=== PATIENT | male | born 1960 | race Caucasian/White ===

== ENCOUNTER 2021-09-23 15:29 | Inpatient (IN) ==
[2021-09-23] MEDS ORDERED: dexAMETHasone**PF** 10 MG/ML VIAL IV ONE (16:13)
[2021-09-23] MEDS ORDERED: ACETAMINOPHEN 325 MG TAB PO STA (16:13)
--- NOTE | 2021-09-23 16:18 | Emergency Department Note ---
Impression & Plan 2019 novel coronavirus-infected pneumonia (NCIP), Hypoxia, Weakness, Cough ED Provider Note Provider: Surya Vaca MD DATE OF SERVICE: 09/23/2021 CHIEF COMPLAINT: Weakness, cough, shortness of breath HISTORY OF PRESENT ILLNESS: Patient is a 61-year-old gentleman denies past medical problems presenting here today stating he has been sick for approximately 8 days. Is not vaccinated for Covid. Reports he became sick last Friday with some mild head cold type symptoms. Has been having significant cough, myalgias, generalized weakness and worsening shortness of breath over the last several days. Has been using home [id number] cold medicine some Tylenol at times. States has been sleeping more than normal but denies any syncope or falls. States occasional with coughing has been having little bit of upper abdominal pain at times but no tenderness. Patient relates he has had some thick occasional productive secretions with his cough but intermittent. Patient denies a history of smoking. Patient reports he does not follow that closely with a PCP. Last was Dr. Guzman. REVIEW OF SYSTEMS: A total of 10 review of systems was obtained and negative except as stated above in the HPI. 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 NECK: Trachea midline. ENT: Mucous membranes pink and moist. LUNGS: Airway patent. No retractions without significant tachypnea or work of breathing. HEART: Regular tachycardic rate and rhythm. No chest wall tenderness ABDOMEN: Soft and non-tender, without guarding or rebound. SKIN: Acyanotic, warm, dry, without rashes EXTREMITIES: Without swelling, tenderness or deformity NEUROLOGICAL: No focal deficits. No aphasia. No facial droop or slurred speech. EK bpm sinus tachycardia. No PVC or PAC. No acute ST segment elevation or depression. QTC 423. CONTINUOUS CARDIAC MONITORING: was ordered and showed a heart rate of 90s to 110s bpm in normal sinus rhythm to sinus tachycardia Patient's laboratory studies and imaging reviewed. Differential includes Infection, dehydration, metabolic abnormality, hypo/hyperglycemia, electrolyte disturbance, anemia, hypoxia, cardiac sources, intracerebral event, toxicologic, neurologic, as well as other pathologies. IMPRESSION/MEDICAL DECISION MAKING: Patient with nonspecific viral type symptoms and URI symptoms with shortness of breath found to be mildly hypoxic in the high 80s at rest unvaccinated for Covid. Covid test sent as this is the likely diagnosis. X-ray and basic labs ordered. Not having active chest pain and no abdominal tenderness. Doubt acute intra-abdominal pathology with this. Given some steroid for presumed Covid hypoxia. Due to volume of patients in the emergency department initially seen in a sub wait. Titrated on nasal cannula oxygen given his hypoxia. Blood work with mild leukopenia and slight AST elevation consistent with viral syndrome of Covid. Troponin not elevated. No severe electrolyte abnormality noted. X-ray per my review and radiology report with evidence of some diffuse viral findings but no consolidative pneumonia or pneumothorax or significant pleural effusion noted. Covid positive. Patient again with oxygen requirement. Given again steroid and some Tylenol here. Discussed with him further care here at the hospital. Hospitalist was consulted. DIAGNOSIS: COVID-19 pneumonia, hypoxia, weakness DISPOSITION: Hospitalist will evaluate Patient was agreeable with this plan. Past Med/Surg History Medical History (Updated 09/23/21 @ 18:19 by Jose Francis MD) No pertinent past medical history Surgical History (Updated 09/23/21 @ 18:01 by Jose Francis MD) History of hand surgery traumatic chainsaw injury to left hand History of knee surgery prior lefttraumatic knee injury Social History Smoking Status: Never smoker Feels Safe at Home: Yes Allergies Allergies Allergy/AdvReac Type Severity Reaction Status Date / Time No Known Drug Allergies Allergy Verified 09/23/21 17:57 Home Meds Home Medications Medication Instructions Recorded Confirmed No Known Home Medications 09/23/21 09/23/21 Results & Data (ED) Vital Signs Vital Signs - 24 hr 09/23/21 15:35 09/23/21 16:29 09/23/21 17:29 Temperature 37.6 C H Temperature Source Temporal Artery Scan Pulse Rate 109 H Pulse Rate [Apical] 90 Respiratory Rate 20 20 Respiratory Effort / Characteristics Non-Labored Spontaneous Respiratory Depth Normal Respiratory Pattern Regular Blood Pressure 135/75 Blood Pressure [Right Arm] 129/88 Blood Pressure Mean 95 Blood Pressure Mean [Right Arm] 101 Pulse Oximetry 88 L 94 Oxygen Delivery Method Room Air Room Air Nasal Cannula Oxygen Flow Rate 4 Sepsis Recent Fever Within 48 Hours No Sepsis New/Unexplained Change in Mental Status No Sepsis Action Taken by Nursing No Action Required 09/23/21 18:27 Temperature Temperature Source Pulse Rate Pulse Rate [Apical] 94 H Respiratory Rate 18 Respiratory Effort / Characteristics Respiratory Depth Respiratory Pattern Blood Pressure Blood Pressure [Right Arm] 123/73 Blood Pressure Mean Blood Pressure Mean [Right Arm] 89 Pulse Oximetry 94 Oxygen Delivery Method Nasal Cannula Oxygen Flow Rate 4 Sepsis Recent Fever Within 48 Hours Sepsis New/Unexplained Change in Mental Status Sepsis Action Taken by Nursing Laboratory Data Result diagrams: 09/23/21 16:23 09/23/21 16:23 Lab Results 09/23/21 09/23/21 09/23/21 Range/Units 16:23 16:23 16:23 WBC 3.33 L (4.8-10.8) K/uL RBC 5.53 (4.7-6.1) M/uL Hgb 17.9 (14.0-18.0) g/dL Hct 51.3 (42-52) % MCV 92.8 (80-100) fL MCH 32.4 (25-34) pg MCHC 34.9 (32-36) g/dL RDW Std Deviation 43.1 (36.4-46.3) fL RDW Coeff of James 12.6 (11.5-14.5) % Plt Count 104 L (130-400) K/uL MPV 10.8 H (7.4-10.4) fL Immature Gran % (Auto) 0.0 % Neut % (Auto) 75.4 % Lymph % (Auto) 18.0 % [place] % (Auto) 6.6 % Eos % (Auto) 0.0 % Baso % (Auto) 0.0 % Neut # (Auto) 2.51 (1.4-6.5) K/uL Lymph # (Auto) 0.60 L (1.2-3.4) K/uL [place] # (Auto) 0.22 (0.11-0.59) K/uL Eos # (Auto) 0.00 (0-0.5) K/uL Baso # (Auto) 0.00 (0-0.2) K/uL Immature Gran # (Auto) 0.00 (0.00-0.02) K/uL Sodium 136 (136-145) mmol/L Potassium 4.2 (3.5-5.1) mmol/L Chloride 102 (98-107) mmol/L Carbon Dioxide 25 (21-32) mmol/L Anion Gap 9.0 (3-11) BUN 21 H (7-18) mg/dl Creatinine 1.33 (0.6-1.4) mg/dl Est Cr Clr Drug Dosing 59.7 ml/min Est GFR ( Amer) 66.4 ml/min Est GFR (Non-Af Amer) 57.3 ml/min BUN/Creatinine Ratio 15.8 (10-20) Glucose 133 H (70-99) mg/dl Calcium 9.3 (8.5-10.1) mg/dl Total Bilirubin 0.4 (0.2-1) mg/dl AST 40 H (15-37) U/L ALT 39 (12-78) Alkaline Phosphatase 49 (45-117) U/L Troponin I < 0.015 (0-0.045) ng/ml C-Reactive Protein 2.36 H (0-0.29) mg/dl Total Protein 7.5 (6.4-8.2) gm/dl Albumin 3.4 (3.4-5.0) gm/dl Globulin 4.1 H (2.5-4.0) gm/dl Albumin/Globulin Ratio 0.8 L (0.9-2) Procalcitonin 0.22 (0-0.5) ng/ml TSH 3.530 (0.300-4.500) uIu/ml SARS-CoV-2, RNA, NAAT (NEGATIVE) 09/23/21 Range/Units 16:56 WBC (4.8-10.8) K/uL RBC (4.7-6.1) M/uL Hgb (14.0-18.0) g/dL Hct (42-52) % MCV (80-100) fL MCH (25-34) pg MCHC (32-36) g/dL RDW Std Deviation (36.4-46.3) fL RDW Coeff of James (11.5-14.5) % Plt Count (130-400) K/uL MPV (7.4-10.4) fL Immature Gran % (Auto) % Neut % (Auto) % Lymph % (Auto) % [place] % (Auto) % Eos % (Auto) % Baso % (Auto) % Neut # (Auto) (1.4-6.5) K/uL Lymph # (Auto) (1.2-3.4) K/uL [place] # (Auto) (0.11-0.59) K/uL Eos # (Auto) (0-0.5) K/uL Baso # (Auto) (0-0.2) K/uL Immature Gran # (Auto) (0.00-0.02) K/uL Sodium (136-145) mmol/L Potassium (3.5-5.1) mmol/L Chloride (98-107) mmol/L Carbon Dioxide (21-32) mmol/L Anion Gap (3-11) BUN (7-18) mg/dl Creatinine (0.6-1.4) mg/dl Est Cr Clr Drug Dosing ml/min Est GFR ( Amer) ml/min Est GFR (Non-Af Amer) ml/min BUN/Creatinine Ratio (10-20) Glucose (70-99) mg/dl Calcium (8.5-10.1) mg/dl Total Bilirubin (0.2-1) mg/dl AST (15-37) U/L ALT (12-78) Alkaline Phosphatase (45-117) U/L Troponin I (0-0.045) ng/ml C-Reactive Protein (0-0.29) mg/dl Total Protein (6.4-8.2) gm/dl Albumin (3.4-5.0) gm/dl Globulin (2.5-4.0) gm/dl Albumin/Globulin Ratio (0.9-2) Procalcitonin (0-0.5) ng/ml TSH (0.300-4.500) uIu/ml SARS-CoV-2, RNA, NAAT POSITIVE A* (NEGATIVE) Administered Medications Discontinued Medications Acetaminophen (Acetaminophen 325 Mg Tab) 650 mg PO NOW STA Stop: 09/23/21 16:14 Last Admin: 09/23/21 17:17 Dose: 650 mg Documented by: [id number] Dexamethasone Sodium Phosphate (DexamethasonePf 10 Mg/Ml Vial) 6 mg IV NOW ONE Stop: 09/23/21 16:14 Last Admin: 09/23/21 17:17 Dose: 6 mg Documented by: [id number] Imaging Data Radiologist's Impression: Chest X-Ray 09/23/21 16:13 XR chest 1V portable HISTORY: 61 years-old Male weakness, sob, hypoxia, myalgia acute weakness COMPARISON: None TECHNIQUE: Semierect AP view of the chest FINDINGS: Cardiac silhouette is enlarged. Interstitial coarsening with ill-defined airspace opacities within the mid to lower lung zones. No pneumothorax or large pleural effusion. Mild blunting of the costophrenic angles. Degenerative changes of the shoulders and spine. IMPRESSION: 1. Ill-defined opacities within the mid to lower lung zones are suspicious for an infectious or inflammatory pneumonitis. 2. Cardiomegaly. ACT 112: Negative or not required by law. The above report was generated using voice recognition software. It may contain grammatical, syntax or spelling errors. Electronically signed by: Lance Dawkins M.D. 09/23/2021 5:07 PM Discharge Plan Visit Data Chief Complaint: Headache Stated Complaint: HEADACHE/ACHEY/CAN'T EAT/FEVER/CHILLS ED Provider: Surya Vaca Discharge Problem: 2019 novel coronavirus-infected pneumonia (NCIP), Hypoxia, Weakness, Cough Patient Disposition: Being Evaluated by Hospitalist Forms Stand Alone Forms: [facility] Prescriptions Prescriptions: No Action No Known Home Medications RF: 0 Referrals Referrals: PCP,NO [Primary Care Provider] -
[2021-09-23 16:33] LABS: Hematocrit (blood only) 51.3 % (42-52); Hemoglobin 17.9 g/dL (14.0-18.0); Mean Corpuscular Hemoglobin 32.4 pg (25-34); Mean Corpuscular Hgb Conc 34.9 g/dL (32-36); Mean Corpuscular Volume 92.8 fL (80-100); Mean Platelet Volume 10.8 fL (7.4-10.4); Monocytes # (auto) 0.22 K/uL (0.11-0.59); Monocytes % (auto) 6.6 %; Neutrophils # (auto) 2.51 K/uL (1.4-6.5); Neutrophils % (auto) 75.4 %; Platelet Count 104 K/uL (130-400); RDW Coefficient of Variation 12.6 % (11.5-14.5); RDW Standard Deviation 43.1 fL (36.4-46.3); Red Blood Count 5.53 M/uL (4.7-6.1); White Blood Count 3.33 K/uL (4.8-10.8)
[2021-09-23 16:50] LABS: Alanine Aminotransferase 39 (12-78); Albumin Level 3.4 gm/dl (3.4-5.0); Aspartate Aminotransferase 40 U/L (15-37); BUN Creatinine Ratio 15.8 (10-20); Blood Urea Nitrogen 21 mg/dl (7-18); Calcium 9.3 mg/dl (8.5-10.1); Carbon Dioxide 25 mmol/L (21-32); Chloride 102 mmol/L (98-107); Creatinine Clr Calc Pharmacy 59.7 ml/min; Est GFR (African American) 66.4 ml/min; Est GFR (Non-African American) 57.3 ml/min; Glucose 133 mg/dl (70-99); Potassium 4.2 mmol/L (3.5-5.1); Sodium 136 mmol/L (136-145)
[2021-09-23 17:01] LABS: Albumin Globulin Ratio 0.8 (0.9-2); Alkaline Phosphatase 49 U/L (45-117); Bilirubin,Total 0.4 mg/dl (0.2-1); Globulin 4.1 gm/dl (2.5-4.0); Total Protein 7.5 gm/dl (6.4-8.2); Troponin I < 0.015 ng/ml (0-0.045)
--- NOTE | 2021-09-23 17:08 | XRay Report ---
XR chest 1V portable HISTORY: 61 years-old Male weakness, sob, hypoxia, myalgia acute weakness COMPARISON: None TECHNIQUE: Semierect AP view of the chest FINDINGS: Cardiac silhouette is enlarged. Interstitial coarsening with ill-defined airspace opacities within th e mid to lower lung zones. No pneumothorax or large pleural effusion. Mild blunting of the costophren ic angles. Degenerative changes of the shoulders and spine. IMPRESSION: 1. Ill-defined opacities within the mid to lower lung zones are suspicious for an infectious or infla mmatory pneumonitis. 2. Cardiomegaly. ACT 112: Negative or not required by law. The above report was generated using voice recognition software. It may contain grammatical, syntax o r spelling errors. Electronically signed by: Lance Dawkins M.D. 09/23/2021 5:07 PM
--- NOTE | 2021-09-23 17:47 | History & Physical Report ---
Date of Service September 23, 2021 Assessment & Plan (1) 2019 novel coronavirus-infected pneumonia (NCIP): Plan: Day 9 of illness on admission Unvaccinated COVID isolation Encourage proning as able Dexamethasone 6mg IV daily (2) Acute respiratory failure with hypoxia: Plan: Secondary to COVID-19 pneumonia Currently maintaining O2 sats >90% on 4LPM Plan: VTE Prophylaxis - Lovenox 40mg SQ daily Diet - regular Disposition - admit to med/surg, COVID isolation, low tolerance to transfer to med/tele/PCU as likely will get worse prior to any improvement Admission and Anticipated Discharge Date Admission Date: September 23, 2021 History of Present Illness Chief Complaint: COVID-19 symptoms Primary Care Provider: NO PCP Bunny Rizvi is a 61 year old male who presents to the ER with COVID-19 symptoms for the last 9 days. He reports shortness of breath, non-productive cough, weakness, diarrhea (last couple of days) and poor appetite. He denies any chest or abdominal pain. He is unvaccinated. No prior testing or treatment. He is currently without a PCP but was previously under Dr Guzman 2 years ago and not found a doctor since he left. He reports no chronic medical problems and is on no regular medications. In the ER SARS COV-2 PCR positive. He is currently maintaining O2 sats > 90% on 4LPM O2 via nasal cannula. He received 6mg IV dexamethasone and was referred to medicine for admission and ongoing management of COVID-19 pneumonia. Allergies Allergy/AdvReac Type Severity Reaction Status Date / Time No Known Drug Allergies Allergy Verified 09/23/21 17:57 Home Medications Medication Instructions Recorded Confirmed Type No Known Home Medications 09/23/21 09/23/21 History Past Med/Surg History Medical History (Updated 09/23/21 @ 18:19 by Jose Francis MD) No pertinent past medical history Surgical History (Updated 09/23/21 @ 18:01 by Jose Francis MD) History of hand surgery traumatic chainsaw injury to left hand History of knee surgery prior lefttraumatic knee injury Social History Smoking Status: Never smoker Do You Dip or Chew Tobacco: Yes; Hx Alcohol Use: No Hx Substance Use: No Preferred Language: Yi Communication Ability: Effective 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 Beliefs That Will Affect Care: None Current Living Situation Comment: LIVES WITH SON RICH Feels Safe at Home: Yes Assistive Devices: Glasses and Hearing Aid - Bilateral Review of Systems Review of Systems: All systems reviewed & are unremarkable except as noted in HPI & below Physical Exam Constitutional: WD/WN, vitals as above Eyes: + anicteric sclerae; normal pupil size ENMT: external ear and nose normal, oropharynx normal Neck: trachea midline, no thyromegaly Respiratory: normal respiratory effort; no respiratory distress Auscultation: + crackles (fine, bibasal); no diminished lung sounds Cardiovascular: RRR, no murmur, no edema Gastrointestinal (Abdomen): Inspection/Auscultation: normal bowel sounds Percussion/Palpation: abdomen soft; abdomen nontender, no guarding and abdomen not rigid Musculoskeletal: no cyanosis or clubbing, extremities motor strength 5/5 Skin: no rashes, warm and dry Neurologic: moves all extremities and awake; not confused Psychiatric: A+Ox3, euthymic affect Genitourinary: no CVA tenderness Results & Data Results & Data ([facility]) Vital Signs (Past 12 Hours) Vital Signs Temp Pulse Resp BP Pulse Ox 09/23/21 15:35 37.6 C H 109 H 20 135/75 88 L Laboratory Results Abnormal lab results 09/23/21 09/23/21 09/23/21 Range/Units 16:23 16:23 16:56 WBC 3.33 L (4.8-10.8) K/uL Plt Count 104 L (130-400) K/uL MPV 10.8 H (7.4-10.4) fL Lymph # (Auto) 0.60 L (1.2-3.4) K/uL BUN 21 H (7-18) mg/dl Glucose 133 H (70-99) mg/dl AST 40 H (15-37) U/L C-Reactive Protein 2.36 H (0-0.29) mg/dl Globulin 4.1 H (2.5-4.0) gm/dl Albumin/Globulin Ratio 0.8 L (0.9-2) SARS-CoV-2, RNA, NAAT POSITIVE A* (NEGATIVE) Diagnostic Findings XR chest 1V portable HISTORY: 61 years-old Male weakness, sob, hypoxia, myalgia acute weakness COMPARISON: None TECHNIQUE: Semierect AP view of the chest FINDINGS: Cardiac silhouette is enlarged. Interstitial coarsening with ill-defined airspace opacities within the mid to lower lung zones. No pneumothorax or large pleural effusion. Mild blunting of the costophrenic angles. Degenerative changes of the shoulders and spine. IMPRESSION: 1. Ill-defined opacities within the mid to lower lung zones are suspicious for an infectious or inflammatory pneumonitis. 2. Cardiomegaly. Medications Administered ER Medications Given: Acetaminophen 650mg PO Dexamethasone 6mg IV Code Status & VTE Plan Code Status Full VTE Prophylaxis Plan VTE Prophylaxis will be ordered: Yes PG Care Time/CCT Total # of Minutes Spent Total Time Spent with Patient: Total time spent is greater than 50% in coordination of care (as documented) at patient's floor/unit and/or counseling patient: Coding Level of Care Code 14142 Initial Inpt Care Lvl 2 Diagnoses 2019 novel coronavirus-infected pneumonia (NCIP) U07.1; J12.82 Acute respiratory failure with hypoxia J96.01
[2021-09-23 18:11] LABS: C Reactive Protein 2.36 mg/dl (0-0.29)
[2021-09-23] MEDS ORDERED: ONDANSETRON INJ 2 MG/ML 2 ML VIAL IV PRN (21:10)
[2021-09-23] MEDS ORDERED: POLYETHYLENE (MIRALAX) 17 GM PACK PO PRN (21:10)
[2021-09-23] MEDS ORDERED: ALUMINUM/MAGNESIUM SUSP 30 ML UDC PO PRN (21:10)
[2021-09-23] MEDS ORDERED: ENOXAPARIN INJ 40 MG/0.4 ML SYR SQ SCH (21:30)
[2021-09-23] MEDS ORDERED: FLUARIX QUADRIVALENT 0.5 ML SYR IM ONE (21:33)
[2021-09-24] MEDS ORDERED: ALBUTEROL HFA 8 GM INHALER INH ONE (01:51)
[2021-09-24 02:33] LABS: Appearance Urine Clear (Clear); Bacteria Urine Automated Negative (Negative); Bilirubin Urine Negative (Negative); Blood Urine Negative (Negative); Color Urine Dark Yellow; Glucose Urine UA 2+ (Negative); Ketones Urine 1+ (Negative); Leukocyte Esterase Urine Negative (Negative); Nitrite Urine Negative (Negative); Protein Urine 2+ (Negative); RBC Urine Automated 0-4 /hpf (0-4); Specific Gravity Urine 1.027 (1.000-1.030); Urobilinogen Urine Negative (Negative)
[2021-09-24] MEDS ORDERED: FUROSEMIDE INJ 20 MG/2 ML VIAL IV ONE (10:30)
[2021-09-24] MEDS: dexAMETHasone 6 MG in SYRINGE 0 ML IV SCH (10:54)
[2021-09-24] MEDS: ENOXAPARIN INJ 40 MG/0.4 ML SYR SQ SCH ×2 (11:16→21:03)
[2021-09-24] MEDS: ASCORBIC ACID 500 MG TAB PO SCH (11:16)
[2021-09-24] MEDS: FAMOTIDINE 20 MG TAB PO SCH ×2 (11:16→21:02)
[2021-09-24] MEDS: MONTELUKAST SODIUM 10 MG TABLET PO SCH (11:16)
[2021-09-24] MEDS: ZINC SULFATE 220 MG CAPSULE PO SCH (11:16)
--- NOTE | 2021-09-24 12:50 | Hospitalist Progress Note ---
Date of Service September 24, 2021 Assessment & Plan (1) 2019 novel coronavirus-infected pneumonia (NCIP): Plan: - presented on day #9 of symptoms onset - unvaccinated - mild leukopenia and thrombocytopenia upon arrival (3.33/104 respectively) - does not qualify for Remdesivir (given too far into symptoms course) - decadron (days #2) - CRP 2.36. does not qualify for baricitinib or tocilizumab - I have encouraged proning - continue O2 supplementation to maintain pulse ox >/=99% - mucolytic agents and antitussives prn - pepcid/singulair added (GI prophylaxis and ? help with immune response cascade) along with vitamin C and zinc for immune support - lasix trials (2) Acute respiratory failure with hypoxia: Plan: Secondary to COVID-19 pneumonia - see above. goal pulse ox >/=88% - lengthy D/W patient regarding importance of NOT taking his O2 off (as did desaturate into the 70's when talking on the phone today with O2 off) Plan: VTE Prophylaxis - Lovenox 40mg SQ bid plan os care to be d/W Dr. Alexis Admission and Anticipated Discharge Date Admission Date: September 23, 2021 Subjective Patient seen on daily rounds today. Vocalizes no significant complaints or concerns. Admitted yesterday with Covid. Chest x-ray showed ill-defined opacities on imaging. Pulse ox was 88% on room air. When seen this morning, he had taken his oxygen off and was talking on the phone. While at rest his pulse ox remained 88 to 90% but while talking, he did desaturate into the 70s. He denies shortness of breath. Denies fevers, chills, chest pain, orthopnea, PND, abdominal pain, nausea or vomiting. Nursing voices no complaints or concerns. Review of Systems Review of Systems: All systems reviewed and are unremarkable except as noted in HPI and below Denies fevers, chills, headache, nasal congestion, sore throat, cough, chest pain, shortness of breath, palpitations, orthopnea, PND, abdominal pain, nausea, vomiting, diarrhea, constipation, dysuria, hematuria, frequency, back pain, joint pain or swelling, easy bruising or bleeding, skin lesions or rashes. Physical Exam Physical Exam: General: Resting comfortably in his hospital bed. NAD. HEENT: Head is AT/NC buccal mucosa is moist and pink Neck: No JVD. Negative hepatojugular reflex Cardiac: RRR without M/G/R Lungs: Speaking full sentences on supplemental oxygen. No accessory muscle use and breathing is nonlabored. Good air exchange throughout with coarse scattered rhonchi that mobilizes with coughing Abdomen: Normoactive X4. Soft and nontender in all quadrants. Extremities: No peripheral clubbing cyanosis or edema Neuro: A&O X4 cranial nerves II through XII are grossly intact no focal neuro deficits Skin: No obvious skin lesions or rashes Psych: Appropriate affect pleasant and cooperative Results & Data Results & Data ([facility]) Vital Signs (Past 12 Hours) Vital Signs Temp Pulse Resp BP Pulse Ox 09/24/21 08:14 36.5 C 78 20 123/88 94 09/24/21 03:16 65 26 H 93 09/24/21 02:28 93 Laboratory Results 09/23/21 16:23 09/23/21 16:23 PG Care Time/CCT Total # of Minutes Spent Total Time Spent with Patient: Total time spent is greater than 50% in coordination of care (as documented) at patient's floor/unit and/or counseling patient: Coding Level of Care Code 59686 Subseq Hosp Care Lvl 2 Diagnoses 2019 novel coronavirus-infected pneumonia (NCIP) U07.1; J12.82 Acute respiratory failure with hypoxia J96.01
[2021-09-24] MEDS: ACETAMINOPHEN 325 MG TAB PO PRN (21:14)
[2021-09-24] MEDS: BENZONATATE 100 MG CAPSULE PO PRN (21:15)
[2021-09-25 06:18] LABS: Hematocrit (blood only) 50.5 % (42-52); Hemoglobin 17.3 g/dL (14.0-18.0); Immature Granulocytes # (auto) 0.01 K/uL (0.00-0.02); Immature Granulocytes % (auto) 0.1 %; Lymphocytes # (auto) 0.64 K/uL (1.2-3.4); Lymphocytes % (auto) 9.4 %; Mean Corpuscular Hemoglobin 31.7 pg (25-34); Mean Corpuscular Hgb Conc 34.3 g/dL (32-36); Mean Corpuscular Volume 92.5 fL (80-100); Mean Platelet Volume 10.8 fL (7.4-10.4); Monocytes # (auto) 0.48 K/uL (0.11-0.59); Neutrophils # (auto) 5.69 K/uL (1.4-6.5); Neutrophils % (auto) 83.5 %; Platelet Count 134 K/uL (130-400); RDW Coefficient of Variation 12.7 % (11.5-14.5); RDW Standard Deviation 42.9 fL (36.4-46.3); Red Blood Count 5.46 M/uL (4.7-6.1); White Blood Count 6.82 K/uL (4.8-10.8)
[2021-09-25] MEDS: ACETAMINOPHEN 325 MG TAB PO PRN ×2 (06:46→21:41)
[2021-09-25] MEDS: BENZONATATE 100 MG CAPSULE PO PRN ×3 (06:47→21:41)
[2021-09-25 06:51] LABS: Albumin Level 2.9 gm/dl (3.4-5.0); Est GFR (African American) 69.5 ml/min; Potassium 4.3 mmol/L (3.5-5.1)
[2021-09-25 07:50] LABS: Albumin Globulin Ratio 0.7 (0.9-2); Bilirubin,Total 0.3 mg/dl (0.2-1); Globulin 4.3 gm/dl (2.5-4.0); Total Protein 7.2 gm/dl (6.4-8.2)
[2021-09-25] MEDS: ASCORBIC ACID 500 MG TAB PO SCH (08:58)
[2021-09-25] MEDS: ZINC SULFATE 220 MG CAPSULE PO SCH (08:58)
[2021-09-25] MEDS: ENOXAPARIN INJ 40 MG/0.4 ML SYR SQ SCH ×2 (08:58→21:24)
[2021-09-25] MEDS: FAMOTIDINE 20 MG TAB PO SCH ×2 (08:58→21:24)
[2021-09-25] MEDS: MONTELUKAST SODIUM 10 MG TABLET PO SCH (08:58)
[2021-09-25] MEDS: dexAMETHasone 6 MG in SYRINGE 0 ML IV SCH (09:22)
[2021-09-25 09:28] LABS: Magnesium 2.6 mg/dl (1.8-2.4)
[2021-09-25] MEDS ORDERED: GLUCAGON FOR INJ 1 MG VIAL SQ PRN (11:38)
[2021-09-25] MEDS ORDERED: GLUCOSE 40% GEL 15 GM TUBE PO PRN (11:38)
[2021-09-25] MEDS ORDERED: CARBOHYDRATES FOR HYPOGLYCEMIA PO PRN (11:38)
[2021-09-25] MEDS ORDERED: DEXTROSE 50% 50 ML SYRINGE IV PRN (11:38)
[2021-09-25] MEDS ORDERED: FUROSEMIDE INJ 20 MG/2 ML VIAL IV ONE (11:38)
[2021-09-25] MEDS ORDERED: GLUCOSE 10 TABS/TUBE PO PRN (11:38)
[2021-09-25 13:02] LABS: Estimated Average Glucose 154 mg/dl
--- NOTE | 2021-09-25 15:15 | Hospitalist Progress Note ---
Date of Service September 25, 2021 Assessment & Plan (1) 2019 novel coronavirus-infected pneumonia (NCIP): Plan: - presented on day #9 of symptoms onset - unvaccinated - mild leukopenia and thrombocytopenia upon arrival (3.33/104 respectively)--> has since resolved - does not qualify for Remdesivir (given too far into symptoms course) - decadron (days #3) - CRP 2.36. does not qualify for baricitinib or tocilizumab - I have encouraged proning - continue O2 supplementation to maintain pulse ox >/=99% (again, lengthy discussion with patient that he cannot just take his oxygen off). He remains on a facemask. We will transition over to nasal cannula for convenience. This was done during my exam today and on 6 L, pulse ox remained in the mid 90s. Staff encouraged to continue to down titrate his supplemental oxygen to maintain a pulse ox of 90% - mucolytic agents and antitussives prn - pepcid/singulair added (GI prophylaxis and ? help with immune response c ascade) along with vitamin C and zinc for immune support -Continue lasix trials (2) Acute respiratory failure with hypoxia: Plan: Secondary to COVID-19 pneumonia - see above. goal pulse ox >/=88% - lengthy D/W patient regarding importance of NOT taking his O2 off (as did desaturate into the 70's when talking on the phone without supplemental O2) Plan: VTE Prophylaxis - Lovenox 40mg SQ bid plan os care to be d/W Dr. Alexis Admission and Anticipated Discharge Date Admission Date: September 23, 2021 Subjective Patient seen on daily rounds today. Vocalizes no significant complaints or concerns. When seen this morning, remains on facemask at 7 to 8 L. Pulse ox 96%. Has been "taking it off to eat". Claims that his oxygen levels "are okay". Unable to tell me exactly what they do when he is on room air. He does feel winded. He is complaining of some mild dizziness when he sits. Still with a cough that seems loose but nonproductive. Otherwise, denies fevers, chills, chest pain, abdominal pain, nausea or vomiting. Review of Systems Review of Systems: All systems reviewed and are unremarkable except as noted in HPI and below Denies fevers, chills, headache, nasal congestion, sore throat, cough, chest pain, shortness of breath, palpitations, orthopnea, PND, abdominal pain, nausea, vomiting, diarrhea, constipation, dysuria, hematuria, frequency, back pain, joint pain or swelling, easy bruising or bleeding, skin lesions or rashes. Physical Exam Physical Exam: General: Resting comfortably in his hospital bed. He does not appear ill or toxic. NAD. HEENT: Head is AT/NC buccal mucosa is moist and pink Neck: No JVD. Negative hepatojugular reflex Cardiac: RRR Lungs: Breathing is nonlabored. Speaking full sentences without conversational dyspnea. Diminished breath sounds throughout with coarse scattered rhonchi that mobilizes with coughing. Otherwise no wheezes or rales. Abdomen: Normoactive X4. Soft and nontender in all quadrants. Extremities: No peripheral clubbing cyanosis or edema Neuro: A&O X4 cranial nerves II through XII are grossly intact no focal neuro deficits Skin: No obvious skin lesions or rashes Psych: Appropriate affect pleasant and cooperative Results & Data Results & Data ([facility]) Vital Signs (Past 12 Hours) Vital Signs Temp Pulse Resp BP Pulse Ox 09/25/21 12:20 94 09/25/21 07:55 36.8 C 79 16 132/92 95 Laboratory Results 09/25/21 05:56 09/25/21 05:56 PG Care Time/CCT Total # of Minutes Spent Total Time Spent with Patient: Total time spent is greater than 50% in coordination of care (as documented) at patient's floor/unit and/or counseling patient: Coding Level of Care Code 44512 Subseq Hosp Care Lvl 2 Diagnoses 2019 novel coronavirus-infected pneumonia (NCIP) U07.1; J12.82 Acute respiratory failure with hypoxia J96.01
[2021-09-25] MEDS: INSULIN ASPART PER UNIT SC SCH ×2 (18:04→21:30)
--- NOTE | 2021-09-25 21:55 | Electrocardiogram Report ---
Test Reason : Blood Pressure : / mmHG Vent. Rate : 108 BPM Atrial Rate : 108 BPM P-R Int : 154 ms QRS Dur : 088 ms QT Int : 316 ms P-R-T Axes : 045 -13 043 degrees QTc Int : 423 ms Sinus tachycardia Minimal voltage criteria for LVH, may be normal variant Borderline ECG No previous ECGs available Confirmed by Dandre William ([id number]) on 09/25/2021 9:55:50 PM Referred By: REFERRED SELF Confirmed By:Dandre William
[2021-09-26 06:14] LABS: Hematocrit (blood only) 51.6 % (42-52); Hemoglobin 17.8 g/dL (14.0-18.0); Immature Granulocytes # (auto) 0.02 K/uL (0.00-0.02); Immature Granulocytes % (auto) 0.3 %; Lymphocytes # (auto) 0.64 K/uL (1.2-3.4); Lymphocytes % (auto) 8.1 %; Mean Corpuscular Hemoglobin 31.8 pg (25-34); Mean Corpuscular Hgb Conc 34.5 g/dL (32-36); Mean Corpuscular Volume 92.3 fL (80-100); Mean Platelet Volume 10.9 fL (7.4-10.4); Monocytes # (auto) 0.53 K/uL (0.11-0.59); Monocytes % (auto) 6.7 %; Neutrophils # (auto) 6.68 K/uL (1.4-6.5); Neutrophils % (auto) 84.9 %; Platelet Count 138 K/uL (130-400); RDW Coefficient of Variation 12.6 % (11.5-14.5); RDW Standard Deviation 42.8 fL (36.4-46.3); Red Blood Count 5.59 M/uL (4.7-6.1); White Blood Count 7.87 K/uL (4.8-10.8)
[2021-09-26 06:59] LABS: Albumin Level 2.9 gm/dl (3.4-5.0); BUN Creatinine Ratio 26.5 (10-20); Calcium 9.3 mg/dl (8.5-10.1); Est GFR (African American) 73.7 ml/min; Est GFR (Non-African American) 63.6 ml/min; Potassium 4.4 mmol/L (3.5-5.1)
[2021-09-26 07:00] LABS: Albumin Globulin Ratio 0.7 (0.9-2); Bilirubin,Total 0.5 mg/dl (0.2-1); Globulin 4.4 gm/dl (2.5-4.0); Total Protein 7.3 gm/dl (6.4-8.2)
--- NOTE | 2021-09-26 08:02 | XRay Report ---
XR chest 1V portable CLINICAL HISTORY: worsening hypoxia TECHNIQUE: Single frontal radiograph of the chest was obtained. Comparison: Comparison is made to chest one view 09/23/2021 FINDINGS: No lines and tubes are seen. The cardiomediastinal silhouette is stable. Multifocal airspace opacitie s are seen. No evidence of pleural effusion or pneumothorax. IMPRESSION: Worsening multifocal airspace opacities compatible with pneumonia. ACT 112: Negative or not required by law. Electronically signed by: Ramiro Jackson M.D. 09/26/2021 8:01 AM
[2021-09-26] MEDS: INSULIN ASPART PER UNIT SC SCH ×4 (09:13→21:36)
[2021-09-26] MEDS: dexAMETHasone 6 MG in SYRINGE 0 ML IV SCH (09:13)
[2021-09-26] MEDS: FAMOTIDINE 20 MG TAB PO SCH ×2 (09:14→21:32)
[2021-09-26] MEDS: MONTELUKAST SODIUM 10 MG TABLET PO SCH (09:14)
[2021-09-26] MEDS: ASCORBIC ACID 500 MG TAB PO SCH (09:15)
[2021-09-26] MEDS: ENOXAPARIN INJ 40 MG/0.4 ML SYR SQ SCH ×2 (09:15→21:32)
[2021-09-26] MEDS: ZINC SULFATE 220 MG CAPSULE PO SCH (09:15)
[2021-09-26] MEDS ORDERED: FUROSEMIDE INJ 20 MG/2 ML VIAL IV ONE (12:45)
[2021-09-26] MEDS: BENZONATATE 100 MG CAPSULE PO PRN ×2 (13:38→21:37)
[2021-09-26] MEDS: ACETAMINOPHEN 325 MG TAB PO PRN ×2 (13:38→21:37)
[2021-09-26] MEDS ORDERED: OPTIRAY 320 125ml IV ONE (14:23)
--- NOTE | 2021-09-26 14:32 | CT Scan Report ---
CT angio chest PE protocol CLINICAL HISTORY: Shortness of breath. Covid positive. Evaluate for pulmonary embolus COMPARISON STUDY: Portable chest from 09/26/2021 CT DOSE: 534.20 mGycm TECHNIQUE: CT Angio of the chest was performed.followed by image post processing with coronal, and s agittal MIP reformats. Contrast Volume: Optiray 320, 120 ml FINDINGS: Vasculature: There is homogeneous perfusion of the pulmonary vasculature bilaterally. No intraluminal filling defects or evidence for pulmonary embolus is seen. Airway: The airway is clear. No endobronchial lesion is identified. Lungs: Extensive groundglass opacities are present throughout both lungs characteristic of a viral ty pe pneumonitis and Covid 19 pneumonia. The lungs are otherwise clear of confluent alveolar opacities, air bronchograms or pulmonary nodules. Pleura: There is no evidence for pleural effusion. There is no evidence for pneumothorax. Mediastinum: There is no evidence for pathologic adenopathy. The heart size is within normal limits. The thoracic aorta is within normal limits. There is no evidence for pericardial effusion. Upper abdomen:The adrenal glands are normal bilaterally. There is evidence for small sliding-type hia kristy hernia. There are also sharply defined low-attenuation lesions within the liver which probably re present hepatic cysts. However, they're incompletely evaluated by this study. Osseous structures: There is no acute osseous pathology. Impression: 1. No CTA evidence for pulmonary embolus. 2. Extensive groundglass opacities are present throughout both lungs characteristic of a viral type p neumonitis and Covid 19 pneumonia. 3. Small sliding-type hiatal hernia. 4. Evidence for sharply defined hepatic cysts. Liver ultrasound is recommended for further evaluation confirmation. ACT 112: Positive. There are findings on this exam that require communication between the performing entity and the patient following Patient Test Result Information Act ([place] Act 112) guidelines. Electronically signed by: Joss Monreal M.D. 09/26/2021 2:31 PM
--- NOTE | 2021-09-26 17:17 | Hospitalist Progress Note ---
Date of Service September 26, 2021 Assessment & Plan (1) 2019 novel coronavirus-infected pneumonia (NCIP): Plan: - presented on day #9 of symptoms onset - unvaccinated - mild leukopenia and thrombocytopenia upon arrival (3.33/104 respectively)--> has since resolved - does not qualify for Remdesivir (given too far into symptoms course) - decadron (days #4) - CRP 2.36. does not qualify for baricitinib or tocilizumab - requiring 9L supplemental O2 and when on the phone, desaturates into the high 70's. Recovers when not talking. Although I dont want to discourage him from talking to his family, I have advised to avoid these conversations for now given this desaturation in his pulse ox. - I have encouraged proning. I - continue O2 supplementation to maintain pulse ox >/=88% (again, lengthy discussion with patient that he cannot just take his oxygen off). - mucolytic agents and antitussives prn - pepcid/singulair added (GI prophylaxis and ? help with immune response cascade) along with vitamin C and zinc for immune support - Continue lasix trials (2) Acute respiratory failure with hypoxia: Plan: Secondary to COVID-19 pneumonia - see above. goal pulse ox >/=88% - lengthy D/W patient regarding importance of NOT taking his O2 off (as did desaturate into the 70's when talking on the phone without supplemental O2) and limit/avoid phone conversations as desaturating with this Plan: VTE Prophylaxis - Lovenox 40mg SQ bid plan os care to be d/W Dr. Alexis Admission and Anticipated Discharge Date Admission Date: September 23, 2021 Subjective Patient seen on daily rounds today. He feels tired and easily fatigued but otherwise voices no significant c/c. Currently, requiring 9L supplemental O2. Continuously on the phone and when he talks, he is noted to desaturate to Review of Systems Review of Systems: All systems reviewed and are unremarkable except as noted in HPI and below Denies fevers, chills, headache, nasal congestion, sore throat, cough, chest pain, shortness of breath, palpitations, orthopnea, PND, abdominal pain, nausea, vomiting, diarrhea, constipation, dysuria, hematuria, frequency, back pain, joint pain or swelling, easy bruising or bleeding, skin lesions or rashes. Physical Exam Physical Exam: General: Resting comfortably in his hospital bed. Does seem fatigued today but overall stable. HEENT: Head is AT/NC buccal mucosa is moist and pink Neck: No JVD. Negative hepatojugular reflex Cardiac: RRR Lungs: Breathing is nonlabored. Speaking full sentences without conversational dyspnea. Diminished breath sounds throughout with coarse scattered rhonchi that mobilizes with coughing. Otherwise no wheezes or rales. Abdomen: Normoactive X4. Soft and nontender in all quadrants. Extremities: No peripheral clubbing cyanosis or edema Neuro: A&O X4 cranial nerves II through XII are grossly intact no focal neuro deficits Skin: No obvious skin lesions or rashes Psych: Appropriate affect pleasant and cooperative Results & Data Results & Data ([facility]) Vital Signs (Past 12 Hours) Vital Signs Temp Pulse Resp BP Pulse Ox 09/26/21 15:43 36.7 C 80 17 115/72 90 09/26/21 07:37 36.8 C 81 16 112/76 90 PG Care Time/CCT Total # of Minutes Spent Total Time Spent with Patient: Total time spent is greater than 50% in coordination of care (as documented) at patient's floor/unit and/or counseling patient: Coding Level of Care Code 20381 Subseq Hosp Care Lvl 2 Diagnoses 2019 novel coronavirus-infected pneumonia (NCIP) U07.1; J12.82 Acute respiratory failure with hypoxia J96.01
--- NOTE | 2021-09-27 06:13 | Electrocardiogram Report ---
Test Reason : Blood Pressure : / mmHG Vent. Rate : 076 BPM Atrial Rate : 076 BPM P-R Int : 176 ms QRS Dur : 092 ms QT Int : 390 ms P-R-T Axes : 029 -14 -12 degrees QTc Int : 438 ms Poor data quality, interpretation may be adversely affected Normal sinus rhythm Moderate voltage criteria for LVH, may be normal variant Borderline ECG When compared with ECG of 23-SEP-2021 16:14, T wave inversion now evident in Inferior leads Confirmed by Dandre William ([id number]) on 09/27/2021 6:13:29 AM Referred By: REFERRED SELF Confirmed By:Dandre William
[2021-09-27 06:27] LABS: Basophils # (auto) 0.01 K/uL (0-0.2); Basophils % (auto) 0.1 %; Hematocrit (blood only) 50.4 % (42-52); Hemoglobin 17.3 g/dL (14.0-18.0); Immature Granulocytes # (auto) 0.01 K/uL (0.00-0.02); Immature Granulocytes % (auto) 0.1 %; Lymphocytes # (auto) 0.47 K/uL (1.2-3.4); Lymphocytes % (auto) 5.2 %; Mean Corpuscular Hemoglobin 31.7 pg (25-34); Mean Corpuscular Hgb Conc 34.3 g/dL (32-36); Mean Corpuscular Volume 92.5 fL (80-100); Mean Platelet Volume 10.7 fL (7.4-10.4); Monocytes % (auto) 6.7 %; Neutrophils # (auto) 7.89 K/uL (1.4-6.5); Neutrophils % (auto) 87.9 %; Platelet Count 152 K/uL (130-400); RDW Coefficient of Variation 12.7 % (11.5-14.5); RDW Standard Deviation 42.8 fL (36.4-46.3); Red Blood Count 5.45 M/uL (4.7-6.1); White Blood Count 8.98 K/uL (4.8-10.8)
[2021-09-27 07:06] LABS: Albumin Level 2.7 gm/dl (3.4-5.0); BUN Creatinine Ratio 36.2 (10-20); Calcium 9.3 mg/dl (8.5-10.1); Est GFR (African American) 79.2 ml/min; Est GFR (Non-African American) 68.3 ml/min; Magnesium 3.1 mg/dl (1.8-2.4); Potassium 4.2 mmol/L (3.5-5.1)
[2021-09-27 07:09] LABS: Albumin Globulin Ratio 0.6 (0.9-2); Bilirubin,Total 0.4 mg/dl (0.2-1); Globulin 4.4 gm/dl (2.5-4.0); Total Protein 7.1 gm/dl (6.4-8.2)
[2021-09-27] MEDS ORDERED: dexAMETHasone 10 MG in SYRINGE 0 ML IV STA (08:57)
[2021-09-27] MEDS ORDERED: FUROSEMIDE 20 MG TAB PO SCH (09:00)
[2021-09-27] MEDS: INSULIN ASPART PER UNIT SC SCH ×4 (09:12→21:50)
[2021-09-27] MEDS ORDERED: FUROSEMIDE INJ 20 MG/2 ML VIAL IV ONE ×2 (09:16→19:00)
[2021-09-27] MEDS: dexAMETHasone 6 MG in SYRINGE 0 ML IV SCH ×2 (10:11→17:28)
[2021-09-27] MEDS: FAMOTIDINE 20 MG TAB PO SCH ×2 (11:46→21:38)
[2021-09-27] MEDS: MONTELUKAST SODIUM 10 MG TABLET PO SCH (11:46)
[2021-09-27] MEDS: ENOXAPARIN INJ 40 MG/0.4 ML SYR SQ SCH ×2 (11:46→21:38)
[2021-09-27] MEDS: ASCORBIC ACID 500 MG TAB PO SCH (11:46)
[2021-09-27] MEDS: ZINC SULFATE 220 MG CAPSULE PO SCH (11:46)
[2021-09-27] MEDS ORDERED: PIPERACILL/TAZOBAC CONSULT ACTIVE PRN (11:47)
[2021-09-27] MEDS: BENZONATATE 100 MG CAPSULE PO PRN (11:57)
[2021-09-27] MEDS ORDERED: PIPERACILLIN/TAZOBACTAM 4.5 GM in DEXTROSE 5% 100 ML IV ONE (12:00)
--- NOTE | 2021-09-27 12:40 | Hospitalist Progress Note ---
Date of Service September 27, 2021 Assessment & Plan (1) 2019 novel coronavirus-infected pneumonia (NCIP): Plan: - presented on day #9 of symptoms onset - unvaccinated - mild leukopenia and thrombocytopenia upon arrival (3.33/104 respectively)--> has since resolved - does not qualify for Remdesivir (given too far into symptoms course) - decadron (days #5)--> given decline, changed to BID dosing with addition 10mg given x1 dose now - CRP 2.36 upon admission. repeat today -slightly up to 3.84 does not qualify for baricitinib or tocilizumab (CRP not high enough and >72 hours since admission) - slow progressive need for increased oxygen supplementation. has been requiring 9L up until this point. Has not been compliant with avoiding talking on the phone (as desaturates) and initially was taking O2 off (which it was taking longer and longer for him to recover)-- despite MULTIPLE discussions with him - 09/27: transitioned to HFNC and currently maxed out on noninvasive ventilatory support (100%/60L). Was getting fatigued/tachypneic and flirting with intubation; however, compliant with proning/rest and robles ordered (refused inserted but agreeable to condom) and seems stable for now. Breathing no longer labored. No longer tachypneic. I have called the to update her who initially requested transfer to [place], [place] or [place]. I reassured that there is NOTHING more or different to be doing at this time. I was very martin in letting them know that everything that can be done IS being done. Would only need to transfer for CRRT/ECMO-- which is not necessary at this time. In addition, I explained that even patient who require transfer for medical necessity--- it is taking DAYS for beds to become available on account of healthcare being overwhelmed d/t the pandemic. She voices understanding in this - lengthy D/W patient who is a FULL CODE. Aware that next step (should he decline) would be intubation and patient typically do not survive once intubated. If he did, his quality of life may certainly be different. We would likely be looking at a lengthy intubation which could lead to tracheostomy. In addition, despite these efforts, he body potentially may decline/fail. He understands all of this. - although it is not mao to allow video conference with right now given the fact that patient is resting and seems to have stabilized, I would encourage this if patient started to decline. I would want to allow them to say final words as it may be the last conversation the occurs. - continue proning - given decline, I have added zosyn/azithromycin for potential 2/2 bacterial infection (unlikely but would not want to miss this) --procal, influenza, RSV, ABG, ordered and FU CXR for tomorrow - mucolytic agents and antitussives prn - pepcid/singulair added (GI prophylaxis and ? help with immune response cascade) along with vitamin C and zinc for immune support - Continue lasix trials (with additional IV dose this afternoon) --roundhouse worker updated in the event that patient may need intubated (2) Acute respiratory failure with hypoxia: Plan: Secondary to COVID-19 pneumonia - see above. goal pulse ox >/=88% - lengthy D/W patient regarding importance of NOT taking his O2 off (as did desaturate into the 70's when talking on the phone without supplemental O2) and NO conversations as desaturating with this (at least right now). In addition, importance of proning and rest discussed Plan: VTE Prophylaxis - Lovenox 40mg SQ bid plan of care to be d/W Dr. Alexis Admission and Anticipated Discharge Date Admission Date: September 23, 2021 Subjective Patient seen on daily rounds today. Overall, has had a decline throughout the day today. Was requiring increased oxygen supplementation when initially seen this morning. Despite 10L, pulse ox was still low in the low to mid 80's. Placed in 15L with no change in pulse ox. Different pulse ox utilized and patient had a good pleth wave. transitioned to HFNC and uptitrated to stabilize his pulse ox. Multiple rounds made on patient today and early afternoon, was requiring 100% FIO2 and 60L. Again, he has been on the phone (as he has been throughout this hospital stay despite me telling him that he needs to avoid this given the desaturation that takes place). He was becoming tachypneic and when explained that he was flirting with intubation and he needed to transition to a prone position, GET OFF OF THE PHONE and rest or he would likely end up intubated and chances of survival were slim-- he seemed to finally understand the severity and complied. Despite this hypoxemia, patient denies feeling SOB. He does admit to feeling exhausted and has a cough. Plan was to transition to CPAP/BIPAP; however, with proning and rest, his pulse of improved as did his respiratory effort. Seen patient multiple times throughout the afternoon and his pulse ox remained >90% on 100% FiO2 and 60L. Was able to update the and voice my concerns. Ideally, I wanted a video chat to take place in the event that he required intubation; however, I did not pursue this as patient needed rest. When last checked on the patient ([id number]) he is up and eating dinner. Normal respiratory effort. Pulse ox 93-94%. Overall, feeling well. Review of Systems Review of Systems: All systems reviewed and are unremarkable except as noted in HPI and below Denies fevers, chills, headache, nasal congestion, sore throat, cough, chest pain, shortness of breath, palpitations, orthopnea, PND, abdominal pain, nausea, vomiting, diarrhea, constipation, dysuria, hematuria, frequency, back pain, joint pain or swelling, easy bruising or bleeding, skin lesions or rashes. Physical Exam Physical Exam: General: seen multiple times throughout the day. Initially patient hypoxic. Breathing mildly labored. PT tachypneic. Most recently, resting comfortably in prone position WITHOUT tachypnea and normal respiratory effort HEENT: Head is AT/NC buccal mucosa is moist and pink Neck: No JVD. Negative hepatojugular reflex Cardiac:distant heart sounds Lungs:see above. scattered rhonchi that mobilizes but does not clear with coughing Abdomen: Normoactive X4. Soft and nontender in all quadrants. Extremities: No peripheral clubbing cyanosis or edema Neuro: A&O X4 cranial nerves II through XII are grossly intact no focal neuro deficits Skin: No obvious skin lesions or rashes Psych: Appropriate affect pleasant and cooperative Results & Data Results & Data ([facility]) Vital Signs (Past 12 Hours) Vital Signs Temp Pulse Pulse Resp BP Pulse Ox 09/27/21 11:48 36.6 C 81 28 H 118/84 87 L 09/27/21 10:25 36.6 C 79 28 H 137/96 89 L 09/27/21 10:17 82 22 91 09/27/21 09:00 91 09/27/21 08:30 75 20 92 09/27/21 08:05 87 L 09/27/21 08:00 85 L 09/27/21 07:58 36.8 C 71 16 138/89 90 09/27/21 05:34 91 09/27/21 05:08 91 09/27/21 04:16 92 09/27/21 04:10 88 L 09/27/21 04:05 85 L 09/27/21 04:00 79 L 09/27/21 01:36 85 L Laboratory Results 09/27/21 06:00 09/27/21 06:00 PG Care Time/CCT Total # of Minutes Spent Total Time Spent with Patient: Total time spent is greater than 50% in coordination of care (as documented) at patient's floor/unit and/or counseling patient: Prolonged Care Time 90 min including multiple rounds made today (seen at least 5 times today), calling family and coordination with staff. Coding Level of Care Code 70965 Subseq Hosp Care Lvl 3 Diagnoses 2019 novel coronavirus-infected pneumonia (NCIP) U07.1; J12.82 Acute respiratory failure with hypoxia J96.01
[2021-09-27 13:18] LABS: Base Excess ABG 2.1 mEq/L (-9-1.8); HCO3 ABG 26 mmol/L (19-24); Oxygen Saturation ABG 93.1 % (90-95); PCO2 ABG 37 mmHg (35-46); PO2 ABG 63 mmHg (80-95); pH ABG 7.46 (7.35-7.45)
[2021-09-27 13:22] LABS: Allen Test Pos (Pos)
[2021-09-27] MEDS: AZITHROMYCIN 500 MG in DEXTROSE 5% 250 ML IV SCH (14:02)
[2021-09-27 17:55] LABS: RSV by PCR Negative (Negative)
[2021-09-27 17:56] LABS: Influenza A virus by PCR Negative (Negative); Influenza B virus by PCR Negative (Negative)
[2021-09-27] MEDS ORDERED: dexAMETHasone 6 MG in SYRINGE 0 ML IV SCH (21:00)
[2021-09-28 06:10] LABS: Basophils # (auto) 0.01 K/uL (0-0.2); Basophils % (auto) 0.1 %; Hematocrit (blood only) 51.9 % (42-52); Hemoglobin 17.8 g/dL (14.0-18.0); Immature Granulocytes # (auto) 0.02 K/uL (0.00-0.02); Immature Granulocytes % (auto) 0.2 %; Lymphocytes # (auto) 0.33 K/uL (1.2-3.4); Lymphocytes % (auto) 3.5 %; Mean Corpuscular Hemoglobin 31.5 pg (25-34); Mean Corpuscular Hgb Conc 34.3 g/dL (32-36); Mean Corpuscular Volume 91.9 fL (80-100); Mean Platelet Volume 10.6 fL (7.4-10.4); Monocytes # (auto) 0.53 K/uL (0.11-0.59); Monocytes % (auto) 5.7 %; Neutrophils # (auto) 8.44 K/uL (1.4-6.5); Neutrophils % (auto) 90.5 %; Platelet Count 178 K/uL (130-400); RDW Coefficient of Variation 12.6 % (11.5-14.5); RDW Standard Deviation 42.4 fL (36.4-46.3); Red Blood Count 5.65 M/uL (4.7-6.1); White Blood Count 9.33 K/uL (4.8-10.8)
[2021-09-28 06:43] LABS: Albumin Level 2.7 gm/dl (3.4-5.0); BUN Creatinine Ratio 37.9 (10-20); Bilirubin,Total 0.4 mg/dl (0.2-1); Calcium 9.4 mg/dl (8.5-10.1); Creatinine Clr Calc Pharmacy 63.5 ml/min; Est GFR (African American) 71.6 ml/min; Est GFR (Non-African American) 61.8 ml/min; Magnesium 3.2 mg/dl (1.8-2.4); Potassium 4.1 mmol/L (3.5-5.1)
[2021-09-28 06:45] LABS: Albumin Globulin Ratio 0.6 (0.9-2); C Reactive Protein 3.11 mg/dl (0-0.29); Globulin 4.8 gm/dl (2.5-4.0); Total Protein 7.5 gm/dl (6.4-8.2)
[2021-09-28] MEDS: dexAMETHasone 6 MG in SYRINGE 0 ML IV SCH ×2 (07:08→17:45)
--- NOTE | 2021-09-28 08:06 | Hospitalist Progress Note ---
Date of Service September 28, 2021 Assessment & Plan (1) 2019 novel coronavirus-infected pneumonia (NCIP): Plan: - symptomati 09/14/21 - unvaccinated - did not qualify for Remdesivir by time course - decadron continues but escalating oxygen requirement - CRP not elevated therefore does not qualify for baricitinib or tocilizumab - 09/27: transitioned to HFNC and currently maxed out on noninvasive ventilatory support (100%/60L). Previous provider called the to update her who initially requested transfer to [facility] or [place]. Given time course only benefit would be if transfer for CRRT/ECMO-- - after discussion with patient who is a FULL CODE. Aware that next step would be intubation - continue proning - mucolytic agents and antitussives prn - pepcid/singulair added (GI prophylaxis and ? help with immune response cascade) along with vitamin C and zinc for immune support - Continue lasix trials (with additional IV dose this afternoon) --generalist aware, 09/28/21 in the event that patient may need intubated (2) Acute respiratory failure with hypoxia: Plan: Secondary to COVID-19 pneumonia - see above. goal pulse ox >/=88% Plan: VTE Prophylaxis - Lovenox 40mg SQ bid left hippa compliant voice mail for khushboo becerril [phone] 09/28/21 Admission and Anticipated Discharge Date Admission Date: September 23, 2021 Subjective Patient's had escalation of his oxygen requirements now being somewhat BiPAP dependent however not requiring 100% oxygen. Definitely does better when laying on his side especially with his right side down. He does have some hearing limitations but I did discuss the possibility of progression towards intubation which he seemed to understand and seem to be agreeable with. Dr. Enriquez is also been contacted and is aware of this patient's status at this point time we are continue to write out the BiPAP support Review of Systems Review of Systems: Pleat review of systems is challenging given the patient's being dependent on BiPAP and hard of hearing. At this point time he denies chest pain or pressure does feel short of breath has no nausea and has been constipated recently Physical Exam Physical Exam: The patient appeared moderate respiratory distress, bipap dependent Vital signs as documented. Head exam is normocephalic atraumatic, extremely hard of hearing Neck is without JVD, thyromegaly, or carotid bruits. Lungs are coarse bilaterally in all lung eisenberg tachypneic Cardiac exam, Rhythm is regular.. No murmurs, rubs or gallops. Abdominal exam reveals normal bowel sounds, soft non tender, no masses Extremities are nonedematous and both pedal pulses are present Neurologic exam is alert and oriented, no focal loss of strength or sensation Skin is without bruises or rashes Psychologically is without concerns for anxiety or depression.. Results & Data Results & Data ([facility]) Vital Signs (Past 12 Hours) Vital Signs Temp Pulse Pulse Pulse Pulse Resp BP 09/28/21 07:45 91 H 21 09/28/21 07:38 97.9 F 81 16 173/123 H 09/28/21 07:00 80 23 09/28/21 06:50 93 H 27 H 09/28/21 06:40 103 H 26 H 09/28/21 06:30 81 27 H 09/28/21 06:20 109 H 31 H 09/28/21 06:10 93 H 17 09/28/21 06:00 78 13 09/28/21 05:50 80 26 H 09/28/21 05:40 79 16 09/28/21 05:30 76 26 H 09/28/21 05:20 73 30 H 09/28/21 05:10 76 35 H 09/28/21 05:00 76 21 09/28/21 04:50 88 19 09/28/21 04:40 76 25 H 09/28/21 04:30 87 43 H 09/28/21 04:20 81 43 H 09/28/21 04:10 80 23 09/28/21 04:00 83 22 09/28/21 03:53 98.8 F 75 26 H 103/72 09/28/21 03:50 82 23 09/28/21 03:40 83 10 L 09/28/21 03:30 75 29 H 09/28/21 03:20 70 11 L 09/28/21 03:10 77 31 H 09/28/21 03:00 69 19 09/28/21 02:50 74 25 H 09/28/21 02:40 80 10 L 09/28/21 02:30 69 31 H 09/28/21 02:20 70 81 34 H 09/28/21 02:10 74 30 H 09/28/21 02:00 72 29 H 09/28/21 01:52 74 09/28/21 01:50 83 15 09/28/21 01:40 74 23 09/28/21 01:30 72 26 H 09/28/21 01:20 80 19 09/28/21 01:10 74 24 09/28/21 01:00 74 20 09/28/21 00:50 72 24 09/28/21 00:40 76 17 09/28/21 00:30 79 34 H 09/28/21 00:20 78 19 09/28/21 00:10 76 30 H 09/28/21 00:00 98.8 F 74 18 09/27/21 23:50 82 28 H 09/27/21 23:40 71 25 H 09/27/21 23:30 73 32 H 09/27/21 23:25 74 20 09/27/21 23:20 68 31 H 09/27/21 23:10 71 30 H 09/27/21 23:00 68 27 H 09/27/21 22:50 64 31 H 09/27/21 22:40 68 27 H 09/27/21 22:30 66 29 H 09/27/21 22:20 68 25 H 09/27/21 22:10 74 35 H 09/27/21 22:00 78 32 H 09/27/21 21:50 78 33 H 09/27/21 21:40 79 11 L 09/27/21 21:30 75 24 09/27/21 20:01 98.6 F 78 32 H 123/71 Pulse Ox Pulse Ox 09/28/21 07:45 88 L 09/28/21 07:38 83 L 09/28/21 07:00 82 L 09/28/21 06:50 84 L 09/28/21 06:40 72 L 09/28/21 06:30 84 L 09/28/21 06:20 67 L 09/28/21 06:10 84 L 09/28/21 06:00 91 09/28/21 05:50 81 L 09/28/21 05:40 84 L 09/28/21 05:30 81 L 09/28/21 05:20 85 L 09/28/21 05:10 88 L 09/28/21 05:00 85 L 09/28/21 04:50 79 L 09/28/21 04:40 83 L 09/28/21 04:30 78 L 09/28/21 04:20 81 L 09/28/21 04:10 82 L 09/28/21 04:00 87 L 09/28/21 03:53 83 L 09/28/21 03:50 81 L 09/28/21 03:40 87 L 09/28/21 03:30 84 L 09/28/21 03:20 85 L 09/28/21 03:10 86 L 09/28/21 03:00 92 09/28/21 02:50 91 09/28/21 02:40 89 L 09/28/21 02:30 91 09/28/21 02:20 89 L 09/28/21 02:10 89 L 09/28/21 02:00 87 L 85 L 09/28/21 01:52 09/28/21 01:50 83 L 09/28/21 01:40 86 L 09/28/21 01:30 88 L 09/28/21 01:20 87 L 09/28/21 01:10 87 L 09/28/21 01:00 89 L 09/28/21 00:50 89 L 09/28/21 00:40 89 L 09/28/21 00:30 88 L 09/28/21 00:20 86 L 09/28/21 00:10 87 L 09/28/21 00:00 89 L 09/27/21 23:50 88 L 09/27/21 23:40 90 09/27/21 23:30 90 09/27/21 23:25 91 09/27/21 23:20 91 09/27/21 23:10 91 09/27/21 23:00 92 09/27/21 22:50 93 09/27/21 22:40 91 09/27/21 22:30 90 09/27/21 22:20 89 L 09/27/21 22:10 89 L 09/27/21 22:00 90 09/27/21 21:50 85 L 09/27/21 21:40 87 L 09/27/21 21:30 89 L 09/27/21 20:01 91 PG Care Time/CCT Total # of Minutes Spent Total Time Spent with Patient: Total time spent is greater than 50% in coordination of care (as documented) at patient's floor/unit and/or counseling patient: Coding Level of Care Code 37093 Subseq Hosp Care Lvl 3 Diagnoses 2019 novel coronavirus-infected pneumonia (NCIP) U07.1; J12.82 Acute respiratory failure with hypoxia J96.01
--- NOTE | 2021-09-28 08:27 | XRay Report ---
XR chest 1V portable CLINICAL HISTORY: trend TECHNIQUE: Single frontal radiograph of the chest was obtained. Comparison: Comparison is made to chest one view 09/26/2021 and CTA chest 09/26/2021 FINDINGS: No lines and tubes are seen. Cardiomegaly is noted. Volumes are low. Multifocal airspace opacities ar e seen, approximately stable from prior exam allowing for differences in technique. No evidence of pl eural effusion or pneumothorax. IMPRESSION: Multifocal airspace opacities compatible with history of viral pneumonia. Overall opacities are simil ar in appearance to prior exam. ACT 112: Negative or not required by law. Electronically signed by: Ramiro Jackson M.D. 09/28/2021 8:26 AM
[2021-09-28] MEDS: ZINC SULFATE 220 MG CAPSULE PO SCH (09:20)
[2021-09-28] MEDS: MONTELUKAST SODIUM 10 MG TABLET PO SCH (09:20)
[2021-09-28] MEDS: FAMOTIDINE 20 MG TAB PO SCH ×2 (09:21→20:45)
[2021-09-28] MEDS: ASCORBIC ACID 500 MG TAB PO SCH (09:21)
[2021-09-28] MEDS: INSULIN ASPART PER UNIT SC SCH ×4 (09:29→20:45)
[2021-09-28] MEDS: ENOXAPARIN INJ 40 MG/0.4 ML SYR SQ SCH ×2 (09:30→20:45)
[2021-09-28] MEDS: FUROSEMIDE INJ 20 MG/2 ML VIAL IV SCH (09:30)
[2021-09-28] MEDS: AZITHROMYCIN 500 MG in DEXTROSE 5% 250 ML IV SCH (13:00)
[2021-09-28] MEDS: INSULIN HUMAN NPH SC SCH (17:01)
[2021-09-29] MEDS: dexAMETHasone 6 MG in SYRINGE 0 ML IV SCH ×2 (06:13→17:15)
[2021-09-29] MEDS: INSULIN HUMAN NPH SC SCH (06:13)
--- NOTE | 2021-09-29 07:45 | Hospitalist Progress Note ---
Date of Service September 29, 2021 Assessment & Plan (1) 2018 novel coronavirus-infected pneumonia (NCIP): Plan: - symptomatic 09/14/21 - unvaccinated - did not qualify for Remdesivir by time course - decadron continues but escalating oxygen requirement - CRP not elevated therefore does not qualify for baricitinib or tocilizumab - 09/27: transitioned to HFNC and currently NIPPV dependent, discussed case with Pulmonary medicine, can be off for short times to eat while on high flow, attempting to continue to support to try to avoid intubation if possible Previous provider called the to update her who initially requested transfer to [facility] or [place]. Given time course only benefit would be if transfer for CRRT/ECMO-- - after discussion with patient who is a FULL CODE. Aware that next step would be intubation - continue proning - mucolytic agents and antitussives prn - pepcid/singulair (GI prophylaxis and ? 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 goal pulse ox >/=88% (3) Hypertension: Plan: typically not on outpt treatment will use prn hydralazine at this time Plan: VTE Prophylaxis - Lovenox 40mg SQ bid left hippa compliant voice mail for khushboo becerril [phone] 09/28/21 Admission and Anticipated Discharge Date Admission Date: September 23, 2021 Subjective Patient's had elevation of blood pressure, now BiPAP dependent however can be off short times to eat with high flow. Definitely does better when laying on his side especially with his right side down. He does have some hearing limitations but I did discuss the possibility of progression towards intubation again 111/30/20, which he seemed to understand and continues to be agreeable with. Dr. Palm is also been contacted and is aware of this patient's status at this point time we are continue to write out the BiPAP support Review of Systems Review of Systems: Pleat review of systems is challenging given the patient's being dependent on BiPAP and hard of hearing. Physical Exam Physical Exam: The patient appeared moderate respiratory distress, bipap dependent mostly Vital signs as documented. Head exam is normocephalic atraumatic, extremely hard of hearing Neck is without JVD, thyromegaly, or carotid bruits. Lungs are coarse bilaterally in all lung eisenberg tachypneic Cardiac exam, Rhythm is regular.. No murmurs, rubs or gallops. Abdominal exam reveals normal bowel sounds, soft non tender, no masses Extremities are nonedematous and both pedal pulses are present Neurologic exam is alert and oriented, no focal loss of strength or sensation Skin is without bruises or rashes Psychologically is without concerns for anxiety or depression. Results & Data Results & Data ([facility]) Vital Signs (Past 12 Hours) Vital Signs Temp Pulse Pulse Resp BP Pulse Ox Pulse Ox 09/29/21 07:40 98 H 29 H 31 L 09/29/21 03:15 73 27 H 95 09/29/21 03:01 97.7 F 82 20 147/108 H 94 09/29/21 02:00 94 09/29/21 00:16 71 30 H 95 09/28/21 22:58 98.1 F 87 16 153/99 H 93 09/28/21 20:33 89 26 H 94 PG Care Time/CCT Total # of Minutes Spent Total Time Spent with Patient: Total time spent is greater than 50% in coordination of care (as documented) at patient's floor/unit and/or counseling patient: Coding Level of Care Code 69700 Subseq Hosp Care Lvl 2 Diagnoses 2019 novel coronavirus-infected pneumonia (NCIP) U07.1; J12.82 Acute respiratory failure with hypoxia J96.01 Hypertension I10
[2021-09-29] MEDS: FUROSEMIDE INJ 20 MG/2 ML VIAL IV SCH (08:04)
[2021-09-29] MEDS: FAMOTIDINE 20 MG TAB PO SCH ×2 (08:04→20:31)
[2021-09-29] MEDS: ASCORBIC ACID 500 MG TAB PO SCH (08:04)
[2021-09-29] MEDS: ENOXAPARIN INJ 40 MG/0.4 ML SYR SQ SCH ×2 (08:04→20:31)
[2021-09-29] MEDS: BENZONATATE 100 MG CAPSULE PO PRN (08:05)
[2021-09-29] MEDS: ZINC SULFATE 220 MG CAPSULE PO SCH (08:05)
[2021-09-29] MEDS: MONTELUKAST SODIUM 10 MG TABLET PO SCH (08:05)
[2021-09-29] MEDS: hydrALAZINE HCL 20 MG/ML VIAL IV PRN ×2 (08:06→16:06)
[2021-09-29] MEDS: INSULIN ASPART PER UNIT SC SCH ×4 (08:17→20:31)
[2021-09-29] MEDS: LORazepam 0.5 MG TAB PO PRN ×2 (10:29→20:31)
[2021-09-29] MEDS: AZITHROMYCIN 500 MG in DEXTROSE 5% 250 ML IV SCH (11:05)
[2021-09-29] MEDS ORDERED: lisinopril 5 MG TAB PO ONE (16:07)
[2021-09-29] MEDS: LORazepam 0.5 MG/1 ML VIAL IV PRN (17:13)
[2021-09-30] MEDS ORDERED: SODIUM CHLORIDE 0.9% 1000ML 500 ML IV ONE ×3 (00:13→06:41)
[2021-09-30] MEDS ORDERED: HALOPERIDOL LACTATE 5 MG/ML 1 ML VIAL IM STA ×2 (02:00→03:50)
[2021-09-30] MEDS ORDERED: HALOPERIDOL LACTATE 5 MG/ML 1 ML VIAL ONE (02:03)
[2021-09-30] MEDS: LORazepam 0.5 MG/1 ML VIAL IV PRN ×2 (03:02→07:58)
[2021-09-30] MEDS ORDERED: MoRPHine SULFATE 2 MG/ML CARP IV STA (03:39)
[2021-09-30] MEDS ORDERED: LORazepam 1 MG/2 ML VIAL IV STA (04:12)
[2021-09-30] MEDS ORDERED: RAPID SEQUENCE INDUCTION BAG ONE (04:27)
[2021-09-30] MEDS ORDERED: STAT IV Infusion **Titration per Protocol STA ×3 (04:54→15:01)
[2021-09-30] MEDS: DEXMEDETOMIDINE HCL 200 MCG in SODIUM CHLORIDE 0.9% 48 ML IV SCH ×3 (05:09→20:11)
[2021-09-30 05:34] LABS: Hematocrit (blood only) 55.5 % (42-52); Hemoglobin 18.6 g/dL (14.0-18.0); Mean Corpuscular Hemoglobin 31.5 pg (25-34); Mean Corpuscular Hgb Conc 33.5 g/dL (32-36); Mean Corpuscular Volume 94.1 fL (80-100); Mean Platelet Volume 10.7 fL (7.4-10.4); Platelet Count 277 K/uL (130-400); RDW Coefficient of Variation 12.8 % (11.5-14.5); RDW Standard Deviation 44.2 fL (36.4-46.3); White Blood Count 6.67 K/uL (4.8-10.8)
[2021-09-30 05:36] LABS: iSTAT Art Bld Gas pCO2 Correct 37 mmHg (35-46); iSTAT Art Bld Gas pH Corrected 7.412 (7.35-7.45); iSTAT Arterial Blood Gas HCO3 24 meg/L (19-24); iSTAT Arterial Blood Gas pCO2 37 mmHg (35-46); iSTAT Arterial Blood Gas pH 7.41 (7.35-7.45); iSTAT Arterial Blood Gas pO2 108 mmHg (80-95); iSTAT Arterial Blood Gas pO2 C 108; iSTAT Carbon Dioxide 25 mmol/L (24-31); iSTAT Hematocrit 54 % (42-52); iSTAT Hemoglobin 18.4 g/dl (14.0-18.0); iSTAT Site R Radial; iSTAT Sodium 140 mmol/L (135-144)
[2021-09-30] MEDS ORDERED: ICU PROTOCOL FOR HYPERGLYCEMIA PRN (05:52)
[2021-09-30 05:58] LABS: Alanine Aminotransferase 48 (12-78); Albumin Globulin Ratio 0.5 (0.9-2); Albumin Level 2.6 gm/dl (3.4-5.0); Alkaline Phosphatase 56 U/L (45-117); Aspartate Aminotransferase 33 U/L (15-37); BUN Creatinine Ratio 31.9 (10-20); Bilirubin,Total 0.9 mg/dl (0.2-1); Blood Urea Nitrogen 88 mg/dl (7-18); Calcium 9.4 mg/dl (8.5-10.1); Carbon Dioxide 28 mmol/L (21-32); Chloride 103 mmol/L (98-107); Creatinine Clr Calc Pharmacy 27.6 ml/min; Est GFR (African American) 27.3 ml/min; Est GFR (Non-African American) 23.6 ml/min; Glucose 276 mg/dl (70-99); Potassium 4.2 mmol/L (3.5-5.1); Sodium 139 mmol/L (136-145); Total Protein 7.6 gm/dl (6.4-8.2); Troponin I < 0.015 ng/ml (0-0.045)
[2021-09-30 06:00] LABS: Basophils # (auto) 0.01 K/uL (0-0.2); Basophils % (auto) 0.1 %; Immature Granulocytes # (auto) 0.06 K/uL (0.00-0.02); Immature Granulocytes % (auto) 0.9 %; Lymphocytes # (auto) 0.48 K/uL (1.2-3.4); Lymphocytes % (auto) 7.2 %; Monocytes # (auto) 0.13 K/uL (0.11-0.59); Monocytes % (auto) 1.9 %; Neutrophils # (auto) 5.99 K/uL (1.4-6.5); Neutrophils % (auto) 89.9 %
[2021-09-30] MEDS: FAMOTIDINE 20 MG in SYRINGE 3 ML IV SCH ×2 (06:03→07:50)
[2021-09-30] MEDS: dexAMETHasone 6 MG in SYRINGE 0 ML IV SCH (06:04)
[2021-09-30] MEDS: INSULIN HUMAN NPH SC SCH (06:04)
--- NOTE | 2021-09-30 06:40 | Critical Care Consultation ---
Date of Consultation September 30, 2021 Assessment & Plan (1) Admitted to intensive care unit: Reason Critically Ill: 61-year-old male admitted with hypoxic respiratory failure secondary to COVID-19 pneumonia who is now agitated and requiring Precedex drip and ongoing close hemodynamic monitoring with low threshold for endotracheal intubation. NEURO - * CAM ICU: POSITIVE * Agitation: * Patient had reportedly been agitated earlier hospitalization and required addition of Ativan. * Patient's symptoms escalated and with my assessment, the patient appeared nearly in a state of excited delirium. * Precedex drip started. Will titrate minimum dose to appropriate effect. * Patient without focal neurological deficits on exam, however may consider imaging of the patient's brain. Would likely require patient status to improve prior to performing advanced imaging studies at this point. * This is likely multifactorial in the setting of COVID-19 infection, hypoxemia, dexamethasone therapy, etc. CARDIAC/VASCULAR - * Hypertension: * Patient is actually been running borderline hypotensive over the last several hours. * Monitor closely for need for vasopressors. * Monitor on telemetry. RESPIRATORY - * Acute hypoxic respiratory failure secondary to COVID-19 pneumonia: * Now requiring CPAP to maintain oxygenation. * Interestingly, on bedside assessment, the patient was noted to oxygenate well when he is not significantly agitated and pulling at his mask. Because of this, and likelihood that at this point we will be facilitating a "behavioral" intubation in a COVID-19 patient, I did elect to proceed with Precedex drip to help improve the patient's baseline agitation and hopefully help to facilitate improved oxygenation. As patient became less agitated, his saturations were found to be in the high 90s. Blood gas confirms. Will titrate down FiO2 from CPAP as tolerated. Continue to use Precedex for now. Certainly low threshold for endotracheal intubation if the patient were to continue to decline. * Patient is already on dexamethasone. * Otherwise outside window for other treatment modalities at this point. GI/NUTRITION - * N.p.o. while on BiPAP. * Prophylaxis: Famotidine RENAL/LYTES - * KASSIDY: * Patient with little to no urine output noted as well. * Has been well diuresed at this point. * Will provide judicious fluid boluses at this time as the patient is borderline hypotensive as well. - * Sales in place - Strict I&Os. ENDO - * Hyperglycemia * BSGs per unit protocol. ISS --> gtt per unit policy. * Likely secondary to dexamethasone use. HEME - * No concerns at this time. ID - * COVID-19 pneumonia: * Continue with dexamethasone. * No apparent need for antibiotics at this point. * Patient is excluded from ECMO evaluation secondary to age alone. * No other advanced interventions warranted at this time. * Low threshold for emergent endotracheal intubation if agitation not improving. LINES/IV ACCESS - * PIVs x2 * Sales DVT PROPHYLAXIS - * Lovenox * SCDs I have personally spent 55 minutes of critical care time in the direct management of this patient. This is a life/limb threatening event. This includes time spent evaluating patient, direct bedside care, chart review, placing orders, interpretation of diagnostic studies, discussion with consultants, p atient, and family members, as well as other required patient management activities. This time is exclusive of all separately billable procedures, and teaching time and separate from and in addition to any other critical care service time. Thank you for allowing us to participate in the care of this patient. Please refer to my attending physician's documentation for any further recommendations. (2) Acute respiratory failure with hypoxia: (3) 2019 novel coronavirus-infected pneumonia (NCIP): (4) Hypoxia: (5) Agitation: History of Present Illness Attending Physician: Darnell Bhatia MD History of Present Illness Patient is a 61-year-old male with no reported prior medical history who presented to the emergency department on 121 with complaints of approximately 1 week of symptoms consistent with COVID-19 infection. The patient described generalized weakness and fatigue, cough, shortness of breath. He was noted to be hypoxic and has since required escalating amounts of oxygen requirement throughout his stay. Patient now requiring CPAP regularly to maintain saturations. Apparently, the patient has become increasingly restless and agitated over the last 24 hours. He has received intermittent doses of Ativan which have now apparently provided minimal effect. Hospitalist did reach out to me as the patient had now received Ativan lotion to Haldol without response. Patient is agitated, tachycardic, hypoxic. Upon my arrival at bedside, the patient is agitated and tachycardic. Pulse ox actually was reading relatively high in the upper 90s while restrained. Per conversation with respiratory therapy, the patient does seem to do fairly well with oxygenation when he is not agitated. Orders placed immediately for Precedex drip to help facilitate anxiolysis so we can better assess patient's oxygenation status. Patient is swearing at staff members and requiring multiple staff members to hold him down from injuring himself or others. ABG was drawn which demonstrated a relatively normal ABG with PO2 greater than 100. Allergies Allergy/AdvReac Type Severity Reaction Status Date / Time No Known Drug Allergies Allergy Verified 09/23/21 17:57 Home Medications Medication Instructions Recorded Confirmed Type No Known Home Medications 09/23/21 09/23/21 History Patient History Medical History No pertinent past medical history Surgical History History of hand surgery traumatic chainsaw injury to left hand History of knee surgery prior lefttraumatic knee injury Social History Smoking Status: Never smoker Do You Dip or Chew Tobacco: Yes; Hx Alcohol Use: No Hx Substance Use: No Preferred Language: Georgian Communication Ability: Effective Any Commodity Buyer Required: No Beliefs That Will Affect Care: None marital status: Current Living Situation Comment: LIVES WITH SON RICH How many Children do You have: 1 Feels Safe at Home: Yes Assistive Devices: Hearing Aid - Left and Oxygen - Continuous Review of Systems Review of Systems: Unobtainable due to cognitive status Physical Exam Physical Exam: VITAL SIGNS - Vital signs and nursing notes were reviewed. GENERAL - 61-year-old male appearing his stated age who is in moderate distress. Patient agitated and requiring restraints. Combative with staff members. Swearing at staff. SKIN - Without rashes. HEAD - NC/AT. EYES - PERRL with EOMI bilaterally. Sclera anicteric. Palpebral conjunctiva pink and moist with no injection noted. EARS - No deformities of external structures noted on gross examination bilaterally. NOSE - Midline and without cyanosis. No epistaxis or purulent drainage noted. MOUTH/OROPHARYNX - Without perioral cyanosis. Buccal mucosa pink and dry. NECK - Neck with FROM. Supple to palpation. No lymphadenopathy noted. No nuchal rigidity. LUNGS - Chest wall symmetric without accessory muscle use, intercostals retractions, or central cyanosis. Normal vesicular breath sounds CTA B/L. No wheezes, rales, or rhonchi appreciated. CARDIAC - RRR with S1/S2. No murmur, rubs, or gallops appreciated. ABDOMEN - Abdominal contour obese without pulsations or visible masses. BS normoactive all four quadrants. No tenderness, palpable masses, hepatosplenomegaly, or ascites noted. EXTREMITIES - No clubbing or peripheral cyanosis. No pretibial edema present. +3/5 radial and dorsalis pedis pulses palpated throughout. +5/5 strength noted in UE/LE bilaterally. NEUROLOGIC - Cranial nerves II through XII grossly intact. Patient agitated and swears at staff members. Uses upper and lower extremities with equal strength bilaterally. Results & Data [facility] ([facility] Vital Signs (Past 12 Hours) Vital Signs Temp Pulse Pulse Resp BP BP BP 09/30/21 05:50 83 20 93/53 L 09/30/21 05:40 95 H 24 09/30/21 05:30 98 H 26 H 09/30/21 05:20 124 H 17 09/30/21 05:10 132 H 37 H 09/30/21 05:00 132 H 19 09/30/21 04:50 137 H 33 H 09/30/21 04:40 130 H 23 09/30/21 04:30 130 H 45 H 09/30/21 04:20 121 H 23 09/30/21 04:10 120 H 30 H 09/30/21 04:04 36.6 C 115 H 20 100/79 09/30/21 04:00 115 H 23 09/30/21 03:40 135 H 17 09/30/21 03:30 96 H 40 H 09/30/21 03:20 95 H 24 09/30/21 03:10 92 H 22 09/30/21 03:00 111 H 22 09/30/21 02:50 98 H 25 H 09/30/21 02:40 88 35 H 09/30/21 02:30 71 27 H 09/30/21 02:25 82 32 H 09/30/21 02:20 78 18 09/30/21 02:10 93 H 31 H 09/30/21 02:00 87 33 H 09/30/21 01:40 86 20 09/30/21 01:30 84 26 H 09/30/21 01:20 77 18 09/30/21 01:10 78 26 H 09/30/21 01:00 76 24 09/30/21 00:50 84 23 09/30/21 00:40 79 27 H 09/30/21 00:30 78 26 H 09/30/21 00:20 88 23 09/30/21 00:10 84 27 H 09/30/21 00:01 36.8 C 85 22 85/57 L 09/30/21 00:00 81 29 H 09/29/21 23:50 82 28 H 09/29/21 23:40 88 23 09/29/21 23:30 88 24 09/29/21 23:20 86 24 09/29/21 23:10 83 25 H 09/29/21 23:00 86 29 H 09/29/21 22:50 93 H 25 H 09/29/21 22:41 91 H 29 H 09/29/21 22:40 89 28 H 09/29/21 22:30 87 38 H 09/29/21 22:20 87 32 H 09/29/21 22:10 86 36 H 09/29/21 22:00 91 H 25 H 09/29/21 21:50 91 H 26 H 09/29/21 21:40 91 H 27 H 09/29/21 20:52 96 H 33 H 09/29/21 19:54 36.8 C 110 H 20 94/68 L Pulse Ox Pulse Ox 09/30/21 05:50 93 09/30/21 05:40 94 09/30/21 05:30 96 09/30/21 05:20 96 09/30/21 05:10 90 09/30/21 05:00 94 09/30/21 04:50 90 09/30/21 04:40 87 L 09/30/21 04:30 86 L 09/30/21 04:20 81 L 09/30/21 04:10 93 09/30/21 04:04 95 09/30/21 04:00 87 L 09/30/21 03:40 89 L 09/30/21 03:30 92 09/30/21 03:20 92 09/30/21 03:10 92 09/30/21 03:00 91 09/30/21 02:50 89 L 09/30/21 02:40 91 09/30/21 02:30 96 09/30/21 02:25 94 09/30/21 02:20 94 09/30/21 02:10 94 09/30/21 02:00 89 L 94 09/30/21 01:40 92 09/30/21 01:30 93 09/30/21 01:20 93 09/30/21 01:10 91 09/30/21 01:00 91 09/30/21 00:50 90 09/30/21 00:40 92 09/30/21 00:30 95 09/30/21 00:20 94 09/30/21 00:10 93 09/30/21 00:01 91 09/30/21 00:00 92 09/29/21 23:50 91 09/29/21 23:40 91 09/29/21 23:30 91 09/29/21 23:20 90 09/29/21 23:10 90 09/29/21 23:00 90 09/29/21 22:50 90 09/29/21 22:41 93 09/29/21 22:40 92 09/29/21 22:30 92 09/29/21 22:20 93 09/29/21 22:10 93 09/29/21 22:00 92 09/29/21 21:50 92 09/29/21 21:40 92 09/29/21 20:52 91 09/29/21 19:54 88 L Coding Level of Care Code Critical Care 1st 30-74 mins Diagnoses Admitted to intensive care unit Z78.9 Acute respiratory failure with hypoxia J96.01 2019 novel coronavirus-infected pneumonia (NCIP) U07.1; J12.82 Hypoxia R09.02 Agitation R45.1 Time Spent (min) 55
--- NOTE | 2021-09-30 07:26 | Hospitalist Progress Note ---
Date of Service September 30, 2021 Assessment & Plan (1) Encephalopathy acute: Plan: Pt had escalated excited delirium that was multifactorial, from covid, steroids and 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 started on precedex and with control of agitation has improved oxygen saturations (2) 2019 novel coronavirus-infected pneumonia (NCIP): Plan: - symptomatic 09/14/21 - unvaccinated - did not qualify for Remdesivir by time course - decadron continues but escalating oxygen requirement - CRP not elevated therefore does not qualify for baricitinib or tocilizumab Previous provider called the to update her who initially requested transfer to [facility] or [place]. Given time course only benefit would be if transfer for CRRT/ECMO-- - after discussion with patient who is a FULL CODE Patient progressed to intubation on 09/30/2021 - mucolytic agents and antitussives prn - pepcid/singulair (GI prophylaxis and ? help with immune response cascade) along with vitamin C and zinc for immune support - Continue lasix trials (with additional IV dose this afternoon) --construction estimator consulted will manage ventilator (3) Acute respiratory failure with hypoxia: Plan: Secondary to COVID-19 pneumonia - see above. goal pulse ox >/=88% (4) Hypertension: Plan: typically not on outpt treatment will use prn hydralazine at this time (5) KASSIDY (acute kidney injury): Plan: kassidy with diuretic and acei start, both on hold, will discuss with critial care if should give low slow fluids Plan: VTE Prophylaxis - Lovenox 40mg SQ bid left hippa compliant voice mail for khushboo becerril [phone] 09/28/21 Admission and Anticipated Discharge Date Admission Date: September 23, 2021 Subjective pt had delerium overnight, was started on precedex, has kassidy this am maybe from new start ACEI for htn and diuretic, both held, lovenox transitioned to heparin intubated by pulmonary critical care Review of Systems Review of Systems: Unobtainable due to endotracheal tube Physical Exam Physical Exam: The patient appeared severe respiratory distress Vital signs as documented. Head exam is normocephalic atraumatic Neck is without JVD, thyromegaly, or carotid bruits. Lungs are coarse bilaterally in all lung eisenberg tachypnea Cardiac exam, Rhythm is regular.. No murmurs, rubs or gallops. Abdominal exam reveals normal bowel sounds, soft non tender, no masses Extremities are nonedematous and both pedal pulses are present Neurologic exam is attended Skin is without bruises or rashes Psychologically is with acute delirium Results & Data Results & Data ([facility]) Vital Signs (Past 12 Hours) Vital Signs Temp Pulse Pulse Resp BP BP BP 09/30/21 05:50 83 20 93/53 L 09/30/21 05:40 95 H 24 09/30/21 05:30 98 H 26 H 09/30/21 05:20 124 H 17 09/30/21 05:10 132 H 37 H 09/30/21 05:00 132 H 19 09/30/21 04:50 137 H 33 H 09/30/21 04:40 130 H 23 09/30/21 04:30 130 H 45 H 09/30/21 04:20 121 H 23 09/30/21 04:10 120 H 30 H 09/30/21 04:04 98 F 115 H 20 100/79 09/30/21 04:00 115 H 23 09/30/21 03:40 135 H 17 09/30/21 03:30 130 H 52 H 09/30/21 03:20 95 H 24 09/30/21 03:10 92 H 22 09/30/21 03:00 111 H 22 09/30/21 02:50 98 H 25 H 09/30/21 02:40 88 35 H 09/30/21 02:30 71 27 H 09/30/21 02:25 82 32 H 09/30/21 02:20 78 18 09/30/21 02:10 93 H 31 H 09/30/21 02:00 87 33 H 09/30/21 01:40 86 20 09/30/21 01:30 84 26 H 09/30/21 01:20 77 18 09/30/21 01:10 78 26 H 09/30/21 01:00 76 24 09/30/21 00:50 84 23 09/30/21 00:40 79 27 H 09/30/21 00:30 78 26 H 09/30/21 00:20 88 23 09/30/21 00:10 84 27 H 09/30/21 00:01 98.3 F 85 22 85/57 L 09/30/21 00:00 81 29 H 09/29/21 23:50 82 28 H 09/29/21 23:40 88 23 09/29/21 23:30 88 24 09/29/21 23:20 86 24 09/29/21 23:10 83 25 H 09/29/21 23:00 86 29 H 09/29/21 22:50 93 H 25 H 09/29/21 22:41 91 H 29 H 09/29/21 22:40 89 28 H 09/29/21 22:30 87 38 H 09/29/21 22:20 87 32 H 09/29/21 22:10 86 36 H 09/29/21 22:00 91 H 25 H 09/29/21 21:50 91 H 26 H 09/29/21 21:40 91 H 27 H 09/29/21 20:52 96 H 33 H 09/29/21 19:54 98.2 F 110 H 20 94/68 L Pulse Ox Pulse Ox 09/30/21 05:50 93 09/30/21 05:40 94 09/30/21 05:30 96 09/30/21 05:20 96 09/30/21 05:10 90 09/30/21 05:00 94 09/30/21 04:50 90 09/30/21 04:40 87 L 09/30/21 04:30 86 L 09/30/21 04:20 81 L 09/30/21 04:10 93 09/30/21 04:04 95 09/30/21 04:00 87 L 09/30/21 03:40 89 L 09/30/21 03:30 89 L 09/30/21 03:20 92 09/30/21 03:10 92 09/30/21 03:00 91 09/30/21 02:50 89 L 09/30/21 02:40 91 09/30/21 02:30 96 09/30/21 02:25 94 09/30/21 02:20 94 09/30/21 02:10 94 09/30/21 02:00 89 L 94 09/30/21 01:40 92 09/30/21 01:30 93 09/30/21 01:20 93 09/30/21 01:10 91 09/30/21 01:00 91 09/30/21 00:50 90 09/30/21 00:40 92 09/30/21 00:30 95 09/30/21 00:20 94 09/30/21 00:10 93 09/30/21 00:01 91 09/30/21 00:00 92 09/29/21 23:50 91 09/29/21 23:40 91 09/29/21 23:30 91 09/29/21 23:20 90 09/29/21 23:10 90 09/29/21 23:00 90 09/29/21 22:50 90 09/29/21 22:41 93 09/29/21 22:40 92 09/29/21 22:30 92 09/29/21 22:20 93 09/29/21 22:10 93 09/29/21 22:00 92 09/29/21 21:50 92 09/29/21 21:40 92 09/29/21 20:52 91 09/29/21 19:54 88 L PG Care Time/CCT Total # of Minutes Spent Total Time Spent with Patient: Total time spent is greater than 50% in coordination of care (as documented) at patient's floor/unit and/or counseling patient: Coding Level of Care Code 80253 Subseq Hosp Care Lvl 3 Diagnoses 2019 novel coronavirus-infected pneumonia (NCIP) U07.1; J12.82 Acute respiratory failure with hypoxia J96.01 Hypertension I10 Encephalopathy acute G93.40 KASSIDY (acute kidney injury) N17.9
--- NOTE | 2021-09-30 08:25 | XRay Report ---
XR chest 1V portable CLINICAL HISTORY: hypoxia. Follow-up airspace opacities COMPARISON STUDY: 09/28/2021 TECHNIQUE: 1 view of the chest FINDINGS: Single frontal view of the chest demonstrates the cardiomediastinal silhouette to be within normal li mits. Compared to the previous examination, there is increased expansion of lungs with decreased prom inence of bilateral airspace opacities. However, there is evidence for air bronchograms in the retroc ardiac space concerning for a confluent pneumonia. There is no evidence for pleural effusion. There i s no evidence for vascular congestion. There is no acute osseous pathology. IMPRESSION: Increased inspiratory effort with decrease in airspace opacities bilaterally. However, th ere are air bronchograms in the retrocardiac space concerning for a confluent pneumonia. ACT 112: Negative or not required by law. Electronically signed by: Joss Monreal M.D. 09/30/2021 8:23 AM
[2021-09-30] MEDS: ENOXAPARIN INJ 40 MG/0.4 ML SYR SQ SCH (08:45)
[2021-09-30] MEDS: MONTELUKAST SODIUM 10 MG TABLET PO SCH (08:45)
[2021-09-30] MEDS: INSULIN ASPART PER UNIT SC SCH ×3 (08:59→18:12)
[2021-09-30] MEDS ORDERED: lisinopril 5 MG TAB PO SCH (09:00)
[2021-09-30] MEDS ORDERED: NORMOSOL-R 1,000 ML IV SCH (09:30)
[2021-09-30] MEDS: AZITHROMYCIN 500 MG in DEXTROSE 5% 250 ML IV SCH (12:27)
[2021-09-30] MEDS ORDERED: LIDOCAINE 2% 20 MG/ML 5 ML SYR IV ONE (12:35)
[2021-09-30] MEDS ORDERED: NOREPINEPHRINE/D5W 8 MG/508 ML IV ONE (12:36)
[2021-09-30] MEDS ORDERED: ROCURONIUM BROMIDE 10 MG/ML 5 ML VIAL IV ONE (12:36)
[2021-09-30] MEDS ORDERED: ETOMIDATE 2 MG/ML 20 ML VIAL IV ONE (12:36)
[2021-09-30] MEDS ORDERED: fentaNYL citrate 2,500 MCG/250 ML BAG IV ONE (13:06)
[2021-09-30] MEDS ORDERED: PROPOFOL IV EMULSION 10 MG/ML 100 ML VIAL IV ONE (13:06)
--- NOTE | 2021-09-30 14:16 | XRay Report ---
XR chest 1V portable at 1:42 PM CLINICAL HISTORY: POST INTUBATION/CENTRAL LINE/OG TUBE INSERTION. COMPARISON STUDY: 09/30/2021 at 4:32 AM TECHNIQUE: 1 view of the chest FINDINGS: Single frontal view of the chest demonstrates the cardiomediastinal silhouette to be within normal li mits. Endotracheal tube has been placed with its tip just past the thoracic inlet, 6.4 cm above the c mark. It should probably be advanced at least 2 cm. Right jugular catheter is in place with its tip in the distal SVC. There is no evidence for pneumotho rax. OG tube is also in place with its tip just past the GE junction. It should be further advanced a s well. Compared to previous examination, there is again retrocardiac density with air bronchograms. Only mi ld interstitial and alveolar opacities are seen bilaterally. There is no evidence for pleural effusio n. There is no evidence for vascular congestion. There is no acute osseous pathology. IMPRESSION: 1. ET tube at the level of thoracic inlet and should be advanced. 2. Right subclavian catheter in anatomic position with no pneumothorax. 3. OG tube just past the GE junction and should be advanced. 4. There is again retrocardiac density and mild interstitial and alveolar opacities. ACT 112: Negative or not required by law. Electronically signed by: Joss Monreal M.D. 09/30/2021 2:15 PM
--- NOTE | 2021-09-30 14:34 | Communication Note ---
Date of Service: September 30, 2021 Critical CARE addendum: Patient seen and examined at bedside. He was on Precedex 0.4 the time of examination Patient had gotten multiple doses of Ativan as well as haloperidol overnight. More than 70% CPAP of 12 saturating 90-92% He was still very restless trying to take the mittens off Was breathing in the low 30s. Patient has been on CPAP dependent for more than 48 hours. Plan to intubate the patient was made. We will decide if the patient will need paralytics and proning based on the ABG we get after intubation Patient is also developed KASSIDY. I will give the patient IV fluids1 L of Normosol. We will give more if need be. Continue with Lovenox twice daily I will change patient's dexamethasone to 10 mg on a daily basis. Change Pepcid to Protonix twice daily Patient's hemoglobin is 18.6, I think there is a component of dehydration as well. Hold Lasix In/out: +954, urine output 826 Patient son [phone] was called but no answer Patient's Octavia [phone] was called and updated regarding patient's condition. I have personally spent additional 51 minutes of critical care time in the direct management of this patient. This is a life/limb threatening event. This includes time spent evaluating patient, direct bedside care, chart review, placing orders, interpretation of diagnostic studies, discussion with consultants, patient, and family members, as well as other required patient management activities. This time is exclusive of all separately billable procedures, and teaching time and separate from and in addition to any other critical care service time. Please note the above document was generated using voice recognition software. It may contain grammatical, syntax or spelling errors. Coding Level of Care Code Critical Care ea addt'l 30 min Time Spent (min) 51
--- NOTE | 2021-09-30 14:36 | Procedure Note ---
Procedure Note Date of Service September 30, 2021 Note INTUBATION PROCEDURE NOTE: Attending: Dr Ena Palm MD Patient was evaluated and plan to intubate was made for ventilatory failure. Sedative agent used: Lidocaine 100 mg, etomidate 20 mg Paralysis agent used: Rocuronium 60 mg Emergent consent was implied given patients rapidly declining clinical status and need for airway protection. The patient was prepared in the appropriate fashion. The patient was easily pre-oxygenated by using [id number] ventilation. With help of CMAC grade 2 vocal cords were visualized and 7.5 Kazakh ETT was introduced on first attempt to 24 cm at the lip. The stylette was removed and balloon was inflated with 10mL of air. Appropriate Colorimetric change was appreciated for at least 10 breaths. Bilateral chest rise and breath sounds were appreciated without air sounds in the epigastrium. Patient tolerated the procedure well and there were no immediate complications. Chest Xray to follow for confirming placement. Coding CPT Codes Resuscitation - Resuscitation: 97537 Endotracheal Intubation, emergency ([id number]) [facility] [place] Procedure Codes (Charges) Resuscitation Resuscitation: 02097 Endotracheal Intubation, emergency
--- NOTE | 2021-09-30 14:40 | Procedure Note ---
Procedure Note Date of Service September 30, 2021 Note Procedure: Inserting ultrasound-guided central toll line mechanic: Dr. Ena Palm Indication: ARDS Consent: Emergent consent was applied Anesthesia: 1% lidocaine without epinephrine local. Procedure: Consent was verified and timeout performed. Appropriate imaging studies were reviewed prior to the procedure. Under aseptic and sterile condition, right IJ vein was accessed under direct ultrasound guidance. Guidewire was confirmed to be within the lumen of vein with the help of ultrasound. Catheter was introduced via Seldinger technique. Guide a wire was removed. Good non-pulsatile blood flow was appreciated from all the ports. The catheter was placed at 16 cm and sutured in place. BioPatch was applied to the catheter and a sterile Tegaderm dressing was applied over the catheter with careful attention to sterility. Lung sliding was appreciated post procedure with the help ultrasound. Chest x-ray to follow Patient tolerated the procedure well. Blood loss: Less than 2 cc Complications: None Coding CPT Codes Tubes, Drains, and Vasc Access - Tubes, Drains, and Vasc Access: [id number] Place catheter in vein superior or inferior vena cava ([id number]) Tubes, Drains, and Vasc Access - Tubes, Drains, and Vasc Access: [id number] Ultrasound Guidance For Vascular ([id number]) [facility] [place], [place] Procedure Codes (Charges) Tubes, Drains, and Vasc Access Procedure 1: Tubes, Drains, and Vasc Access: [id number] Place catheter in vein superior or inferior vena cava Procedure 2: Tubes, Drains, and Vasc Access: [id number] Ultrasound Guidance For Vascular
--- NOTE | 2021-09-30 14:42 | Procedure Note ---
Procedure Note Date of Service September 30, 2021 Note ARTERIAL LINE PROCEDURE NOTE: Procedure: Arterial Line Placement Attending: Dr. Ena Palm MD Indication: Monitoring on Pressors Anesthesia: General anesthesia Emergent consent was applied A time-out was completed verifying correct patient, procedure, site, positioning, and implant(s) or special equipment if applicable. Allens test was performed to ensure adequate perfusion. Patients right wrist was prepped and draped in the usual sterile fashion. Ultrasound guidance was used to aid needle placement. A 20g Arrow arterial line was introduced into the right radial artery. Catheter was threaded, and the needle was removed with appropriate pulsatile blood return. Good waveform was observed on the monitor. The patient tolerated the procedure well. Confirmation of placement with ultrasound. Images saved to medical record. Complications: None Blood Loss: Less than 2 cc Coding CPT Codes Tubes, Drains, and Vasc Access - Tubes, Drains, and Vasc Access: [id number] Insertion Catheter, Artery ([id number]) Tubes, Drains, and Vasc Access - Tubes, Drains, and Vasc Access: [id number] Ultrasound Guidance For Vascular ([id number]) [facility] Procedure Codes (Charges) Tubes, Drains, and Vasc Access Procedure 1: Tubes, Drains, and Vasc Access: [id number] Insertion Catheter, Artery Procedure 2: Tubes, Drains, and Vasc Access: [id number] Ultrasound Guidance For Vascular
[2021-09-30 14:48] LABS: Base Excess ABG 0.8 mEq/L (-9-1.8); HCO3 ABG 25 mmol/L (19-24); Oxygen Saturation ABG 99.7 % (90-95); PCO2 ABG 37 mmHg (35-46); PO2 ABG 228 mmHg (80-95); pH ABG 7.44 (7.35-7.45)
[2021-09-30] MEDS: fentaNYL citrate 2,500 MCG/250 ML BAG IV SCH (14:58)
[2021-09-30] MEDS: propofoL 1,000 MG/100 ML VIAL IV SCH ×2 (14:59→20:16)
[2021-09-30] MEDS: NOREPINEPHRINE/D5W 8 MG/508 ML BAG IV SCH (15:10)
[2021-09-30 15:13] LABS: Allen Test Pos (Pos)
[2021-09-30] MEDS: dexAMETHasone 10 MG in SYRINGE 0 ML IV SCH (18:13)
[2021-09-30] MEDS: PANTOprazole 40 MG in SYRINGE 0 ML IV SCH (21:28)
[2021-09-30] MEDS: HEPARIN SOD 5,000 UNIT/0.5 ML VIAL SQ SCH (21:28)
[2021-10-01] MEDS: INSULIN ASPART PER UNIT SC SCH ×6 (00:07→23:13)
[2021-10-01] MEDS: propofoL 1,000 MG/100 ML VIAL IV SCH ×7 (01:57→20:55)
--- NOTE | 2021-10-01 04:07 | Procedure Note ---
Procedure Note Date of Service October 01, 2021 Note Procedure: Arterial Line Placement Attending: Dr. Palm APC: Owen Liang PA-C Indication: Hemodynamic monitoring Anesthesia: Lidocaine 1% Emergent Consent implied in the setting of clinical deterioration and need for close hemodynamic monitoring, ABG monitoring, frequent lab draws, etc. A time-out was completed verifying correct patient, procedure, site, positioning, and implant(s) or special equipment if applicable. Allens test was performed to ensure adequate perfusion. Patients LEFT wrist was prepped and draped in the usual sterile fashion. Ultrasound guidance was used to aid needle placement. A 20g Arrow arterial line was introduced into the LEFT radial artery. Catheter was threaded, and the needle was removed with appropriate blood return. Good waveform was observed. The patient tolerated the procedure well. Conf irmation of placement with ultrasound. Blood Loss: Minimal Complications: None Procedural Ultrasound Guidance: Procedure Date: 10/01/2021 Indication: Hemodynamic Monitoring, Frequent ABGs/Lab draws. Attending: Dr. Palm APC: Owen Liang PA-C Artery Identified: YES Line confirmed in Artery with ultrasound: YES Complications: NONE Patient tolerated procedure: WELL Coding CPT Codes Tubes, Drains, and Vasc Access - Tubes, Drains, and Vasc Access: [id number] Place Catheter In Artery ([id number]) [facility] [place] Procedure Codes (Charges) Tubes, Drains, and Vasc Access Procedure 3: Tubes, Drains, and Vasc Access: [id number] Place Catheter In Artery
[2021-10-01 04:30] LABS: iSTAT Art Bld Gas pCO2 Correct 41 mmHg (35-46); iSTAT Art Bld Gas pH Corrected 7.391 (7.35-7.45); iSTAT Arterial Blood Gas HCO3 25 meg/L (19-24); iSTAT Arterial Blood Gas pCO2 42 mmHg (35-46); iSTAT Arterial Blood Gas pH 7.39 (7.35-7.45); iSTAT Arterial Blood Gas pO2 66 mmHg (80-95); iSTAT Arterial Blood Gas pO2 C 64; iSTAT Carbon Dioxide 26 mmol/L (24-31); iSTAT FiO2 55 %; iSTAT Hematocrit 47 % (42-52); iSTAT Potassium 4.4 mmol/L (3.3-5.0); iSTAT Site Art Line; iSTAT Sodium 139 mmol/L (135-144)
[2021-10-01] MEDS: HEPARIN SOD 5,000 UNIT/0.5 ML VIAL SQ SCH ×3 (05:23→21:12)
[2021-10-01] MEDS ORDERED: PHARMACY GLYCEMIC MGMT CONSULT PRN (05:55)
[2021-10-01] MEDS ORDERED: INSULIN PROTOCOL GOAL RANGE ONE (05:55)
[2021-10-01] MEDS ORDERED: STAT IV Infusion **Titration per Protocol STA (05:55)
[2021-10-01] MEDS ORDERED: SEVERE STRESS LEVEL ONE (05:55)
[2021-10-01] MEDS ORDERED: NovoLIN-R BOLUS FROM BAG IV ONE (06:00)
[2021-10-01] MEDS ORDERED: INSULIN HUMAN NPH SC SCH ×2 (06:00→09:00)
[2021-10-01] MEDS: INSULIN REGULAR 250 UNITS in SODIUM CHLORIDE 0.9% 247.5 ML IV SCH (06:09)
[2021-10-01 06:48] LABS: Basophils # (auto) 0.01 K/uL (0-0.2); Basophils % (auto) 0.2 %; Hematocrit (blood only) 47.9 % (42-52); Hemoglobin 16.2 g/dL (14.0-18.0); Immature Granulocytes # (auto) 0.03 K/uL (0.00-0.02); Immature Granulocytes % (auto) 0.7 %; Lymphocytes # (auto) 0.17 K/uL (1.2-3.4); Lymphocytes % (auto) 3.8 %; Mean Corpuscular Hemoglobin 31.8 pg (25-34); Mean Corpuscular Hgb Conc 33.8 g/dL (32-36); Mean Corpuscular Volume 93.9 fL (80-100); Mean Platelet Volume 10.4 fL (7.4-10.4); Monocytes # (auto) 0.08 K/uL (0.11-0.59); Monocytes % (auto) 1.8 %; Neutrophils # (auto) 4.24 K/uL (1.4-6.5); Neutrophils % (auto) 93.5 %; Platelet Count 258 K/uL (130-400); RDW Coefficient of Variation 12.9 % (11.5-14.5); RDW Standard Deviation 44.6 fL (36.4-46.3); White Blood Count 4.53 K/uL (4.8-10.8)
[2021-10-01 07:19] LABS: BUN Creatinine Ratio 43.4 (10-20); Calcium 8.9 mg/dl (8.5-10.1); Creatinine Clr Calc Pharmacy 34.9 ml/min; Est GFR (African American) 36.3 ml/min; Est GFR (Non-African American) 31.3 ml/min; Magnesium 3.7 mg/dl (1.8-2.4); Potassium 4.2 mmol/L (3.5-5.1)
[2021-10-01 07:20] LABS: Phosphorus 4.1 mg/dl (2.5-4.9)
[2021-10-01] MEDS: MONTELUKAST SODIUM 10 MG TABLET PO SCH (08:30)
[2021-10-01] MEDS: dexAMETHasone 10 MG in SYRINGE 0 ML IV SCH (08:30)
[2021-10-01] MEDS: PANTOprazole 40 MG in SYRINGE 0 ML IV SCH ×2 (08:30→21:12)
--- NOTE | 2021-10-01 08:32 | XRay Report ---
XR chest 1V portable HISTORY: Respiratory distress. Follow-up. COMPARISON: Chest 09/30/2021. FINDINGS: Endotracheal tube terminates 2.5 cm and the kyree. Nasogastric tube is curled within the s tomach. Right jugular central venous catheter terminates at the SVC. No pneumothorax. Possible trace left pleural effusion. Patchy bilateral airspace opacities have slightly progressed. This likely repr esents a viral pneumonia. IMPRESSION: 1. Slight progression of the patchy bilateral airspace opacities. This likely represents a viral pneu monia. 2. Satisfactory support line placement. ACT 112: Negative or not required by law. Electronically signed by: David Rothman M.D. 10/01/2021 8:30 AM
[2021-10-01] MEDS: NOREPINEPHRINE/D5W 8 MG/508 ML BAG IV SCH (08:43)
[2021-10-01] MEDS: fentaNYL citrate 2,500 MCG/250 ML BAG IV SCH ×2 (08:43→22:53)
--- NOTE | 2021-10-01 08:55 | Critical Care Progress Note ---
Date of Service October 01, 2021 Assessment & Plan (1) Admitted to intensive care unit: Plan: Reason Critically Ill: 61-year-old male admitted with hypoxic respiratory failure secondary to COVID-19 pneumonia who is now agitated and requiring Precedex drip and ongoing close hemodynamic monitoring with low threshold for endotracheal intubation. NEURO - * CAM ICU: POSITIVE * Agitation: * Patient had reportedly been agitated earlier hospitalization and required addition of Ativan. * Patient's symptoms escalated and with my assessment, the patient appeared nearly in a state of excited delirium. * Precedex drip started. Will titrate minimum dose to appropriate effect. * Patient without focal neurological deficits on exam, however may consider imaging of the patient's brain. Would likely require patient status to improve prior to performing advanced imaging studies at this point. * This is likely multifactorial in the setting of COVID-19 infection, hypoxemia, dexamethasone therapy, etc. CARDIAC/VASCULAR - * Hypertension: * Patient is actually been running borderline hypotensive over the last several hours. * Monitor closely for need for vasopressors. * Monitor on telemetry. RESPIRATORY - * Acute hypoxic respiratory failure secondary to COVID-19 pneumonia: * Now requiring CPAP to maintain oxygenation. * Interestingly, on bedside assessment, the patient was noted to oxygenate well when he is not significantly agitated and pulling at his mask. Because of this, and likelihood that at this point we will be facilitating a "behavioral" intubation in a COVID-19 patient, I did elect to proceed with Precedex drip to help improve the patient's baseline agitation and hopefully help to facilitate improved oxygenation. As patient became less agitated, his saturations were found to be in the high 90s. Blood gas confirms. Will titrate down FiO2 from CPAP as tolerated. Continue to use Precedex for now. Certainly low threshold for endotracheal intubation if the patient were to continue to decline. * Patient is already on dexamethasone. * Otherwise outside window for other treatment modalities at this point. GI/NUTRITION - * N.p.o. while on BiPAP. * Prophylaxis: Famotidine RENAL/LYTES - * KASSIDY: * Patient with little to no urine output noted as well. * Has been well diuresed at this point. * Will provide judicious fluid boluses at this time as the patient is borderline hypotensive as well. - * Sales in place - Strict I&Os. ENDO - * Hyperglycemia * BSGs per unit protocol. ISS --> gtt per unit policy. * Likely secondary to dexamethasone use. HEME - * No concerns at this time. ID - * COVID-19 pneumonia: * Continue with dexamethasone. * No apparent need for antibiotics at this point. * Patient is excluded from ECMO evaluation secondary to age alone. * No other advanced interventions warranted at this time. * Low threshold for emergent endotracheal intubation if agitation not improving. LINES/IV ACCESS - * PIVs x2 * Sales DVT PROPHYLAXIS - * Lovenox * SCDs (2) Acute respiratory failure with hypoxia: (3) 2019 novel coronavirus-infected pneumonia (NCIP): (4) Hypoxia: (5) Agitation: Admission and Anticipated Discharge Date Admission Date: September 23, 2021 Supervising Physician Co-Signing Physician Notes I have personally spent 40 minutes of critical care time in the direct ma nagement of this patient. This is a life/limb threatening event. This includes time spent evaluating patient, direct bedside care, chart review, placing orders, interpretation of diagnostic studies, discussion with consultants, patient, and/or family members regarding treatment decisions, as well as other required patient management activities. This time is exclusive of all separately billable procedures, and teaching time and separate from and in addition to any other critical care service time. Subjective Mild increase in oxygen requirements Physical Exam Physical Exam: General: Sedated. nontoxic. Skin: Warm, dry, Head: Atraumatic Ears, nose, mouth and throat: airway airway obscured by endotracheal tube Cardiovascular: Normal peripheral perfusion Respiratory: Ventilator settings reviewed Gastrointestinal: Non distended Musculoskeletal: No deformity Results & Data Results & Data ([facility]) Vital Signs (Past 12 Hours) Vital Signs Temp Pulse Resp BP Pulse Ox 10/01/21 08:30 37.1 C 74 20 85/62 L 92 10/01/21 08:00 37.1 C 78 20 91/63 L 92 10/01/21 07:30 37.0 C 70 16 90/66 L 89 L 10/01/21 07:00 37.0 C 78 20 98/66 L 90 10/01/21 05:00 36.7 C 70 20 90/62 L 92 10/01/21 04:00 36.6 C 76 20 91 10/01/21 03:00 36.4 C L 68 20 112/76 90 10/01/21 02:39 71 20 88 L 10/01/21 02:00 36.3 C L 67 20 103/74 88 L 10/01/21 01:00 36.4 C L 70 20 111/78 88 L 10/01/21 00:40 36.3 C L 73 20 89 L 10/01/21 00:30 36.3 C L 72 20 127/86 90 10/01/21 00:20 36.3 C L 73 20 88 L 10/01/21 00:11 36.4 C L 72 20 88 L 10/01/21 00:00 36.4 C L 66 20 119/86 90 09/30/21 23:50 36.6 C 73 20 99/71 L 09/30/21 23:40 36.5 C 74 20 87 L 09/30/21 23:30 36.5 C 74 20 100/70 86 L 09/30/21 23:20 36.5 C 71 21 91 09/30/21 23:10 36.5 C 69 20 91 09/30/21 23:00 36.6 C 69 20 100/72 91 09/30/21 22:56 70 09/30/21 22:50 36.6 C 71 20 91 09/30/21 22:40 36.7 C 73 20 91 09/30/21 22:33 72 20 92 09/30/21 22:30 36.7 C 72 20 103/71 91 09/30/21 22:20 36.8 C 73 20 91 09/30/21 22:10 36.9 C 76 20 90 09/30/21 22:00 36.9 C 75 20 98/70 L 90 09/30/21 21:50 37.0 C 76 20 96/71 L 89 L 09/30/21 21:40 37.0 C 77 25 H 104/70 89 L 09/30/21 21:30 37.0 C 74 20 101/76 87 L 09/30/21 21:00 74 109/70 92 Coding Level of Care Code Critical Care 1st 30-74 mins Diagnoses Admitted to intensive care unit Z78.9 Acute respiratory failure with hypoxia J96.01 2019 novel coronavirus-infected pneumonia (NCIP) U07.1; J12.82 Hypoxia R09.02 Agitation R45.1
[2021-10-01] MEDS: AZITHROMYCIN 500 MG in DEXTROSE 5% 250 ML IV SCH (11:14)
[2021-10-01] MEDS: PEPTAMEN INTENSE VHP 1.0 CAL 1,000 ML BAG GT SCH (11:14)
--- NOTE | 2021-10-01 13:49 | Electrocardiogram Report ---
Test Reason : Blood Pressure : / mmHG Vent. Rate : 074 BPM Atrial Rate : 074 BPM P-R Int : 160 ms QRS Dur : 098 ms QT Int : 396 ms P-R-T Axes : 026 -14 004 degrees QTc Int : 439 ms Normal sinus rhythm Minimal voltage criteria for LVH, may be normal variant Nonspecific T wave abnormality Abnormal ECG When compared with ECG of 25-SEP-2021 06:59, Nonspecific T wave abnormality now evident in Lateral leads Confirmed by Hebert Diop ([id number]) on 10/01/2021 1:49:10 PM Referred By: REFERRED SELF Confirmed By:Isrrael Diop
--- NOTE | 2021-10-01 15:02 | Pharmacy Report ---
Pharmacy Glycemic Short Note 2 - Date of Service October 01, 2021 - Glycemic Short BSG Results (Last 24 hours): 09/30/21 09/30/21 10/01/21 18:10 23:47 05:23 Glucose POC Glucose 172 H 267 H POC Glucose (other) 314 H 10/01/21 10/01/21 10/01/21 06:36 07:17 07:38 Glucose 293 H POC Glucose 257 H 218 H POC Glucose (other) 10/01/21 10/01/21 10/01/21 08:23 09:15 10:24 Glucose POC Glucose 198 H 198 H 188 H POC Glucose (other) 10/01/21 10/01/21 10/01/21 11:12 12:16 13:15 Glucose POC Glucose 169 H 190 H 229 H POC Glucose (other) 10/01/21 14:03 Glucose POC Glucose 187 H POC Glucose (other) OUTPATIENT ANTIDIABETIC REGIMEN: * N/A * A1c: 7% 09-25-21 ASSESSMENT: * Patient initiated on insulin infusion this morning due to significant hyperglycemia. This was likely due to steroids and increased stressors. * Discussed plan with ICU team today and will plan to continue on infusion today as TFs will be initiated and patient remains on low dose norepinephrine. PLAN FOR INPATIENT GLYCEMIC CONTROL: * Hold outpatient oral diabetes medications * Starting IV insulin infusion per severe stress protocol- initiated this morning * Goal Range 110 - 180 mg/dl * In the critical care setting, continuous IV insulin infusion has been shown to be the best method for achieving glycemic targets. * Bolus insulin * NovoLog per scale ACHS per insulin infusion calculator PLAN FOR DISCHARGE: * TBD
--- NOTE | 2021-10-01 16:49 | Hospitalist Progress Note ---
Date of Service October 01, 2021 Assessment & Plan (1) Encephalopathy acute: Plan: Pt had escalated excited delirium that was multifactorial, from covid, steroids and 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 started on precedex and with control of agitation but ultimately required intubation (2) 2019 novel coronavirus-infected pneumonia (NCIP): Plan: - symptomatic 09/14/21 - unvaccinated - did not qualify for Remdesivir by time course - decadron continues now on high dose with intubation - CRP not elevated therefore does not qualify for baricitinib or tocilizumab, updated Octavia [phone], Her mother here at [facility] last week of covid, she is very worried about her - after discussion with patient who is a FULL CODE Patient progressed to intubation on 09/30/2021 - mucolytic agents and antitussives prn - pepcid/singulair (GI prophylaxis and ? help with immune response cascade) along with vitamin C and zinc for immune support - lasux held after KASSIDY --cardio tech consulted will manage ventilator (3) Acute respiratory failure with hypoxia: Plan: Secondary to COVID-19 pneumonia - see above. goal pulse ox >/=88% (4) Hypertension: Plan: typically not on outpt treatment will use prn hydralazine at this time (5) KASSIDY (acute kidney injury): Plan: kassidy with diuretic and acei start, both on hold, will discuss with critial care if should give low slow fluids Plan: VTE Prophylaxis - Lovenox 40mg SQ bid Admission and Anticipated Discharge Date Admission Date: September 23, 2021 Subjective pt had delerium, started on precedex, and intubated 09/30/21. has kassidy held lisinopril, lovenox transitioned to heparin ventilator managed by pulmonary critical care Review of Systems Review of Systems: Unobtainable due to endotracheal tube Physical Exam Physical Exam: The patient appeared severely ill Vital signs as documented. Head exam is normocephalic atraumatic Neck is with trache midline no air leak Lungs are coarse bilaterally in all lung eisenberg tachypnea Cardiac exam, Rhythm is regular.. No murmurs, rubs or gallops. Abdominal exam reveals normal bowel sounds, soft Extremities are nonedematous and both pedal pulses are present Results & Data Results & Data ([facility]) Vital Signs (Past 12 Hours) Vital Signs Temp Pulse Pulse Resp BP Pulse Ox 10/01/21 15:00 98.4 F 74 74 93 10/01/21 14:55 64 20 94 10/01/21 12:30 98.6 F 68 20 97/65 L 91 10/01/21 12:15 98.6 F 69 20 101/66 91 10/01/21 12:00 98.6 F 72 20 102/69 89 L 10/01/21 11:45 98.4 F 71 20 109/67 92 10/01/21 11:30 98.4 F 74 23 103/65 87 L 10/01/21 11:27 67 20 88 L 10/01/21 11:15 98.2 F 67 19 101/67 88 L 10/01/21 11:00 98.2 F 65 20 103/71 89 L 10/01/21 10:45 98.2 F 68 19 110/73 88 L 10/01/21 10:30 98.2 F 88 22 121/77 85 L 10/01/21 10:15 98.2 F 72 20 101/71 92 10/01/21 10:00 98.2 F 69 20 98/68 L 92 10/01/21 09:30 98.1 F 69 20 97/67 L 92 10/01/21 09:00 98.2 F 83 21 105/79 91 10/01/21 08:30 98.8 F 74 20 85/62 L 92 10/01/21 08:00 98.8 F 78 20 91/63 L 92 10/01/21 07:45 75 20 92 10/01/21 07:30 98.6 F 70 16 90/66 L 89 L 10/01/21 07:15 76 10/01/21 07:00 98.6 F 78 20 98/66 L 90 10/01/21 05:00 98.1 F 70 20 90/62 L 92 PG Care Time/CCT Total # of Minutes Spent Total Time Spent with Patient: Total time spent is greater than 50% in coordination of care (as documented) at patient's floor/unit and/or counseling patient: Coding Level of Care Code 19870 Subseq Hosp Care Lvl 2 Diagnoses Encephalopathy acute G93.40 2019 novel coronavirus-infected pneumonia (NCIP) U07.1; J12.82 Acute respiratory failure with hypoxia J96.01 Hypertension I10 KASSIDY (acute kidney injury) N17.9
[2021-10-01] MEDS: PROPOFOL BOLUS FROM BAG IV PRN (20:45)
[2021-10-02] MEDS: propofoL 1,000 MG/100 ML VIAL IV SCH ×7 (00:35→20:46)
[2021-10-02] MEDS: INSULIN ASPART PER UNIT SC SCH ×5 (03:30→20:34)
[2021-10-02] MEDS: fentaNYL citrate 2,500 MCG/250 ML BAG IV SCH ×2 (03:51→22:33)
[2021-10-02 04:13] LABS: iSTAT Art Bld Gas pCO2 Correct 41 mmHg (35-46); iSTAT Art Bld Gas pH Corrected 7.406 (7.35-7.45); iSTAT Arterial Blood Gas HCO3 26 meg/L (19-24); iSTAT Arterial Blood Gas pCO2 42 mmHg (35-46); iSTAT Arterial Blood Gas pO2 66 mmHg (80-95); iSTAT Arterial Blood Gas pO2 C 64; iSTAT Carbon Dioxide 27 mmol/L (24-31); iSTAT FiO2 50 %; iSTAT Hematocrit 42 % (42-52); iSTAT Hemoglobin 14.3 g/dl (14.0-18.0); iSTAT Potassium 4.4 mmol/L (3.3-5.0); iSTAT Site L Radial; iSTAT Sodium 140 mmol/L (135-144)
[2021-10-02] MEDS: HEPARIN SOD 5,000 UNIT/0.5 ML VIAL SQ SCH (06:21)
[2021-10-02 06:38] LABS: Hematocrit (blood only) 45.5 % (42-52); Hemoglobin 14.9 g/dL (14.0-18.0); Immature Granulocytes # (auto) 0.05 K/uL (0.00-0.02); Immature Granulocytes % (auto) 0.5 %; Lymphocytes # (auto) 0.38 K/uL (1.2-3.4); Lymphocytes % (auto) 3.9 %; Mean Corpuscular Hemoglobin 31.1 pg (25-34); Mean Corpuscular Hgb Conc 32.7 g/dL (32-36); Mean Platelet Volume 10.4 fL (7.4-10.4); Monocytes # (auto) 0.57 K/uL (0.11-0.59); Monocytes % (auto) 5.9 %; Neutrophils # (auto) 8.65 K/uL (1.4-6.5); Neutrophils % (auto) 89.7 %; Platelet Count 260 K/uL (130-400); RDW Coefficient of Variation 12.9 % (11.5-14.5); RDW Standard Deviation 45.4 fL (36.4-46.3); Red Blood Count 4.79 M/uL (4.7-6.1); White Blood Count 9.65 K/uL (4.8-10.8)
[2021-10-02 07:05] LABS: BUN Creatinine Ratio 54.2 (10-20); Calcium 8.8 mg/dl (8.5-10.1); Creatinine Clr Calc Pharmacy 42.9 ml/min; Est GFR (African American) 46.7 ml/min; Est GFR (Non-African American) 40.3 ml/min; Magnesium 3.7 mg/dl (1.8-2.4); Potassium 4.4 mmol/L (3.5-5.1)
[2021-10-02 07:10] LABS: Phosphorus 3.5 mg/dl (2.5-4.9)
[2021-10-02] MEDS: MONTELUKAST SODIUM 10 MG TABLET PO SCH (08:04)
[2021-10-02] MEDS: dexAMETHasone 10 MG in SYRINGE 0 ML IV SCH (08:04)
[2021-10-02] MEDS: PANTOprazole 40 MG in SYRINGE 0 ML IV SCH (08:04)
--- NOTE | 2021-10-02 08:50 | XRay Report ---
XR chest 1V portable HISTORY: Respiratory failure. Follow-up. COMPARISON: Chest 10/01/2021. FINDINGS: Patchy bilateral airspace opacities remain unchanged. This likely represents a viral pneumo umm. The heart remains mildly enlarged. Rotated study. Endotracheal tube terminates approximately 13 mm from the kyree. This should be pulled back by approximately 1 cm. Nasogastric tube is curled with in the stomach with the tip terminating at the gastroesophageal junction. Right jugular central venou s catheter terminates in the SVC. No pneumothorax. No pleural effusions. IMPRESSION: 1. The endotracheal tube terminates 13 mm from the kyree. This should be pulled back by approximatel y 1 cm. 2. The nasogastric tube is curled within the stomach with the tip terminating at the gastroesophageal junction. This bears watching on future examinations. 3. Multifocal bilateral airspace opacities persist consistent with a viral pneumonia. 4. This report was called/faxed to the referring physician following dictation. ACT 112: Negative or not required by law. Electronically signed by: David Rothman M.D. 10/02/2021 8:48 AM
--- NOTE | 2021-10-02 10:09 | Critical Care Progress Note ---
Date of Service October 02, 2021 Assessment & Plan (1) Admitted to intensive care unit: Plan: Reason Critically Ill: 61-year-old male admitted with hypoxic respiratory failure secondary to COVID-19 pneumonia who is now agitated and requiring Precedex drip and ongoing close hemodynamic monitoring with low threshold for endotracheal intubation. NEURO - * CAM ICU: POSITIVE * Agitation: * Propofol and fentanyl CARDIAC/VASCULAR - * Hypertension: * Patient is actually been running borderline hypotensive over the last several hours. * Monitor closely for need for vasopressors. * Monitor on telemetry. RESPIRATORY - * Acute hypoxic respiratory failure secondary to COVID-19 pneumonia: * Intubation mechanical ventilation. GI/NUTRITION - * Start trickle tube feeds * Prophylaxis: Famotidine RENAL/LYTES - * KASSIDY: Improving * Patient with little to no urine output noted as well. * Has been well diuresed at this point. * Will provide judicious fluid boluses at this time as the patient is borderline hypotensive as well. - * Sales in place - Strict I&Os. ENDO - * Hyperglycemia * BSGs per unit protocol. ISS --> gtt per unit policy. * Likely secondary to dexamethasone use. HEME - * No concerns at this time. ID - * COVID-19 pneumonia: * Continue with dexamethasone. * No apparent need for antibiotics at this point. * Patient is excluded from ECMO evaluation secondary to age alone. * No other advanced interventions warranted at this time. * Low threshold for emergent endotracheal intubation if agitation not improving. LINES/IV ACCESS - * PIVs x2 * Sales DVT PROPHYLAXIS - * Lovenox * SCDs (2) Acute respiratory failure with hypoxia: (3) 2019 novel coronavirus-infected pneumonia (NCIP): (4) Hypoxia: (5) Agitation: Admission and Anticipated Discharge Date Admission Date: September 23, 2021 Supervising Physician Co-Signing Physician Notes I have personally spent 35 minutes of critical care time in the direct management of this patient. This is a life/limb threatening event. This includes time spent evaluating patient, direct bedside care, chart review, placing orders, interpretation of diagnostic studies, discussion with consultants, patient, and/or family members regarding treatment decisions, as well as other required patient management activities. This time is exclusive of all separately billable procedures, and teaching time and separate from and in addition to any other critical care service time. Subjective No overnight events Physical Exam Physical Exam: General: Sedated. nontoxic. Skin: Warm, dry, Head: Atraumatic Ears, nose, mouth and throat: airway airway obscured by endotracheal tube Cardiovascular: Normal peripheral perfusion Respiratory: Ventilator settings reviewed Gastrointestinal: Non distended Musculoskeletal: No deformity Results & Data Results & Data ([facility]) Vital Signs (Past 12 Hours) Vital Signs Temp Pulse Pulse Pulse Resp BP Pulse Ox 10/02/21 09:46 66 22 92 10/02/21 09:00 36.8 C 75 20 109/75 90 10/02/21 08:00 36.8 C 82 21 107/58 L 92 10/02/21 07:33 72 20 95 10/02/21 07:00 36.8 C 64 62 20 103/63 95 10/02/21 06:00 36.7 C 54 L 20 101/69 94 10/02/21 05:00 36.6 C 60 20 108/70 95 10/02/21 04:00 36.6 C 63 20 101/69 94 10/02/21 03:00 36.5 C 56 L 20 101/69 93 10/02/21 02:46 61 20 92 10/02/21 02:00 36.3 C L 61 20 95/59 L 94 10/02/21 01:00 36.5 C 51 L 20 100/70 94 10/02/21 00:00 36.7 C 55 L 20 92/63 L 92 10/01/21 23:00 37.1 C 65 67 20 94/65 L 91 10/01/21 22:10 78 20 91 Coding Level of Care Code Critical Care 1st 30-74 mins Diagnoses Admitted to intensive care unit Z78.9 Acute respiratory failure with hypoxia J96.01 2019 novel coronavirus-infected pneumonia (NCIP) U07.1; J12.82 Hypoxia R09.02 Agitation R45.1
[2021-10-02] MEDS: PEPTAMEN INTENSE VHP 1.0 CAL 1,000 ML BAG GT SCH (10:58)
[2021-10-02] MEDS: INSULIN REGULAR 250 UNITS in SODIUM CHLORIDE 0.9% 247.5 ML IV SCH (11:00)
--- NOTE | 2021-10-02 12:00 | Pharmacy Report ---
Pharmacy Glycemic Short Note 2 - Date of Service October 02, 2021 - Glycemic Short BSG Results (Last 24 hours): 10/01/21 10/01/21 10/01/21 12:16 13:15 14:03 Glucose POC Glucose 190 H 229 H 187 H 10/01/21 10/01/21 10/01/21 15:16 16:11 17:16 Glucose POC Glucose 180 H 134 H 168 H 10/01/21 10/01/21 10/01/21 18:15 19:25 20:21 Glucose POC Glucose 139 H 124 H 132 H 10/01/21 10/01/21 10/02/21 21:10 23:09 01:17 Glucose POC Glucose 151 H 145 H 139 H 10/02/21 10/02/21 10/02/21 03:18 05:41 07:10 Glucose 187 H POC Glucose 157 H 162 H 10/02/21 10:56 Glucose POC Glucose 169 H OUTPATIENT ANTIDIABETIC REGIMEN: * N/A * A1c: 7% 09-25-21 ASSESSMENT: 10/02 * BSGs have been well controlled since insulin infusion started yesterday * Insulin infusing at 2.1 units/hr for multiple hours and BSGs are in goal range * Patient remains intubated, sedated, receiving high dose IV steroids, as well as tube feeds at goal (Peptamen VHP @ 50cc/hr). Norepi has been weaned off. PLAN FOR INPATIENT GLYCEMIC CONTROL: * Hold outpatient oral diabetes medications * Continue IV insulin infusion per severe stress protocol * Goal Range 110 - 180 mg/dl * In the critical care setting, continuous IV insulin infusion has been shown to be the best method for achieving glycemic targets while minimizing risks for both hyper- and hypoglycemia * Bolus insulin * NovoLog SQ Q 4 hrs to cover carbs delivered in continuous tube feeds. Will give 1 unit per 8gm CHO delivered in feeds . PLAN FOR DISCHARGE: * TBD
[2021-10-02] MEDS: ENOXAPARIN INJ 40 MG/0.4 ML SYR SQ SCH (12:24)
--- NOTE | 2021-10-02 14:35 | Hospitalist Progress Note ---
Date of Service October 02, 2021 Assessment & Plan (1) Encephalopathy acute: Plan: Pt had escalated excited delirium that was multifactorial, from covid, steroids and 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 started on precedex but ultimately required intubation will likely make for difficult extubation Dr. 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 Patient progressed to intubation on 09/30/2021 (3) Acute respiratory failure with hypoxia: Plan: Secondary to COVID-19 pneumonia continue mechanical ventilation (4) Hypertension: Plan: typically not on outpt treatment will use prn hydralazine at this time (5) KASSIDY (acute kidney injury): Plan: kassidy with diuretic and acei start, both on hold borderline hypotensive, IV fluids given today UO is increasing Plan: VTE Prophylaxis - Lovenox 40mg SQ bid Admission and Anticipated Discharge Date Admission Date: September 23, 2021 Subjective patient sedated on ventilator, he is on propofol and fentanyl reviewed labs and chart Dr. Garcia is managing d/w RN, patient was very anxious and agitated prior to intubation Review of Systems Review of Systems: Unobtainable due to endotracheal tube Physical Exam Physical Exam: General: well developed, well nourished, intubated and ventilated Neck: supple, trachea midline, normal thyroid Lungs: clear to auscultation bilaterally, symmetric chest rise on ventilator Heart: regular S1 and S2, no murmur, peripheral pulses normal, capillary refill normal, no edema Abdomen: soft, NT, ND, + BS, no hepatomegaly, normal to percussion Extremities: normal in appearance, no cyanosis, no petechiae Neuro: sedated, no focal motor deficits, CN II-XII intact Skin: warm, dry, no rash, normal turgor Psych: sedated Results & Data Results & Data ([facility]) Vital Signs (Past 12 Hours) Vital Signs Temp Pulse Pulse Pulse Resp BP BP 10/02/21 14:17 76 22 10/02/21 14:00 37.1 C 91 H 21 124/68 10/02/21 13:00 36.9 C 71 20 100/66 10/02/21 12:00 36.9 C 54 L 20 106/67 10/02/21 11:00 37.1 C 60 20 111/72 10/02/21 10:16 10/02/21 10:00 36.9 C 64 20 108/70 10/02/21 09:46 66 22 10/02/21 09:00 36.8 C 75 20 109/75 10/02/21 08:00 36.8 C 82 21 107/58 L 10/02/21 07:33 72 20 10/02/21 07:00 36.8 C 64 62 20 103/63 10/02/21 06:00 36.7 C 54 L 20 101/69 10/02/21 05:00 36.6 C 60 20 108/70 10/02/21 04:00 36.6 C 63 20 101/69 10/02/21 03:00 36.5 C 56 L 20 101/69 10/02/21 02:46 61 20 Pulse Ox 10/02/21 14:17 86 L 10/02/21 14:00 90 10/02/21 13:00 90 10/02/21 12:00 90 10/02/21 11:00 90 10/02/21 10:16 92 10/02/21 10:00 89 L 10/02/21 09:46 92 10/02/21 09:00 90 10/02/21 08:00 92 10/02/21 07:33 95 10/02/21 07:00 95 10/02/21 06:00 94 10/02/21 05:00 95 10/02/21 04:00 94 10/02/21 03:00 93 10/02/21 02:46 92 Laboratory Results Laboratory Results - last 24 hr 10/01/21 10/01/21 10/01/21 20:21 21:10 23:09 WBC RBC Hgb POC Hgb Hct POC Hct MCV MCH MCHC RDW Std Deviation RDW Coeff of James Plt Count MPV Immature Gran % (Auto) Neut % (Auto) Lymph % (Auto) [place] % (Auto) Eos % (Auto) Baso % (Auto) Neut # (Auto) Lymph # (Auto) [place] # (Auto) Eos # (Auto) Baso # (Auto) Immature Gran # (Auto) Sample Site POC pH POC pCO2 POC pO2 POC HCO3 POC Total CO2 POC Base Excess ABG pH (Temp Correct) ABG pCO2 (Temp Corrct POC ABG pO2 at Pt Temp POC ABG O2 Sat Stevie Test O2 Delivery Device POC O2 Rate POC FiO2 Tidal Volume PEEP POC Sodium Sodium POC Potassium Potassium Chloride Carbon Dioxide Anion Gap BUN Creatinine Est Cr Clr Drug Dosing Est GFR ( Amer) Est GFR (Non-Af Amer) BUN/Creatinine Ratio Glucose POC Glucose 132 H 151 H 145 H Calcium Phosphorus Magnesium 10/02/21 10/02/21 10/02/21 01:17 03:18 03:43 WBC RBC Hgb POC Hgb 14.3 Hct POC Hct 42 MCV MCH MCHC RDW Std Deviation RDW Coeff of James Plt Count MPV Immature Gran % (Auto) Neut % (Auto) Lymph % (Auto) [place] % (Auto) Eos % (Auto) Baso % (Auto) Neut # (Auto) Lymph # (Auto) [place] # (Auto) Eos # (Auto) Baso # (Auto) Immature Gran # (Auto) Sample Site L Radial POC pH 7.40 POC pCO2 42 POC pO2 66 L POC HCO3 26 H POC Total CO2 27 POC Base Excess 1.0 ABG pH (Temp Correct) 7.406 ABG pCO2 (Temp Corrct 41 POC ABG pO2 at Pt Temp 64 POC ABG O2 Sat 93.0 Stevie Test NA O2 Delivery Device Ventilator POC O2 Rate 20 POC FiO2 50 Tidal Volume 420 PEEP 10 POC Sodium 140 Sodium POC Potassium 4.4 Potassium Chloride Carbon Dioxide Anion Gap BUN Creatinine Est Cr Clr Drug Dosing Est GFR ( Amer) Est GFR (Non-Af Amer) BUN/Creatinine Ratio Glucose POC Glucose 139 H 157 H Calcium Phosphorus Magnesium 10/02/21 10/02/21 10/02/21 05:41 05:41 07:10 WBC 9.65 RBC 4.79 Hgb 14.9 POC Hgb Hct 45.5 POC Hct MCV 95.0 MCH 31.1 MCHC 32.7 RDW Std Deviation 45.4 RDW Coeff of James 12.9 Plt Count 260 MPV 10.4 Immature Gran % (Auto) 0.5 Neut % (Auto) 89.7 Lymph % (Auto) 3.9 [place] % (Auto) 5.9 Eos % (Auto) 0.0 Baso % (Auto) 0.0 Neut # (Auto) 8.65 H Lymph # (Auto) 0.38 L [place] # (Auto) 0.57 Eos # (Auto) 0.00 Baso # (Auto) 0.00 Immature Gran # (Auto) 0.05 H Sample Site POC pH POC pCO2 POC pO2 POC HCO3 POC Total CO2 POC Base Excess ABG pH (Temp Correct) ABG pCO2 (Temp Corrct POC ABG pO2 at Pt Temp POC ABG O2 Sat Stevie Test O2 Delivery Device POC O2 Rate POC FiO2 Tidal Volume PEEP POC Sodium Sodium 142 POC Potassium Potassium 4.4 Chloride 109 H Carbon Dioxide 26 Anion Gap 6.0 BUN 96 H Creatinine 1.78 H D Est Cr Clr Drug Dosing 42.9 Est GFR ( Amer) 46.7 Est GFR (Non-Af Amer) 40.3 BUN/Creatinine Ratio 54.2 H Glucose 187 H POC Glucose 162 H Calcium 8.8 Phosphorus 3.5 Magnesium 3.7 H 10/02/21 10/02/21 10/02/21 10:56 15:06 16:05 WBC RBC Hgb POC Hgb Hct POC Hct MCV MCH MCHC RDW Std Deviation RDW Coeff of James Plt Count MPV Immature Gran % (Auto) Neut % (Auto) Lymph % (Auto) [place] % (Auto) Eos % (Auto) Baso % (Auto) Neut # (Auto) Lymph # (Auto) [place] # (Auto) Eos # (Auto) Baso # (Auto) Immature Gran # (Auto) Sample Site POC pH POC pCO2 POC pO2 POC HCO3 POC Total CO2 POC Base Excess ABG pH (Temp Correct) ABG pCO2 (Temp Corrct POC ABG pO2 at Pt Temp POC ABG O2 Sat Stevie Test O2 Delivery Device POC O2 Rate POC FiO2 Tidal Volume PEEP POC Sodium Sodium POC Potassium Potassium Chloride Carbon Dioxide Anion Gap BUN Creatinine Est Cr Clr Drug Dosing Est GFR ( Amer) Est GFR (Non-Af Amer) BUN/Creatinine Ratio Glucose POC Glucose 169 H 226 H 228 H Calcium Phosphorus Magnesium 10/02/21 10/02/21 10/02/21 17:11 18:22 19:33 WBC RBC Hgb POC Hgb Hct POC Hct MCV MCH MCHC RDW Std Deviation RDW Coeff of James Plt Count MPV Immature Gran % (Auto) Neut % (Auto) Lymph % (Auto) [place] % (Auto) Eos % (Auto) Baso % (Auto) Neut # (Auto) Lymph # (Auto) [place] # (Auto) Eos # (Auto) Baso # (Auto) Immature Gran # (Auto) Sample Site POC pH POC pCO2 POC pO2 POC HCO3 POC Total CO2 POC Base Excess ABG pH (Temp Correct) ABG pCO2 (Temp Corrct POC ABG pO2 at Pt Temp POC ABG O2 Sat Stevie Test O2 Delivery Device POC O2 Rate POC FiO2 Tidal Volume PEEP POC Sodium Sodium POC Potassium Potassium Chloride Carbon Dioxide Anion Gap BUN Creatinine Est Cr Clr Drug Dosing Est GFR ( Amer) Est GFR (Non-Af Amer) BUN/Creatinine Ratio Glucose POC Glucose 230 H 187 H 172 H Calcium Phosphorus Magnesium Medications Administered Current Inpatient Medications Acetaminophen (Acetaminophen 325 Mg Tab) 650 mg PO Q4H PRN PRN Reason: pain/fever Stop: 10/23/21 21:09 Last Admin: 09/26/21 21:37 Dose: 650 mg Documented by: Dextrose (Dextrose 50% 50 Ml Syringe) 25 - 50 ml IV UD PRN; Protocol PRN Reason: Hypoglycemia Protocol Stop: 10/25/21 11:37 Enoxaparin Sodium (Enoxaparin Inj 40 Mg/0.4 Ml Syr) 40 mg SQ QAM ALETA Stop: 11/01/21 11:59 Last Admin: 10/02/21 12:24 Dose: 40 mg Documented by: Fentanyl Citrate (Fentanyl Bolus From Bag) 50 mcg IV Q60M PRN PRN Reason: Pain or Agitation Stop: 10/14/21 14:24 Glucagon (Glucagon For Inj 1 Mg Vial) 1 mg SQ UD PRN; Protocol PRN Reason: Hypoglycemia Protocol Stop: 10/25/21 11:37 Glucose (Glucose 10 Tabs/Tube) 4 - 8 tabs PO UD PRN; Protocol PRN Reason: Hypoglycemia Protocol Stop: 10/25/21 11:37 Glucose (Glucose 40% Gel 15 Gm Tube) 15 - 30 gm PO UD PRN; Protocol PRN Reason: Hypoglycemia Protocol Stop: 10/25/21 11:37 Hydralazine HCl (Hydralazine Hcl 20 Mg/Ml Vial) 10 mg IV Q8 PRN PRN Reason: Blood Pressure - High Stop: 10/29/21 07:41 Last Admin: 09/29/21 16:06 Dose: 10 mg Documented by: Dexmedetomidine HCl 200 mcg/ (Sodium Chloride) 50 mls @ 0 mls/hr IV .Q0M [facility]; Protocol Stop: 10/04/21 04:59 Last Titration: 10/01/21 07:03 Dose: 0 mcg/kg/hr, 0 mls/hr Documented by: Propofol (Diprivan) 1,000 mg in 100 mls @ 15.336 mls/hr IV .Q6H32M [facility]; Protocol Stop: 10/05/21 14:29 Last Titration: 10/02/21 19:01 Dose: 30 mcg/kg/min, 15.3 mls/hr Documented by: Fentanyl Citrate (Fentanyl Citrate) 2,500 mcg in 250 mls @ 15 mls/hr IV .[id number] [facility]; Protocol Stop: 10/14/21 14:29 Last Titration: 10/02/21 19:01 Dose: 150 mcg/hr, 15 mls/hr Documented by: Dexamethasone 10 mg/ Syringe 2.5 mls @ 1 mls/min IV DAILY [facility] Stop: 10/30/21 17:59 Last Admin: 10/02/21 08:04 Dose: 1 mls/min Documented by: Insulin Human Regular 250 (units/ Sodium Chloride) 250 mls @ 3.6 mls/hr IV .Q24H [facility]; Protocol Stop: 10/31/21 05:59 Last Titration: 10/02/21 19:01 Dose: 3.6 units/hr, 3.6 mls/hr Documented by: Pantoprazole Sodium 40 mg/ (Syringe) 10 mls @ 5 mls/min IV DAILY [facility] Stop: 11/02/21 08:59 Insulin Aspart (Insulin Aspart Per Unit) 0 units SC Q4 [facility] Stop: 10/31/21 15:59 Last Admin: 10/02/21 16:22 Dose: 2 units Documented by: Miscellaneous (Carbohydrates For Hypoglycemia ) 15 - 30 gm PO UD PRN PRN Reason: Hypoglycemia Protocol Stop: 10/25/21 11:37 Miscellaneous Information (Pharmacy Glycemic Mgmt Consult) 1 ea N/A UD PRN PRN Reason: Consult Stop: 10/31/21 05:54 Montelukast Sodium (Montelukast Sodium 10 Mg Tablet) 10 mg PO DAILY [facility] Stop: 10/24/21 08:59 Last Admin: 10/02/21 08:04 Dose: 10 mg Documented by: Nutritional Formula (Peptamen Intense Vhp 1.0 Perez 1,000 Ml Bag) 1,000 ml GT CONT ALETA; Protocol Stop: 10/31/21 10:29 Last Admin: 10/02/21 10:58 Dose: 1,000 ml Documented by: Ondansetron HCl (Ondansetron Inj 2 Mg/Ml 2 Ml Vial) 4 mg IV Q6H PRN PRN Reason: Nausea Stop: 10/23/21 21:09 Propofol (Propofol Bolus From Bag) 20 mg IV Q5M PRN PRN Reason: Sedation Stop: 10/05/21 14:24 Last Admin: 10/01/21 20:45 Dose: 20 mg Documented by: PG Care Time/CCT Total # of Minutes Spent Total Time Spent with Patient: Total time spent is greater than 50% in coordination of care (as documented) at patient's floor/unit and/or counseling patient: Coding Level of Care Code 90226 Subseq Hosp Care Lvl 2 Diagnoses Encephalopathy acute G93.40 2019 novel coronavirus-infected pneumonia (NCIP) U07.1; J12.82 Acute respiratory failure with hypoxia J96.01 Hypertension I10 KASSIDY (acute kidney injury) N17.9
--- NOTE | 2021-10-02 17:48 | Electrocardiogram Report ---
Test Reason : Blood Pressure : / mmHG Vent. Rate : 064 BPM Atrial Rate : 064 BPM P-R Int : 158 ms QRS Dur : 094 ms QT Int : 418 ms P-R-T Axes : 064 -05 008 degrees QTc Int : 431 ms Normal sinus rhythm Normal ECG When compared with ECG of 01-OCT-2021 08:16, No significant change was found Confirmed by Hebert Diop ([id number]) on 10/02/2021 5:48:06 PM Referred By: REFERRED SELF Confirmed By:Isrrael Diop
[2021-10-03] MEDS: propofoL 1,000 MG/100 ML VIAL IV SCH ×5 (00:17→22:53)
[2021-10-03] MEDS: INSULIN ASPART PER UNIT SC SCH ×6 (00:21→20:22)
[2021-10-03 03:52] LABS: iSTAT Art Bld Gas pCO2 Correct 45 mmHg (35-46); iSTAT Art Bld Gas pH Corrected 7.379 (7.35-7.45); iSTAT Arterial Blood Gas HCO3 27 meg/L (19-24); iSTAT Arterial Blood Gas pCO2 46 mmHg (35-46); iSTAT Arterial Blood Gas pH 7.38 (7.35-7.45); iSTAT Arterial Blood Gas pO2 81 mmHg (80-95); iSTAT Arterial Blood Gas pO2 C 80; iSTAT Carbon Dioxide 28 mmol/L (24-31); iSTAT FiO2 50 %; iSTAT Hematocrit 41 % (42-52); iSTAT Hemoglobin 13.9 g/dl (14.0-18.0); iSTAT Potassium 4.6 mmol/L (3.3-5.0); iSTAT Site R Radial; iSTAT Sodium 140 mmol/L (135-144)
[2021-10-03] MEDS: INSULIN REGULAR 250 UNITS in SODIUM CHLORIDE 0.9% 247.5 ML IV SCH (05:50)
[2021-10-03 06:03] LABS: Basophils # (auto) 0.01 K/uL (0-0.2); Basophils % (auto) 0.1 %; Eosinophils # (auto) 0.02 K/uL (0-0.5); Eosinophils % (auto) 0.2 %; Hematocrit (blood only) 45.4 % (42-52); Immature Granulocytes # (auto) 0.09 K/uL (0.00-0.02); Immature Granulocytes % (auto) 0.7 %; Lymphocytes # (auto) 0.75 K/uL (1.2-3.4); Mean Corpuscular Hemoglobin 31.7 pg (25-34); Mean Platelet Volume 10.6 fL (7.4-10.4); Monocytes # (auto) 0.26 K/uL (0.11-0.59); Monocytes % (auto) 2.1 %; Neutrophils # (auto) 11.46 K/uL (1.4-6.5); Neutrophils % (auto) 90.9 %; Platelet Count 289 K/uL (130-400); RDW Coefficient of Variation 12.9 % (11.5-14.5); RDW Standard Deviation 45.6 fL (36.4-46.3); Red Blood Count 4.73 M/uL (4.7-6.1); White Blood Count 12.59 K/uL (4.8-10.8)
[2021-10-03 06:28] LABS: BUN Creatinine Ratio 68.4 (10-20); Creatinine Clr Calc Pharmacy 59.2 ml/min; Est GFR (African American) 68.9 ml/min; Est GFR (Non-African American) 59.4 ml/min; Magnesium 3.4 mg/dl (1.8-2.4); Phosphorus 3.1 mg/dl (2.5-4.9); Potassium 4.5 mmol/L (3.5-5.1)
[2021-10-03] MEDS: ENOXAPARIN INJ 40 MG/0.4 ML SYR SQ SCH (08:20)
[2021-10-03] MEDS: dexAMETHasone 10 MG in SYRINGE 0 ML IV SCH (08:20)
[2021-10-03] MEDS: PANTOprazole 40 MG in SYRINGE 0 ML IV SCH (08:20)
--- NOTE | 2021-10-03 08:42 | XRay Report ---
XR chest 1V portable CLINICAL HISTORY: f/u COMPARISON STUDY: Chest CT September 26, 2021. Chest radiograph October 02, 2021. FINDINGS: Endotracheal tube is appropriately positioned. Nasogastric tube is coiled within the stomac h. Tip projects over the gastric cardia. Right internal jugular central line remains in place. There is no pneumothorax or pleural effusion. Cardiomediastinal silhouette is stable. Extensive bilateral a irspace opacities are again noted. Left lower lung aeration has slightly improved. Right lung airspac e opacities have slightly increased. IMPRESSION: 1. Satisfactory positioning of the endotracheal tube. 2. Extensive bilateral airspace opacities. Interval improvement in left lower lung aeration. Slight i ncrease in right lung airspace opacities. ACT 112: Negative or not required by law. Electronically signed by: [place] Amos M.D. 10/03/2021 8:40 AM
--- NOTE | 2021-10-03 09:09 | Hospitalist Progress Note ---
Date of Service October 03, 2021 Assessment & Plan (1) 2019 novel coronavirus-infected pneumonia (NCIP): Plan: - symptomatic 09/14/21 - unvaccinated - did not qualify for Remdesivir by time course - continue dexamethasone - CRP not elevated therefore did not qualify for baricitinib or tocilizumab, Patient progressed to intubation on 09/30/2021 Dr. Garcia managing, appreciate his care (2) Acute respiratory failure with hypoxia: Plan: Secondary to COVID-19 pneumonia continue mechanical ventilation, PEEP 10 and FiO2 40% work on lowering PEEP, ICU managing (3) Encephalopathy acute: Plan: Pt had escalated excited delirium that was multifactorial, from covid, steroids and 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 started on precedex but ultimately required intubation will likely make for difficult extubation Dr. Garcia will speak with family about early tracheostomy to limit sedation needs (4) Hypertension: Plan: typically not on outpt treatment will use prn hydralazine at this time (5) KASSIDY (acute kidney injury): Plan: due to dehydration and use of diuretic and ACI inhibitor, both held on admission no IV fluids today, SBP is 109, making urine robles in place Plan: VTE Prophylaxis - Lovenox 40mg SQ bid ICU managing ventilator Admission and Anticipated Discharge Date Admission Date: September 23, 2021 Subjective intubated, sedated on Propofol and Fentanyl PEEP of 10 and FiO2 40% reviewed labs BP and HR stable on insulin drip, tube feeds Review of Systems Review of Systems: Unobtainable due to cognitive status and Unobtainable due to endotracheal tube Physical Exam Physical Exam: General: well developed, well nourished, intubated and ventilated Neck: supple, trachea midline, normal thyroid Lungs: clear to auscultation bilaterally, symmetric chest rise on ventilator Heart: regular S1 and S2, no murmur, peripheral pulses normal, capillary refill normal, no edema Abdomen: soft, NT, ND, + BS, no hepatomegaly, normal to percussion Extremities: normal in appearance, no cyanosis, no petechiae Neuro: sedated, no focal motor deficits, CN II-XII intact Skin: warm, dry, no rash, normal turgor Psych: sedated Results & Data Results & Data ([facility]) Vital Signs (Past 12 Hours) Vital Signs Temp Pulse Pulse Resp BP BP Pulse Ox 10/03/21 08:17 75 21 91 10/03/21 07:00 37.2 C 71 20 119/75 10/03/21 06:00 37.1 C 69 20 112/73 94 10/03/21 05:00 36.9 C 66 20 110/71 10/03/21 04:00 36.8 C 56 L 20 102/72 10/03/21 03:33 56 L 20 93 10/03/21 03:00 36.8 C 54 L 20 110/72 94 10/03/21 02:00 36.8 C 53 L 20 106/75 94 10/03/21 01:00 36.9 C 54 L 20 102/72 95 10/03/21 00:00 36.8 C 60 20 106/73 92 10/02/21 23:06 36.8 C 62 20 99/65 L 92 10/02/21 23:00 36.8 C 60 20 99/65 L 92 10/02/21 22:40 65 22 94 10/02/21 22:00 36.7 C 52 L 20 114/69 95 Laboratory Results Laboratory Results - last 24 hr 10/02/21 10/02/21 10/02/21 10:56 15:06 16:05 WBC RBC Hgb POC Hgb Hct POC Hct MCV MCH MCHC RDW Std Deviation RDW Coeff of James Plt Count MPV Immature Gran % (Auto) Neut % (Auto) Lymph % (Auto) [place] % (Auto) Eos % (Auto) Baso % (Auto) Neut # (Auto) Lymph # (Auto) [place] # (Auto) Eos # (Auto) Baso # (Auto) Immature Gran # (Auto) Sample Site POC pH POC pCO2 POC pO2 POC HCO3 POC Total CO2 POC Base Excess ABG pH (Temp Correct) ABG pCO2 (Temp Corrct POC ABG pO2 at Pt Temp POC ABG O2 Sat Stevie Test O2 Delivery Device POC O2 Rate POC FiO2 Tidal Volume PEEP POC Sodium Sodium POC Potassium Potassium Chloride Carbon Dioxide Anion Gap BUN Creatinine Est Cr Clr Drug Dosing Est GFR ( Amer) Est GFR (Non-Af Amer) BUN/Creatinine Ratio Glucose POC Glucose 169 H 226 H 228 H Calcium Phosphorus Magnesium Triglycerides 10/02/21 10/02/21 10/02/21 17:11 18:22 19:33 WBC RBC Hgb POC Hgb Hct POC Hct MCV MCH MCHC RDW Std Deviation RDW Coeff of James Plt Count MPV Immature Gran % (Auto) Neut % (Auto) Lymph % (Auto) [place] % (Auto) Eos % (Auto) Baso % (Auto) Neut # (Auto) Lymph # (Auto) [place] # (Auto) Eos # (Auto) Baso # (Auto) Immature Gran # (Auto) Sample Site POC pH POC pCO2 POC pO2 POC HCO3 POC Total CO2 POC Base Excess ABG pH (Temp Correct) ABG pCO2 (Temp Corrct POC ABG pO2 at Pt Temp POC ABG O2 Sat Stevie Test O2 Delivery Device POC O2 Rate POC FiO2 Tidal Volume PEEP POC Sodium Sodium POC Potassium Potassium Chloride Carbon Dioxide Anion Gap BUN Creatinine Est Cr Clr Drug Dosing Est GFR ( Amer) Est GFR (Non-Af Amer) BUN/Creatinine Ratio Glucose POC Glucose 230 H 187 H 172 H Calcium Phosphorus Magnesium Triglycerides 10/02/21 10/02/21 10/02/21 20:09 21:01 22:00 WBC RBC Hgb POC Hgb Hct POC Hct MCV MCH MCHC RDW Std Deviation RDW Coeff of James Plt Count MPV Immature Gran % (Auto) Neut % (Auto) Lymph % (Auto) [place] % (Auto) Eos % (Auto) Baso % (Auto) Neut # (Auto) Lymph # (Auto) [place] # (Auto) Eos # (Auto) Baso # (Auto) Immature Gran # (Auto) Sample Site POC pH POC pCO2 POC pO2 POC HCO3 POC Total CO2 POC Base Excess ABG pH (Temp Correct) ABG pCO2 (Temp Corrct POC ABG pO2 at Pt Temp POC ABG O2 Sat Stevie Test O2 Delivery Device POC O2 Rate POC FiO2 Tidal Volume PEEP POC Sodium Sodium POC Potassium Potassium Chloride Carbon Dioxide Anion Gap BUN Creatinine Est Cr Clr Drug Dosing Est GFR ( Amer) Est GFR (Non-Af Amer) BUN/Creatinine Ratio Glucose POC Glucose 200 H 168 H 199 H Calcium Phosphorus Magnesium Triglycerides 10/02/21 10/03/21 10/03/21 23:05 00:00 00:59 WBC RBC Hgb POC Hgb Hct POC Hct MCV MCH MCHC RDW Std Deviation RDW Coeff of James Plt Count MPV Immature Gran % (Auto) Neut % (Auto) Lymph % (Auto) [place] % (Auto) Eos % (Auto) Baso % (Auto) Neut # (Auto) Lymph # (Auto) [place] # (Auto) Eos # (Auto) Baso # (Auto) Immature Gran # (Auto) Sample Site POC pH POC pCO2 POC pO2 POC HCO3 POC Total CO2 POC Base Excess ABG pH (Temp Correct) ABG pCO2 (Temp Corrct POC ABG pO2 at Pt Temp POC ABG O2 Sat Stevie Test O2 Delivery Device POC O2 Rate POC FiO2 Tidal Volume PEEP POC Sodium Sodium POC Potassium Potassium Chloride Carbon Dioxide Anion Gap BUN Creatinine Est Cr Clr Drug Dosing Est GFR ( Amer) Est GFR (Non-Af Amer) BUN/Creatinine Ratio Glucose POC Glucose 180 H 176 H 184 H Calcium Phosphorus Magnesium Triglycerides 10/03/21 10/03/21 10/03/21 01:59 03:34 03:40 WBC RBC Hgb POC Hgb 13.9 L Hct POC Hct 41 L MCV MCH MCHC RDW Std Deviation RDW Coeff of James Plt Count MPV Immature Gran % (Auto) Neut % (Auto) Lymph % (Auto) [place] % (Auto) Eos % (Auto) Baso % (Auto) Neut # (Auto) Lymph # (Auto) [place] # (Auto) Eos # (Auto) Baso # (Auto) Immature Gran # (Auto) Sample Site R Radial POC pH 7.38 POC pCO2 46 POC pO2 81 POC HCO3 27 H POC Total CO2 28 POC Base Excess 2.0 H ABG pH (Temp Correct) 7.379 ABG pCO2 (Temp Corrct 45 POC ABG pO2 at Pt Temp 80 POC ABG O2 Sat 95.0 Stevie Test NA O2 Delivery Device Ventilator POC O2 Rate 20 POC FiO2 50 Tidal Volume 420 PEEP 10 POC Sodium 140 Sodium POC Potassium 4.6 Potassium Chloride Carbon Dioxide Anion Gap BUN Creatinine Est Cr Clr Drug Dosing Est GFR ( Amer) Est GFR (Non-Af Amer) BUN/Creatinine Ratio Glucose POC Glucose 160 H 149 H Calcium Phosphorus Magnesium Triglycerides 10/03/21 10/03/21 10/03/21 03:57 04:57 05:36 WBC 12.59 H RBC 4.73 Hgb 15.0 POC Hgb Hct 45.4 POC Hct MCV 96.0 MCH 31.7 MCHC 33.0 RDW Std Deviation 45.6 RDW Coeff of James 12.9 Plt Count 289 MPV 10.6 H Immature Gran % (Auto) 0.7 Neut % (Auto) 90.9 Lymph % (Auto) 6.0 [place] % (Auto) 2.1 Eos % (Auto) 0.2 Baso % (Auto) 0.1 Neut # (Auto) 11.46 H Lymph # (Auto) 0.75 L [place] # (Auto) 0.26 Eos # (Auto) 0.02 Baso # (Auto) 0.01 Immature Gran # (Auto) 0.09 H Sample Site POC pH POC pCO2 POC pO2 POC HCO3 POC Total CO2 POC Base Excess ABG pH (Temp Correct) ABG pCO2 (Temp Corrct POC ABG pO2 at Pt Temp POC ABG O2 Sat Stevie Test O2 Delivery Device POC O2 Rate POC FiO2 Tidal Volume PEEP POC Sodium Sodium POC Potassium Potassium Chloride Carbon Dioxide Anion Gap BUN Creatinine Est Cr Clr Drug Dosing Est GFR ( Amer) Est GFR (Non-Af Amer) BUN/Creatinine Ratio Glucose POC Glucose 124 H 139 H Calcium Phosphorus Magnesium Triglycerides 10/03/21 10/03/21 10/03/21 05:36 05:58 07:16 WBC RBC Hgb POC Hgb Hct POC Hct MCV MCH MCHC RDW Std Deviation RDW Coeff of James Plt Count MPV Immature Gran % (Auto) Neut % (Auto) Lymph % (Auto) [place] % (Auto) Eos % (Auto) Baso % (Auto) Neut # (Auto) Lymph # (Auto) [place] # (Auto) Eos # (Auto) Baso # (Auto) Immature Gran # (Auto) Sample Site POC pH POC pCO2 POC pO2 POC HCO3 POC Total CO2 POC Base Excess ABG pH (Temp Correct) ABG pCO2 (Temp Corrct POC ABG pO2 at Pt Temp POC ABG O2 Sat Stevie Test O2 Delivery Device POC O2 Rate POC FiO2 Tidal Volume PEEP POC Sodium Sodium 141 POC Potassium Potassium 4.5 Chloride 112 H Carbon Dioxide 25 Anion Gap 4.0 BUN 88 H Creatinine 1.29 D Est Cr Clr Drug Dosing 59.2 Est GFR ( Amer) 68.9 Est GFR (Non-Af Amer) 59.4 BUN/Creatinine Ratio 68.4 H Glucose 148 H POC Glucose 124 H 125 H Calcium 9.0 Phosphorus 3.1 Magnesium 3.4 H Triglycerides 159 H 10/03/21 08:12 WBC RBC Hgb POC Hgb Hct POC Hct MCV MCH MCHC RDW Std Deviation RDW Coeff of James Plt Count MPV Immature Gran % (Auto) Neut % (Auto) Lymph % (Auto) [place] % (Auto) Eos % (Auto) Baso % (Auto) Neut # (Auto) Lymph # (Auto) [place] # (Auto) Eos # (Auto) Baso # (Auto) Immature Gran # (Auto) Sample Site POC pH POC pCO2 POC pO2 POC HCO3 POC Total CO2 POC Base Excess ABG pH (Temp Correct) ABG pCO2 (Temp Corrct POC ABG pO2 at Pt Temp POC ABG O2 Sat Stevie Test O2 Delivery Device POC O2 Rate POC FiO2 Tidal Volume PEEP POC Sodium Sodium POC Potassium Potassium Chloride Carbon Dioxide Anion Gap BUN Creatinine Est Cr Clr Drug Dosing Est GFR ( Amer) Est GFR (Non-Af Amer) BUN/Creatinine Ratio Glucose POC Glucose 138 H Calcium Phosphorus Magnesium Triglycerides PG Care Time/CCT Total # of Minutes Spent Total Time Spent with Patient: Total time spent is greater than 50% in coordination of care (as documented) at patient's floor/unit and/or counseling patient: Coding Level of Care Code 55541 Subseq Hosp Care Lvl 2 Diagnoses Encephalopathy acute G93.40 2019 novel coronavirus-infected pneumonia (NCIP) U07.1; J12.82 Acute respiratory failure with hypoxia J96.01 Hypertension I10 KSASIDY (acute kidney injury) N17.9
--- NOTE | 2021-10-03 10:04 | Critical Care Progress Note ---
Date of Service October 03, 2021 Assessment & Plan (1) Admitted to intensive care unit: Plan: Reason Critically Ill: 61-year-old male admitted with hypoxic respiratory failure secondary to COVID-19 pneumonia who is now agitated and requiring Precedex drip and ongoing close hemodynamic monitoring with low threshold for endotracheal intubation. NEURO - * CAM ICU: POSITIVE * Agitation: * Propofol and fentanyl CARDIAC/VASCULAR - * Hypertension: * Patient is actually been running borderline hypotensive over the last several hours. * Monitor closely for need for vasopressors. * Monitor on telemetry. RESPIRATORY - * Acute hypoxic respiratory failure secondary to COVID-19 pneumonia: * Intubation mechanical ventilation. GI/NUTRITION - * Start trickle tube feeds * Prophylaxis: Famotidine RENAL/LYTES - * KASSIDY: Improving * Patient with little to no urine output noted as well. * Has been well diuresed at this point. * Will provide judicious fluid boluses at this time as the patient is borderline hypotensive as well. - * Sales in place - Strict I&Os. ENDO - * Hyperglycemia * BSGs per unit protocol. ISS --> gtt per unit policy. * Likely secondary to dexamethasone use. HEME - * No concerns at this time. ID - * COVID-19 pneumonia: * Continue with dexamethasone. * No apparent need for antibiotics at this point. * Patient is excluded from ECMO evaluation secondary to age alone. * No other advanced interventions warranted at this time. * Low threshold for emergent endotracheal intubation if agitation not improving. LINES/IV ACCESS - * PIVs x2 * Sales DVT PROPHYLAXIS - * Lovenox * SCDs (2) Acute respiratory failure with hypoxia: (3) 2019 novel coronavirus-infected pneumonia (NCIP): (4) Hypoxia: (5) Agitation: Admission and Anticipated Discharge Date Admission Date: September 23, 2021 Subjective Decreased oxygen requirements this morning Review of Systems Review of Systems: Unable to obtain due to endotracheal tube Physical Exam Physical Exam: General: Sedated. nontoxic. Skin: Warm, dry, Head: Atraumatic Ears, nose, mouth and throat: airway airway obscured by endotracheal tube Cardiovascular: Normal peripheral perfusion Respiratory: Ventilator settings reviewed Gastrointestinal: Non distended Musculoskeletal: No deformity Results & Data Results & Data ([facility]) Vital Signs (Past 12 Hours) Vital Signs Temp Pulse Pulse Resp BP BP Pulse Ox 10/03/21 08:17 75 21 91 10/03/21 07:00 37.2 C 71 20 119/75 10/03/21 06:00 37.1 C 69 20 112/73 94 10/03/21 05:00 36.9 C 66 20 110/71 10/03/21 04:00 36.8 C 56 L 20 102/72 10/03/21 03:33 56 L 20 93 10/03/21 03:00 36.8 C 54 L 20 110/72 94 10/03/21 02:00 36.8 C 53 L 20 106/75 94 10/03/21 01:00 36.9 C 54 L 20 102/72 95 10/03/21 00:00 36.8 C 60 20 106/73 92 10/02/21 23:06 36.8 C 62 20 99/65 L 92 10/02/21 23:00 36.8 C 60 20 99/65 L 92 10/02/21 22:40 65 22 94 Laboratory Results 10/03/21 10/03/21 10/03/21 Range/Units 09:06 08:12 07:16 WBC (4.8-10.8) K/uL RBC (4.7-6.1) M/uL Hgb (14.0-18.0) g/dL POC Hgb (14.0-18.0) g/dl Hct (42-52) % POC Hct (42-52) % MCV (80-100) fL MCH (25-34) pg MCHC (32-36) g/dL RDW Std Deviation (36.4-46.3) fL RDW Coeff of James (11.5-14.5) % Plt Count (130-400) K/uL MPV (7.4-10.4) fL Immature Gran % (Auto) % Neut % (Auto) % Lymph % (Auto) % Bucks % (Auto) % Eos % (Auto) % Baso % (Auto) % Neut # (Auto) (1.4-6.5) K/uL Lymph # (Auto) (1.2-3.4) K/uL Bucks # (Auto) (0.11-0.59) K/uL Eos # (Auto) (0-0.5) K/uL Baso # (Auto) (0-0.2) K/uL Immature Gran # (Auto) (0.00-0.02) K/uL Sample Site POC pH (7.35-7.45) POC pCO2 (35-46) mmHg POC pO2 (80-95) mmHg POC HCO3 (19-24) renetta/L POC Total CO2 (24-31) mmol/L POC Base Excess (-9-1.8) renetta/L ABG pH (Temp Correct) (7.35-7.45) ABG pCO2 (Temp Corrct (35-46) mmHg POC ABG pO2 at Pt Temp POC ABG O2 Sat (90-95) % Stevie Test O2 Delivery Device POC O2 Rate POC FiO2 % Tidal Volume PEEP POC Sodium (135-144) mmol/L Sodium (136-145) mmol/L POC Potassium (3.3-5.0) mmol/L Potassium (3.5-5.1) mmol/L Chloride (98-107) mmol/L Carbon Dioxide (21-32) mmol/L Anion Gap (3-11) BUN (7-18) mg/dl Creatinine (0.6-1.4) mg/dl Est Cr Clr Drug Dosing ml/min Est GFR ( Amer) ml/min Est GFR (Non-Af Amer) ml/min BUN/Creatinine Ratio (10-20) Glucose (70-99) mg/dl POC Glucose 112 H 138 H 125 H (70-99) mg/dl Calcium (8.5-10.1) mg/dl Phosphorus (2.5-4.9) mg/dl Magnesium (1.8-2.4) mg/dl Triglycerides (0-150) mg/dl 10/03/21 10/03/21 10/03/21 Range/Units 05:58 05:36 05:36 WBC 12.59 H (4.8-10.8) K/uL RBC 4.73 (4.7-6.1) M/uL Hgb 15.0 (14.0-18.0) g/dL POC Hgb (14.0-18.0) g/dl Hct 45.4 (42-52) % POC Hct (42-52) % MCV 96.0 (80-100) fL MCH 31.7 (25-34) pg MCHC 33.0 (32-36) g/dL RDW Std Deviation 45.6 (36.4-46.3) fL RDW Coeff of James 12.9 (11.5-14.5) % Plt Count 289 (130-400) K/uL MPV 10.6 H (7.4-10.4) fL Immature Gran % (Auto) 0.7 % Neut % (Auto) 90.9 % Lymph % (Auto) 6.0 % Bucks % (Auto) 2.1 % Eos % (Auto) 0.2 % Baso % (Auto) 0.1 % Neut # (Auto) 11.46 H (1.4-6.5) K/uL Lymph # (Auto) 0.75 L (1.2-3.4) K/uL Bucks # (Auto) 0.26 (0.11-0.59) K/uL Eos # (Auto) 0.02 (0-0.5) K/uL Baso # (Auto) 0.01 (0-0.2) K/uL Immature Gran # (Auto) 0.09 H (0.00-0.02) K/uL Sample Site POC pH (7.35-7.45) POC pCO2 (35-46) mmHg POC pO2 (80-95) mmHg POC HCO3 (19-24) renetta/L POC Total CO2 (24-31) mmol/L POC Base Excess (-9-1.8) renetta/L ABG pH (Temp Correct) (7.35-7.45) ABG pCO2 (Temp Corrct (35-46) mmHg POC ABG pO2 at Pt Temp POC ABG O2 Sat (90-95) % Stevie Test O2 Delivery Device POC O2 Rate POC FiO2 % Tidal Volume PEEP POC Sodium (135-144) mmol/L Sodium 141 (136-145) mmol/L POC Potassium (3.3-5.0) mmol/L Potassium 4.5 (3.5-5.1) mmol/L Chloride 112 H (98-107) mmol/L Carbon Dioxide 25 (21-32) mmol/L Anion Gap 4.0 (3-11) BUN 88 H (7-18) mg/dl Creatinine 1.29 D (0.6-1.4) mg/dl Est Cr Clr Drug Dosing 59.2 ml/min Est GFR ( Amer) 68.9 ml/min Est GFR (Non-Af Amer) 59.4 ml/min BUN/Creatinine Ratio 68.4 H (10-20) Glucose 148 H (70-99) mg/dl POC Glucose 124 H (70-99) mg/dl Calcium 9.0 (8.5-10.1) mg/dl Phosphorus 3.1 (2.5-4.9) mg/dl Magnesium 3.4 H (1.8-2.4) mg/dl Triglycerides 159 H (0-150) mg/dl 10/03/21 10/03/21 10/03/21 Range/Units 04:57 03:57 03:40 WBC (4.8-10.8) K/uL RBC (4.7-6.1) M/uL Hgb (14.0-18.0) g/dL POC Hgb (14.0-18.0) g/dl Hct (42-52) % POC Hct (42-52) % MCV (80-100) fL MCH (25-34) pg MCHC (32-36) g/dL RDW Std Deviation (36.4-46.3) fL RDW Coeff of James (11.5-14.5) % Plt Count (130-400) K/uL MPV (7.4-10.4) fL Immature Gran % (Auto) % Neut % (Auto) % Lymph % (Auto) % Bucks % (Auto) % Eos % (Auto) % Baso % (Auto) % Neut # (Auto) (1.4-6.5) K/uL Lymph # (Auto) (1.2-3.4) K/uL Bucks # (Auto) (0.11-0.59) K/uL Eos # (Auto) (0-0.5) K/uL Baso # (Auto) (0-0.2) K/uL Immature Gran # (Auto) (0.00-0.02) K/uL Sample Site POC pH (7.35-7.45) POC pCO2 (35-46) mmHg POC pO2 (80-95) mmHg POC HCO3 (19-24) renetta/L POC Total CO2 (24-31) mmol/L POC Base Excess (-9-1.8) renetta/L ABG pH (Temp Correct) (7.35-7.45) ABG pCO2 (Temp Corrct (35-46) mmHg POC ABG pO2 at Pt Temp POC ABG O2 Sat (90-95) % Stevie Test O2 Delivery Device POC O2 Rate POC FiO2 % Tidal Volume PEEP POC Sodium (135-144) mmol/L Sodium (136-145) mmol/L POC Potassium (3.3-5.0) mmol/L Potassium (3.5-5.1) mmol/L Chloride (98-107) mmol/L Carbon Dioxide (21-32) mmol/L Anion Gap (3-11) BUN (7-18) mg/dl Creatinine (0.6-1.4) mg/dl Est Cr Clr Drug Dosing ml/min Est GFR ( Amer) ml/min Est GFR (Non-Af Amer) ml/min BUN/Creatinine Ratio (10-20) Glucose (70-99) mg/dl POC Glucose 139 H 124 H 149 H (70-99) mg/dl Calcium (8.5-10.1) mg/dl Phosphorus (2.5-4.9) mg/dl Magnesium (1.8-2.4) mg/dl Triglycerides (0-150) mg/dl 10/03/21 10/03/21 10/03/21 Range/Units 03:34 01:59 00:59 WBC (4.8-10.8) K/uL RBC (4.7-6.1) M/uL Hgb (14.0-18.0) g/dL POC Hgb 13.9 L (14.0-18.0) g/dl Hct (42-52) % POC Hct 41 L (42-52) % MCV (80-100) fL MCH (25-34) pg MCHC (32-36) g/dL RDW Std Deviation (36.4-46.3) fL RDW Coeff of James (11.5-14.5) % Plt Count (130-400) K/uL MPV (7.4-10.4) fL Immature Gran % (Auto) % Neut % (Auto) % Lymph % (Auto) % Bucks % (Auto) % Eos % (Auto) % Baso % (Auto) % Neut # (Auto) (1.4-6.5) K/uL Lymph # (Auto) (1.2-3.4) K/uL Bucks # (Auto) (0.11-0.59) K/uL Eos # (Auto) (0-0.5) K/uL Baso # (Auto) (0-0.2) K/uL Immature Gran # (Auto) (0.00-0.02) K/uL Sample Site R Radial POC pH 7.38 (7.35-7.45) POC pCO2 46 (35-46) mmHg POC pO2 81 (80-95) mmHg POC HCO3 27 H (19-24) renetta/L POC Total CO2 28 (24-31) mmol/L POC Base Excess 2.0 H (-9-1.8) renetta/L ABG pH (Temp Correct) 7.379 (7.35-7.45) ABG pCO2 (Temp Corrct 45 (35-46) mmHg POC ABG pO2 at Pt Temp 80 POC ABG O2 Sat 95.0 (90-95) % Stevie Test NA O2 Delivery Device Ventilator POC O2 Rate 20 POC FiO2 50 % Tidal Volume 420 PEEP 10 POC Sodium 140 (135-144) mmol/L Sodium (136-145) mmol/L POC Potassium 4.6 (3.3-5.0) mmol/L Potassium (3.5-5.1) mmol/L Chloride (98-107) mmol/L Carbon Dioxide (21-32) mmol/L Anion Gap (3-11) BUN (7-18) mg/dl Creatinine (0.6-1.4) mg/dl Est Cr Clr Drug Dosing ml/min Est GFR ( Amer) ml/min Est GFR (Non-Af Amer) ml/min BUN/Creatinine Ratio (10-20) Glucose (70-99) mg/dl POC Glucose 160 H 184 H (70-99) mg/dl Calcium (8.5-10.1) mg/dl Phosphorus (2.5-4.9) mg/dl Magnesium (1.8-2.4) mg/dl Triglycerides (0-150) mg/dl 10/03/21 10/02/21 10/02/21 Range/Units 00:00 23:05 22:00 WBC (4.8-10.8) K/uL RBC (4.7-6.1) M/uL Hgb (14.0-18.0) g/dL POC Hgb (14.0-18.0) g/dl Hct (42-52) % POC Hct (42-52) % MCV (80-100) fL MCH (25-34) pg MCHC (32-36) g/dL RDW Std Deviation (36.4-46.3) fL RDW Coeff of James (11.5-14.5) % Plt Count (130-400) K/uL MPV (7.4-10.4) fL Immature Gran % (Auto) % Neut % (Auto) % Lymph % (Auto) % Bucks % (Auto) % Eos % (Auto) % Baso % (Auto) % Neut # (Auto) (1.4-6.5) K/uL Lymph # (Auto) (1.2-3.4) K/uL Bucks # (Auto) (0.11-0.59) K/uL Eos # (Auto) (0-0.5) K/uL Baso # (Auto) (0-0.2) K/uL Immature Gran # (Auto) (0.00-0.02) K/uL Sample Site POC pH (7.35-7.45) POC pCO2 (35-46) mmHg POC pO2 (80-95) mmHg POC HCO3 (19-24) renetta/L POC Total CO2 (24-31) mmol/L POC Base Excess (-9-1.8) renetta/L ABG pH (Temp Correct) (7.35-7.45) ABG pCO2 (Temp Corrct (35-46) mmHg POC ABG pO2 at Pt Temp POC ABG O2 Sat (90-95) % Stevie Test O2 Delivery Device POC O2 Rate POC FiO2 % Tidal Volume PEEP POC Sodium (135-144) mmol/L Sodium (136-145) mmol/L POC Potassium (3.3-5.0) mmol/L Potassium (3.5-5.1) mmol/L Chloride (98-107) mmol/L Carbon Dioxide (21-32) mmol/L Anion Gap (3-11) BUN (7-18) mg/dl Creatinine (0.6-1.4) mg/dl Est Cr Clr Drug Dosing ml/min Est GFR ( Amer) ml/min Est GFR (Non-Af Amer) ml/min BUN/Creatinine Ratio (10-20) Glucose (70-99) mg/dl POC Glucose 176 H 180 H 199 H (70-99) mg/dl Calcium (8.5-10.1) mg/dl Phosphorus (2.5-4.9) mg/dl Magnesium (1.8-2.4) mg/dl Triglycerides (0-150) mg/dl 10/02/21 10/02/21 10/02/21 Range/Units 21:01 20:09 19:33 WBC (4.8-10.8) K/uL RBC (4.7-6.1) M/uL Hgb (14.0-18.0) g/dL POC Hgb (14.0-18.0) g/dl Hct (42-52) % POC Hct (42-52) % MCV (80-100) fL MCH (25-34) pg MCHC (32-36) g/dL RDW Std Deviation (36.4-46.3) fL RDW Coeff of James (11.5-14.5) % Plt Count (130-400) K/uL MPV (7.4-10.4) fL Immature Gran % (Auto) % Neut % (Auto) % Lymph % (Auto) % Bucks % (Auto) % Eos % (Auto) % Baso % (Auto) % Neut # (Auto) (1.4-6.5) K/uL Lymph # (Auto) (1.2-3.4) K/uL Bucks # (Auto) (0.11-0.59) K/uL Eos # (Auto) (0-0.5) K/uL Baso # (Auto) (0-0.2) K/uL Immature Gran # (Auto) (0.00-0.02) K/uL Sample Site POC pH (7.35-7.45) POC pCO2 (35-46) mmHg POC pO2 (80-95) mmHg POC HCO3 (19-24) renetta/L POC Total CO2 (24-31) mmol/L POC Base Excess (-9-1.8) renetta/L ABG pH (Temp Correct) (7.35-7.45) ABG pCO2 (Temp Corrct (35-46) mmHg POC ABG pO2 at Pt Temp POC ABG O2 Sat (90-95) % Stevie Test O2 Delivery Device POC O2 Rate POC FiO2 % Tidal Volume PEEP POC Sodium (135-144) mmol/L Sodium (136-145) mmol/L POC Potassium (3.3-5.0) mmol/L Potassium (3.5-5.1) mmol/L Chloride (98-107) mmol/L Carbon Dioxide (21-32) mmol/L Anion Gap (3-11) BUN (7-18) mg/dl Creatinine (0.6-1.4) mg/dl Est Cr Clr Drug Dosing ml/min Est GFR ( Amer) ml/min Est GFR (Non-Af Amer) ml/min BUN/Creatinine Ratio (10-20) Glucose (70-99) mg/dl POC Glucose 168 H 200 H 172 H (70-99) mg/dl Calcium (8.5-10.1) mg/dl Phosphorus (2.5-4.9) mg/dl Magnesium (1.8-2.4) mg/dl Triglycerides (0-150) mg/dl 10/02/21 10/02/21 10/02/21 Range/Units 18:22 17:11 16:05 WBC (4.8-10.8) K/uL RBC (4.7-6.1) M/uL Hgb (14.0-18.0) g/dL POC Hgb (14.0-18.0) g/dl Hct (42-52) % POC Hct (42-52) % MCV (80-100) fL MCH (25-34) pg MCHC (32-36) g/dL RDW Std Deviation (36.4-46.3) fL RDW Coeff of James (11.5-14.5) % Plt Count (130-400) K/uL MPV (7.4-10.4) fL Immature Gran % (Auto) % Neut % (Auto) % Lymph % (Auto) % Bucks % (Auto) % Eos % (Auto) % Baso % (Auto) % Neut # (Auto) (1.4-6.5) K/uL Lymph # (Auto) (1.2-3.4) K/uL Bucks # (Auto) (0.11-0.59) K/uL Eos # (Auto) (0-0.5) K/uL Baso # (Auto) (0-0.2) K/uL Immature Gran # (Auto) (0.00-0.02) K/uL Sample Site POC pH (7.35-7.45) POC pCO2 (35-46) mmHg POC pO2 (80-95) mmHg POC HCO3 (19-24) renetta/L POC Total CO2 (24-31) mmol/L POC Base Excess (-9-1.8) renetta/L ABG pH (Temp Correct) (7.35-7.45) ABG pCO2 (Temp Corrct (35-46) mmHg POC ABG pO2 at Pt Temp POC ABG O2 Sat (90-95) % Stevie Test O2 Delivery Device POC O2 Rate POC FiO2 % Tidal Volume PEEP POC Sodium (135-144) mmol/L Sodium (136-145) mmol/L POC Potassium (3.3-5.0) mmol/L Potassium (3.5-5.1) mmol/L Chloride (98-107) mmol/L Carbon Dioxide (21-32) mmol/L Anion Gap (3-11) BUN (7-18) mg/dl Creatinine (0.6-1.4) mg/dl Est Cr Clr Drug Dosing ml/min Est GFR ( Amer) ml/min Est GFR (Non-Af Amer) ml/min BUN/Creatinine Ratio (10-20) Glucose (70-99) mg/dl POC Glucose 187 H 230 H 228 H (70-99) mg/dl Calcium (8.5-10.1) mg/dl Phosphorus (2.5-4.9) mg/dl Magnesium (1.8-2.4) mg/dl Triglycerides (0-150) mg/dl 10/02/21 10/02/21 Range/Units 15:06 10:56 WBC (4.8-10.8) K/uL RBC (4.7-6.1) M/uL Hgb (14.0-18.0) g/dL POC Hgb (14.0-18.0) g/dl Hct (42-52) % POC Hct (42-52) % MCV (80-100) fL MCH (25-34) pg MCHC (32-36) g/dL RDW Std Deviation (36.4-46.3) fL RDW Coeff of James (11.5-14.5) % Plt Count (130-400) K/uL MPV (7.4-10.4) fL Immature Gran % (Auto) % Neut % (Auto) % Lymph % (Auto) % Bucks % (Auto) % Eos % (Auto) % Baso % (Auto) % Neut # (Auto) (1.4-6.5) K/uL Lymph # (Auto) (1.2-3.4) K/uL Bucks # (Auto) (0.11-0.59) K/uL Eos # (Auto) (0-0.5) K/uL Baso # (Auto) (0-0.2) K/uL Immature Gran # (Auto) (0.00-0.02) K/uL Sample Site POC pH (7.35-7.45) POC pCO2 (35-46) mmHg POC pO2 (80-95) mmHg POC HCO3 (19-24) renetta/L POC Total CO2 (24-31) mmol/L POC Base Excess (-9-1.8) renetta/L ABG pH (Temp Correct) (7.35-7.45) ABG pCO2 (Temp Corrct (35-46) mmHg POC ABG pO2 at Pt Temp POC ABG O2 Sat (90-95) % Stevie Test O2 Delivery Device POC O2 Rate POC FiO2 % Tidal Volume PEEP POC Sodium (135-144) mmol/L Sodium (136-145) mmol/L POC Potassium (3.3-5.0) mmol/L Potassium (3.5-5.1) mmol/L Chloride (98-107) mmol/L Carbon Dioxide (21-32) mmol/L Anion Gap (3-11) BUN (7-18) mg/dl Creatinine (0.6-1.4) mg/dl Est Cr Clr Drug Dosing ml/min Est GFR ( Amer) ml/min Est GFR (Non-Af Amer) ml/min BUN/Creatinine Ratio (10-20) Glucose (70-99) mg/dl POC Glucose 226 H 169 H (70-99) mg/dl Calcium (8.5-10.1) mg/dl Phosphorus (2.5-4.9) mg/dl Magnesium (1.8-2.4) mg/dl Triglycerides (0-150) mg/dl Coding Level of Care Code Critical Care 1st 30-74 mins Diagnoses Admitted to intensive care unit Z78.9 Acute respiratory failure with hypoxia J96.01 2019 novel coronavirus-infected pneumonia (NCIP) U07.1; J12.82 Hypoxia R09.02 Agitation R45.1
[2021-10-03] MEDS ORDERED: INSULIN GLARGINE SOLOSTAR 100 UNITS/ML 3 ML PEN SC ONE (11:00)
--- NOTE | 2021-10-03 11:31 | Pharmacy Report ---
Pharmacy Glycemic Short Note 2 - Date of Service October 03, 2021 - Glycemic Short BSG Results (Last 24 hours): 10/02/21 10/02/21 10/02/21 15:06 16:05 17:11 Glucose POC Glucose 226 H 228 H 230 H 10/02/21 10/02/21 10/02/21 18:22 19:33 20:09 Glucose POC Glucose 187 H 172 H 200 H 10/02/21 10/02/21 10/02/21 21:01 22:00 23:05 Glucose POC Glucose 168 H 199 H 180 H 10/03/21 10/03/21 10/03/21 00:00 00:59 01:59 Glucose POC Glucose 176 H 184 H 160 H 10/03/21 10/03/21 10/03/21 03:40 03:57 04:57 Glucose POC Glucose 149 H 124 H 139 H 10/03/21 10/03/21 10/03/21 05:36 05:58 07:16 Glucose 148 H POC Glucose 124 H 125 H 10/03/21 10/03/21 10/03/21 08:12 09:06 10:11 Glucose POC Glucose 138 H 112 H 105 H 10/03/21 11:02 Glucose POC Glucose 111 H OUTPATIENT ANTIDIABETIC REGIMEN: * N/A * A1c: 7% 09-25-21 ASSESSMENT: 10/03 * BSGs did climb into the 220-230s mid-day despite insulin drip yesterday, likely related to IV dexamethasone admin each AM. * Insulin drip running 3.6-4.1units/hr with current stressors (mech ventilation, Peptamen VHP running at goal 50cc/hr, dexamethasone 6mg IV Q AM). * Patient discussed at AM rounds, plan to add SQ basal insulin and adjust Novolog SQ doses in an attempt to reduce IV insulin drip needs with plan to transition to SQ regimen when drip rates < 1unit/hr and BSGs at goal. 10/02 * BSGs have been well controlled since insulin infusion started yesterday * Insulin infusing at 2.1 units/hr for multiple hours and BSGs are in goal range * Patient remains intubated, sedated, receiving high dose IV steroids, as well as tube feeds at goal (Peptamen VHP @ 50cc/hr). Norepi has been weaned off. PLAN FOR INPATIENT GLYCEMIC CONTROL: * Hold outpatient oral diabetes medications * Continue IV insulin infusion per severe stress protocol * Goal Range 110 - 180 mg/dl * Insulin drip may be DC'd if running at < 1 unit/hr x 2 checks and BSGs < 180 * Lantus 40 units SQ x 1, continue IV insulin drip * Bolus insulin * NovoLog SQ Q 4 hrs * Goal range: 110-140 mg/dL * Correction factor: 15mg/dL/unit * Carb ratio: 1 unit per 6gm CHO delivered in feeds PLAN FOR DISCHARGE: * TBD
[2021-10-03] MEDS: DEXMEDETOMIDINE HCL 200 MCG in SODIUM CHLORIDE 0.9% 48 ML IV SCH ×7 (11:59→18:13)
[2021-10-03] MEDS: MONTELUKAST SODIUM 10 MG TABLET PO SCH (15:22)
[2021-10-03] MEDS: fentaNYL citrate 2,500 MCG/250 ML BAG IV SCH (15:49)
[2021-10-03] MEDS: PEPTAMEN INTENSE VHP 1.0 CAL 1,000 ML BAG GT SCH (16:49)
[2021-10-03] MEDS: PROPOFOL BOLUS FROM BAG IV PRN (19:39)
[2021-10-04] MEDS: INSULIN ASPART PER UNIT SC SCH ×7 (00:03→23:59)
[2021-10-04] MEDS: propofoL 1,000 MG/100 ML VIAL IV SCH ×7 (02:15→21:24)
[2021-10-04 03:57] LABS: iSTAT Allen Test Pass; iSTAT Arterial Blood Gas HCO3 25 meg/L (19-24); iSTAT Arterial Blood Gas pCO2 44 mmHg (35-46); iSTAT Arterial Blood Gas pH 7.35 (7.35-7.45); iSTAT Arterial Blood Gas pO2 56 mmHg (80-95); iSTAT Carbon Dioxide 26 mmol/L (24-31); iSTAT FiO2 45 %; iSTAT Site R Radial
[2021-10-04 07:19] LABS: Basophils # (auto) 0.01 K/uL (0-0.2); Basophils % (auto) 0.1 %; Eosinophils # (auto) 0.09 K/uL (0-0.5); Eosinophils % (auto) 0.8 %; Hematocrit (blood only) 44.4 % (42-52); Hemoglobin 14.4 g/dL (14.0-18.0); Immature Granulocytes # (auto) 0.04 K/uL (0.00-0.02); Immature Granulocytes % (auto) 0.3 %; Lymphocytes # (auto) 0.57 K/uL (1.2-3.4); Lymphocytes % (auto) 4.9 %; Mean Corpuscular Hemoglobin 31.2 pg (25-34); Mean Corpuscular Hgb Conc 32.4 g/dL (32-36); Mean Corpuscular Volume 96.3 fL (80-100); Mean Platelet Volume 10.6 fL (7.4-10.4); Monocytes # (auto) 0.51 K/uL (0.11-0.59); Monocytes % (auto) 4.4 %; Neutrophils # (auto) 10.49 K/uL (1.4-6.5); Neutrophils % (auto) 89.5 %; Platelet Count 291 K/uL (130-400); RDW Coefficient of Variation 13.2 % (11.5-14.5); RDW Standard Deviation 46.2 fL (36.4-46.3); Red Blood Count 4.61 M/uL (4.7-6.1); White Blood Count 11.71 K/uL (4.8-10.8)
[2021-10-04 07:48] LABS: BUN Creatinine Ratio 65.1 (10-20); Calcium 9.2 mg/dl (8.5-10.1); Creatinine Clr Calc Pharmacy 69.4 ml/min; Est GFR (African American) 83.5 ml/min; Est GFR (Non-African American) 72.1 ml/min; Magnesium 2.6 mg/dl (1.8-2.4); Phosphorus 2.8 mg/dl (2.5-4.9); Potassium 4.6 mmol/L (3.5-5.1)
[2021-10-04] MEDS: ENOXAPARIN INJ 40 MG/0.4 ML SYR SQ SCH (07:53)
[2021-10-04] MEDS: dexAMETHasone 10 MG in SYRINGE 0 ML IV SCH (07:53)
[2021-10-04] MEDS: PANTOprazole 40 MG in SYRINGE 0 ML IV SCH (07:54)
[2021-10-04] MEDS: MONTELUKAST SODIUM 10 MG TABLET PO SCH (07:54)
--- NOTE | 2021-10-04 08:04 | XRay Report ---
XR chest 1V portable CLINICAL HISTORY: Follow-up bilateral airspace opacities. COMPARISON STUDY: 10/03/2021 TECHNIQUE: 1 view of the chest FINDINGS: Single frontal view of the chest demonstrates the cardiomediastinal silhouette to be within normal li mits. Tubes and catheters are unchanged. Compared to the previous examination, there has been interva l worsening of bilateral interstitial and alveolar opacities. There is also left basilar atelectasis and blunting of the left costophrenic angle characteristic of small left pleural effusion. There is n o evidence for vascular congestion. There is no acute osseous pathology. IMPRESSION: Interval worsening of bilateral interstitial and alveolar opacities along with developmen t of left basilar atelectasis and left pleural effusion. ACT 112: Negative or not required by law. Electronically signed by: Joss Monreal M.D. 10/04/2021 8:03 AM
--- NOTE | 2021-10-04 08:42 | Critical Care Progress Note ---
Date of Service October 04, 2021 Assessment & Plan (1) Admitted to intensive care unit: Plan: IsReason Critically Ill: 61-year-old male admitted with hypoxic respiratory failure secondary to COVID-19 pneumonia who is now agitated and requiring Precedex drip and ongoing close hemodynamic monitoring with low threshold for endotracheal intubation. NEURO - * CAM ICU: POSITIVE * Agitation: * Propofol and fentanyl -Trial of Precedex yesterday late bradycardia which was then subsequently discontinued CARDIAC/VASCULAR - * Hypertension: Stable * Monitor closely for need for vasopressors. * Monitor on telemetry. RESPIRATORY - * Acute hypoxic respiratory failure secondary to COVID-19 pneumonia: * Intubation mechanical 09/30: day 5 GI/NUTRITION - * Start trickle tube feeds * Prophylaxis: Famotidine RENAL/LYTES - * KASSIDY: Resolved - * Sales in place - Strict I&Os. ENDO - * Hyperglycemia * BSGs per unit protocol. ISS --> gtt per unit policy. * Likely secondary to dexamethasone use. -Increasing Lantus dose attempt to transition off of insulin infusion HEME - * No concerns at this time. ID - * COVID-19 pneumonia: * Continue with dexamethasone. day 12, will continue 5 more days of 10mg then taper * No apparent need for antibiotics at this point. * Patient is excluded from ECMO evaluation secondary to age alone. * No other advanced interventions warranted at this time. * Low threshold for emergent endotracheal intubation if agitation not improving. LINES/IV ACCESS - * PIVs x2 * Sales DVT PROPHYLAXIS - * Lovenox * SCDs Updated , Octavia [phone] on status and prognosis. Discussed possibility of tracheostomy for long-term vent weaning. At this point she feels that that may be the best approach we will take recovery day by day and revisit the discussion of tracheostomy on Friday with possibility of tracheostomy on Friday (2) Acute respiratory failure with hypoxia: (3) 2019 novel coronavirus-infected pneumonia (NCIP): (4) Hypoxia: (5) Agitation: Admission and Anticipated Discharge Date Admission Date: September 23, 2021 Supervising Physician Co-Signing Physician Notes I have personally spent 45 minutes of critical care time in the direct management of this patient. This is a life/limb threatening event. This includes time spent evaluating patient, direct bedside care, chart review, placing orders, interpretation of diagnostic studies, discussion with consultants, patient, and/or family members regarding treatment decisions, as w ell as other required patient management activities. This time is exclusive of all separately billable procedures, and teaching time and separate from and in addition to any other critical care service time. Subjective Increasing oxygen requirements last 24 hours Review of Systems Review of Systems: Unable to obtain due to endotracheal tube Physical Exam Physical Exam: General: Sedated. nontoxic. Skin: Warm, dry, Head: Atraumatic Ears, nose, mouth and throat: airway airway obscured by endotracheal tube Cardiovascular: Normal peripheral perfusion Respiratory: Ventilator settings reviewed Gastrointestinal: Non distended Musculoskeletal: No deformity Results & Data Results & Data ([facility]) Vital Signs (Past 12 Hours) Vital Signs Temp Pulse Resp BP Pulse Ox 10/04/21 08:11 87 26 H 91 10/04/21 06:30 66 20 100/68 91 10/04/21 06:15 64 20 103/72 91 10/04/21 06:00 64 20 106/71 92 10/04/21 05:45 65 20 104/70 92 10/04/21 05:30 64 20 102/69 92 10/04/21 05:15 63 19 102/70 92 10/04/21 05:00 62 20 106/71 92 10/04/21 04:45 67 21 105/71 93 10/04/21 04:30 65 20 106/73 94 10/04/21 04:16 63 20 92 10/04/21 04:00 65 20 101/69 92 10/04/21 03:45 64 20 105/67 92 10/04/21 03:30 66 20 107/69 90 10/04/21 03:15 68 20 109/68 91 10/04/21 03:00 74 20 115/72 92 10/04/21 02:45 76 20 117/72 92 10/04/21 02:30 88 29 H 88 L 10/04/21 02:15 37.3 C 60 20 110/76 10/04/21 02:05 37.4 C 60 20 89 L 10/04/21 01:45 37.4 C 59 L 20 113/82 89 L 10/04/21 01:30 37.4 C 59 L 20 111/77 88 L 10/04/21 01:15 37.5 C 59 L 20 114/79 90 10/04/21 01:00 37.5 C 64 20 113/81 90 10/04/21 00:45 37.5 C 64 20 117/82 91 10/04/21 00:30 37.5 C 64 20 116/83 92 10/04/21 00:15 37.5 C 64 20 126/84 91 10/04/21 00:00 37.5 C 64 20 117/80 90 10/03/21 23:45 37.6 C H 59 L 21 120/82 91 10/03/21 23:30 37.6 C H 66 21 121/84 90 10/03/21 23:15 37.6 C H 66 20 116/79 86 L 10/03/21 23:00 37.6 C H 68 20 127/81 88 L 10/03/21 22:45 37.6 C H 70 22 125/82 87 L 10/03/21 22:30 37.5 C 78 24 132/91 92 10/03/21 22:15 37.5 C 67 20 114/75 88 L 10/03/21 22:00 37.5 C 65 20 118/77 90 10/03/21 21:45 37.5 C 74 27 H 114/75 91 10/03/21 21:30 37.4 C 73 19 120/80 91 10/03/21 21:15 37.4 C 78 32 H 119/82 92 10/03/21 21:00 37.3 C 77 20 133/85 93 10/03/21 20:45 37.3 C 83 26 H 147/89 H 90 Coding Level of Care Code Critical Care 1st 30-74 mins Diagnoses Admitted to intensive care unit Z78.9 Acute respiratory failure with hypoxia J96.01 2019 novel coronavirus-infected pneumonia (NCIP) U07.1; J12.82 Hypoxia R09.02 Agitation R45.1
[2021-10-04] MEDS: ACETAMINOPHEN 325 MG TAB PO PRN (09:26)
[2021-10-04] MEDS: fentaNYL citrate 2,500 MCG/250 ML BAG IV SCH (09:26)
--- NOTE | 2021-10-04 10:14 | Hospitalist Progress Note ---
Date of Service October 04, 2021 Assessment & Plan (1) 2019 novel coronavirus-infected pneumonia (NCIP): Plan: - symptomatic 09/14/21 - unvaccinated - did not qualify for Remdesivir by time course - continue dexamethasone 10mg, complete 5 days then taper - CRP not elevated therefore did not qualify for baricitinib or tocilizumab, Patient progressed to intubation on 09/30/2021 Dr. Garcia managing, appreciate his care he discussed possible tracheostomy with today, tentatively plan for Friday if he is not making progress (2) Acute respiratory failure with hypoxia: Plan: Secondary to COVID-19 pneumonia continue mechanical ventilation, day 5 work on lowering PEEP, ICU managing (3) Encephalopathy acute: Plan: Pt had escalated excited delirium that was multifactorial, from covid, steroids and 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 started on precedex but ultimately required intubation will likely make for difficult extubation possible tracheostomy on Friday (4) Hypertension: Plan: typically not on outpt treatment will use prn hydralazine at this time (5) KASSIDY (acute kidney injury): Plan: due to dehydration and use of diuretic and ACI inhibitor, both held on admission no IV fluids today, trickle tube feeds robles in place Plan: VTE Prophylaxis - Lovenox 40mg SQ bid ICU managing ventilator Admission and Anticipated Discharge Date Admission Date: September 23, 2021 Subjective no major changes, on Fentanyl and Propofol day [address] Garcia discussed tracheostomy with today, plan to be done Friday if not improving Review of Systems Review of Systems: Unobtainable due to endotracheal tube Physical Exam Physical Exam: General: well developed, well nourished, intubated and ventilated Neck: supple, trachea midline, normal thyroid Lungs: clear to auscultation bilaterally, symmetric chest rise on ventilator Heart: regular S1 and S2, no murmur, peripheral pulses normal, capillary refill normal, no edema Abdomen: soft, NT, ND, + BS, no hepatomegaly, normal to percussion Extremities: normal in appearance, no cyanosis, no petechiae Neuro: sedated, no focal motor deficits, CN II-XII intact Skin: warm, dry, no rash, normal turgor Psych: sedated Results & Data Results & Data ([facility]) Vital Signs (Past 12 Hours) Vital Signs Temp Pulse Resp BP Pulse Ox 10/04/21 09:00 37.9 C H 75 22 114/72 90 10/04/21 08:45 37.9 C H 79 22 116/70 90 10/04/21 08:30 37.9 C H 77 21 108/71 91 10/04/21 08:24 37.9 C H 79 23 126/76 92 10/04/21 08:15 37.9 C H 86 25 H 125/77 90 10/04/21 08:11 87 26 H 91 10/04/21 08:02 82 19 121/76 89 L 10/04/21 08:00 89 28 H 88 L 10/04/21 07:45 37.8 C H 77 22 109/72 91 10/04/21 07:30 37.7 C H 86 24 119/77 90 10/04/21 07:15 37.7 C H 72 20 108/68 91 10/04/21 07:00 37.7 C H 73 19 121/75 91 10/04/21 06:45 37.7 C H 73 20 111/70 91 10/04/21 06:30 66 20 100/68 91 10/04/21 06:15 64 20 103/72 91 10/04/21 06:00 64 20 106/71 92 10/04/21 05:45 65 20 104/70 92 10/04/21 05:30 64 20 102/69 92 10/04/21 05:15 63 19 102/70 92 10/04/21 05:00 62 20 106/71 92 10/04/21 04:45 67 21 105/71 93 10/04/21 04:30 65 20 106/73 94 10/04/21 04:16 63 20 92 10/04/21 04:00 65 20 101/69 92 10/04/21 03:45 64 20 105/67 92 10/04/21 03:30 66 20 107/69 90 10/04/21 03:15 68 20 109/68 91 10/04/21 03:00 74 20 115/72 92 10/04/21 02:45 76 20 117/72 92 10/04/21 02:30 88 29 H 88 L 10/04/21 02:15 37.3 C 60 20 110/76 10/04/21 02:05 37.4 C 60 20 89 L 10/04/21 01:45 37.4 C 59 L 20 113/82 89 L 10/04/21 01:30 37.4 C 59 L 20 111/77 88 L 10/04/21 01:15 37.5 C 59 L 20 114/79 90 10/04/21 01:00 37.5 C 64 20 113/81 90 10/04/21 00:45 37.5 C 64 20 117/82 91 10/04/21 00:30 37.5 C 64 20 116/83 92 10/04/21 00:15 37.5 C 64 20 126/84 91 10/04/21 00:00 37.5 C 64 20 117/80 90 10/03/21 23:45 37.6 C H 59 L 21 120/82 91 10/03/21 23:30 37.6 C H 66 21 121/84 90 10/03/21 23:15 37.6 C H 66 20 116/79 86 L 10/03/21 23:00 37.6 C H 68 20 127/81 88 L 10/03/21 22:45 37.6 C H 70 22 125/82 87 L 10/03/21 22:30 37.5 C 78 24 132/91 92 10/03/21 22:15 37.5 C 67 20 114/75 88 L Laboratory Results Laboratory Results - last 24 hr 10/03/21 10/03/21 10/03/21 10:11 11:02 11:56 WBC RBC Hgb Hct MCV MCH MCHC RDW Std Deviation RDW Coeff of James Plt Count MPV Immature Gran % (Auto) Neut % (Auto) Lymph % (Auto) [place] % (Auto) Eos % (Auto) Baso % (Auto) Neut # (Auto) Lymph # (Auto) [place] # (Auto) Eos # (Auto) Baso # (Auto) Immature Gran # (Auto) Sample Site POC pH POC pCO2 POC pO2 POC HCO3 POC Total CO2 POC Base Excess POC ABG O2 Sat Stevie Test O2 Delivery Device POC O2 Rate POC FiO2 Tidal Volume PEEP Sodium Potassium Chloride Carbon Dioxide Anion Gap BUN Creatinine Est Cr Clr Drug Dosing Est GFR ( Amer) Est GFR (Non-Af Amer) BUN/Creatinine Ratio Glucose POC Glucose 105 H 111 H 141 H Calcium Phosphorus Magnesium 10/03/21 10/03/21 10/03/21 13:03 14:07 15:17 WBC RBC Hgb Hct MCV MCH MCHC RDW Std Deviation RDW Coeff of James Plt Count MPV Immature Gran % (Auto) Neut % (Auto) Lymph % (Auto) [place] % (Auto) Eos % (Auto) Baso % (Auto) Neut # (Auto) Lymph # (Auto) [place] # (Auto) Eos # (Auto) Baso # (Auto) Immature Gran # (Auto) Sample Site POC pH POC pCO2 POC pO2 POC HCO3 POC Total CO2 POC Base Excess POC ABG O2 Sat Stevie Test O2 Delivery Device POC O2 Rate POC FiO2 Tidal Volume PEEP Sodium Potassium Chloride Carbon Dioxide Anion Gap BUN Creatinine Est Cr Clr Drug Dosing Est GFR ( Amer) Est GFR (Non-Af Amer) BUN/Creatinine Ratio Glucose POC Glucose 140 H 148 H 130 H Calcium Phosphorus Magnesium 10/03/21 10/03/21 10/03/21 16:30 18:07 20:11 WBC RBC Hgb Hct MCV MCH MCHC RDW Std Deviation RDW Coeff of James Plt Count MPV Immature Gran % (Auto) Neut % (Auto) Lymph % (Auto) [place] % (Auto) Eos % (Auto) Baso % (Auto) Neut # (Auto) Lymph # (Auto) [place] # (Auto) Eos # (Auto) Baso # (Auto) Immature Gran # (Auto) Sample Site POC pH POC pCO2 POC pO2 POC HCO3 POC Total CO2 POC Base Excess POC ABG O2 Sat Stevie Test O2 Delivery Device POC O2 Rate POC FiO2 Tidal Volume PEEP Sodium Potassium Chloride Carbon Dioxide Anion Gap BUN Creatinine Est Cr Clr Drug Dosing Est GFR ( Amer) Est GFR (Non-Af Amer) BUN/Creatinine Ratio Glucose POC Glucose 128 H 127 H 169 H Calcium Phosphorus Magnesium 10/03/21 10/03/21 10/03/21 20:57 22:05 22:59 WBC RBC Hgb Hct MCV MCH MCHC RDW Std Deviation RDW Coeff of James Plt Count MPV Immature Gran % (Auto) Neut % (Auto) Lymph % (Auto) [place] % (Auto) Eos % (Auto) Baso % (Auto) Neut # (Auto) Lymph # (Auto) [place] # (Auto) Eos # (Auto) Baso # (Auto) Immature Gran # (Auto) Sample Site POC pH POC pCO2 POC pO2 POC HCO3 POC Total CO2 POC Base Excess POC ABG O2 Sat Stevie Test O2 Delivery Device POC O2 Rate POC FiO2 Tidal Volume PEEP Sodium Potassium Chloride Carbon Dioxide Anion Gap BUN Creatinine Est Cr Clr Drug Dosing Est GFR ( Amer) Est GFR (Non-Af Amer) BUN/Creatinine Ratio Glucose POC Glucose 156 H 168 H 153 H Calcium Phosphorus Magnesium 10/03/21 10/04/21 10/04/21 23:55 01:58 03:41 WBC RBC Hgb Hct MCV MCH MCHC RDW Std Deviation RDW Coeff of James Plt Count MPV Immature Gran % (Auto) Neut % (Auto) Lymph % (Auto) [place] % (Auto) Eos % (Auto) Baso % (Auto) Neut # (Auto) Lymph # (Auto) [place] # (Auto) Eos # (Auto) Baso # (Auto) Immature Gran # (Auto) Sample Site R Radial POC pH 7.35 POC pCO2 44 POC pO2 56 L POC HCO3 25 H POC Total CO2 26 POC Base Excess -1.0 POC ABG O2 Sat 87.0 L Stevie Test Pass O2 Delivery Device Ventilator POC O2 Rate 20 POC FiO2 45 Tidal Volume 420 PEEP 10 Sodium Potassium Chloride Carbon Dioxide Anion Gap BUN Creatinine Est Cr Clr Drug Dosing Est GFR ( Amer) Est GFR (Non-Af Amer) BUN/Creatinine Ratio Glucose POC Glucose 131 H 101 H Calcium Phosphorus Magnesium 10/04/21 10/04/21 10/04/21 04:05 06:57 06:57 WBC 11.71 H RBC 4.61 L Hgb 14.4 Hct 44.4 MCV 96.3 MCH 31.2 MCHC 32.4 RDW Std Deviation 46.2 RDW Coeff of James 13.2 Plt Count 291 MPV 10.6 H Immature Gran % (Auto) 0.3 Neut % (Auto) 89.5 Lymph % (Auto) 4.9 [place] % (Auto) 4.4 Eos % (Auto) 0.8 Baso % (Auto) 0.1 Neut # (Auto) 10.49 H Lymph # (Auto) 0.57 L [place] # (Auto) 0.51 Eos # (Auto) 0.09 Baso # (Auto) 0.01 Immature Gran # (Auto) 0.04 H Sample Site POC pH POC pCO2 POC pO2 POC HCO3 POC Total CO2 POC Base Excess POC ABG O2 Sat Stevie Test O2 Delivery Device POC O2 Rate POC FiO2 Tidal Volume PEEP Sodium 142 Potassium 4.6 Chloride 113 H Carbon Dioxide 25 Anion Gap 3.0 BUN 72 H Creatinine 1.10 Est Cr Clr Drug Dosing 69.4 Est GFR ( Amer) 83.5 Est GFR (Non-Af Amer) 72.1 BUN/Creatinine Ratio 65.1 H Glucose 154 H POC Glucose 95 Calcium 9.2 Phosphorus 2.8 Magnesium 2.6 H 10/04/21 07:27 WBC RBC Hgb Hct MCV MCH MCHC RDW Std Deviation RDW Coeff of James Plt Count MPV Immature Gran % (Auto) Neut % (Auto) Lymph % (Auto) [place] % (Auto) Eos % (Auto) Baso % (Auto) Neut # (Auto) Lymph # (Auto) [place] # (Auto) Eos # (Auto) Baso # (Auto) Immature Gran # (Auto) Sample Site POC pH POC pCO2 POC pO2 POC HCO3 POC Total CO2 POC Base Excess POC ABG O2 Sat Stevie Test O2 Delivery Device POC O2 Rate POC FiO2 Tidal Volume PEEP Sodium Potassium Chloride Carbon Dioxide Anion Gap BUN Creatinine Est Cr Clr Drug Dosing Est GFR ( Amer) Est GFR (Non-Af Amer) BUN/Creatinine Ratio Glucose POC Glucose 106 H Calcium Phosphorus Magnesium Medications Administered Current Inpatient Medications Acetaminophen (Acetaminophen 325 Mg Tab) 650 mg PO Q4H PRN PRN Reason: pain/fever Stop: 10/23/21 21:09 Last Admin: 10/04/21 09:26 Dose: 650 mg Documented by: Dextrose (Dextrose 50% 50 Ml Syringe) 25 - 50 ml IV UD PRN; Protocol PRN Reason: Hypoglycemia Protocol Stop: 10/25/21 11:37 Enoxaparin Sodium (Enoxaparin Inj 40 Mg/0.4 Ml Syr) 40 mg SQ QAM [facility] Stop: 11/01/21 11:59 Last Admin: 10/04/21 07:53 Dose: 40 mg Documented by: Fentanyl Citrate (Fentanyl Bolus From Bag) 50 mcg IV Q60M PRN PRN Reason: Pain or Agitation Stop: 10/14/21 14:24 Glucagon (Glucagon For Inj 1 Mg Vial) 1 mg SQ UD PRN; Protocol PRN Reason: Hypoglycemia Protocol Stop: 10/25/21 11:37 Glucose (Glucose 10 Tabs/Tube) 4 - 8 tabs PO UD PRN; Protocol PRN Reason: Hypoglycemia Protocol Stop: 10/25/21 11:37 Glucose (Glucose 40% Gel 15 Gm Tube) 15 - 30 gm PO UD PRN; Protocol PRN Reason: Hypoglycemia Protocol Stop: 10/25/21 11:37 Hydralazine HCl (Hydralazine Hcl 20 Mg/Ml Vial) 10 mg IV Q8 PRN PRN Reason: Blood Pressure - High Stop: 10/29/21 07:41 Last Admin: 09/29/21 16:06 Dose: 10 mg Documented by: Propofol (Diprivan) 1,000 mg in 100 mls @ 20.448 mls/hr IV .Q4H54M [facility]; Protocol Stop: 10/05/21 14:29 Last Admin: 10/04/21 08:09 Dose: Not Given Documented by: Fentanyl Citrate (Fentanyl Citrate) 2,500 mcg in 250 mls @ 15 mls/hr IV .[id number] [facility]; Protocol Stop: 10/14/21 14:29 Last Admin: 10/04/21 09:26 Dose: 150 mcg/hr, 15 mls/hr Documented by: Dexamethasone 10 mg/ Syringe 2.5 mls @ 1 mls/min IV DAILY [facility] Stop: 10/30/21 17:59 Last Admin: 10/04/21 07:53 Dose: 1 mls/min Documented by: Pantoprazole Sodium 40 mg/ (Syringe) 10 mls @ 5 mls/min IV DAILY [facility] Stop: 11/02/21 08:59 Last Admin: 10/04/21 07:54 Dose: 5 mls/min Documented by: Insulin Aspart (Insulin Aspart Per Unit) 0 units SC Q4 [facility] Stop: 10/31/21 15:59 Last Admin: 10/04/21 07:54 Dose: 2 units Documented by: Miscellaneous (Carbohydrates For Hypoglycemia ) 15 - 30 gm PO UD PRN PRN Reason: Hypoglycemia Protocol Stop: 10/25/21 11:37 Miscellaneous Information (Pharmacy Glycemic Mgmt Consult) 1 ea N/A UD PRN PRN Reason: Consult Stop: 10/31/21 05:54 Montelukast Sodium (Montelukast Sodium 10 Mg Tablet) 10 mg PO DAILY [facility] Stop: 10/24/21 08:59 Last Admin: 10/04/21 07:54 Dose: 10 mg Documented by: Nutritional Formula (Peptamen Intense Vhp 1.0 Perez 1,000 Ml Bag) 1,000 ml GT CONT [facility]; Protocol Stop: 10/31/21 10:29 Last Admin: 10/03/21 16:49 Dose: 1,000 ml Documented by: Ondansetron HCl (Ondansetron Inj 2 Mg/Ml 2 Ml Vial) 4 mg IV Q6H PRN PRN Reason: Nausea Stop: 10/23/21 21:09 Propofol (Propofol Bolus From Bag) 20 mg IV Q5M PRN PRN Reason: Sedation Stop: 10/05/21 14:24 Last Admin: 10/03/21 19:39 Dose: 20 mg Documented by: PG Care Time/CCT Total # of Minutes Spent Total Time Spent with Patient: Total time spent is greater than 50% in coordination of care (as documented) at patient's floor/unit and/or counseling patient: Coding Level of Care Code 77927 Subseq Hosp Care Lvl 2 Diagnoses 2019 novel coronavirus-infected pneumonia (NCIP) U07.1; J12.82 Acute respiratory failure with hypoxia J96.01 Encephalopathy acute G93.40 Hypertension I10 KASSIDY (acute kidney injury) N17.9
[2021-10-04] MEDS: PEPTAMEN INTENSE VHP 1.0 CAL 1,000 ML BAG GT SCH (11:20)
[2021-10-04] MEDS ORDERED: INSULIN HUMAN NPH SC SCH (12:00)
[2021-10-04] MEDS: TUBE FEEDING WATER FLUSH OG SCH ×3 (13:59→20:00)
--- NOTE | 2021-10-04 14:23 | Pharmacy Report ---
Pharmacy Glycemic Short Note 2 - Date of Service October 04, 2021 - Glycemic Short BSG Results (Last 24 hours): 10/03/21 10/03/21 10/03/21 14:07 15:17 16:30 Glucose POC Glucose 148 H 130 H 128 H 10/03/21 10/03/21 10/03/21 18:07 20:11 20:57 Glucose POC Glucose 127 H 169 H 156 H 10/03/21 10/03/21 10/03/21 22:05 22:59 23:55 Glucose POC Glucose 168 H 153 H 131 H 10/04/21 10/04/21 10/04/21 01:58 04:05 06:57 Glucose 154 H POC Glucose 101 H 95 10/04/21 10/04/21 07:27 11:19 Glucose POC Glucose 106 H 198 H OUTPATIENT ANTIDIABETIC REGIMEN: * N/A * A1c: 7% 09-25-21 ASSESSMENT: 10/04 * Insulin drip discontinued early this AM. BSGs have remained largely within goal. Fasting BSG 106mg/dL this AM. However lunchtime BSG today rising consistent with steroid induced hyperglycemia. Tube feeds @ goal (50ml/hr), dex 10mg continues. Pt remains intubated/sedated. * Will change Lantus to NPH (~0.4unit/kg) today for better coverage of prandial BSGs and tighten carb ratio from 6gm to 5gm/unit. 10/03 * BSGs did climb into the 220-230s mid-day despite insulin drip yesterday, likely related to IV dexamethasone admin each AM. * Insulin drip running 3.6-4.1units/hr with current stressors ([facility] ventilation, Peptamen VHP running at goal 50cc/hr, dexamethasone 6mg IV Q AM). * Patient discussed at AM rounds, plan to add SQ basal insulin and adjust Novolog SQ doses in an attempt to reduce IV insulin drip needs with plan to transition to SQ regimen when drip rates < 1unit/hr and BSGs at goal. 10/02 * BSGs have been well controlled since insulin infusion started yesterday * Insulin infusing at 2.1 units/hr for multiple hours and BSGs are in goal range * Patient remains intubated, sedated, receiving high dose IV steroids, as well as tube feeds at goal (Peptamen VHP @ 50cc/hr). Norepi has been weaned off. PLAN FOR INPATIENT GLYCEMIC CONTROL: * Hold outpatient oral diabetes medications * Basal insulin * NPH 35 units daily * Bolus insulin * NovoLog SQ Q 4 hrs * Goal range: 110-140 mg/dL * Correction factor: 15mg/dL/unit * Carb ratio: 1 unit per 5gm CHO delivered in feeds PLAN FOR DISCHARGE: * TBD
[2021-10-05] MEDS: TUBE FEEDING WATER FLUSH OG SCH ×7 (00:16→23:47)
[2021-10-05] MEDS: propofoL 1,000 MG/100 ML VIAL IV SCH ×8 (01:50→20:01)
[2021-10-05] MEDS: fentaNYL citrate 2,500 MCG/250 ML BAG IV SCH ×4 (03:35→21:36)
[2021-10-05] MEDS: INSULIN ASPART PER UNIT SC SCH ×6 (03:57→23:52)
[2021-10-05 05:29] LABS: iSTAT Allen Test Pass; iSTAT Art Bld Gas pCO2 Correct 36 mmHg (35-46); iSTAT Art Bld Gas pH Corrected 7.438 (7.35-7.45); iSTAT Arterial Blood Gas HCO3 25 meg/L (19-24); iSTAT Arterial Blood Gas pCO2 37 mmHg (35-46); iSTAT Arterial Blood Gas pH 7.43 (7.35-7.45); iSTAT Arterial Blood Gas pO2 84 mmHg (80-95); iSTAT Arterial Blood Gas pO2 C 81; iSTAT Carbon Dioxide 26 mmol/L (24-31); iSTAT FiO2 40 %; iSTAT Hematocrit 39 % (42-52); iSTAT Hemoglobin 13.3 g/dl (14.0-18.0); iSTAT Potassium 5.5 mmol/L (3.3-5.0); iSTAT Site L Radial; iSTAT Sodium 137 mmol/L (135-144)
[2021-10-05 06:36] LABS: Basophils # (auto) 0.01 K/uL (0-0.2); Basophils % (auto) 0.1 %; Eosinophils # (auto) 0.05 K/uL (0-0.5); Eosinophils % (auto) 0.5 %; Hematocrit (blood only) 42.6 % (42-52); Hemoglobin 13.8 g/dL (14.0-18.0); Immature Granulocytes # (auto) 0.08 K/uL (0.00-0.02); Immature Granulocytes % (auto) 0.8 %; Lymphocytes # (auto) 0.51 K/uL (1.2-3.4); Mean Corpuscular Hemoglobin 30.8 pg (25-34); Mean Corpuscular Hgb Conc 32.4 g/dL (32-36); Mean Corpuscular Volume 95.1 fL (80-100); Mean Platelet Volume 10.7 fL (7.4-10.4); Monocytes # (auto) 0.53 K/uL (0.11-0.59); Monocytes % (auto) 5.2 %; Neutrophils # (auto) 8.95 K/uL (1.4-6.5); Neutrophils % (auto) 88.4 %; Platelet Count 298 K/uL (130-400); RDW Standard Deviation 45.8 fL (36.4-46.3); Red Blood Count 4.48 M/uL (4.7-6.1); White Blood Count 10.13 K/uL (4.8-10.8)
[2021-10-05 07:09] LABS: BUN Creatinine Ratio 62.8 (10-20); Calcium 9.3 mg/dl (8.5-10.1); Creatinine Clr Calc Pharmacy 61.8 ml/min; Est GFR (African American) 99.7 ml/min; Est GFR (Non-African American) 86.1 ml/min; Magnesium 2.5 mg/dl (1.8-2.4); Phosphorus 2.7 mg/dl (2.5-4.9); Potassium 4.5 mmol/L (3.5-5.1)
[2021-10-05] MEDS: MULTI VIT W/MINERALS LIQUID 15 ML UDP NG SCH (07:26)
[2021-10-05] MEDS: MONTELUKAST SODIUM 10 MG TABLET PO SCH (07:26)
[2021-10-05] MEDS: ENOXAPARIN INJ 40 MG/0.4 ML SYR SQ SCH (07:26)
[2021-10-05] MEDS: PANTOprazole 40 MG in SYRINGE 0 ML IV SCH (07:27)
[2021-10-05] MEDS: dexAMETHasone 10 MG in SYRINGE 0 ML IV SCH (07:27)
--- NOTE | 2021-10-05 07:49 | XRay Report ---
XR chest 1V portable CLINICAL HISTORY: Resp failure. COMPARISON STUDY: 10/04/2021 TECHNIQUE: 1 view of the chest FINDINGS: Single frontal view of the chest demonstrates the cardiomediastinal silhouette to be within normal li mits. Tubes and catheters are unchanged. Compared to previous examination, there has been partial int erval clearing of patchy interstitial and alveolar opacities bilaterally. There is also decreased lef t basilar atelectasis. There is again evidence for small left pleural effusion. There is no evidence for vascular congestion. There is no acute osseous pathology. IMPRESSION: Partial interval clearing of patchy interstitial and alveolar opacities bilaterally. This also decreased left basilar atelectasis and left pleural effusion. ACT 112: Negative or not required by law. Electronically signed by: Joss Monreal M.D. 10/05/2021 7:47 AM
[2021-10-05] MEDS ORDERED: INSULIN HUMAN NPH SC SCH (09:00)
--- NOTE | 2021-10-05 09:06 | Ultrasound Report ---
US arterial duplex left lower extremity CLINICAL HISTORY: Weak left lower extremity pulses. COMPARISON STUDY: None. FINDINGS: There are normal biphasic to triphasic waveforms and velocities within the left common femo ral, superficial femoral, popliteal, anterior tibial, posterior tibial, and peroneal arteries. There are low level monophasic waveforms within the left dorsalis pedis artery with a peak systolic velocit y 17 cm/s. This suggests diffuse narrowing within the dorsalis pedis artery. IMPRESSION: 1. No areas of occlusion within the left lower extremity arterial system. 2. Low-level monophasic waveforms within the left dorsalis pedis artery suggestive of diffuse narrowi ng. ACT 112: Negative or not required by law. Electronically signed by: David Rothman M.D. 10/05/2021 9:04 AM
[2021-10-05] MEDS: PEPTAMEN INTENSE VHP 1.0 CAL 1,000 ML BAG GT SCH (10:22)
--- NOTE | 2021-10-05 11:11 | Critical Care Progress Note ---
Date of Service October 05, 2021 Assessment & Plan (1) Admitted to intensive care unit: Plan: IsReason Critically Ill: 61-year-old male admitted with hypoxic respiratory failure secondary to COVID-19 pneumonia who is now agitated and requiring Precedex drip and ongoing close hemodynamic monitoring with low threshold for endotracheal intubation. NEURO - * CAM ICU: POSITIVE * Agitation: * Propofol and fentanyl -Wean today for possible attempts at extubation CARDIAC/VASCULAR - * Hypertension: Stable * Monitor closely for need for vasopressors. * Monitor on telemetry. RESPIRATORY - * Acute hypoxic respiratory failure secondary to COVID-19 pneumonia: * Intubation mechanical 09/30: day 6 GI/NUTRITION - * Start trickle tube feeds * Prophylaxis: Famotidine RENAL/LYTES - * KASSIDY: Resolved - * Sales in place - Strict I&Os. ENDO - * Hyperglycemia * BSGs per unit protocol. ISS --> gtt per unit policy. * Likely secondary to dexamethasone use. -Increasing Lantus dose attempt to transition off of insulin infusion HEME - * No concerns at this time. ID - * COVID-19 pneumonia: * Continue with dexamethasone. Taper entered * No apparent need for antibiotics at this point. * Patient is excluded from ECMO evaluation secondary to age alone. * No other advanced interventions warranted at this time. * Low threshold for emergent endotracheal intubation if agitation not improving. LINES/IV ACCESS - * PIVs x2 * Sales DVT PROPHYLAXIS - * Lovenox * SCDs Updated , [place] [phone]. (2) Acute respiratory failure with hypoxia: (3) 2019 novel coronavirus-infected pneumonia (NCIP): (4) Hypoxia: (5) Agitation: Admission and Anticipated Discharge Date Admission Date: September 23, 2021 Supervising Physician Co-Signing Physician Notes I have personally spent 40 minutes of critical care time in the direct management of this patient. This is a life/limb threatening event. This includes time spent evaluating patient, direct bedside care, chart review, placing orders, interpretation of diagnostic studies, discussion with consultants, patient, and/or family members regarding treatment decisions, as well as other required patient management activities. This time is exclusive of all separately billable procedures, and teaching time and separate from and in addition to any other critical care service time. Subjective No overnight events, decrease in FiO2 requirements Review of Systems Review of Systems: Unable to obtain due to endotracheal tube Physical Exam Physical Exam: General: Sedated. nontoxic. Glascow Coma Scale: Eyes: 2, Verbal 1T, Motor 5, Total AT Skin: Warm, dry, Head: Atraumatic Ears, nose, mouth and throat: airway airway obscured by endotracheal tube Cardiovascular: Normal peripheral perfusion Respiratory: Ventilator settings reviewed Gastrointestinal: Non distended Musculoskeletal: No deformity Results & Data Results & Data ([facility] [place]) Vital Signs (Past 12 Hours) Vital Signs Temp Pulse Resp BP Pulse Ox 10/05/21 11:07 69 10/05/21 10:00 37.3 C 69 20 112/73 82 L 10/05/21 09:45 37.2 C 75 27 H 113/74 83 L 10/05/21 09:30 37.2 C 70 21 113/70 84 L 10/05/21 09:15 37.1 C 68 19 102/67 86 L 10/05/21 09:00 37.1 C 64 21 108/65 87 L 10/05/21 08:45 37.0 C 69 22 108/68 86 L 10/05/21 08:30 37.1 C 67 19 110/66 88 L 10/05/21 08:15 37.1 C 66 22 102/67 88 L 10/05/21 08:00 37.0 C 61 20 108/65 85 L 10/05/21 07:45 37.0 C 57 L 20 119/75 90 10/05/21 07:37 61 20 10/05/21 07:30 37.0 C 61 20 117/74 91 10/05/21 07:17 37.0 C 49 L 20 113/69 91 10/05/21 07:00 37.0 C 50 L 20 119/77 90 10/05/21 06:45 37.0 C 51 L 20 128/83 91 10/05/21 06:30 37.0 C 53 L 20 118/77 90 10/05/21 06:15 37.0 C 51 L 20 123/77 90 10/05/21 06:00 37.0 C 52 L 20 123/77 89 L 10/05/21 05:45 37.0 C 54 L 20 118/76 89 L 10/05/21 05:30 37.1 C 54 L 20 120/78 88 L 10/05/21 05:15 37.1 C 51 L 20 125/79 98 10/05/21 05:05 51 L 20 88 L 10/05/21 05:00 37.0 C 52 L 20 124/78 93 10/05/21 04:45 37.0 C 50 L 20 123/78 93 10/05/21 04:30 37.0 C 49 L 20 131/89 98 10/05/21 04:15 37.0 C 52 L 20 127/81 93 10/05/21 04:00 37.0 C 51 L 20 122/79 93 10/05/21 03:45 37.0 C 51 L 20 125/84 93 10/05/21 03:30 37.0 C 50 L 20 129/84 93 10/05/21 03:15 37.0 C 51 L 20 123/79 93 10/05/21 03:00 36.9 C 52 L 20 118/79 93 10/05/21 02:45 37.0 C 51 L 20 129/85 93 10/05/21 02:30 37.0 C 50 L 20 131/85 93 10/05/21 02:15 37.0 C 48 L 20 120/81 93 10/05/21 02:00 37.0 C 52 L 20 120/83 93 10/05/21 01:45 37.0 C 52 L 20 123/81 92 10/05/21 01:30 37.0 C 50 L 20 124/82 92 10/05/21 01:15 37.0 C 55 L 20 133/84 93 10/05/21 01:00 37.0 C 56 L 20 127/82 93 10/05/21 00:45 37.0 C 55 L 20 119/77 92 10/05/21 00:30 37.1 C 50 L 20 128/87 93 10/05/21 00:15 37.1 C 50 L 20 139/91 94 10/05/21 00:00 37.1 C 47 L 20 132/87 93 10/04/21 23:45 37.2 C 53 L 20 134/82 92 10/04/21 23:30 37.3 C 53 L 20 134/80 91 10/04/21 23:21 54 L 20 92 10/04/21 23:15 37.3 C 56 L 20 128/83 91 Laboratory Results 10/05/21 10/05/21 10/05/21 Range/Units 07:21 06:07 06:07 WBC 10.13 (4.8-10.8) K/uL RBC 4.48 L (4.7-6.1) M/uL Hgb 13.8 L (14.0-18.0) g/dL POC Hgb (14.0-18.0) g/dl Hct 42.6 (42-52) % POC Hct (42-52) % MCV 95.1 (80-100) fL MCH 30.8 (25-34) pg MCHC 32.4 (32-36) g/dL RDW Std Deviation 45.8 (36.4-46.3) fL RDW Coeff of James 13.0 (11.5-14.5) % Plt Count 298 (130-400) K/uL MPV 10.7 H (7.4-10.4) fL Immature Gran % (Auto) 0.8 % Neut % (Auto) 88.4 % Lymph % (Auto) 5.0 % Broome % (Auto) 5.2 % Eos % (Auto) 0.5 % Baso % (Auto) 0.1 % Neut # (Auto) 8.95 H (1.4-6.5) K/uL Lymph # (Auto) 0.51 L (1.2-3.4) K/uL Broome # (Auto) 0.53 (0.11-0.59) K/uL Eos # (Auto) 0.05 (0-0.5) K/uL Baso # (Auto) 0.01 (0-0.2) K/uL Immature Gran # (Auto) 0.08 H (0.00-0.02) K/uL Sample Site POC pH (7.35-7.45) POC pCO2 (35-46) mmHg POC pO2 (80-95) mmHg POC HCO3 (19-24) renetta/L POC Total CO2 (24-31) mmol/L POC Base Excess (-9-1.8) renetta/L ABG pH (Temp Correct) (7.35-7.45) ABG pCO2 (Temp Corrct (35-46) mmHg POC ABG pO2 at Pt Temp POC ABG O2 Sat (90-95) % Stevie Test O2 Delivery Device POC O2 Rate POC FiO2 % Tidal Volume PEEP POC Sodium (135-144) mmol/L Sodium 138 (136-145) mmol/L POC Potassium (3.3-5.0) mmol/L Potassium 4.5 (3.5-5.1) mmol/L Chloride 110 H (98-107) mmol/L Carbon Dioxide 25 (21-32) mmol/L Anion Gap 3.0 (3-11) BUN 60 H (7-18) mg/dl Creatinine 0.95 (0.6-1.4) mg/dl Est Cr Clr Drug Dosing 61.8 ml/min Est GFR ( Amer) 99.7 ml/min Est GFR (Non-Af Amer) 86.1 ml/min BUN/Creatinine Ratio 62.8 H (10-20) Glucose 187 H (70-99) mg/dl POC Glucose 156 H (70-99) mg/dl Calcium 9.3 (8.5-10.1) mg/dl Phosphorus 2.7 (2.5-4.9) mg/dl Magnesium 2.5 H (1.8-2.4) mg/dl 10/05/21 10/05/21 10/04/21 Range/Units 05:07 03:54 23:50 WBC (4.8-10.8) K/uL RBC (4.7-6.1) M/uL Hgb (14.0-18.0) g/dL POC Hgb 13.3 L (14.0-18.0) g/dl Hct (42-52) % POC Hct 39 L (42-52) % MCV (80-100) fL MCH (25-34) pg MCHC (32-36) g/dL RDW Std Deviation (36.4-46.3) fL RDW Coeff of James (11.5-14.5) % Plt Count (130-400) K/uL MPV (7.4-10.4) fL Immature Gran % (Auto) % Neut % (Auto) % Lymph % (Auto) % Broome % (Auto) % Eos % (Auto) % Baso % (Auto) % Neut # (Auto) (1.4-6.5) K/uL Lymph # (Auto) (1.2-3.4) K/uL Broome # (Auto) (0.11-0.59) K/uL Eos # (Auto) (0-0.5) K/uL Baso # (Auto) (0-0.2) K/uL Immature Gran # (Auto) (0.00-0.02) K/uL Sample Site L Radial POC pH 7.43 (7.35-7.45) POC pCO2 37 (35-46) mmHg POC pO2 84 (80-95) mmHg POC HCO3 25 H (19-24) renetta/L POC Total CO2 26 (24-31) mmol/L POC Base Excess 0.0 (-9-1.8) renetta/L ABG pH (Temp Correct) 7.438 (7.35-7.45) ABG pCO2 (Temp Corrct 36 (35-46) mmHg POC ABG pO2 at Pt Temp 81 POC ABG O2 Sat 97.0 H (90-95) % Stevie Test Pass O2 Delivery Device Ventilator POC O2 Rate 20 POC FiO2 40 % Tidal Volume 420 PEEP 10 POC Sodium 137 (135-144) mmol/L Sodium (136-145) mmol/L POC Potassium 5.5 H (3.3-5.0) mmol/L Potassium (3.5-5.1) mmol/L Chloride (98-107) mmol/L Carbon Dioxide (21-32) mmol/L Anion Gap (3-11) BUN (7-18) mg/dl Creatinine (0.6-1.4) mg/dl Est Cr Clr Drug Dosing ml/min Est GFR ( Amer) ml/min Est GFR (Non-Af Amer) ml/min BUN/Creatinine Ratio (10-20) Glucose (70-99) mg/dl POC Glucose 159 H 154 H (70-99) mg/dl Calcium (8.5-10.1) mg/dl Phosphorus (2.5-4.9) mg/dl Magnesium (1.8-2.4) mg/dl 10/04/21 10/04/21 10/04/21 Range/Units 19:55 16:17 15:44 WBC (4.8-10.8) K/uL RBC (4.7-6.1) M/uL Hgb (14.0-18.0) g/dL POC Hgb (14.0-18.0) g/dl Hct (42-52) % POC Hct (42-52) % MCV (80-100) fL MCH (25-34) pg MCHC (32-36) g/dL RDW Std Deviation (36.4-46.3) fL RDW Coeff of James (11.5-14.5) % Plt Count (130-400) K/uL MPV (7.4-10.4) fL Immature Gran % (Auto) % Neut % (Auto) % Lymph % (Auto) % Broome % (Auto) % Eos % (Auto) % Baso % (Auto) % Neut # (Auto) (1.4-6.5) K/uL Lymph # (Auto) (1.2-3.4) K/uL Broome # (Auto) (0.11-0.59) K/uL Eos # (Auto) (0-0.5) K/uL Baso # (Auto) (0-0.2) K/uL Immature Gran # (Auto) (0.00-0.02) K/uL Sample Site POC pH (7.35-7.45) POC pCO2 (35-46) mmHg POC pO2 (80-95) mmHg POC HCO3 (19-24) renetta/L POC Total CO2 (24-31) mmol/L POC Base Excess (-9-1.8) renetta/L ABG pH (Temp Correct) (7.35-7.45) ABG pCO2 (Temp Corrct (35-46) mmHg POC ABG pO2 at Pt Temp POC ABG O2 Sat (90-95) % Stevie Test O2 Delivery Device POC O2 Rate POC FiO2 % Tidal Volume PEEP POC Sodium (135-144) mmol/L Sodium (136-145) mmol/L POC Potassium (3.3-5.0) mmol/L Potassium (3.5-5.1) mmol/L Chloride (98-107) mmol/L Carbon Dioxide (21-32) mmol/L Anion Gap (3-11) BUN (7-18) mg/dl Creatinine (0.6-1.4) mg/dl Est Cr Clr Drug Dosing ml/min Est GFR ( Amer) ml/min Est GFR (Non-Af Amer) ml/min BUN/Creatinine Ratio (10-20) Glucose (70-99) mg/dl POC Glucose 213 H 266 H 218 H (70-99) mg/dl Calcium (8.5-10.1) mg/dl Phosphorus (2.5-4.9) mg/dl Magnesium (1.8-2.4) mg/dl 10/04/21 Range/Units 11:19 WBC (4.8-10.8) K/uL RBC (4.7-6.1) M/uL Hgb (14.0-18.0) g/dL POC Hgb (14.0-18.0) g/dl Hct (42-52) % POC Hct (42-52) % MCV (80-100) fL MCH (25-34) pg MCHC (32-36) g/dL RDW Std Deviation (36.4-46.3) fL RDW Coeff of James (11.5-14.5) % Plt Count (130-400) K/uL MPV (7.4-10.4) fL Immature Gran % (Auto) % Neut % (Auto) % Lymph % (Auto) % Broome % (Auto) % Eos % (Auto) % Baso % (Auto) % Neut # (Auto) (1.4-6.5) K/uL Lymph # (Auto) (1.2-3.4) K/uL Broome # (Auto) (0.11-0.59) K/uL Eos # (Auto) (0-0.5) K/uL Baso # (Auto) (0-0.2) K/uL Immature Gran # (Auto) (0.00-0.02) K/uL Sample Site POC pH (7.35-7.45) POC pCO2 (35-46) mmHg POC pO2 (80-95) mmHg POC HCO3 (19-24) renetta/L POC Total CO2 (24-31) mmol/L POC Base Excess (-9-1.8) renetta/L ABG pH (Temp Correct) (7.35-7.45) ABG pCO2 (Temp Corrct (35-46) mmHg POC ABG pO2 at Pt Temp POC ABG O2 Sat (90-95) % Stevie Test O2 Delivery Device POC O2 Rate POC FiO2 % Tidal Volume PEEP POC Sodium (135-144) mmol/L Sodium (136-145) mmol/L POC Potassium (3.3-5.0) mmol/L Potassium (3.5-5.1) mmol/L Chloride (98-107) mmol/L Carbon Dioxide (21-32) mmol/L Anion Gap (3-11) BUN (7-18) mg/dl Creatinine (0.6-1.4) mg/dl Est Cr Clr Drug Dosing ml/min Est GFR ( Amer) ml/min Est GFR (Non-Af Amer) ml/min BUN/Creatinine Ratio (10-20) Glucose (70-99) mg/dl POC Glucose 198 H (70-99) mg/dl Calcium (8.5-10.1) mg/dl Phosphorus (2.5-4.9) mg/dl Magnesium (1.8-2.4) mg/dl Coding Level of Care Code Critical Care 1st 30-74 mins Diagnoses Admitted to intensive care unit Z78.9 Acute respiratory failure with hypoxia J96.01 2019 novel coronavirus-infected pneumonia (NCIP) U07.1; J12.82 Hypoxia R09.02 Agitation R45.1
--- NOTE | 2021-10-05 11:51 | Pharmacy Report ---
Pharmacy Glycemic Short Note 2 - Date of Service October 05, 2021 - Glycemic Short BSG Results (Last 24 hours): 10/04/21 10/04/21 10/04/21 15:44 16:17 19:55 Glucose POC Glucose 218 H 266 H 213 H 10/04/21 10/05/21 10/05/21 23:50 03:54 06:07 Glucose 187 H POC Glucose 154 H 159 H 10/05/21 07:21 Glucose POC Glucose 156 H OUTPATIENT ANTIDIABETIC REGIMEN: * N/A * A1c: 7% 09-25-21 ASSESSMENT: 10/05 * Patient remains intubated, receiving high dose IV steroid in the AM, tube feeds are running at goal (Peptamen VHP @50cc/hr). Sedation wean and SBT to be attempted today. If patient fails wean/extubation attempt, may have trach placed tomorrow. * BSGs reasonably well controlled over last 24 hrs, however midday-afternoon BSG climb again noted due to AM dexamethasone administration. Yesterday's NPH dose administered around noon time, would anticipate better control today given NPH administered in AM with IV dexamethasone. Will increase NPH dose slightly as well. * Current Novolog CF/CR are performing well. Given the fall in BSGs overnight, would prefer to uptitrate NPH doses to address daytime BSG rise rather than increase Novolog doses. 10/04 * Insulin drip discontinued early this AM. BSGs have remained largely within goal. Fasting BSG 106mg/dL this AM. However lunchtime BSG today rising consistent with steroid induced hyperglycemia. Tube feeds @ goal (50ml/hr), dex 10mg continues. Pt remains intubated/sedated. * Will change Lantus to NPH (~0.4unit/kg) today for better coverage of prandial BSGs and tighten carb ratio from 6gm to 5gm/unit. 10/03 * BSGs did climb into the 220-230s mid-day despite insulin drip yesterday, likely related to IV dexamethasone admin each AM. * Insulin drip running 3.6-4.1units/hr [facility] Peptamen VHP running at goal 50cc/hr, dexamethasone 6mg IV Q AM). * Patient discussed at AM rounds, plan to add SQ basal insulin and adjust Novolog SQ doses in an attempt to reduce IV insulin drip needs with plan to transition to SQ regimen when drip rates < 1unit/hr and BSGs at goal. 10/02 * BSGs have been well controlled since insulin infusion started yesterday * Insulin infusing at 2.1 units/hr for multiple hours and BSGs are in goal range * Patient remains intubated, sedated, receiving high dose IV steroids, as well as tube feeds at goal (Peptamen VHP @ 50cc/hr). Norepi has been weaned off. PLAN FOR INPATIENT GLYCEMIC CONTROL: * Hold outpatient oral diabetes medications * Basal insulin * NPH 40 units SQ daily in the AM at the time IV dexamethasone given * Bolus insulin * NovoLog SQ Q 4 hrs * Goal range: 110-140 mg/dL * Correction factor: 15mg/dL/unit * Carb ratio: 1 unit per 5gm CHO delivered in feeds PLAN FOR DISCHARGE: * to be determined. A1c 7% consistent with DM that could potentially be managed with diet/lifestyle changes. Disposition and clinical status at time of discharge to determine plan.
--- NOTE | 2021-10-05 13:39 | Hospitalist Progress Note ---
Date of Service October 05, 2021 Assessment & Plan (1) 2018 novel coronavirus-infected pneumonia (NCIP): Plan: - symptomatic 09/14/21 - unvaccinated - did not qualify for Remdesivir by time course - continue dexamethasone 10mg 5 days and taper - CRP not elevated therefore did not qualify for baricitinib or tocilizumab, Patient progressed to intubation on 09/30/2021 Dr. Garcia managing, appreciate his care he discussed possible tracheostomy with 10/04, tentatively plan for Friday if he is not making progress (2) Acute respiratory failure with hypoxia: Plan: Secondary to COVID-19 pneumonia continue mechanical ventilation, day 6 work on lowering PEEP, ICU managing (3) Encephalopathy acute: Plan: Pt had escalated excited delirium that was multifactorial, from covid, steroids and 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 started on precedex but ultimately required intubation will likely make for difficult extubation possible tracheostomy on Friday (4) Hypertension: Plan: typically not on outpt treatment will use prn hydralazine at this time (5) KASSIDY (acute kidney injury): Plan: due to dehydration and use of diuretic and ACI inhibitor, both held on admission tube feeds Cr is stable, monitoring UO via robles Plan: VTE Prophylaxis - Lovenox 40mg SQ bid ICU managing ventilator Admission and Anticipated Discharge Date Admission Date: September 23, 2021 Subjective no major changes Review of Systems Review of Systems: Unobtainable due to endotracheal tube and Unobtainable due to reduced consciousness Physical Exam Physical Exam: General: well developed, well nourished, intubated and ventilated Neck: supple, trachea midline, normal thyroid Lungs: clear to auscultation bilaterally, symmetric chest rise on ventilator Heart: regular S1 and S2, no murmur, peripheral pulses normal, capillary refill normal, no edema Abdomen: soft, NT, ND, + BS, no hepatomegaly, normal to percussion Extremities: normal in appearance, no cyanosis, no petechiae Neuro: sedated, no focal motor deficits, CN II-XII intact Skin: warm, dry, no rash, normal turgor Psych: sedated Results & Data Results & Data ([facility]) Vital Signs (Past 12 Hours) Vital Signs Temp Pulse Resp BP Pulse Ox 10/05/21 11:10 58 L 20 89 L 10/05/21 11:07 69 10/05/21 10:00 37.3 C 69 20 112/73 82 L 10/05/21 09:45 37.2 C 75 27 H 113/74 83 L 10/05/21 09:30 37.2 C 70 21 113/70 84 L 10/05/21 09:15 37.1 C 68 19 102/67 86 L 10/05/21 09:00 37.1 C 64 21 108/65 87 L 10/05/21 08:45 37.0 C 69 22 108/68 86 L 10/05/21 08:30 37.1 C 67 19 110/66 88 L 10/05/21 08:15 37.1 C 66 22 102/67 88 L 10/05/21 08:00 37.0 C 61 20 108/65 85 L 10/05/21 07:45 37.0 C 57 L 20 119/75 90 10/05/21 07:37 61 20 10/05/21 07:30 37.0 C 61 20 117/74 91 10/05/21 07:17 37.0 C 49 L 20 113/69 91 10/05/21 07:00 37.0 C 50 L 20 119/77 90 10/05/21 06:45 37.0 C 51 L 20 128/83 91 10/05/21 06:30 37.0 C 53 L 20 118/77 90 10/05/21 06:15 37.0 C 51 L 20 123/77 90 10/05/21 06:00 37.0 C 52 L 20 123/77 89 L 10/05/21 05:45 37.0 C 54 L 20 118/76 89 L 10/05/21 05:30 37.1 C 54 L 20 120/78 88 L 10/05/21 05:15 37.1 C 51 L 20 125/79 98 10/05/21 05:05 51 L 20 88 L 10/05/21 05:00 37.0 C 52 L 20 124/78 93 10/05/21 04:45 37.0 C 50 L 20 123/78 93 10/05/21 04:30 37.0 C 49 L 20 131/89 98 10/05/21 04:15 37.0 C 52 L 20 127/81 93 10/05/21 04:00 37.0 C 51 L 20 122/79 93 10/05/21 03:45 37.0 C 51 L 20 125/84 93 10/05/21 03:30 37.0 C 50 L 20 129/84 93 10/05/21 03:15 37.0 C 51 L 20 123/79 93 10/05/21 03:00 36.9 C 52 L 20 118/79 93 10/05/21 02:45 37.0 C 51 L 20 129/85 93 10/05/21 02:30 37.0 C 50 L 20 131/85 93 10/05/21 02:15 37.0 C 48 L 20 120/81 93 10/05/21 02:00 37.0 C 52 L 20 120/83 93 10/05/21 01:45 37.0 C 52 L 20 123/81 92 Laboratory Results Laboratory Results - last 24 hr 10/04/21 10/04/21 10/04/21 15:44 16:17 19:55 WBC RBC Hgb POC Hgb Hct POC Hct MCV MCH MCHC RDW Std Deviation RDW Coeff of James Plt Count MPV Immature Gran % (Auto) Neut % (Auto) Lymph % (Auto) [place] % (Auto) Eos % (Auto) Baso % (Auto) Neut # (Auto) Lymph # (Auto) [place] # (Auto) Eos # (Auto) Baso # (Auto) Immature Gran # (Auto) Sample Site POC pH POC pCO2 POC pO2 POC HCO3 POC Total CO2 POC Base Excess ABG pH (Temp Correct) ABG pCO2 (Temp Corrct POC ABG pO2 at Pt Temp POC ABG O2 Sat Stevie Test O2 Delivery Device POC O2 Rate POC FiO2 Tidal Volume PEEP POC Sodium Sodium POC Potassium Potassium Chloride Carbon Dioxide Anion Gap BUN Creatinine Est Cr Clr Drug Dosing Est GFR ( Amer) Est GFR (Non-Af Amer) BUN/Creatinine Ratio Glucose POC Glucose 218 H 266 H 213 H Calcium Phosphorus Magnesium 10/04/21 10/05/21 10/05/21 23:50 03:54 05:07 WBC RBC Hgb POC Hgb 13.3 L Hct POC Hct 39 L MCV MCH MCHC RDW Std Deviation RDW Coeff of James Plt Count MPV Immature Gran % (Auto) Neut % (Auto) Lymph % (Auto) [place] % (Auto) Eos % (Auto) Baso % (Auto) Neut # (Auto) Lymph # (Auto) [place] # (Auto) Eos # (Auto) Baso # (Auto) Immature Gran # (Auto) Sample Site L Radial POC pH 7.43 POC pCO2 37 POC pO2 84 POC HCO3 25 H POC Total CO2 26 POC Base Excess 0.0 ABG pH (Temp Correct) 7.438 ABG pCO2 (Temp Corrct 36 POC ABG pO2 at Pt Temp 81 POC ABG O2 Sat 97.0 H Stevie Test Pass O2 Delivery Device Ventilator POC O2 Rate 20 POC FiO2 40 Tidal Volume 420 PEEP 10 POC Sodium 137 Sodium POC Potassium 5.5 H Potassium Chloride Carbon Dioxide Anion Gap BUN Creatinine Est Cr Clr Drug Dosing Est GFR ( Amer) Est GFR (Non-Af Amer) BUN/Creatinine Ratio Glucose POC Glucose 154 H 159 H Calcium Phosphorus Magnesium 10/05/21 10/05/21 10/05/21 06:07 06:07 07:21 WBC 10.13 RBC 4.48 L Hgb 13.8 L POC Hgb Hct 42.6 POC Hct MCV 95.1 MCH 30.8 MCHC 32.4 RDW Std Deviation 45.8 RDW Coeff of James 13.0 Plt Count 298 MPV 10.7 H Immature Gran % (Auto) 0.8 Neut % (Auto) 88.4 Lymph % (Auto) 5.0 [place] % (Auto) 5.2 Eos % (Auto) 0.5 Baso % (Auto) 0.1 Neut # (Auto) 8.95 H Lymph # (Auto) 0.51 L [place] # (Auto) 0.53 Eos # (Auto) 0.05 Baso # (Auto) 0.01 Immature Gran # (Auto) 0.08 H Sample Site POC pH POC pCO2 POC pO2 POC HCO3 POC Total CO2 POC Base Excess ABG pH (Temp Correct) ABG pCO2 (Temp Corrct POC ABG pO2 at Pt Temp POC ABG O2 Sat Stevie Test O2 Delivery Device POC O2 Rate POC FiO2 Tidal Volume PEEP POC Sodium Sodium 138 POC Potassium Potassium 4.5 Chloride 110 H Carbon Dioxide 25 Anion Gap 3.0 BUN 60 H Creatinine 0.95 Est Cr Clr Drug Dosing 61.8 Est GFR ( Amer) 99.7 Est GFR (Non-Af Amer) 86.1 BUN/Creatinine Ratio 62.8 H Glucose 187 H POC Glucose 156 H Calcium 9.3 Phosphorus 2.7 Magnesium 2.5 H 10/05/21 11:48 WBC RBC Hgb POC Hgb Hct POC Hct MCV MCH MCHC RDW Std Deviation RDW Coeff of James Plt Count MPV Immature Gran % (Auto) Neut % (Auto) Lymph % (Auto) [place] % (Auto) Eos % (Auto) Baso % (Auto) Neut # (Auto) Lymph # (Auto) [place] # (Auto) Eos # (Auto) Baso # (Auto) Immature Gran # (Auto) Sample Site POC pH POC pCO2 POC pO2 POC HCO3 POC Total CO2 POC Base Excess ABG pH (Temp Correct) ABG pCO2 (Temp Corrct POC ABG pO2 at Pt Temp POC ABG O2 Sat Stevie Test O2 Delivery Device POC O2 Rate POC FiO2 Tidal Volume PEEP POC Sodium Sodium POC Potassium Potassium Chloride Carbon Dioxide Anion Gap BUN Creatinine Est Cr Clr Drug Dosing Est GFR ( Amer) Est GFR (Non-Af Amer) BUN/Creatinine Ratio Glucose POC Glucose 222 H Calcium Phosphorus Magnesium Medications Administered Current Inpatient Medications Acetaminophen (Acetaminophen 325 Mg Tab) 650 mg PO Q4H PRN PRN Reason: pain/fever Stop: 10/23/21 21:09 Last Admin: 10/04/21 09:26 Dose: 650 mg Documented by: Dextrose (Dextrose 50% 50 Ml Syringe) 25 - 50 ml IV UD PRN; Protocol PRN Reason: Hypoglycemia Protocol Stop: 10/25/21 11:37 Enoxaparin Sodium (Enoxaparin Inj 40 Mg/0.4 Ml Syr) 40 mg SQ QAM ALETA Stop: 11/01/21 11:59 Last Admin: 10/05/21 07:26 Dose: 40 mg Documented by: Fentanyl Citrate (Fentanyl Bolus From Bag) 50 mcg IV Q60M PRN PRN Reason: Pain or Agitation Stop: 10/14/21 14:24 Glucagon (Glucagon For Inj 1 Mg Vial) 1 mg SQ UD PRN; Protocol PRN Reason: Hypoglycemia Protocol Stop: 10/25/21 11:37 Glucose (Glucose 10 Tabs/Tube) 4 - 8 tabs PO UD PRN; Protocol PRN Reason: Hypoglycemia Protocol Stop: 10/25/21 11:37 Glucose (Glucose 40% Gel 15 Gm Tube) 15 - 30 gm PO UD PRN; Protocol PRN Reason: Hypoglycemia Protocol Stop: 10/25/21 11:37 Hydralazine HCl (Hydralazine Hcl 20 Mg/Ml Vial) 10 mg IV Q8 PRN PRN Reason: Blood Pressure - High Stop: 10/29/21 07:41 Last Admin: 09/29/21 16:06 Dose: 10 mg Documented by: Propofol (Diprivan) 1,000 mg in 100 mls @ 20.448 mls/hr IV .Q4H54M [facility]; Protocol Stop: 10/05/21 14:29 Last Admin: 10/05/21 10:22 Dose: 40 mcg/kg/min, 20.4 mls/hr Documented by: Fentanyl Citrate (Fentanyl Citrate) 2,500 mcg in 250 mls @ 15 mls/hr IV .Q43M34V [facility]; Protocol Stop: 10/14/21 14:29 Last Titration: 10/05/21 06:48 Dose: 150 mcg/hr, 15 mls/hr Documented by: Dexamethasone 10 mg/ Syringe 2.5 mls @ 1 mls/min IV DAILY [facility] Stop: 10/09/21 12:00 Last Admin: 10/05/21 07:27 Dose: 1 mls/min Documented by: Pantoprazole Sodium 40 mg/ (Syringe) 10 mls @ 5 mls/min IV DAILY [facility] Stop: 11/02/21 08:59 Last Admin: 10/05/21 07:27 Dose: 5 mls/min Documented by: Insulin Aspart (Insulin Aspart Per Unit) 0 units SC Q4 [facility] Stop: 10/31/21 15:59 Last Admin: 10/05/21 12:20 Dose: 8 units Documented by: Insulin Human NPH (Insulin Human Nph) 40 units SC DAILY [facility] Stop: 11/04/21 08:59 Last Admin: 10/05/21 08:14 Dose: 40 units Documented by: Miscellaneous (Carbohydrates For Hypoglycemia ) 15 - 30 gm PO UD PRN PRN Reason: Hypoglycemia Protocol Stop: 10/25/21 11:37 Miscellaneous Information (Pharmacy Glycemic Mgmt Consult) 1 ea N/A UD PRN PRN Reason: Consult Stop: 10/31/21 05:54 Montelukast Sodium (Montelukast Sodium 10 Mg Tablet) 10 mg PO DAILY [facility] Stop: 10/24/21 08:59 Last Admin: 10/05/21 07:26 Dose: 10 mg Documented by: Multivitamins/Minerals (Multi Vit W/Minerals Liquid 15 Ml Udp) 15 ml NG QAM ALETA Stop: 11/04/21 08:59 Last Admin: 10/05/21 07:26 Dose: 15 ml Documented by: Nutritional Formula (Peptamen Intense Vhp 1.0 Perez 1,000 Ml Bag) 1,000 ml GT CONT ALETA; Protocol Stop: 10/31/21 10:29 Last Admin: 10/05/21 10:22 Dose: Not Given Documented by: Ondansetron HCl (Ondansetron Inj 2 Mg/Ml 2 Ml Vial) 4 mg IV Q6H PRN PRN Reason: Nausea Stop: 10/23/21 21:09 Propofol (Propofol Bolus From Bag) 20 mg IV Q5M PRN PRN Reason: Sedation Stop: 10/05/21 14:24 Last Admin: 10/03/21 19:39 Dose: 20 mg Documented by: Sterile Water (Tube Feeding Water Flush) 30 ml OG Q4H [facility] Stop: 11/03/21 13:14 Last Admin: 10/05/21 12:20 Dose: 30 ml Documented by: PG Care Time/CCT Total # of Minutes Spent Total Time Spent with Patient: Total time spent is greater than 50% in coordination of care (as documented) at patient's floor/unit and/or counseling patient: Coding Level of Care Code 04056 Subseq Hosp Care Lvl 2 Diagnoses 2019 novel coronavirus-infected pneumonia (NCIP) U07.1; J12.82 Acute respiratory failure with hypoxia J96.01 Encephalopathy acute G93.40 Hypertension I10 KASSIDY (acute kidney injury) N17.9
[2021-10-05] MEDS ORDERED: STAT IV Infusion **Titration per Protocol STA (19:49)
[2021-10-05] MEDS: PROPOFOL BOLUS FROM BAG IV PRN ×3 (21:57→23:48)
[2021-10-05] MEDS: ACETAMINOPHEN 325 MG TAB PO PRN (22:18)
[2021-10-06] MEDS: propofoL 1,000 MG/100 ML VIAL IV SCH ×5 (01:54→22:34)
[2021-10-06] MEDS: PROPOFOL BOLUS FROM BAG IV PRN ×5 (02:46→23:39)
[2021-10-06] MEDS: TUBE FEEDING WATER FLUSH OG SCH ×6 (04:21→23:38)
[2021-10-06] MEDS: INSULIN ASPART PER UNIT SC SCH ×6 (04:21→23:37)
[2021-10-06 05:43] LABS: iSTAT Allen Test Pass; iSTAT Art Bld Gas pCO2 Correct 40 mmHg (35-46); iSTAT Art Bld Gas pH Corrected 7.394 (7.35-7.45); iSTAT Arterial Blood Gas HCO3 24 meg/L (19-24); iSTAT Arterial Blood Gas pCO2 40 mmHg (35-46); iSTAT Arterial Blood Gas pH 7.39 (7.35-7.45); iSTAT Arterial Blood Gas pO2 55 mmHg (80-95); iSTAT Arterial Blood Gas pO2 C 55; iSTAT Carbon Dioxide 26 mmol/L (24-31); iSTAT FiO2 30 %; iSTAT Hematocrit 41 % (42-52); iSTAT Hemoglobin 13.9 g/dl (14.0-18.0); iSTAT Potassium 4.5 mmol/L (3.3-5.0); iSTAT Site R Radial; iSTAT Sodium 139 mmol/L (135-144)
[2021-10-06 05:59] LABS: Basophils # (auto) 0.01 K/uL (0-0.2); Basophils % (auto) 0.1 %; Eosinophils # (auto) 0.04 K/uL (0-0.5); Eosinophils % (auto) 0.3 %; Hematocrit (blood only) 43.1 % (42-52); Hemoglobin 14.3 g/dL (14.0-18.0); Immature Granulocytes # (auto) 0.08 K/uL (0.00-0.02); Immature Granulocytes % (auto) 0.6 %; Lymphocytes # (auto) 0.92 K/uL (1.2-3.4); Lymphocytes % (auto) 6.6 %; Mean Corpuscular Hemoglobin 31.5 pg (25-34); Mean Corpuscular Hgb Conc 33.2 g/dL (32-36); Mean Corpuscular Volume 94.9 fL (80-100); Mean Platelet Volume 10.4 fL (7.4-10.4); Neutrophils # (auto) 12.23 K/uL (1.4-6.5); Neutrophils % (auto) 87.4 %; Platelet Count 347 K/uL (130-400); RDW Standard Deviation 45.2 fL (36.4-46.3); Red Blood Count 4.54 M/uL (4.7-6.1); White Blood Count 13.98 K/uL (4.8-10.8)
[2021-10-06 06:26] LABS: Calcium 9.3 mg/dl (8.5-10.1); Creatinine Clr Calc Pharmacy 66.7 ml/min; Est GFR (African American) 107.5 ml/min; Est GFR (Non-African American) 92.7 ml/min; Magnesium 2.1 mg/dl (1.8-2.4); Potassium 4.6 mmol/L (3.5-5.1)
--- NOTE | 2021-10-06 07:35 | XRay Report ---
XR chest 1V portable HISTORY: 61 years-old Male Resp failure acute respiratory failure COMPARISON: Chest radiograph 10/05/2021 TECHNIQUE: Portable AP view of the chest FINDINGS: Endotracheal tube overlies the midline, 10 mm superior to the kyree. Enteric tube coils within the s tomach. Right IJ central venous catheter distal tip terminates in the expected location of the mid to inferior SVC. No pneumothorax. Trace pleural effusions are suspected. Interstitial coarsening with p rogressively worsened bilateral airspace opacities. Bones appear grossly intact. IMPRESSION: 1. Lines and tubes as above. 2. Progressively worsened bilateral pulmonary opacities suggestive of multifocal pneumonia. ACT 112: Negative or not required by law. The above report was generated using voice recognition software. It may contain grammatical, syntax o r spelling errors. Electronically signed by: Lance Dawkins M.D. 10/06/2021 7:33 AM
[2021-10-06] MEDS: PANTOprazole 40 MG in SYRINGE 0 ML IV SCH (08:07)
[2021-10-06] MEDS: dexAMETHasone 10 MG in SYRINGE 0 ML IV SCH (08:07)
[2021-10-06] MEDS: MULTI VIT W/MINERALS LIQUID 15 ML UDP NG SCH (08:07)
[2021-10-06] MEDS: ENOXAPARIN INJ 40 MG/0.4 ML SYR SQ SCH (08:08)
[2021-10-06] MEDS: MONTELUKAST SODIUM 10 MG TABLET PO SCH (08:08)
[2021-10-06] MEDS ORDERED: INSULIN HUMAN NPH SC SCH (09:00)
--- NOTE | 2021-10-06 11:05 | Hospitalist Progress Note ---
Date of Service October 06, 2021 Assessment & Plan (1) 2019 novel coronavirus-infected pneumonia (NCIP): Plan: - symptomatic 09/14/21 - unvaccinated - did not qualify for Remdesivir by time course - continue dexamethasone 10mg IV daily - CRP not elevated therefore did not qualify for baricitinib or tocilizumab, Patient progressed to intubation on 09/30/2021 Dr. Garcia managing, appreciate his care he discussed possible tracheostomy with 10/04, tentatively plan for Friday if he is not making progress will try to lower sedation and allow SBT today (2) Acute respiratory failure with hypoxia: Plan: Secondary to COVID-19 pneumonia continue mechanical ventilation, day 7 PEEP down to 5 and FiO2 down to 40% will attempt to lighten sedation for SBT today (3) Encephalopathy acute: Plan: Pt had escalated excited delirium that was multifactorial, from covid, steroids and 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 started on precedex but ultimately required intubation will likely make for difficult extubation possible tracheostomy on Friday if mental status prevents safe extubation (4) Hypertension: Plan: typically not on outpt treatment will use prn hydralazine at this time (5) KASSIDY (acute kidney injury): Plan: due to dehydration and use of diuretic and ACI inhibitor, both held on admission tube feeds Cr is stable, monitoring UO via robles Plan: VTE Prophylaxis - Lovenox 40mg SQ bid ICU managing ventilator Admission and Anticipated Discharge Date Admission Date: September 23, 2021 Subjective patient on Propofol and Fentanyl he is on PEEP 5 and FiO2 40% ICU planning on weaning sedation for possible SBT today will assess his agitation and mental status Review of Systems Review of Systems: Unobtainable due to endotracheal tube and Unobtainable due to reduced consciousness Physical Exam Physical Exam: General: well developed, well nourished, intubated and ventilated Neck: supple, trachea midline, normal thyroid Lungs: clear to auscultation bilaterally, symmetric chest rise on ventilator Heart: regular S1 and S2, no murmur, peripheral pulses normal, capillary refill normal, no edema Abdomen: soft, NT, ND, + BS, no hepatomegaly, normal to percussion Extremities: normal in appearance, no cyanosis, no petechiae Neuro: sedated, no focal motor deficits, CN II-XII intact Skin: warm, dry, no rash, normal turgor Psych: sedated Results & Data Results & Data ([facility]) Vital Signs (Past 12 Hours) Vital Signs Temp Pulse Resp BP Pulse Ox 10/06/21 10:51 58 L 23 89 L 10/06/21 09:45 37.3 C 55 L 16 101/69 87 L 10/06/21 09:30 37.3 C 58 L 18 101/74 88 L 10/06/21 09:15 37.3 C 70 22 113/88 89 L 10/06/21 09:00 37.3 C 60 20 108/73 90 10/06/21 08:45 37.2 C 66 25 H 112/71 88 L 10/06/21 08:31 37.2 C 55 L 17 110/72 89 L 10/06/21 08:30 37.2 C 56 L 18 88 L 10/06/21 08:16 37.2 C 60 23 123/76 89 L 10/06/21 08:01 37.2 C 58 L 16 113/77 91 10/06/21 08:00 37.2 C 54 L 11 L 91 10/06/21 07:45 56 L 12 92 10/06/21 07:40 52 L 16 93 10/06/21 07:30 37.2 C 54 L 14 92 10/06/21 07:00 37.2 C 54 L 14 91 10/06/21 04:30 54 L 19 91 10/05/21 23:45 37.5 C 65 20 92 10/05/21 23:31 84 29 H 91 10/05/21 23:30 37.4 C 57 L 20 113/75 90 10/05/21 23:15 37.4 C 59 L 22 116/74 90 Laboratory Results Laboratory Results - last 24 hr 10/05/21 10/05/21 10/05/21 11:48 16:03 19:43 WBC RBC Hgb POC Hgb Hct POC Hct MCV MCH MCHC RDW Std Deviation RDW Coeff of James Plt Count MPV Immature Gran % (Auto) Neut % (Auto) Lymph % (Auto) [place] % (Auto) Eos % (Auto) Baso % (Auto) Neut # (Auto) Lymph # (Auto) [place] # (Auto) Eos # (Auto) Baso # (Auto) Immature Gran # (Auto) Sample Site POC pH POC pCO2 POC pO2 POC HCO3 POC Total CO2 POC Base Excess ABG pH (Temp Correct) ABG pCO2 (Temp Corrct POC ABG pO2 at Pt Temp POC ABG O2 Sat Stevie Test O2 Delivery Device POC O2 Rate POC FiO2 Tidal Volume PEEP POC Sodium Sodium POC Potassium Potassium Chloride Carbon Dioxide Anion Gap BUN Creatinine Est Cr Clr Drug Dosing Est GFR ( Amer) Est GFR (Non-Af Amer) BUN/Creatinine Ratio Glucose POC Glucose 222 H 181 H 185 H Calcium Phosphorus Magnesium 10/05/21 10/06/21 10/06/21 23:52 04:12 05:15 WBC RBC Hgb POC Hgb 13.9 L Hct POC Hct 41 L MCV MCH MCHC RDW Std Deviation RDW Coeff of James Plt Count MPV Immature Gran % (Auto) Neut % (Auto) Lymph % (Auto) [place] % (Auto) Eos % (Auto) Baso % (Auto) Neut # (Auto) Lymph # (Auto) [place] # (Auto) Eos # (Auto) Baso # (Auto) Immature Gran # (Auto) Sample Site R Radial POC pH 7.39 POC pCO2 40 POC pO2 55 L POC HCO3 24 POC Total CO2 26 POC Base Excess -1.0 ABG pH (Temp Correct) 7.394 ABG pCO2 (Temp Corrct 40 POC ABG pO2 at Pt Temp 55 POC ABG O2 Sat 88.0 L Stevie Test Pass O2 Delivery Device Ventilator POC O2 Rate 14 POC FiO2 30 Tidal Volume 420 PEEP 6 POC Sodium 139 Sodium POC Potassium 4.5 Potassium Chloride Carbon Dioxide Anion Gap BUN Creatinine Est Cr Clr Drug Dosing Est GFR ( Amer) Est GFR (Non-Af Amer) BUN/Creatinine Ratio Glucose POC Glucose 146 H 91 Calcium Phosphorus Magnesium 10/06/21 10/06/21 10/06/21 05:29 05:29 08:19 WBC 13.98 H RBC 4.54 L Hgb 14.3 POC Hgb Hct 43.1 POC Hct MCV 94.9 MCH 31.5 MCHC 33.2 RDW Std Deviation 45.2 RDW Coeff of James 13.0 Plt Count 347 MPV 10.4 Immature Gran % (Auto) 0.6 Neut % (Auto) 87.4 Lymph % (Auto) 6.6 [place] % (Auto) 5.0 Eos % (Auto) 0.3 Baso % (Auto) 0.1 Neut # (Auto) 12.23 H Lymph # (Auto) 0.92 L [place] # (Auto) 0.70 H Eos # (Auto) 0.04 Baso # (Auto) 0.01 Immature Gran # (Auto) 0.08 H Sample Site POC pH POC pCO2 POC pO2 POC HCO3 POC Total CO2 POC Base Excess ABG pH (Temp Correct) ABG pCO2 (Temp Corrct POC ABG pO2 at Pt Temp POC ABG O2 Sat Stevie Test O2 Delivery Device POC O2 Rate POC FiO2 Tidal Volume PEEP POC Sodium Sodium 138 POC Potassium Potassium 4.6 Chloride 109 H Carbon Dioxide 25 Anion Gap 4.0 BUN 52 H Creatinine 0.88 Est Cr Clr Drug Dosing 66.7 Est GFR ( Amer) 107.5 Est GFR (Non-Af Amer) 92.7 BUN/Creatinine Ratio 59.0 H Glucose 109 H POC Glucose 84 Calcium 9.3 Phosphorus 3.0 Magnesium 2.1 Medications Administered Current Inpatient Medications Acetaminophen (Acetaminophen 325 Mg Tab) 650 mg PO Q4H PRN PRN Reason: pain/fever Stop: 10/23/21 21:09 Last Admin: 10/05/21 22:18 Dose: 650 mg Documented by: Dextrose (Dextrose 50% 50 Ml Syringe) 25 - 50 ml IV UD PRN; Protocol PRN Reason: Hypoglycemia Protocol Stop: 10/25/21 11:37 Enoxaparin Sodium (Enoxaparin Inj 40 Mg/0.4 Ml Syr) 40 mg SQ QAM ALETA Stop: 11/01/21 11:59 Last Admin: 10/06/21 08:08 Dose: 40 mg Documented by: Fentanyl Citrate (Fentanyl Bolus From Bag) 50 mcg IV Q60M PRN PRN Reason: Pain or Agitation Stop: 10/14/21 14:24 Last Admin: 10/05/21 22:24 Dose: 50 mcg Documented by: Glucagon (Glucagon For Inj 1 Mg Vial) 1 mg SQ UD PRN; Protocol PRN Reason: Hypoglycemia Protocol Stop: 10/25/21 11:37 Glucose (Glucose 10 Tabs/Tube) 4 - 8 tabs PO UD PRN; Protocol PRN Reason: Hypoglycemia Protocol Stop: 10/25/21 11:37 Glucose (Glucose 40% Gel 15 Gm Tube) 15 - 30 gm PO UD PRN; Protocol PRN Reason: Hypoglycemia Protocol Stop: 10/25/21 11:37 Hydralazine HCl (Hydralazine Hcl 20 Mg/Ml Vial) 10 mg IV Q8 PRN PRN Reason: Blood Pressure - High Stop: 10/29/21 07:41 Last Admin: 09/29/21 16:06 Dose: 10 mg Documented by: Fentanyl Citrate (Fentanyl Citrate) 2,500 mcg in 250 mls @ 12.5 mls/hr IV .Q20H [facility]; Protocol Stop: 10/14/21 14:29 Last Titration: 10/06/21 06:55 Dose: 125 mcg/hr, 12.5 mls/hr Documented by: Dexamethasone 10 mg/ Syringe 2.5 mls @ 1 mls/min IV DAILY [facility] Stop: 10/09/21 12:00 Last Admin: 10/06/21 08:07 Dose: 1 mls/min Documented by: Pantoprazole Sodium 40 mg/ (Syringe) 10 mls @ 5 mls/min IV DAILY [facility] Stop: 11/02/21 08:59 Last Admin: 10/06/21 08:07 Dose: 5 mls/min Documented by: Propofol (Diprivan) 1,000 mg in 100 mls @ 16.05 mls/hr IV .Q6H14M [facility]; Protocol Stop: 10/08/21 19:59 Last Admin: 10/06/21 08:36 Dose: 50 mcg/kg/min, 16.1 mls/hr Documented by: Insulin Aspart (Insulin Aspart Per Unit) 0 units SC Q4 [facility] Stop: 10/31/21 15:59 Last Admin: 10/06/21 08:35 Dose: Not Given Documented by: Insulin Human NPH (Insulin Human Nph) 45 units SC DAILY [facility] Stop: 11/05/21 08:59 Last Admin: 10/06/21 08:36 Dose: 45 units Documented by: Miscellaneous (Carbohydrates For Hypoglycemia ) 15 - 30 gm PO UD PRN PRN Reason: Hypoglycemia Protocol Stop: 10/25/21 11:37 Miscellaneous Information (Pharmacy Glycemic Mgmt Consult) 1 ea N/A UD PRN PRN Reason: Consult Stop: 10/31/21 05:54 Montelukast Sodium (Montelukast Sodium 10 Mg Tablet) 10 mg PO DAILY [facility] Stop: 10/24/21 08:59 Last Admin: 10/06/21 08:08 Dose: 10 mg Documented by: Multivitamins/Minerals (Multi Vit W/Minerals Liquid 15 Ml Udp) 15 ml NG QAM ALETA Stop: 11/04/21 08:59 Last Admin: 10/06/21 08:07 Dose: 15 ml Documented by: Nutritional Formula (Peptamen Intense Vhp 1.0 Perez 1,000 Ml Bag) 1,000 ml GT CONT [facility]; Protocol Stop: 10/31/21 10:29 Last Admin: 10/05/21 10:22 Dose: Not Given Documented by: Ondansetron HCl (Ondansetron Inj 2 Mg/Ml 2 Ml Vial) 4 mg IV Q6H PRN PRN Reason: Nausea Stop: 10/23/21 21:09 Propofol (Propofol Bolus From Bag) 20 mg IV Q5M PRN PRN Reason: Sedation Stop: 10/08/21 19:48 Last Admin: 10/06/21 05:33 Dose: 20 mg Documented by: Sterile Water (Tube Feeding Water Flush) 30 ml OG Q4H [facility] Stop: 11/03/21 13:14 Last Admin: 10/06/21 08:37 Dose: 30 ml Documented by: PG Care Time/CCT Total # of Minutes Spent Total Time Spent with Patient: Total time spent is greater than 50% in coordination of care (as documented) at patient's floor/unit and/or counseling patient: Coding Level of Care Code 72825 Subseq Hosp Care Lvl 2 Diagnoses 2019 novel coronavirus-infected pneumonia (NCIP) U07.1; J12.82 Acute respiratory failure with hypoxia J96.01 Encephalopathy acute G93.40 Hypertension I10 KASSIDY (acute kidney injury) N17.9
--- NOTE | 2021-10-06 11:09 | Critical Care Progress Note ---
Date of Service October 06, 2021 Assessment & Plan (1) Admitted to intensive care unit: Plan: IsReason Critically Ill: 61-year-old male admitted with hypoxic respiratory failure secondary to COVID-19 pneumonia who is now agitated and requiring Precedex drip and ongoing close hemodynamic monitoring with low threshold for endotracheal intubation. NEURO - * CAM ICU: POSITIVE * Agitation: * Propofol and fentanyl -Weaned however poor oxygenation and saturation in the 80s CARDIAC/VASCULAR - * Hypertension: Stable * Monitor closely for need for vasopressors. * Monitor on telemetry. RESPIRATORY - * Acute hypoxic respiratory failure secondary to COVID-19 pneumonia: * Intubation mechanical 09/30: day 7 * GI/NUTRITION - * Increase tube feeds * Prophylaxis: Famotidine RENAL/LYTES - * KASSIDY: Resolved - * Sales in place - Strict I&Os. ENDO - * Hyperglycemia * BSGs per unit protocol. ISS --> gtt per unit policy. * Likely secondary to dexamethasone use. -Increasing Lantus dose attempt to transition off of insulin infusion HEME - * No concerns at this time. ID - * COVID-19 pneumonia: * Continue with dexamethasone. Taper entered * No apparent need for antibiotics at this point. * Patient is excluded from ECMO evaluation secondary to age alone. * No other advanced interventions warranted at this time. * Low threshold for emergent endotracheal intubation if agitation not improving. LINES/IV ACCESS - * PIVs x2 * Sales DVT PROPHYLAXIS - * Lovenox * SCDs , Octavia [phone]. (2) Acute respiratory failure with hypoxia: (3) 2019 novel coronavirus-infected pneumonia (NCIP): (4) Hypoxia: (5) Agitation: Admission and Anticipated Discharge Date Admission Date: September 23, 2021 Supervising Physician Co-Signing Physician Notes I have personally spent 35 minutes of critical care time in the direct management of this patient. This is a life/limb threatening event. This includes time spent evaluating patient, direct bedside care, chart review, placing orders, interpretation of diagnostic studies, discussion with consultants, patient, and/or family members regarding treatment decisions, as well as other required patient management activities. This time is exclusive of all separately billable procedures, and teaching time and separate from and in addition to any other critical care service time. Subjective Increased FiO2 requirements overnight Review of Systems Review of Systems: Unable to obtain due to endotracheal tube Physical Exam Physical Exam: General: Sedated. nontoxic. Glascow Coma Scale: Eyes: 2, Verbal 1T, Motor 5, Total 8T Skin: Warm, dry, Head: Atraumatic Ears, nose, mouth and throat: airway airway obscured by endotracheal tube Cardiovascular: Normal peripheral perfusion Respiratory: Ventilator settings reviewed Gastrointestinal: Non distended Musculoskeletal: No deformity Results & Data Results & Data ([facility]) Vital Signs (Past 12 Hours) Vital Signs Temp Pulse Resp BP Pulse Ox 10/06/21 10:51 58 L 23 89 L 10/06/21 09:45 37.3 C 55 L 16 101/69 87 L 10/06/21 09:30 37.3 C 58 L 18 101/74 88 L 10/06/21 09:15 37.3 C 70 22 113/88 89 L 10/06/21 09:00 37.3 C 60 20 108/73 90 10/06/21 08:45 37.2 C 66 25 H 112/71 88 L 10/06/21 08:31 37.2 C 55 L 17 110/72 89 L 10/06/21 08:30 37.2 C 56 L 18 88 L 10/06/21 08:16 37.2 C 60 23 123/76 89 L 10/06/21 08:01 37.2 C 58 L 16 113/77 91 10/06/21 08:00 37.2 C 54 L 11 L 91 10/06/21 07:45 56 L 12 92 10/06/21 07:40 52 L 16 93 10/06/21 07:30 37.2 C 54 L 14 92 10/06/21 07:00 37.2 C 54 L 14 91 10/06/21 04:30 54 L 19 91 10/05/21 23:45 37.5 C 65 20 92 10/05/21 23:31 84 29 H 91 10/05/21 23:30 37.4 C 57 L 20 113/75 90 10/05/21 23:15 37.4 C 59 L 22 116/74 90 Critical Care Results & Data Vital Signs (Past 12 Hours) Vital Signs Temp Pulse Resp BP Pulse Ox 10/06/21 10:51 58 L 23 89 L 10/06/21 09:45 37.3 C 55 L 16 101/69 87 L 10/06/21 09:30 37.3 C 58 L 18 101/74 88 L 10/06/21 09:15 37.3 C 70 22 113/88 89 L 10/06/21 09:00 37.3 C 60 20 108/73 90 10/06/21 08:45 37.2 C 66 25 H 112/71 88 L 10/06/21 08:31 37.2 C 55 L 17 110/72 89 L 10/06/21 08:30 37.2 C 56 L 18 88 L 10/06/21 08:16 37.2 C 60 23 123/76 89 L 10/06/21 08:01 37.2 C 58 L 16 113/77 91 10/06/21 08:00 37.2 C 54 L 11 L 91 10/06/21 07:45 56 L 12 92 10/06/21 07:40 52 L 16 93 10/06/21 07:30 37.2 C 54 L 14 92 10/06/21 07:00 37.2 C 54 L 14 91 10/06/21 04:30 54 L 19 91 10/05/21 23:45 37.5 C 65 20 92 10/05/21 23:31 84 29 H 91 10/05/21 23:30 37.4 C 57 L 20 113/75 90 10/05/21 23:15 37.4 C 59 L 22 116/74 90 Lab & Micro Results (Past 24 Hours) RBC 4.54 M/uL (4.7-6.1) L 10/06/21 WBC 13.98 K/uL (4.8-10.8) H 10/06/21 Hgb 14.3 g/dL (14.0-18.0) 10/06/21 Hct 43.1 % (42-52) 10/06/21 MCV 94.9 fL (80-100) 10/06/21 MCH 31.5 pg (25-34) 10/06/21 MCHC 33.2 g/dL (32-36) 10/06/21 RDW Standard Deviation 45.2 fL (36.4-46.3) 10/06/21 RDW Coefficient of Variation 13.0 % (11.5-14.5) 10/06/21 Plt Count 347 K/uL (130-400) 10/06/21 MPV 10.4 fL (7.4-10.4) 10/06/21 Neutrophils (%) (Auto) 87.4 % 10/06/21 Lymphocytes (%) (Auto) 6.6 % 10/06/21 Monocytes # (Auto) 0.70 K/uL (0.11-0.59) H 10/06/21 Eosinophils # (Auto) 0.04 K/uL (0-0.5) 10/06/21 Immature Granulocyte % (Auto) 0.6 % 10/06/21 Neutrophils # (Auto) 12.23 K/uL (1.4-6.5) H 10/06/21 Lymphocytes # (Auto) 0.92 K/uL (1.2-3.4) L 10/06/21 Monocytes # (Auto) 0.70 K/uL (0.11-0.59) H 10/06/21 Eosinophils # (Auto) 0.04 K/uL (0-0.5) 10/06/21 Basophils # (Auto) 0.01 K/uL (0-0.2) 10/06/21 Immature Granulocyte # (Auto) 0.08 K/uL (0.00-0.02) H 10/06/21 Na 138 mmol/L (136-145) 10/06/21 K 4.6 mmol/L (3.5-5.1) 10/06/21 Cl 109 mmol/L (98-107) H 10/06/21 CO2 25 mmol/L (21-32) 10/06/21 Anion Gap 4.0 (3-11) 10/06/21 BUN 52 mg/dl (7-18) H 10/06/21 Creatinine 0.88 mg/dl (0.6-1.4) 10/06/21 Estimated GFR ( Amer) 107.5 ml/min 10/06/21 Estimated GFR (Non-Af Amer) 92.7 ml/min 10/06/21 BUN/Creatinine Ratio 59.0 (10-20) H 10/06/21 Glu 109 mg/dl (70-99) H 10/06/21 Ca 9.3 mg/dl (8.5-10.1) 10/06/21 Phosphorus Level 3.0 mg/dl (2.5-4.9) 10/06/21 Mg 2.1 mg/dl (1.8-2.4) 10/06/21 05:29 10/06/21 Calcium Level 9.3 mg/dl (8.5-10.1) 10/06/21 05:29 10/06/21 Stevie Test Pass 10/06/21 05:15 10/06/21 Diagnostic Findings (Past 24 Hours) Chest X-Ray 10/06/21 07:00 XR chest 1V portable HISTORY: 61 years-old Male Resp failure acute respiratory failure COMPARISON: Chest radiograph 10/05/2021 TECHNIQUE: Portable AP view of the chest FINDINGS: Endotracheal tube overlies the midline, 10 mm superior to the kyree. Enteric tube coils within the stomach. Right IJ central venous catheter distal tip terminates in the expected location of the mid to inferior SVC. No pneumothorax. Trace pleural effusions are suspected. Interstitial coarsening with progressively worsened bilateral airspace opacities. Bones appear grossly int act. IMPRESSION: 1. Lines and tubes as above. 2. Progressively worsened bilateral pulmonary opacities suggestive of multifocal pneumonia. ACT 112: Negative or not required by law. The above report was generated using voice recognition software. It may contain grammatical, syntax or spelling errors. Electronically signed by: Lance Dawkins M.D. 10/06/2021 7:33 AM I & O Totals 24 Hours 10/05/21 10/06/21 10/07/21 06:59 06:59 06:59 Intake Total 2353.625 / 2353.625 1611.533 / 1611.533 19.232 / 19.232 Output Total 1245 / 1245 1450 / 1450 Balance 1108.625 / 1108.625 161.533 / 161.533 19.232 / 19.232 Cumulative 09/23/21 15:29 thru 10/06/21 08:07 Intake Total 99585.264 Output Total 36296 Balance 1499.264 RT Ventilator Mngmt (Last Documented) Ventilator Ordered Settings Ventilator Support Mode Assist Control 10/06/21 10:51 Respiratory Rate 23 10/06/21 10:51 Ventilator Tidal Volume 420 10/06/21 10:51 Setting Minute Ventilation 9.7 10/06/21 10:51 Ventilator Positive Pressure 5 10/06/21 07:45 Support Setting Positive End Expiratory 5 10/06/21 10:51 Pressure Fraction of Inspired Oxygen 40 10/06/21 10:51 Machine Comment PEEP weaned at this time 10/06/21 07:40 Ventilator - PT Measurements Respiratory Rate 23 Exhaled Tidal Volume 421 Minute Ventilation 9.7 Peak Inspiratory Airway 11 Pressure Plateau Pressure 10.5 Respiratory Cycle Inspiratory: 1:4.2 Expiratory Ratio Inspiratory Phase Time 0.65 End-Tidal CO2 33 Static Lung Compliance 76.55 Dynamic Lung Compliance 70.17 Normal Static Lung Compliance 49.00 Patient Measurements Comment Pale yellow sputum Coding Level of Care Code Critical Care 1st 30-74 mins Diagnoses Admitted to intensive care unit Z78.9 Acute respiratory failure with hypoxia J96.01 2019 novel coronavirus-infected pneumonia (NCIP) U07.1; J12.82 Hypoxia R09.02 Agitation R45.1
[2021-10-06] MEDS: PEPTAMEN INTENSE VHP 1.0 CAL 1,000 ML BAG GT SCH (12:56)
[2021-10-06] MEDS: fentaNYL citrate 2,500 MCG/250 ML BAG IV SCH (15:26)
[2021-10-07] MEDS: PROPOFOL BOLUS FROM BAG IV PRN (01:07)
[2021-10-07] MEDS: propofoL 1,000 MG/100 ML VIAL IV SCH ×4 (03:37→14:49)
[2021-10-07] MEDS: INSULIN ASPART PER UNIT SC SCH ×5 (03:59→20:24)
[2021-10-07 04:29] LABS: iSTAT Allen Test Pass; iSTAT Art Bld Gas pCO2 Correct 44 mmHg (35-46); iSTAT Art Bld Gas pH Corrected 7.379 (7.35-7.45); iSTAT Arterial Blood Gas HCO3 26 meg/L (19-24); iSTAT Arterial Blood Gas pCO2 44 mmHg (35-46); iSTAT Arterial Blood Gas pH 7.38 (7.35-7.45); iSTAT Arterial Blood Gas pO2 60 mmHg (80-95); iSTAT Arterial Blood Gas pO2 C 60; iSTAT Carbon Dioxide 27 mmol/L (24-31); iSTAT FiO2 35 %; iSTAT Hematocrit 40 % (42-52); iSTAT Hemoglobin 13.6 g/dl (14.0-18.0); iSTAT Potassium 4.5 mmol/L (3.3-5.0); iSTAT Site R Radial; iSTAT Sodium 136 mmol/L (135-144)
[2021-10-07 06:44] LABS: Basophils # (auto) 0.01 K/uL (0-0.2); Basophils % (auto) 0.1 %; Eosinophils # (auto) 0.06 K/uL (0-0.5); Eosinophils % (auto) 0.5 %; Hematocrit (blood only) 41.7 % (42-52); Hemoglobin 13.8 g/dL (14.0-18.0); Immature Granulocytes # (auto) 0.06 K/uL (0.00-0.02); Immature Granulocytes % (auto) 0.5 %; Lymphocytes % (auto) 8.1 %; Mean Corpuscular Hemoglobin 31.4 pg (25-34); Mean Corpuscular Hgb Conc 33.1 g/dL (32-36); Mean Corpuscular Volume 94.8 fL (80-100); Mean Platelet Volume 10.1 fL (7.4-10.4); Monocytes # (auto) 0.78 K/uL (0.11-0.59); Monocytes % (auto) 6.3 %; Neutrophils # (auto) 10.41 K/uL (1.4-6.5); Neutrophils % (auto) 84.5 %; Platelet Count 332 K/uL (130-400); RDW Coefficient of Variation 13.1 % (11.5-14.5); RDW Standard Deviation 45.7 fL (36.4-46.3); White Blood Count 12.32 K/uL (4.8-10.8)
[2021-10-07 07:03] LABS: BUN Creatinine Ratio 57.2 (10-20); Calcium 9.1 mg/dl (8.5-10.1); Creatinine Clr Calc Pharmacy 75.3 ml/min; Est GFR (African American) 112.9 ml/min; Est GFR (Non-African American) 97.4 ml/min; Magnesium 1.8 mg/dl (1.8-2.4); Phosphorus 3.3 mg/dl (2.5-4.9); Potassium 4.5 mmol/L (3.5-5.1)
[2021-10-07] MEDS: TUBE FEEDING WATER FLUSH OG SCH ×4 (07:19→16:09)
[2021-10-07] MEDS: MONTELUKAST SODIUM 10 MG TABLET PO SCH (07:48)
[2021-10-07] MEDS: MULTI VIT W/MINERALS LIQUID 15 ML UDP NG SCH (07:48)
[2021-10-07] MEDS: PANTOprazole 40 MG in SYRINGE 0 ML IV SCH (07:57)
[2021-10-07] MEDS: dexAMETHasone 10 MG in SYRINGE 0 ML IV SCH (07:57)
--- NOTE | 2021-10-07 08:07 | XRay Report ---
SINGLE VIEW CHEST CLINICAL HISTORY: Respiratory failure. Covid. FINDINGS: An AP, portable, upright chest radiograph is compared to study dated 10/06/2021. The examinat ion is degraded by portable technique and patient rotation. An endotracheal tube has been pulled bing k. The tip now projects 2 cm above the kyree. An enteric tube and a right internal jugular central v enous catheter are unchanged in position. The cardiomediastinal silhouette is unremarkable. Multifoca l airspace consolidation has not appreciably changed as compared to yesterday. Small pleural effusion s are noted. No pneumothorax is seen. The bony thorax is grossly intact. IMPRESSION: 1. Lines and tubes as above. 2. Multifocal airspace consolidation has not appreciably changed as compared to yesterday. 3. Small pleural effusions. ACT 112: Negative or not required by law. Electronically signed by: Jerad Davalos M.D. 10/07/2021 8:05 AM
[2021-10-07] MEDS: ENOXAPARIN INJ 40 MG/0.4 ML SYR SQ SCH (08:27)
--- NOTE | 2021-10-07 10:25 | Critical Care Progress Note ---
Date of Service October 07, 2021 Assessment & Plan (1) Admitted to intensive care unit: Plan: IsReason Critically Ill: 61-year-old male admitted with hypoxic respiratory failure secondary to COVID-19 pneumonia who is now agitated and requiring Precedex drip and ongoing close hemodynamic monitoring with low threshold for endotracheal intubation. NEURO - * Agitation: * Propofol and fentanyl -Spontaneous awakening trial CARDIAC/VASCULAR - * Hypertension: Stable * Monitor closely for need for vasopressors. * Monitor on telemetry. RESPIRATORY - * Acute hypoxic respiratory failure secondary to COVID-19 pneumonia: * Intubation mechanical 09/30: day 8 * Trial of extubation today GI/NUTRITION - * Tube feeds at goal * Prophylaxis: Famotidine RENAL/LYTES - * KASSIDY: Resolved - * Sales in place - Strict I&Os. ENDO - * Hyperglycemia * BSGs per unit protocol. ISS --> gtt per unit policy. * Likely secondary to dexamethasone use. -Increasing Lantus dose attempt to transition off of insulin infusion HEME - * No concerns at this time. ID - * COVID-19 pneumonia: * Continue with dexamethasone. Taper entered * No apparent need for antibiotics at this point LINES/IV ACCESS - * PIVs x2 * Sales DVT PROPHYLAXIS - * Lovenox * SCDs , Octavia [phone]. (2) Acute respiratory failure with hypoxia: (3) 2019 novel coronavirus-infected pneumonia (NCIP): (4) Hypoxia: (5) Agitation: Admission and Anticipated Discharge Date Admission Date: September 23, 2021 Supervising Physician Co-Signing Physician Notes I have personally spent 35 minutes of critical care time in the direct management of this patient. This is a life/limb threatening event. This includes time spent evaluating patient, direct bedside care, chart review, placing orders, interpretation of diagnostic studies, discussion with consultants, patient, and/or family members regarding treatment decisions, as well as other required patient management activities. This time is exclusive of all separately billable procedures, and teaching time and separate from and in addition to any other critical care service time. Subjective Spontaneous awakening trial successful following simple commands Review of Systems Review of Systems: Unable to obtain due to endotracheal tube Physical Exam Physical Exam: General: Alert. nontoxic. Glascow Coma Scale: Eyes: 4, Verbal 1T, Motor 6, Total 11T Skin: Warm, dry, Head: Atraumatic Ears, nose, mouth and throat: airway airway obscured by endotracheal tube Cardiovascular: Normal peripheral perfusion Respiratory: Ventilator settings reviewed Gastrointestinal: Non distended Musculoskeletal: No deformity Results & Data Results & Data ([facility]) Vital Signs (Past 12 Hours) Vital Signs Temp Pulse Resp BP Pulse Ox 10/07/21 08:30 37.0 C 72 26 H 106/67 92 10/07/21 08:00 37.0 C 53 L 14 103/60 91 10/07/21 07:15 36.9 C 51 L 14 92 10/07/21 05:15 36.8 C 53 L 14 93 10/07/21 05:00 36.8 C 50 L 14 100/69 93 10/07/21 04:45 36.8 C 52 L 14 10/07/21 04:30 36.8 C 50 L 14 92 10/07/21 04:15 36.9 C 51 L 16 92 10/07/21 04:12 51 L 17 91 10/07/21 04:00 36.9 C 52 L 14 100/76 93 10/07/21 03:45 36.9 C 49 L 14 93 10/07/21 03:30 37.0 C 48 L 14 105/66 92 10/07/21 03:15 37.0 C 50 L 14 92 10/07/21 03:00 37.0 C 51 L 14 109/71 93 10/07/21 02:45 37.0 C 51 L 14 92 10/07/21 02:30 37.0 C 52 L 14 92 10/07/21 02:15 37.0 C 52 L 14 91 10/07/21 02:00 37.0 C 53 L 13 95/66 L 91 10/07/21 01:45 36.9 C 52 L 14 92 10/07/21 01:30 36.9 C 55 L 15 92 10/07/21 01:15 36.8 C 56 L 15 92 10/07/21 01:00 36.8 C 60 18 107/72 93 10/07/21 00:45 36.7 C 54 L 14 92 10/07/21 00:30 36.7 C 61 17 107/69 92 10/07/21 00:15 36.6 C 60 18 92 10/07/21 00:00 36.6 C 65 22 92 10/06/21 23:45 36.6 C 53 L 14 93 10/06/21 23:30 36.6 C 61 17 108/68 93 10/06/21 23:15 36.6 C 48 L 14 92 10/06/21 23:00 36.6 C 45 L 14 116/75 92 10/06/21 22:45 36.7 C 45 L 14 91 10/06/21 22:30 36.7 C 48 L 14 119/79 91 Critical Care Results & Data Vital Signs (Past 12 Hours) Vital Signs Temp Pulse Resp BP Pulse Ox 10/07/21 08:30 37.0 C 72 26 H 106/67 92 10/07/21 08:00 37.0 C 53 L 14 103/60 91 10/07/21 07:15 36.9 C 51 L 14 92 10/07/21 05:15 36.8 C 53 L 14 93 10/07/21 05:00 36.8 C 50 L 14 100/69 93 10/07/21 04:45 36.8 C 52 L 14 93 10/07/21 04:30 36.8 C 50 L 14 92 10/07/21 04:15 36.9 C 51 L 16 92 10/07/21 04:12 51 L 17 91 10/07/21 04:00 36.9 C 52 L 14 100/76 93 10/07/21 03:45 36.9 C 49 L 14 93 10/07/21 03:30 37.0 C 48 L 14 105/66 92 10/07/21 03:15 37.0 C 50 L 14 92 10/07/21 03:00 37.0 C 51 L 14 109/71 93 10/07/21 02:45 37.0 C 51 L 14 92 10/07/21 02:30 37.0 C 52 L 14 92 10/07/21 02:15 37.0 C 52 L 14 91 10/07/21 02:00 37.0 C 53 L 13 95/66 L 91 10/07/21 01:45 36.9 C 52 L 14 92 10/07/21 01:30 36.9 C 55 L 15 92 10/07/21 01:15 36.8 C 56 L 15 92 10/07/21 01:00 36.8 C 60 18 107/72 93 01/02/22 00:45 36.7 C 54 L 14 92 10/07/21 00:30 36.7 C 61 17 107/69 92 10/07/21 00:15 36.6 C 60 18 92 10/07/21 00:00 36.6 C 65 22 92 10/06/21 23:45 36.6 C 53 L 14 93 10/06/21 23:30 36.6 C 61 17 108/68 93 10/06/21 23:15 36.6 C 48 L 14 92 10/06/21 23:00 36.6 C 45 L 14 116/75 92 10/06/21 22:45 36.7 C 45 L 14 91 10/06/21 22:30 36.7 C 48 L 14 119/79 91 Lab & Micro Results (Past 24 Hours) RBC 4.40 M/uL (4.7-6.1) L 10/07/21 WBC 12.32 K/uL (4.8-10.8) H 10/07/21 Hgb 13.8 g/dL (14.0-18.0) L 10/07/21 Hct 41.7 % (42-52) L 10/07/21 MCV 94.8 fL (80-100) 10/07/21 MCH 31.4 pg (25-34) 10/07/21 MCHC 33.1 g/dL (32-36) 10/07/21 RDW Standard Deviation 45.7 fL (36.4-46.3) 10/07/21 RDW Coefficient of Variation 13.1 % (11.5-14.5) 10/07/21 Plt Count 332 K/uL (130-400) 10/07/21 MPV 10.1 fL (7.4-10.4) 10/07/21 Neutrophils (%) (Auto) 84.5 % 10/07/21 Lymphocytes (%) (Auto) 8.1 % 10/07/21 Monocytes # (Auto) 0.78 K/uL (0.11-0.59) H 10/07/21 Eosinophils # (Auto) 0.06 K/uL (0-0.5) 10/07/21 Immature Granulocyte % (Auto) 0.5 % 10/07/21 Neutrophils # (Auto) 10.41 K/uL (1.4-6.5) H 10/07/21 Lymphocytes # (Auto) 1.00 K/uL (1.2-3.4) L 10/07/21 Monocytes # (Auto) 0.78 K/uL (0.11-0.59) H 10/07/21 Eosinophils # (Auto) 0.06 K/uL (0-0.5) 10/07/21 Basophils # (Auto) 0.01 K/uL (0-0.2) 10/07/21 Immature Granulocyte # (Auto) 0.06 K/uL (0.00-0.02) H 10/07/21 Na 138 mmol/L (136-145) 10/07/21 K 4.5 mmol/L (3.5-5.1) 10/07/21 Cl 108 mmol/L (98-107) H 10/07/21 CO2 25 mmol/L (21-32) 10/07/21 Anion Gap 5.0 (3-11) 10/07/21 BUN 44 mg/dl (7-18) H 10/07/21 Creatinine 0.78 mg/dl (0.6-1.4) 10/07/21 Estimated GFR ( Amer) 112.9 ml/min 10/07/21 Estimated GFR (Non-Af Amer) 97.4 ml/min 10/07/21 BUN/Creatinine Ratio 57.2 (10-20) H 10/07/21 Glu 88 mg/dl (70-99) 10/07/21 Ca 9.1 mg/dl (8.5-10.1) 10/07/21 Phosphorus Level 3.3 mg/dl (2.5-4.9) 10/07/21 Mg 1.8 mg/dl (1.8-2.4) 10/07/21 05:28 10/07/21 Calcium Level 9.1 mg/dl (8.5-10.1) 10/07/21 05:28 10/07/21 Stevie Test Pass 10/07/21 04:08 10/07/21 Diagnostic Findings (Past 24 Hours) Chest X-Ray 10/07/21 07:00 SINGLE VIEW CHEST CLINICAL HISTORY: Respiratory failure. Covid. FINDINGS: An AP, portable, upright chest radiograph is compared to study dated 10/06/2021. The examination is degraded by portable technique and patient rotation. An endotracheal tube has been pulled back. The tip now projects 2 cm above the kyree. An enteric tube and a right internal jugular central venous catheter are unchanged in position. The cardiomediastinal silhouette is unremarkable. Multifocal airspace consolidation has not appreciably changed as compared to yesterday. Small pleural effusions are noted. No pneumothorax is seen. The bony thorax is grossly intact. IMPRESSION: 1. Lines and tubes as above. 2. Multifocal airspace consolidation has not appreciably changed as compared to yesterday. 3. Small pleural effusions. ACT 112: Negative or not required by law. Electronically signed by: Jerad Davalos M.D. 10/07/2021 8:05 AM I & O Totals 24 Hours 10/06/21 10/07/21 10/08/21 06:59 06:59 06:59 Intake Total 1611.533 / 2212.297 8156.544 / 1415.544 145.313 / 145.313 Output Total 1450 / 1450 1625 / 1625 150 / 150 Balance 161.533 / 161.533 -209.456 / -209.456 -4.687 / -4.687 Cumulative 09/23/21 15:29 thru 10/07/21 08:00 Intake Total 98416.889 Output Total 93609 Balance 1265.889 RT Ventilator Mngmt (Last Documented) Ventilator Ordered Settings Ventilator Support Mode Assist Control 10/07/21 08:00 Respiratory Rate 26 10/07/21 08:30 Ventilator Tidal Volume 420 10/07/21 08:00 Setting Minute Ventilation 7.1 10/07/21 04:12 Ventilator Positive Pressure 5 10/06/21 07:45 Support Setting Positive End Expiratory 5 10/07/21 08:00 Pressure Fraction of Inspired Oxygen 35 10/07/21 08:00 Machine Comment PEEP weaned at this time 10/06/21 07:40 Ventilator - PT Measurements Respiratory Rate 26 Exhaled Tidal Volume 423 Minute Ventilation 7.1 Peak Inspiratory Airway 23 Pressure Plateau Pressure 19.1 Respiratory Cycle Inspiratory: 1:7.8 Expiratory Ratio Inspiratory Phase Time 0.65 End-Tidal CO2 35 Static Lung Compliance 30.00 Dynamic Lung Compliance 23.50 Normal Static Lung Compliance 46.00 Patient Measurements Comment FiO2 decreased to 35% Coding Level of Care Code Critical Care 1st 30-74 mins Diagnoses Admitted to intensive care unit Z78.9 Acute respiratory failure with hypoxia J96.01 2019 novel coronavirus-infected pneumonia (NCIP) U07.1; J12.82 Hypoxia R09.02 Agitation R45.1
[2021-10-07] MEDS: PEPTAMEN INTENSE VHP 1.0 CAL 1,000 ML BAG GT SCH (10:44)
--- NOTE | 2021-10-07 11:23 | Hospitalist Progress Note ---
Date of Service October 07, 2021 Assessment & Plan (1) 2019 novel coronavirus-infected pneumonia (NCIP): Plan: - symptomatic 09/14/21 - unvaccinated - did not qualify for Remdesivir by time course - continue dexamethasone 10mg IV daily - CRP not elevated therefore did not qualify for baricitinib or tocilizumab, Patient progressed to intubation on 09/30/2021 Dr. 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 started on precedex but ultimately required intubation (4) Hypertension: Plan: typically not on outpt treatment will use prn hydralazine at this time (5) KASSIDY (acute kidney injury): Plan: due to dehydration and use of diuretic and ACI inhibitor, both held on admission tube feeds Cr is stable, monitoring UO via robles Plan: VTE Prophylaxis - Lovenox 40mg SQ bid Admission and Anticipated Discharge Date Admission Date: September 23, 2021 Subjective patient doing okay on PEEP 5 and FiO2 50% this morning lightened sedation, extubated him to 100% mask, will see how he does stable on 80% mask later in the day, calmer earlier he was pulling at mask, needed restraints reviewed labs, d/w Dr. Garcia, appreciate his management of patient Review of Systems Review of Systems: Unobtainable due to cognitive status (lightly sedated) Physical Exam Physical Exam: General: well developed, well nourished, ill appearing, calm Neck: supple, trachea midline, normal thyroid Lungs: clear to auscultation bilaterally, + tachypnea after extubation and slight accessory muscle use Heart: regular S1 and S2, no murmur, peripheral pulses normal, capillary refill normal, no edema Abdomen: soft, NT, ND, + BS, no hepatomegaly, normal to percussion Extremities: normal in appearance, no cyanosis, no petechiae, moving extremities but weak Neuro: no focal motor deficits, CN II-XII intact, moving limbs Skin: warm, dry, no rash, normal turgor Psych: awake, following commands Results & Data Results & Data ([facility]) Vital Signs (Past 12 Hours) Vital Signs Temp Pulse Resp BP Pulse Ox 10/07/21 08:30 37.0 C 72 26 H 106/67 92 10/07/21 08:00 37.0 C 53 L 14 103/60 91 10/07/21 07:15 36.9 C 51 L 14 92 10/07/21 05:15 36.8 C 53 L 14 93 10/07/21 05:00 36.8 C 50 L 14 100/69 93 10/07/21 04:45 36.8 C 52 L 14 93 10/07/21 04:30 36.8 C 50 L 14 92 10/07/21 04:15 36.9 C 51 L 16 92 10/07/21 04:12 51 L 17 91 10/07/21 04:00 36.9 C 52 L 14 100/76 93 10/07/21 03:45 36.9 C 49 L 14 93 10/07/21 03:30 37.0 C 48 L 14 105/66 92 10/07/21 03:15 37.0 C 50 L 14 92 10/07/21 03:00 37.0 C 51 L 14 109/71 93 10/07/21 02:45 37.0 C 51 L 14 92 10/07/21 02:30 37.0 C 52 L 14 92 10/07/21 02:15 37.0 C 52 L 14 91 10/07/21 02:00 37.0 C 53 L 13 95/66 L 91 10/07/21 01:45 36.9 C 52 L 14 92 10/07/21 01:30 36.9 C 55 L 15 92 10/07/21 01:15 36.8 C 56 L 15 92 10/07/21 01:00 36.8 C 60 18 107/72 93 10/07/21 00:45 36.7 C 54 L 14 92 10/07/21 00:30 36.7 C 61 17 107/69 92 10/07/21 00:15 36.6 C 60 18 92 10/07/21 00:00 36.6 C 65 22 92 10/06/21 23:45 36.6 C 53 L 14 93 10/06/21 23:30 36.6 C 61 17 108/68 93 Laboratory Results Laboratory Results - last 24 hr 10/06/21 10/06/21 10/06/21 11:45 16:13 19:48 WBC RBC Hgb POC Hgb Hct POC Hct MCV MCH MCHC RDW Std Deviation RDW Coeff of James Plt Count MPV Immature Gran % (Auto) Neut % (Auto) Lymph % (Auto) [place] % (Auto) Eos % (Auto) Baso % (Auto) Neut # (Auto) Lymph # (Auto) [place] # (Auto) Eos # (Auto) Baso # (Auto) Immature Gran # (Auto) Sample Site POC pH POC pCO2 POC pO2 POC HCO3 POC Total CO2 POC Base Excess ABG pH (Temp Correct) ABG pCO2 (Temp Corrct POC ABG pO2 at Pt Temp POC ABG O2 Sat Stevie Test O2 Delivery Device POC O2 Rate POC FiO2 Tidal Volume PEEP POC Sodium Sodium POC Potassium Potassium Chloride Carbon Dioxide Anion Gap BUN Creatinine Est Cr Clr Drug Dosing Est GFR ( Amer) Est GFR (Non-Af Amer) BUN/Creatinine Ratio Glucose POC Glucose 111 H 150 H 102 H Calcium Phosphorus Magnesium 10/06/21 10/07/21 10/07/21 23:37 03:58 04:08 WBC RBC Hgb POC Hgb 13.6 L Hct POC Hct 40 L MCV MCH MCHC RDW Std Deviation RDW Coeff of James Plt Count MPV Immature Gran % (Auto) Neut % (Auto) Lymph % (Auto) [place] % (Auto) Eos % (Auto) Baso % (Auto) Neut # (Auto) Lymph # (Auto) [place] # (Auto) Eos # (Auto) Baso # (Auto) Immature Gran # (Auto) Sample Site R Radial POC pH 7.38 POC pCO2 44 POC pO2 60 L POC HCO3 26 H POC Total CO2 27 POC Base Excess 1.0 ABG pH (Temp Correct) 7.379 ABG pCO2 (Temp Corrct 44 POC ABG pO2 at Pt Temp 60 POC ABG O2 Sat 90.0 Stevie Test Pass O2 Delivery Device Ventilator POC O2 Rate 14 POC FiO2 35 Tidal Volume 420 PEEP 5 POC Sodium 136 Sodium POC Potassium 4.5 Potassium Chloride Carbon Dioxide Anion Gap BUN Creatinine Est Cr Clr Drug Dosing Est GFR ( Amer) Est GFR (Non-Af Amer) BUN/Creatinine Ratio Glucose POC Glucose 102 H 86 Calcium Phosphorus Magnesium 10/07/21 10/07/21 10/07/21 05:28 05:28 07:51 WBC 12.32 H RBC 4.40 L Hgb 13.8 L POC Hgb Hct 41.7 L POC Hct MCV 94.8 MCH 31.4 MCHC 33.1 RDW Std Deviation 45.7 RDW Coeff of James 13.1 Plt Count 332 MPV 10.1 Immature Gran % (Auto) 0.5 Neut % (Auto) 84.5 Lymph % (Auto) 8.1 [place] % (Auto) 6.3 Eos % (Auto) 0.5 Baso % (Auto) 0.1 Neut # (Auto) 10.41 H Lymph # (Auto) 1.00 L [place] # (Auto) 0.78 H Eos # (Auto) 0.06 Baso # (Auto) 0.01 Immature Gran # (Auto) 0.06 H Sample Site POC pH POC pCO2 POC pO2 POC HCO3 POC Total CO2 POC Base Excess ABG pH (Temp Correct) ABG pCO2 (Temp Corrct POC ABG pO2 at Pt Temp POC ABG O2 Sat Stevie Test O2 Delivery Device POC O2 Rate POC FiO2 Tidal Volume PEEP POC Sodium Sodium 138 POC Potassium Potassium 4.5 Chloride 108 H Carbon Dioxide 25 Anion Gap 5.0 BUN 44 H Creatinine 0.78 Est Cr Clr Drug Dosing 75.3 Est GFR ( Amer) 112.9 Est GFR (Non-Af Amer) 97.4 BUN/Creatinine Ratio 57.2 H Glucose 88 POC Glucose 70 Calcium 9.1 Phosphorus 3.3 Magnesium 1.8 Medications Administered Current Inpatient Medications Acetaminophen (Acetaminophen 325 Mg Tab) 650 mg PO Q4H PRN PRN Reason: pain/fever Stop: 10/23/21 21:09 Last Admin: 10/05/21 22:18 Dose: 650 mg Documented by: Dextrose (Dextrose 50% 50 Ml Syringe) 25 - 50 ml IV UD PRN; Protocol PRN Reason: Hypoglycemia Protocol Stop: 10/25/21 11:37 Enoxaparin Sodium (Enoxaparin Inj 40 Mg/0.4 Ml Syr) 40 mg SQ QAM [facility] Stop: 11/01/21 11:59 Last Admin: 10/07/21 08:27 Dose: 40 mg Documented by: Fentanyl Citrate (Fentanyl Bolus From Bag) 50 mcg IV Q60M PRN PRN Reason: Pain or Agitation Stop: 10/14/21 14:24 Last Admin: 10/05/21 22:24 Dose: 50 mcg Documented by: Glucagon (Glucagon For Inj 1 Mg Vial) 1 mg SQ UD PRN; Protocol PRN Reason: Hypoglycemia Protocol Stop: 10/25/21 11:37 Glucose (Glucose 10 Tabs/Tube) 4 - 8 tabs PO UD PRN; Protocol PRN Reason: Hypoglycemia Protocol Stop: 10/25/21 11:37 Glucose (Glucose 40% Gel 15 Gm Tube) 15 - 30 gm PO UD PRN; Protocol PRN Reason: Hypoglycemia Protocol Stop: 10/25/21 11:37 Hydralazine HCl (Hydralazine Hcl 20 Mg/Ml Vial) 10 mg IV Q8 PRN PRN Reason: Blood Pressure - High Stop: 10/29/21 07:41 Last Admin: 09/29/21 16:06 Dose: 10 mg Documented by: Fentanyl Citrate (Fentanyl Citrate) 2,500 mcg in 250 mls @ 15 mls/hr IV .[id number] [facility]; Protocol Stop: 10/14/21 14:29 Last Titration: 10/07/21 07:05 Dose: 150 mcg/hr, 15 mls/hr Documented by: Dexamethasone 10 mg/ Syringe 2.5 mls @ 1 mls/min IV DAILY [facility] Stop: 10/09/21 12:00 Last Admin: 10/07/21 07:57 Dose: 1 mls/min Documented by: Pantoprazole Sodium 40 mg/ (Syringe) 10 mls @ 5 mls/min IV DAILY [facility] Stop: 11/02/21 08:59 Last Admin: 10/07/21 07:57 Dose: 5 mls/min Documented by: Propofol (Diprivan) 1,000 mg in 100 mls @ 16.05 mls/hr IV .Q6H14M [facility]; Protocol Stop: 10/08/21 19:59 Last Titration: 10/07/21 07:05 Dose: 50 mcg/kg/min, 16.1 mls/hr Documented by: Insulin Aspart (Insulin Aspart Per Unit) 0 units SC Q4 [facility] Stop: 10/31/21 15:59 Last Admin: 10/07/21 07:53 Dose: Not Given Documented by: Insulin Human NPH (Insulin Human Nph) 45 units SC DAILY [facility] Stop: 11/05/21 08:59 Last Admin: 10/06/21 08:36 Dose: 45 units Documented by: Miscellaneous (Carbohydrates For Hypoglycemia ) 15 - 30 gm PO UD PRN PRN Reason: Hypoglycemia Protocol Stop: 10/25/21 11:37 Miscellaneous Information (Pharmacy Glycemic Mgmt Consult) 1 ea N/A UD PRN PRN Reason: Consult Stop: 10/31/21 05:54 Montelukast Sodium (Montelukast Sodium 10 Mg Tablet) 10 mg PO DAILY [facility] Stop: 10/24/21 08:59 Last Admin: 10/07/21 07:48 Dose: Not Given Documented by: Multivitamins/Minerals (Multi Vit W/Minerals Liquid 15 Ml Udp) 15 ml NG QAM [facility] Stop: 11/04/21 08:59 Last Admin: 10/07/21 07:48 Dose: Not Given Documented by: Nutritional Formula (Peptamen Intense Vhp 1.0 Perez 1,000 Ml Bag) 1,000 ml GT CONT ALETA; Protocol Stop: 10/31/21 10:29 Last Admin: 10/07/21 10:44 Dose: Not Given Documented by: Ondansetron HCl (Ondansetron Inj 2 Mg/Ml 2 Ml Vial) 4 mg IV Q6H PRN PRN Reason: Nausea Stop: 10/23/21 21:09 Propofol (Propofol Bolus From Bag) 20 mg IV Q5M PRN PRN Reason: Sedation Stop: 10/08/21 19:48 Last Admin: 10/07/21 01:07 Dose: 20 mg Documented by: Sterile Water (Tube Feeding Water Flush) 30 ml OG Q4H [facility] Stop: 11/03/21 13:14 Last Admin: 10/07/21 07:50 Dose: Not Given Documented by: PG Care Time/CCT Total # of Minutes Spent Total Time Spent with Patient: Total time spent is greater than 50% in coordination of care (as documented) at patient's floor/unit and/or counseling patient: Coding Level of Care Code 94660 Subseq Hosp Care Lvl 2 Diagnoses 2019 novel coronavirus-infected pneumonia (NCIP) U07.1; J12.82 Acute respiratory failure with hypoxia J96.01 Encephalopathy acute G93.40 Hypertension I10 KASSIDY (acute kidney injury) N17.9
[2021-10-07] MEDS: fentaNYL citrate 2,500 MCG/250 ML BAG IV SCH ×3 (11:47→15:26)
[2021-10-07] MEDS ORDERED: STAT IV Infusion **Titration per Protocol STA (13:58)
[2021-10-07] MEDS ORDERED: DEXMEDETOMIDINE HCL 200 MCG in SODIUM CHLORIDE 0.9% 48 ML IV SCH (14:15)
--- NOTE | 2021-10-07 15:17 | Pharmacy Report ---
Pharmacy Glycemic Short Note 2 - Date of Service October 07, 2021 - Glycemic Short BSG Results (Last 24 hours): 10/06/21 10/06/21 10/06/21 16:13 19:48 23:37 Glucose POC Glucose 150 H 102 H 102 H 10/07/21 10/07/21 10/07/21 03:58 05:28 07:51 Glucose 88 POC Glucose 86 70 10/07/21 12:12 Glucose POC Glucose 108 H OUTPATIENT ANTIDIABETIC REGIMEN: * N/A * A1c: 7% 09-25-21 ASSESSMENT: 10/07/21: * Patient received significantly less insulin over the past 24 hours (45 units NPH + 4 units Novolog) * BSGs from 10/06: 84, 111, 150, 102 mg/dL * Tube feeds were held for a large portion of the day which likely contributed to decreased needs * Patient remains on DXM 10 mg IV q24h * Fasting BSG of 70 mg/dL is below goal. Tube feeds remain on hold, therefore NPH was also held. Carb coverage was also loosened. 10/05 * Patient remains intubated, receiving high dose IV steroid in the AM, tube feeds are running at goal (Peptamen VHP @50cc/hr). Sedation wean and SBT to be attempted today. If patient fails wean/extubation attempt, may have trach placed tomorrow. * BSGs reasonably well controlled over last 24 hrs, however midday-afternoon BSG climb again noted due to AM dexamethasone administration. Yesterday's NPH dose administered around noon time, would anticipate better control today given NPH administered in AM with IV dexamethasone. Will increase NPH dose slightly as well. * Current Novolog CF/CR are performing well. Given the fall in BSGs overnight, would prefer to uptitrate NPH doses to address daytime BSG rise rather than increase Novolog doses. 10/04 * Insulin drip discontinued early this AM. BSGs have remained largely within goal. Fasting BSG 106mg/dL this AM. However lunchtime BSG today rising consistent with steroid induced hyperglycemia. Tube feeds @ goal (50ml/hr), dex 10mg continues. Pt remains intubated/sedated. * Will change Lantus to NPH (~0.4unit/kg) today for better coverage of prandial BSGs and tighten carb ratio from 6gm to 5gm/unit. 10/03 * BSGs did climb into the 220-230s mid-day despite insulin drip yesterday, likely related to IV dexamethasone admin each AM. * Insulin drip running 3.6-4.1units/hr with current stressors (mech ventilation, Peptamen VHP running at goal 50cc/hr, dexamethasone 6mg IV Q AM). * Patient discussed at AM rounds, plan to add SQ basal insulin and adjust Novolog SQ doses in an attempt to reduce IV insulin drip needs with plan to transition to SQ regimen when drip rates < 1unit/hr and BSGs at goal. 10/02 * BSGs have been well controlled since insulin infusion started yesterday * Insulin infusing at 2.1 units/hr for multiple hours and BSGs are in goal range * Patient remains intubated, sedated, receiving high dose IV steroids, as well as tube feeds at goal (Peptamen VHP @ 50cc/hr). Norepi has been weaned off. PLAN FOR INPATIENT GLYCEMIC CONTROL: * Hold outpatient oral diabetes medications * Basal insulin * NPH held today per tube feeds were held at midnight * Bolus insulin * NovoLog SQ Q 4 hrs * Goal range: 110-140 mg/dL * Correction factor: 15mg/dL/unit * Carb ratio: 1 unit per 6 gm CHO delivered in feeds PLAN FOR DISCHARGE: * to be determined. A1c 7% consistent with DM that could potentially be managed with diet/lifestyle changes. Disposition and clinical status at time of discharge to determine plan.
[2021-10-08] MEDS: INSULIN ASPART PER UNIT SC SCH ×6 (00:18→19:52)
[2021-10-08 08:01] LABS: Basophils # (auto) 0.01 K/uL (0-0.2); Basophils % (auto) 0.1 %; Eosinophils # (auto) 0.04 K/uL (0-0.5); Eosinophils % (auto) 0.3 %; Hematocrit (blood only) 42.9 % (42-52); Hemoglobin 14.5 g/dL (14.0-18.0); Immature Granulocytes # (auto) 0.04 K/uL (0.00-0.02); Immature Granulocytes % (auto) 0.3 %; Lymphocytes # (auto) 1.35 K/uL (1.2-3.4); Lymphocytes % (auto) 10.6 %; Mean Corpuscular Hemoglobin 31.3 pg (25-34); Mean Corpuscular Hgb Conc 33.8 g/dL (32-36); Mean Corpuscular Volume 92.5 fL (80-100); Mean Platelet Volume 10.5 fL (7.4-10.4); Monocytes # (auto) 0.28 K/uL (0.11-0.59); Monocytes % (auto) 2.2 %; Neutrophils # (auto) 11.05 K/uL (1.4-6.5); Neutrophils % (auto) 86.5 %; Platelet Count 327 K/uL (130-400); RDW Coefficient of Variation 12.8 % (11.5-14.5); RDW Standard Deviation 42.9 fL (36.4-46.3); Red Blood Count 4.64 M/uL (4.7-6.1); White Blood Count 12.77 K/uL (4.8-10.8)
--- NOTE | 2021-10-08 08:04 | Hospitalist Progress Note ---
Date of Service October 08, 2021 Assessment & Plan (1) 2019 novel coronavirus-infected pneumonia (NCIP): Plan: - symptomatic 09/14/21 - unvaccinated - did not qualify for Remdesivir by time course - continue dexamethasone 10mg IV daily - CRP not elevated therefore did not qualify for baricitinib or tocilizumab, Patient progressed to intubation on 09/30/2021 extubated in the morning on 10/07/21 Titrating oxygen down by facemask . 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 started on precedex but ultimately required intubation Patient's Precedex has not been restarted continues to have some encephalopathy, will have some haldol available if needing behavior control, will keep on monitor in case we need to use it (4) Hypertension: Plan: typically not on outpt treatment will use prn hydralazine at this time (5) KASSIDY (acute kidney injury): Plan: due to dehydration and use of diuretic and ACI inhibitor, both held on admission Cr is stable, monitoring UO via robles Plan: VTE Prophylaxis - Lovenox 40mg SQ bid Admission and Anticipated Discharge Date Admission Date: September 23, 2021 Subjective pt has had mitts on, is awake and attepts to convers but remains confused not sure is covid metabolic encephalopahty or critical illness encephalopathy, will downgrade from pcu status today but cautiously with his elevated oxygen demands Review of Systems Review of Systems: Moderate distress and fatigue no headache, no visual changes no speech or swallowing issues no chest pain, pressure or palpitations Continues with shortness of breath, nonproductive cough no abdominal pain, nausea or vomiting, no diarrhea no dysuria, hematuria or frequency no focal joint pain or swelling no back pain, CVA tenderness or radicular pain no bruising, bleeding or rashes no focal signs of weakness or numbness altered sensation and confusion persist Physical Exam Physical Exam: The patient appeared mild to moderate respiratory distress Has some confusion at baseline is extremely hard of hearing Vital signs as documented. Head exam is normocephalic atraumatic Neck is without JVD, thyromegaly, or carotid bruits. Lungs are coarse bilaterally in all lung eisenberg tachypnea Cardiac exam, Rhythm is regular.. No murmurs, rubs or gallops. Abdominal exam reveals normal bowel sounds, soft non tender, no masses Extremities are nonedematous and both pedal pulses are present Neurologic exam is alert and oriented x1 no focal loss of strength or sensation can follow commands to move extremities to command Skin is without bruises or rashes Psychologically is with concerns for encephalopathy Results & Data Results & Data ([facility]) Vital Signs (Past 12 Hours) Vital Signs Temp Pulse Resp BP Pulse Ox 10/08/21 06:00 99.7 F H 70 117/79 92 10/08/21 05:30 99.7 F H 73 122/74 89 L 10/08/21 05:00 99.7 F H 81 127/80 91 10/08/21 04:30 99.9 F H 80 121/83 91 10/08/21 04:00 99.9 F H 73 123/81 94 10/08/21 03:30 99.9 F H 79 127/82 92 10/08/21 03:00 99.9 F H 74 131/85 96 10/08/21 02:30 99.7 F H 78 132/87 94 10/08/21 02:00 99.7 F H 79 135/85 96 10/08/21 01:30 99.7 F H 75 128/79 89 L 10/08/21 01:00 99.7 F H 70 25 H 131/85 91 10/08/21 00:30 99.5 F 74 138/87 95 10/08/21 00:00 99.5 F 76 138/90 91 10/07/21 23:30 99.5 F 79 141/93 H 96 10/07/21 23:00 99.5 F 79 141/83 H 95 10/07/21 22:30 99.5 F 74 157/88 H 94 10/07/21 22:00 99.5 F 77 149/77 H 96 10/07/21 21:30 99.5 F 72 142/79 H 93 10/07/21 21:00 99.5 F 75 146/90 H 91 10/07/21 20:30 99.5 F 78 137/86 95 PG Care Time/CCT Total # of Minutes Spent Total Time Spent with Patient: Total time spent is greater than 50% in coordination of care (as documented) at patient's floor/unit and/or counseling patient: Coding Level of Care Code 23971 Subseq Hosp Care Lvl 3 Diagnoses 2019 novel coronavirus-infected pneumonia (NCIP) U07.1; J12.82 Acute respiratory failure with hypoxia J96.01 Encephalopathy acute G93.40 Hypertension I10 KASSIDY (acute kidney injury) N17.9
[2021-10-08] MEDS: ENOXAPARIN INJ 40 MG/0.4 ML SYR SQ SCH (08:47)
[2021-10-08] MEDS: PANTOprazole 40 MG in SYRINGE 0 ML IV SCH (08:47)
[2021-10-08] MEDS: dexAMETHasone 10 MG in SYRINGE 0 ML IV SCH (08:47)
--- NOTE | 2021-10-08 09:38 | XRay Report ---
XR chest 1V portable CLINICAL HISTORY: Resp failure TECHNIQUE: Single frontal radiograph of the chest was obtained. Comparison: Comparison is made to chest one view 10/07/2021 FINDINGS: Right IJ catheter is unchanged. Interval removal of endotracheal and enteric tubes. The cardiomediast inal silhouette is obscured. Multifocal airspace opacities are seen. No evidence of pleural effusion or pneumothorax. IMPRESSION: Multifocal airspace opacities may represent atelectasis, pneumonia, and/or aspiration. ACT 112: Negative or not required by law. Electronically signed by: Ramiro Jackson M.D. 10/08/2021 9:36 AM
[2021-10-08 10:20] LABS: BUN Creatinine Ratio 41.2 (10-20); Calcium 9.4 mg/dl (8.5-10.1); Creatinine Clr Calc Pharmacy 86.7 ml/min; Est GFR (African American) 107.5 ml/min; Est GFR (Non-African American) 92.7 ml/min; Potassium 4.3 mmol/L (3.5-5.1)
[2021-10-08] MEDS: MULTI VIT W/MINERALS LIQUID 15 ML UDP NG SCH (11:29)
[2021-10-08] MEDS: MONTELUKAST SODIUM 10 MG TABLET PO SCH (11:29)
[2021-10-08] MEDS: PEPTAMEN INTENSE VHP 1.0 CAL 1,000 ML BAG GT SCH (11:29)
--- NOTE | 2021-10-08 12:13 | Pharmacy Report ---
Pharmacy Glycemic Short Note 2 - Date of Service October 08, 2021 - Glycemic Short BSG Results (Last 24 hours): 10/07/21 10/07/21 10/07/21 12:12 16:21 20:22 Glucose POC Glucose 108 H 117 H 77 10/08/21 10/08/21 10/08/21 00:02 04:03 06:42 Glucose 81 POC Glucose 77 79 10/08/21 10/08/21 07:52 11:49 Glucose POC Glucose 87 112 H OUTPATIENT ANTIDIABETIC REGIMEN: * N/A * A1c: 7% 09-25-21 ASSESSMENT: 10/08/21: * Patient was extubated yesterday. Tube feeds remain on hold and patient is NPO. * Insulin needs have dropped significantly. In fact, he has only received 4 units SQ insulin in the last 36 hours and all BSGs < 180. * Will continue to hold basal insulin as fasting BSGs are less than 100 (despite receipt of IV dexamethasone 10mg daily) * Will continue Novolog Q 4 hrs 10/07/21: * Patient received significantly less insulin over the past 24 hours (45 units NPH + 4 units Novolog) * BSGs from 10/06: 84, 111, 150, 102 mg/dL * Tube feeds were held for a large portion of the day which likely contributed to decreased needs * Patient remains on DXM 10 mg IV q24h * Fasting BSG of 70 mg/dL is below goal. Tube feeds remain on hold, therefore NPH was also held. Carb coverage was also loosened. 10/05 * Patient remains intubated, receiving high dose IV steroid in the AM, tube feeds are running at goal (Peptamen VHP @50cc/hr). Sedation wean and SBT to be attempted today. If patient fails wean/extubation attempt, may have trach placed tomorrow. * BSGs reasonably well controlled over last 24 hrs, however midday-afternoon BSG climb again noted due to AM dexamethasone administration. Yesterday's NPH dose administered around noon time, would anticipate better control today given NPH administered in AM with IV dexamethasone. Will increase NPH dose slightly as well. * Current Novolog CF/CR are performing well. Given the fall in BSGs overnight, would prefer to uptitrate NPH doses to address daytime BSG rise rather than increase Novolog doses. 10/04 * Insulin drip discontinued early this AM. BSGs have remained largely within goal. Fasting BSG 106mg/dL this AM. However lunchtime BSG today rising consistent with steroid induced hyperglycemia. Tube feeds @ goal (50ml/hr), dex 10mg continues. Pt remains intubated/sedated. * Will change Lantus to NPH (~0.4unit/kg) today for better coverage of prandial BSGs and tighten carb ratio from 6gm to 5gm/unit. PLAN FOR INPATIENT GLYCEMIC CONTROL: * Hold outpatient oral diabetes medications * Basal insulin * None at this time, monitor fasting BSGs * Bolus insulin * NovoLog SQ Q 4 hrs * Goal range: 110-140 mg/dL * Correction factor: 15mg/dL/unit * Carb ratio: 1 unit per 6 gm CHO delivered in feeds PLAN FOR DISCHARGE: * to be determined. A1c 7% consistent with DM that could potentially be managed with diet/lifestyle changes. Disposition and clinical status at time of discharge to determine plan.
--- NOTE | 2021-10-08 14:43 | Critical Care Progress Note ---
Date of Service October 08, 2021 Assessment & Plan (1) Acute respiratory failure with hypoxia: (2) 2019 novel coronavirus-infected pneumonia (NCIP): (3) Hypertension: (4) Admitted to intensive care unit: (5) Agitation: (6) KASSIDY (acute kidney injury): Plan: Reason Critically Ill: 61-year-old male admitted with hypoxic respiratory failure secondary to COVID-19 pneumonia who is now agitated and requiring Precedex drip and ongoing close hemodynamic monitoring with low threshold for endotracheal intubation. NEURO - * CAM ICU negative CARDIAC/VASCULAR - * Hypertension: Stable * Monitor closely for need for vasopressors. * Monitor on telemetry. * RESPIRATORY - * Acute hypoxic respiratory failure secondary to COVID-19 pneumonia: * Intubation mechanical 09/30 --> extubated 10/07/2021 RENAL/LYTES - * KASSIDY: Resolved --> monitor BUNs/creatinine - * Sales in place - Strict I&Os. ENDO - * Hyperglycemia * ICU hypoglycemia protocol HEME - * No concerns at this time. ID - * COVID-19 pneumonia: * Continue with dexamethasone. Taper entered * No apparent need for antibiotics at this point --Prophylaxis VTE: Protonix GI: Lovenox Lines: Right IJ, positive Sales Diet: N.p.o. Plan: In/out: -2.4 L, urine output 2450 Precedex has been off for more than 24 hours We will DC the restraints and put the mittens on as the patient has been trying to take the Ventimask off. DC Sales as well as right IJ. Swallow eval and start feeding that the patient is able to swallow. Patient is hemodynamically stable to be sent out of the ICU. Please note the above document was generated using voice recognition software. It may contain grammatical, syntax or spelling errors.Any formal questions or concerns about the content, text or information contained within the body of this dictation should be directly addressed to the provider for clarification. Admission and Anticipated Discharge Date Admission Date: September 23, 2021 Subjective Patient seen and examined at bedside. No acute distress, no adverse events overnight Patient is very hard to hear. At the time of examination patient was saturating 92% on 11 L Ventimask He was not in any acute distress He denied any headache, no chest pain, no nausea or vomiting Review of Systems Review of Systems: All systems reviewed & are unremarkable except as noted in Subjective Physical Exam Physical Exam: Constitutional: No acute distress HEENT: EOMI, PERRLA, hard to hear Respiratory system: Decreased air entry bilaterally, no wheeze, rhonchi, positive crackles bilaterally CVS: S1-S2 positive, no murmurs or gallops Abdomen: Soft, nontender, nondistended, positive bowel sounds x4 Extremities: +2 pulses bilaterally radialis/ dorsalis pedis, no cyanosis, no edema Neuro: Awake alert oriented to self Psych: Normal mood and affect G/U: Positive Sales Skin: no rashes, warm and dry Lymphatic: no cervical or axillary lymphadenopathy Results & Data Results & Data ([facility]) Vital Signs (Past 12 Hours) Vital Signs Temp Pulse Resp BP Pulse Ox 10/08/21 12:00 37.3 C 75 114/79 93 10/08/21 11:30 37.4 C 75 114/72 93 10/08/21 11:01 37.3 C 70 88 L 10/08/21 10:30 37.3 C 69 0 L 114/66 93 10/08/21 10:00 37.3 C 78 118/70 90 10/08/21 09:30 37.4 C 66 108/66 92 10/08/21 09:00 37.4 C 78 134/80 93 10/08/21 08:30 37.5 C 70 120/77 93 10/08/21 08:00 37.5 C 68 118/79 95 10/08/21 07:30 37.5 C 71 126/78 94 10/08/21 07:00 37.5 C 74 117/76 92 10/08/21 06:30 37.6 C H 67 121/77 95 10/08/21 06:00 37.6 C H 70 117/79 92 10/08/21 05:30 37.6 C H 73 122/74 89 L 10/08/21 05:00 37.6 C H 81 127/80 91 10/08/21 04:30 37.7 C H 80 121/83 91 10/08/21 04:00 37.7 C H 73 123/81 94 10/08/21 03:30 37.7 C H 79 127/82 92 10/08/21 03:00 37.7 C H 74 131/85 96 10/08/21 06:42 10/08/21 06:42 Coding Level of Care Code 25760 Subseq Hosp Care Lvl 3 Diagnoses Acute respiratory failure with hypoxia J96.01 2019 novel coronavirus-infected pneumonia (NCIP) U07.1; J12.82 Hypertension I10 Admitted to intensive care unit Z78.9 Agitation R45.1 KASSIDY (acute kidney injury) N17.9
[2021-10-08] MEDS ORDERED: HALOPERIDOL LACTATE 5 MG/ML 1 ML VIAL IV PRN (17:08)
[2021-10-08] MEDS: DOCUSATE SODIUM/SENNA 50/8.6MG TAB PO SCH (20:57)
[2021-10-09] MEDS: INSULIN ASPART PER UNIT SC SCH ×5 (00:54→18:01)
[2021-10-09 06:55] LABS: Eosinophils # (auto) 0.06 K/uL (0-0.5); Eosinophils % (auto) 0.6 %; Hematocrit (blood only) 45.4 % (42-52); Hemoglobin 15.1 g/dL (14.0-18.0); Immature Granulocytes # (auto) 0.03 K/uL (0.00-0.02); Immature Granulocytes % (auto) 0.3 %; Lymphocytes # (auto) 1.12 K/uL (1.2-3.4); Lymphocytes % (auto) 10.3 %; Mean Corpuscular Hemoglobin 30.9 pg (25-34); Mean Corpuscular Hgb Conc 33.3 g/dL (32-36); Mean Corpuscular Volume 92.8 fL (80-100); Mean Platelet Volume 9.9 fL (7.4-10.4); Monocytes # (auto) 0.27 K/uL (0.11-0.59); Monocytes % (auto) 2.5 %; Neutrophils # (auto) 9.41 K/uL (1.4-6.5); Neutrophils % (auto) 86.3 %; Platelet Count 345 K/uL (130-400); RDW Coefficient of Variation 12.8 % (11.5-14.5); RDW Standard Deviation 43.4 fL (36.4-46.3); Red Blood Count 4.89 M/uL (4.7-6.1); White Blood Count 10.89 K/uL (4.8-10.8)
[2021-10-09 07:23] LABS: BUN Creatinine Ratio 42.5 (10-20); Calcium 9.6 mg/dl (8.5-10.1); Creatinine Clr Calc Pharmacy 87.7 ml/min; Est GFR (Non-African American) 93.2 ml/min; Magnesium 2.2 mg/dl (1.8-2.4)
--- NOTE | 2021-10-09 07:59 | Hospitalist Progress Note ---
Date of Service October 09, 2021 Assessment & Plan (1) 2019 novel coronavirus-infected pneumonia (NCIP): Plan: - symptomatic 09/14/21 - unvaccinated - did not qualify for Remdesivir by time course - dexamethasone 10mg IV daily discontinued 10/09/2021 - CRP not elevated therefore did not qualify for baricitinib or tocilizumab, Patient progressed to intubation on 09/30/2021 extubated in the morning on 10/07/21 Titrating oxygen down by facemask . Encephalopathy continues limiting patient's cooperation with requests we will try some Seroquel at bedtime and some thiamine (2) Acute respiratory failure with hypoxia: Plan: Secondary to COVID-19 pneumonia mechanical ventilation for 8 days extubated 10/07/21 (3) Encephalopathy acute: Plan: Pt had escalated excited delirium that was multifactorial, from covid, steroids and 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 started on precedex but ultimately required intubation continues to have some encephalopathy, will try Seroquel at bedtime and thiamine. 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 He did eat better food. He did try to get out of bed on one occasion. Review of Systems Review of Systems: Lessening but still present distress and fatigue no headache, no visual changes no speech or swallowing issues no chest pain, pressure or palpitations Continues with shortness of breath, nonproductive cough no abdominal pain, nausea or vomiting, no diarrhea no dysuria, hematuria or frequency no focal joint pain or swelling no back pain, CVA tenderness or radicular pain no bruising, bleeding or rashes no focal signs of weakness or numbness altered sensation and confusion persist Physical Exam Physical Exam: The patient appeared mild respiratory distress Has some confusion at baseline is extremely hard of hearing Vital signs as documented. Head exam is normocephalic atraumatic Neck is without JVD, thyromegaly, or carotid bruits. Lungs are coarse bilaterally in all lung eisenberg tachypnea Cardiac exam, Rhythm is regular.. No murmurs, rubs or gallops. Abdominal exam reveals normal bowel sounds, soft non tender, no masses Extremities are nonedematous and both pedal pulses are present Neurologic exam is alert and oriented x1 no focal loss of strength or sensation can follow commands to move extremities to command Skin is without bruises or rashes Psychologically is with concerns for encephalopathy Results & Data Results & Data ([facility]) Vital Signs (Past 12 Hours) Vital Signs Temp Pulse Pulse Resp BP Pulse Ox 10/09/21 07:48 98.4 F 57 L 20 107/73 91 10/09/21 03:31 99.3 F 72 21 125/77 88 L 10/09/21 01:00 99.3 F 65 21 128/87 90 10/08/21 23:59 78 10/08/21 20:00 98.6 F 71 18 125/85 91 PG Care Time/CCT Total # of Minutes Spent Total Time Spent with Patient: Total time spent is greater than 50% in coordination of care (as documented) at patient's floor/unit and/or counseling patient: Coding Level of Care Code 49246 Subseq Hosp Care Lvl 3 Diagnoses 2019 novel coronavirus-infected pneumonia (NCIP) U07.1; J12.82 Acute respiratory failure with hypoxia J96.01 Encephalopathy acute G93.40 Hypertension I10 KASSIDY (acute kidney injury) N17.9
[2021-10-09] MEDS: MONTELUKAST SODIUM 10 MG TABLET PO SCH (09:30)
[2021-10-09] MEDS: DOCUSATE SODIUM/SENNA 50/8.6MG TAB PO SCH ×2 (09:30→20:38)
[2021-10-09] MEDS: dexAMETHasone 10 MG in SYRINGE 0 ML IV SCH (09:30)
[2021-10-09] MEDS: PANTOprazole 40 MG in SYRINGE 0 ML IV SCH (09:30)
[2021-10-09] MEDS: ENOXAPARIN INJ 40 MG/0.4 ML SYR SQ SCH (09:31)
[2021-10-09] MEDS: MULTI VIT W/MINERALS LIQUID 15 ML UDP NG SCH (09:31)
[2021-10-09] MEDS ORDERED: QUEtiapine FUMARATE 25 MG TABLET PO ONE (15:26)
[2021-10-09] MEDS ORDERED: THIAMINE HCL 200 MG in SODIUM CHLORIDE 0.9% 50 ML IV ONE (15:45)
[2021-10-09] MEDS ORDERED: Nursing to Pharmacy Communication SCH (21:00)
[2021-10-09] MEDS ORDERED: INSULIN ASPART PER UNIT SC SCH (21:00)
[2021-10-09] MEDS ORDERED: QUEtiapine FUMARATE 25 MG TABLET PO SCH (21:00)
[2021-10-10] MEDS ORDERED: INSULIN ASPART PER UNIT SC SCH (06:00)
[2021-10-10] MEDS: ENOXAPARIN INJ 40 MG/0.4 ML SYR SQ SCH (07:32)
[2021-10-10] MEDS: MONTELUKAST SODIUM 10 MG TABLET PO SCH (07:32)
[2021-10-10] MEDS: PANTOprazole 40 MG in SYRINGE 0 ML IV SCH (07:32)
[2021-10-10] MEDS: DOCUSATE SODIUM/SENNA 50/8.6MG TAB PO SCH ×2 (07:32→20:29)
[2021-10-10] MEDS: INSULIN ASPART PER UNIT SC SCH ×4 (07:42→20:27)
[2021-10-10] MEDS: THIAMINE HCL 200 MG in SODIUM CHLORIDE 0.9% 50 ML IV SCH (07:43)
--- NOTE | 2021-10-10 08:05 | Hospitalist Progress Note ---
Date of Service October 10, 2021 Assessment & Plan (1) 2019 novel coronavirus-infected pneumonia (NCIP): Plan: - symptomatic 09/14/21 - unvaccinated - did not qualify for Remdesivir by time course - dexamethasone 10mg IV daily discontinued 10/09/2021 - CRP not elevated therefore did not qualify for baricitinib or tocilizumab, Patient progressed to intubation on 09/30/2021 extubated in the morning on 10/07/21 Titrating oxygen down but still on 15L by facemask . Encephalopathy continues improving, increase Seroquel at bedtime 10/10 and started thiamine 10/09/21 (2) Acute respiratory failure with hypoxia: Plan: Secondary to COVID-19 pneumonia mechanical ventilation for 8 days extubated 10/07/21 (3) Encephalopathy acute: Plan: Pt had escalated excited delirium that was multifactorial, from covid, steroids and 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 started on precedex but ultimately required intubation continues to have some encephalopathy, will try increasing Seroquel at bedtime and thiamine. Will have some haldol available if needing behavior control, will keep on monitor in case we need to use it (4) Hypertension: Plan: typically not on outpt treatment will use prn hydralazine at this time (5) KASSIDY (acute kidney injury): Plan: due to dehydration and use of diuretic and ACI inhibitor, both held on admission Cr is stable, monitoring UO via robles Plan: VTE Prophylaxis - Lovenox 40mg SQ bid Admission and Anticipated Discharge Date Admission Date: September 23, 2021 Subjective Patient seems to be improving in mental clarity, still with mild confusion reportedly did have haldol last night Review of Systems Review of Systems: Lessening but still present distress and fatigue no headache, no visual changes no speech or swallowing issues no chest pain, pressure or palpitations Continues with shortness of breath, nonproductive cough no abdominal pain, nausea or vomiting, no diarrhea no dysuria, hematuria or frequency no focal joint pain or swelling no back pain, CVA tenderness or radicular pain no bruising, bleeding or rashes no focal signs of weakness or numbness altered sensation and confusion persist Physical Exam Physical Exam: The patient appeared mild respiratory distress Has some confusion at baseline is extremely hard of hearing Vital signs as documented. Head exam is normocephalic atraumatic Neck is without JVD, thyromegaly, or carotid bruits. Lungs are coarse bilaterally in all lung eisenberg tachypnea Cardiac exam, Rhythm is regular.. No murmurs, rubs or gallops. Abdominal exam reveals normal bowel sounds, soft non tender, no masses Extremities are nonedematous and both pedal pulses are present Neurologic exam is alert and oriented x1 no focal loss of strength or sensation can follow commands to move extremities to command Skin is without bruises or rashes Psychologically is with concerns for encephalopathy Results & Data Results & Data ([facility]) Vital Signs (Past 12 Hours) Vital Signs Temp Pulse Pulse Resp BP Pulse Ox 10/10/21 07:24 98.1 F 67 18 140/93 91 10/10/21 03:45 97.9 F 62 14 117/82 95 10/09/21 23:28 98.8 F 94 H 23 144/98 H 90 PG Care Time/CCT Total # of Minutes Spent Total Time Spent with Patient: Total time spent is greater than 50% in coordination of care (as documented) at patient's floor/unit and/or counseling patient: Coding Level of Care Code 79312 Subseq Hosp Care Lvl 2 Diagnoses 2019 novel coronavirus-infected pneumonia (NCIP) U07.1; J12.82 Acute respiratory failure with hypoxia J96.01 Encephalopathy acute G93.40 Hypertension I10 KASSIDY (acute kidney injury) N17.9
--- NOTE | 2021-10-10 11:59 | Pharmacy Report ---
Pharmacy Glycemic Short Note 2 - Date of Service October 10, 2021 - Glycemic Short BSG Results (Last 24 hours): 10/09/21 10/09/21 10/10/21 17:48 20:11 07:37 POC Glucose 165 H 154 H 86 10/10/21 11:39 POC Glucose 111 H OUTPATIENT ANTIDIABETIC REGIMEN: * N/A * A1c: 7% 09-25-21 ASSESSMENT: 10/10 * BSGs well controlled over last 24 hrs * Last dose of dexamethasone IV given yesterday. Will remove carb ratio from Novolog order and only provide correctional insulin if needed. He does have an elevated A1c, therefore he may require resumption of a lesser dose of Novolog with meals in the future. 10/08 * Patient was extubated yesterday. Tube feeds remain on hold and patient is NPO. * Insulin needs have dropped significantly. In fact, he has only received 4 units SQ insulin in the last 36 hours and all BSGs < 180. * Will continue to hold basal insulin as fasting BSGs are less than 100 (despite receipt of IV dexamethasone 10mg daily) * Will continue Novolog Q 4 hrs 10/07 * Patient received significantly less insulin over the past 24 hours (45 units NPH + 4 units Novolog) * BSGs from 10/06: 84, 111, 150, 102 mg/dL * Tube feeds were held for a large portion of the day which likely contributed to decreased needs * Patient remains on DXM 10 mg IV q24h * Fasting BSG of 70 mg/dL is below goal. Tube feeds remain on hold, therefore NPH was also held. Carb coverage was also loosened. 10/05 * Patient remains intubated, receiving high dose IV steroid in the AM, tube feeds are running at goal (Peptamen VHP @50cc/hr). Sedation wean and SBT to be attempted today. If patient fails wean/extubation attempt, may have trach placed tomorrow. * BSGs reasonably well controlled over last 24 hrs, however midday-afternoon BSG climb again noted due to AM dexamethasone administration. Yesterday's NPH dose administered around noon time, would anticipate better control today given NPH administered in AM with IV dexamethasone. Will increase NPH dose slightly as well. * Current Novolog CF/CR are performing well. Given the fall in BSGs overnight, would prefer to uptitrate NPH doses to address daytime BSG rise rather than increase Novolog doses. 10/04 * Insulin drip discontinued early this AM. BSGs have remained largely within goal. Fasting BSG 106mg/dL this AM. However lunchtime BSG today rising consistent with steroid induced hyperglycemia. Tube feeds @ goal (50ml/hr), dex 10mg continues. Pt remains intubated/sedated. * Will change Lantus to NPH (~0.4unit/kg) today for better coverage of prandial BSGs and tighten carb ratio from 6gm to 5gm/unit. PLAN FOR INPATIENT GLYCEMIC CONTROL: * Hold outpatient oral diabetes medications * Basal insulin * None at this time, monitor fasting BSGs * Bolus insulin * NovoLog SQ ACHS * Goal range: 110-160 mg/dL * Correction factor: 20mg/dL/unit * Carb ratio: 1 unit per -- gm CHO delivered in feeds PLAN FOR DISCHARGE: * to be determined. A1c 7% consistent with DM that could potentially be managed with diet/lifestyle changes. Disposition and clinical status at time of discharge to determine plan.
[2021-10-10] MEDS: MULTIVITAMIN TAB PO SCH (12:21)
[2021-10-10] MEDS: QUEtiapine FUMARATE 25 MG TABLET PO SCH (20:29)
[2021-10-11 06:36] LABS: Hematocrit (blood only) 45.1 % (42-52); Mean Corpuscular Hemoglobin 31.4 pg (25-34); Mean Corpuscular Hgb Conc 33.3 g/dL (32-36); Mean Corpuscular Volume 94.4 fL (80-100); Mean Platelet Volume 9.8 fL (7.4-10.4); Platelet Count 286 K/uL (130-400); RDW Coefficient of Variation 13.1 % (11.5-14.5); RDW Standard Deviation 45.2 fL (36.4-46.3); Red Blood Count 4.78 M/uL (4.7-6.1); White Blood Count 10.89 K/uL (4.8-10.8)
[2021-10-11 07:07] LABS: BUN Creatinine Ratio 38.3 (10-20); Calcium 8.9 mg/dl (8.5-10.1); Est GFR (African American) 94.9 ml/min; Est GFR (Non-African American) 81.9 ml/min; Potassium 3.8 mmol/L (3.5-5.1)
[2021-10-11] MEDS: INSULIN ASPART PER UNIT SC SCH ×3 (07:22→16:24)
[2021-10-11] MEDS: THIAMINE HCL 200 MG in SODIUM CHLORIDE 0.9% 50 ML IV SCH (07:45)
[2021-10-11] MEDS: MULTIVITAMIN TAB PO SCH (07:46)
[2021-10-11] MEDS: DOCUSATE SODIUM/SENNA 50/8.6MG TAB PO SCH ×2 (07:46→21:37)
[2021-10-11] MEDS: PANTOprazole 40 MG TAB PO SCH (07:46)
[2021-10-11] MEDS: ENOXAPARIN INJ 40 MG/0.4 ML SYR SQ SCH (07:46)
[2021-10-11] MEDS: MONTELUKAST SODIUM 10 MG TABLET PO SCH (07:47)
--- NOTE | 2021-10-11 10:36 | Hospitalist Progress Note ---
Date of Service October 11, 2021 Assessment & Plan (1) 2019 novel coronavirus-infected pneumonia (NCIP): Plan: - symptomatic 09/14/21 - unvaccinated - did not qualify for Remdesivir by time course - dexamethasone 10mg IV daily discontinued 10/09/2021 - CRP not elevated therefore did not qualify for baricitinib or tocilizumab Patient progressed to intubation on 09/30/2021 extubated in the morning on 10/07/21 Titrating oxygen down but still on 11L by oxymask Encephalopathy continues improving, increase Seroquel at bedtime 10/10 and started thiamine 10/09/21 (2) Acute respiratory failure with hypoxia: Plan: Secondary to COVID-19 pneumonia mechanical ventilation for 8 days extubated 10/07/21 Aim O2 sats > 90% (3) Encephalopathy acute: Plan: Pt had escalated excited delirium that was multifactorial, from covid, steroids and 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 started on precedex but ultimately required intubation Improving. Continue seroquel 50mg PO HS as this appears to be helping him at night (4) KASSIDY (acute kidney injury): Plan: due to dehydration and use of diuretic and ACI inhibitor, both held on admission Cr is stable, monitoring UO via robles (5) Type 2 diabetes mellitus: Plan: HbA1C 7.0 Not requiring any inuslin correction factor suspect due to poor diet Will liberalize diet and stop glucose checks to help with encephalopathy Plan: VTE Prophylaxis - Lovenox 40mg SQ bid Diet - switch to regular with easy to chew and no straws Disposition - can transfer to med/surg, continued COVID isolation precautions (suspect can be removed Oct 14 but will check with infection control) Admission and Anticipated Discharge Date Admission Date: September 23, 2021 Subjective No significant change in symptoms. Slowly improving oxygen requirement. Poor appetite. Better night with less agitation per RN on higher dose of seroquel. No haloperidol given overnight Confusion noted by his over the phone - explained this is to be expected given the severity of his illness. Review of Systems Review of Systems: All systems reviewed & are unremarkable except as noted in HPI & below Physical Exam Constitutional: well developed; + not well nourished and no acute distress Eyes: + anicteric sclerae; normal pupil size ENMT: external ear and nose normal, oropharynx normal Neck: trachea midline, no thyromegaly Respiratory: + abnormal respiratory effort (poor inspiratory effort) and no respiratory distress Cardiovascular: RRR, no murmur, no edema Gastrointestinal (Abdomen): Inspection/Auscultation: normal bowel sounds Percussion/Palpation: abdomen soft; abdomen nontender Musculoskeletal: no cyanosis or clubbing, extremities motor strength 5/5 Skin: no rashes, warm and dry Neurologic: moves all extremities and awake; not confused Psychiatric: A+Ox3, euthymic affect Results & Data Results & Data ([facility]) Vital Signs (Past 12 Hours) Vital Signs Temp Pulse Pulse Resp BP Pulse Ox 10/11/21 08:11 36.9 C 85 21 122/89 89 L 10/11/21 03:31 36.6 C 66 20 120/79 89 L 10/10/21 23:10 37 C 81 18 128/79 90 Laboratory Results Abnormal lab results 10/11/21 10/11/21 10/11/21 Range/Units 06:08 06:08 16:16 WBC 10.89 H (4.8-10.8) K/uL Chloride 109 H (98-107) mmol/L BUN 38 H (7-18) mg/dl BUN/Creatinine Ratio 38.3 H (10-20) POC Glucose 109 H (70-99) mg/dl PG Care Time/CCT Total # of Minutes Spent Total Time Spent with Patient: Total time spent is greater than 50% in coordination of care (as documented) at patient's floor/unit and/or counseling patient: Coding Level of Care Code 97143 Subseq Hosp Care Lvl 2 Diagnoses 2019 novel coronavirus-infected pneumonia (NCIP) U07.1; J12.82 Acute respiratory failure with hypoxia J96.01 Encephalopathy acute G93.40 KASSIDY (acute kidney injury) N17.9 Type 2 diabetes mellitus E11.9
--- NOTE | 2021-10-11 15:51 | Fluoroscopy Report ---
VIDEO SWALLOW STUDY CLINICAL HISTORY: Aspiration. Diet advancement. COMPARISON STUDY: No priors. Fluoroscopy time: 1.8 minutes. FINDINGS: Fluoroscopic guidance was provided to the Department of Speech Pathology in performing a vi riccardo swallow study. The patient consumed barium-impregnated pudding, cracker with paste, nectar thick liquid, and thin barium while the swallowing mechanism was observed in real-time. Aspiration with cou gh was seen with thin barium. No penetration or aspiration was seen with the remaining sample texture s. IMPRESSION: 1. There was aspiration with thin barium. 2. No penetration or aspiration was seen within the remaining sampled textures. 3. See dedicated speech pathology report for detailed findings and recommendations. Dictated: 10/11/2021 2:53 PM Transcribed: 10/11/2021 3:19 PM Francia [id number] [email or web address] Electronically signed by: Jerad Davalos M.D. 10/11/2021 3:49 PM
--- NOTE | 2021-10-11 19:31 | Pharmacy Report ---
Pharmacy Glycemic Sign Off Nt - Date of Service October 11, 2021 - Assessment & Plan * Pharmacy is signing off of glycemic consult and will no longer be making adjustments to inpatient regimen. Please feel free to re-consult if needed. Thank you.
[2021-10-11] MEDS: QUEtiapine FUMARATE 25 MG TABLET PO SCH (21:37)
[2021-10-12] MEDS: DOCUSATE SODIUM/SENNA 50/8.6MG TAB PO SCH ×2 (08:55→20:53)
[2021-10-12] MEDS: PANTOprazole 40 MG TAB PO SCH (08:55)
[2021-10-12] MEDS: MULTIVITAMIN TAB PO SCH (08:55)
[2021-10-12] MEDS: ENOXAPARIN INJ 40 MG/0.4 ML SYR SQ SCH (08:56)
[2021-10-12] MEDS: THIAMINE HCL 200 MG in SODIUM CHLORIDE 0.9% 50 ML IV SCH (08:56)
--- NOTE | 2021-10-12 10:26 | Hospitalist Progress Note ---
Date of Service October 12, 2021 Assessment & Plan (1) 2019 novel coronavirus-infected pneumonia (NCIP): Plan: First symptoms: 09/14/21 First positive test: 09/23/21 Unvaccinated Remdesivir - - did not qualify for by time course Dexamethasone 10mg IV daily discontinued 10/09/2021 Baricitinib/Tocilizumab - CRP not elevated therefore did not qualify Patient progressed to intubation on 09/30/2021 extubated in the morning on 10/07/21 Titrating oxygen down but still on 10L by oxymask Encephalopathy continues improving, increase Seroquel at bedtime 10/10 and started thiamine 10/09/21 (2) Acute respiratory failure with hypoxia: Plan: Secondary to COVID-19 pneumonia mechanical ventilation for 8 days extubated 10/07/21 Aim O2 sats > 90% Still within weaning stage but will need PT/OT evals to start authorization process for LTAC vs. acute rehab (3) Encephalopathy acute: Plan: Pt had escalated excited delirium that was multifactorial, from covid, steroids and 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 started on precedex but ultimately required intubation Improving. Continue seroquel 50mg PO HS as this appears to be helping him at night (4) KASSIDY (acute kidney injury): Plan: due to dehydration and use of diuretic and ACI inhibitor, both held on admission Cr is stable, monitoring UO via robles (5) Type 2 diabetes mellitus: Plan: HbA1C 7.0 Not requiring any insulin correction factor suspect due to poor diet Diet - liberalized and glucose checks stopped to help with encephalopathy Plan: VTE Prophylaxis - Lovenox 40mg SQ daily Diet - regular, easy to chew and no straws Disposition - can transfer to med/surg, continued COVID isolation precautions (can come off isolation precautions tomorrow) Admission and Anticipated Discharge Date Admission Date: September 23, 2021 Subjective No significant change in symptoms. Eating and drinking. He reports having bowel movements. Aware he is in [facility] but unable to tell me the date. No one sided weakness, change in speech or vision. Review of Systems Review of Systems: All systems reviewed & are unremarkable except as noted in HPI & below Physical Exam Constitutional: well developed; + not well nourished and no acute distress Eyes: + anicteric sclerae; normal pupil size ENMT: external ear and nose normal, oropharynx normal Neck: trachea midline, no thyromegaly Respiratory: + abnormal respiratory effort (poor inspiratory effort) and no respiratory distress Auscultation: + crackles (fine, bibasal); no diminished lung sounds Cardiovascular: RRR, no murmur, no edema Gastrointestinal (Abdomen): Inspection/Auscultation: normal bowel sounds Percussion/Palpation: abdomen soft; abdomen nontender, no guarding and abdomen not rigid Musculoskeletal: no cyanosis or clubbing, extremities motor strength 5/5 Skin: no rashes, warm and dry Neurologic: moves all extremities and awake; not confused Psychiatric: Orientation: alert, oriented to person and oriented to place; + not oriented to time Results & Data Results & Data ([facility]) Vital Signs (Past 12 Hours) Vital Signs Temp Pulse Pulse Resp BP Pulse Ox 10/12/21 07:30 36.6 C 68 18 115/84 93 10/12/21 04:30 36.7 C 73 20 114/73 91 10/11/21 23:55 36.8 C 67 22 126/82 91 PG Care Time/CCT Total # of Minutes Spent Total Time Spent with Patient: Total time spent is greater than 50% in coordination of care (as documented) at patient's floor/unit and/or counseling patient: Coding Level of Care Code 59892 Subseq Hosp Care Lvl 2 Diagnoses 2019 novel coronavirus-infected pneumonia (NCIP) U07.1; J12.82 Acute respiratory failure with hypoxia J96.01 Encephalopathy acute G93.40 KASSIDY (acute kidney injury) N17.9 Type 2 diabetes mellitus E11.9
[2021-10-12] MEDS: QUEtiapine FUMARATE 25 MG TABLET PO SCH (20:53)
[2021-10-13] MEDS: DOCUSATE SODIUM/SENNA 50/8.6MG TAB PO SCH ×2 (07:55→22:00)
[2021-10-13] MEDS: PANTOprazole 40 MG TAB PO SCH (07:55)
[2021-10-13] MEDS: ENOXAPARIN INJ 40 MG/0.4 ML SYR SQ SCH (07:56)
[2021-10-13] MEDS: MULTIVITAMIN TAB PO SCH (07:56)
--- NOTE | 2021-10-13 08:17 | Hospitalist Progress Note ---
Date of Service October 13, 2021 Assessment & Plan (1) 2019 novel coronavirus-infected pneumonia (NCIP): Plan: First symptoms: 09/14/21 First positive test: 09/23/21 Unvaccinated Remdesivir - - did not qualify for by time course Dexamethasone 10mg IV daily discontinued 10/09/2021 Baricitinib/Tocilizumab - CRP not elevated therefore did not qualify Patient progressed to intubation on 09/30/2021 extubated in the morning on 10/07/21 Titrating oxygen down but still on 10L by oxymask Encephalopathy improving, Seroquel at bedtime 10/10 and started thiamine 10/09/21 (2) Acute respiratory failure with hypoxia: Plan: Secondary to COVID-19 pneumonia mechanical ventilation for 8 days extubated 10/07/21 Aim O2 sats > 90% Still within weaning stage but will need PT/OT evals to start authorization process for rehab, PT recommends acute rehab 10/12/21 (3) Encephalopathy acute: Plan: Pt had escalated excited delirium that was multifactorial, from covid, steroids and 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 started on precedex but ultimately required intubation Improving. Continue seroquel 50mg PO HS as this appears to be helping him at night Speech eval, video swallow with aspiration of thin liquids, recommend no straws, and safe swallowing techniques (4) KASSIDY (acute kidney injury): Plan: due to dehydration and use of diuretic and ACI inhibitor, both held on admission Cr is stable, monitoring UO via robles (5) Type 2 diabetes mellitus: Plan: HbA1C 7.0 Not requiring any insulin correction factor suspect due to poor diet Diet - liberalized and glucose checks stopped to help with encephalopathy Plan: VTE Prophylaxis - Lovenox 40mg SQ daily Diet - regular, easy to chew and no straws Disposition - , continued COVID isolation precautions (can come off isolation precautions 10/13/21 or per infection control) Admission and Anticipated Discharge Date Admission Date: September 23, 2021 Subjective Patient has improved dramatically still in significant oxygen requirements but coming down. When I was in the room his oxygen was off he was 84% we replace his oxygen and he creep back up into the 90s. I asked the nurses to place a remote oximetry monitor on him to have more oversight into his use or nonuse of his oxygen Review of Systems Review of Systems: Lessening but still present distress and fatigue no headache, no visual changes no speech or swallowing issues no chest pain, pressure or palpitations Continues with shortness of breath, nonproductive cough no abdominal pain, nausea or vomiting, no diarrhea no dysuria, hematuria or frequency no focal joint pain or swelling no back pain, CVA tenderness or radicular pain no bruising, bleeding or rashes no focal signs of weakness or numbness altered sensation and confusion persist Physical Exam Physical Exam: The patient appeared mild respiratory distress Has some confusion at baseline is extremely hard of hearing Vital signs as documented. Head exam is normocephalic atraumatic Neck is without JVD, thyromegaly, or carotid bruits. Lungs are coarse bilaterally in all lung eisenberg tachypnea Cardiac exam, Rhythm is regular.. No murmurs, rubs or gallops. Abdominal exam reveals normal bowel sounds, soft non tender, no masses Extremities are nonedematous and both pedal pulses are present Neurologic exam is alert and oriented x1 no focal loss of strength or sensation can follow commands to move extremities to command Skin is without bruises or rashes Psychologically is with concerns for encephalopathy Results & Data Results & Data ([facility]) Vital Signs (Past 12 Hours) Vital Signs Temp Pulse Pulse Resp BP BP Pulse Ox 10/13/21 07:06 98.2 F 95 H 20 112/78 87 L 10/13/21 04:22 89 L 10/13/21 03:35 98.1 F 22 L 107 H 22 114/79 90 10/12/21 22:44 91 10/12/21 20:39 97.9 F 103 H 20 155/87 H 90 PG Care Time/CCT Total # of Minutes Spent Total Time Spent with Patient: Total time spent is greater than 50% in coordination of care (as documented) at patient's floor/unit and/or counseling patient: Coding Level of Care Code 30161 Subseq Hosp Care Lvl 2 Diagnoses 2019 novel coronavirus-infected pneumonia (NCIP) U07.1; J12.82 Acute respiratory failure with hypoxia J96.01 Encephalopathy acute G93.40 KASSIDY (acute kidney injury) N17.9 Type 2 diabetes mellitus E11.9
[2021-10-13] MEDS: THIAMINE HCL 200 MG in SODIUM CHLORIDE 0.9% 50 ML IV SCH (09:19)
[2021-10-13] MEDS: QUEtiapine FUMARATE 25 MG TABLET PO SCH (22:00)
[2021-10-14] MEDS: DOCUSATE SODIUM/SENNA 50/8.6MG TAB PO SCH ×2 (08:21→21:44)
[2021-10-14] MEDS: MULTIVITAMIN TAB PO SCH (08:22)
[2021-10-14] MEDS: ENOXAPARIN INJ 40 MG/0.4 ML SYR SQ SCH (08:22)
[2021-10-14] MEDS: PANTOprazole 40 MG TAB PO SCH (08:22)
--- NOTE | 2021-10-14 08:22 | Hospitalist Progress Note ---
Date of Service October 14, 2021 Assessment & Plan (1) 2019 novel coronavirus-infected pneumonia (NCIP): Plan: First symptoms: 09/14/21 First positive test: 09/23/21 off isolation 10/14/21 Unvaccinated Remdesivir - - did not qualify for by time course Dexamethasone 10mg IV daily discontinued 10/09/2021 Baricitinib/Tocilizumab - CRP not elevated therefore did not qualify Patient progressed to intubation on 09/30/2021 extubated in the morning on 10/07/21 Titrating oxygen down but still on 10L by oxymask Encephalopathy improving, Seroquel at bedtime 10/10 and started thiamine 10/09/21 (2) Acute respiratory failure with hypoxia: Plan: Secondary to COVID-19 pneumonia mechanical ventilation for 8 days extubated 10/07/21 Aim O2 sats > 90% Still within weaning stage but will need PT/OT evals to start authorization process for rehab, PT recommends acute rehab 10/12/21 (3) Encephalopathy acute: Plan: Pt had escalated excited delirium that was multifactorial, from covid, steroids and 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 started on precedex but ultimately required intubation Improving. Continue seroquel 50mg PO HS as this appears to be helping him at night Speech eval, video swallow with aspiration of thin liquids, recommend no straws, and safe swallowing techniques (4) KASSIDY (acute kidney injury): Plan: due to dehydration and use of diuretic and ACI inhibitor, both held on admission Cr is stable, monitoring UO via robles (5) Type 2 diabetes mellitus: Plan: HbA1C 7.0 Not requiring any insulin correction factor suspect due to poor diet Diet - liberalized and glucose checks stopped to help with encephalopathy Plan: VTE Prophylaxis - Lovenox 40mg SQ daily Diet - regular, easy to chew and no straws Disposition - , continued COVID isolation precautions (can come off isolation precautions 10/13/21 or per infection control) Admission and Anticipated Discharge Date Admission Date: September 23, 2021 Subjective Patient has improved dramatically still in significant oxygen requirements but coming down. When I was in the room his oxygen was off he was 84% we replace his oxygen and he creep back up into the 90s. now on remote oximetry monitor on him to have more oversight into his use or nonuse of his oxygen, off covid restrictions but still with significant oxygen need Review of Systems Review of Systems: Lessening but still present distress and fatigue no headache, no visual changes no speech or swallowing issues no chest pain, pressure or palpitations Continues with shortness of breath, nonproductive cough no abdominal pain, nausea or vomiting, no diarrhea no dysuria, hematuria or frequency no focal joint pain or swelling no back pain, CVA tenderness or radicular pain no bruising, bleeding or rashes no focal signs of weakness or numbness altered sensation and confusion persist Physical Exam Physical Exam: The patient appeared mild respiratory distress Has some confusion at baseline is extremely hard of hearing Vital signs as documented. Head exam is normocephalic atraumatic Neck is without JVD, thyromegaly, or carotid bruits. Lungs are coarse bilaterally in all lung eisenberg tachypnea Cardiac exam, Rhythm is regular.. No murmurs, rubs or gallops. Abdominal exam reveals normal bowel sounds, soft non tender, no masses Extremities are nonedematous and both pedal pulses are present Neurologic exam is alert and oriented x1 no focal loss of strength or sensation can follow commands to move extremities to command Skin is without bruises or rashes Psychologically is with concerns for encephalopathy Results & Data Results & Data ([facility]) Vital Signs (Past 12 Hours) Vital Signs Temp Pulse Pulse Resp BP Pulse Ox 10/14/21 07:33 98.6 F 98 H 20 115/78 96 10/13/21 23:08 98.6 F 96 H 20 142/84 H 96 PG Care Time/CCT Total # of Minutes Spent Total Time Spent with Patient: Total time spent is greater than 50% in coordination of care (as documented) at patient's floor/unit and/or counseling patient: Coding Level of Care Code 30512 Subseq Hosp Care Lvl 2 Diagnoses 2019 novel coronavirus-infected pneumonia (NCIP) U07.1; J12.82 Acute respiratory failure with hypoxia J96.01 Encephalopathy acute G93.40 KASSIDY (acute kidney injury) N17.9 Type 2 diabetes mellitus E11.9
[2021-10-14] MEDS: THIAMINE HCL 200 MG in SODIUM CHLORIDE 0.9% 50 ML IV SCH (08:31)
[2021-10-14] MEDS: QUEtiapine FUMARATE 25 MG TABLET PO SCH (21:44)
[2021-10-15] MEDS: MULTIVITAMIN TAB PO SCH (09:05)
[2021-10-15] MEDS: DOCUSATE SODIUM/SENNA 50/8.6MG TAB PO SCH ×2 (09:05→21:48)
[2021-10-15] MEDS: ENOXAPARIN INJ 40 MG/0.4 ML SYR SQ SCH (09:05)
[2021-10-15] MEDS: THIAMINE HCL 200 MG in SODIUM CHLORIDE 0.9% 50 ML IV SCH (09:05)
[2021-10-15] MEDS: PANTOprazole 40 MG TAB PO SCH (09:05)
--- NOTE | 2021-10-15 11:54 | Hospitalist Progress Note ---
Date of Service October 15, 2021 Assessment & Plan (1) 2019 novel coronavirus-infected pneumonia (NCIP): Plan: First symptoms: 09/14/21 First positive test: 09/23/21 Off isolation 10/14/21 Unvaccinated Remdesivir -- did not qualify for by time course Dexamethasone 10mg IV daily discontinued 10/09/2021 Baricitinib/Tocilizumab - CRP not elevated therefore did not qualify Patient progressed to intubation on 09/30/2021 extubated in the morning on 10/07/21 Titrating oxygen down -- I was able to wean him down to 6L during rounds Encephalopathy improving, Seroquel at bedtime 10/10 and started thiamine 10/09/21--see below (2) Acute respiratory failure with hypoxia: Plan: Secondary to COVID-19 pneumonia mechanical ventilation for 8 days extubated 10/07/21 Aim O2 sats > 90% Still within weaning stage but will need PT/OT evals to start authorization process for rehab, PT recommends acute rehab 10/12/21 Consult OT for eval (3) Encephalopathy acute: Plan: Pt had escalated excited delirium that was multifactorial, from covid, steroids and 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 started on precedex but ultimately required intubation Improving. 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 Continue therapy, OT eval to assist with rehab referral. CM consulted. Add Famotidine for suspected indigestion/reflux. Labs in AM. Admission and Anticipated Discharge Date Admission Date: September 23, 2021 Subjective Patient seen on rounds this morning. Hospitalized with COVID pneumonia and associated hypoxic respiratory failure requiring mechanical ventilation. Extubated 10/07/21. Continues to show improvement. Computer documented that he is requiring 10L via HFNC. Presently, pt denies shortness of breath, denies wheezing, chest pain, notes rare cough. Denies n/v/d, f/c, headache, or gu symptoms. Only complaint is of burning substernal and epigastric discomfort. Review of Systems Review of Systems: CONSTITUTIONAL: Denies weight loss/gain, fever and chills, fatigue, malaise, generalized weakness. HEENT: Denies changes in vision and hearing. RESPIRATORY: +Rare cough. Denies SOB, wheezing. CV: Denies palpitations, CP, lower extremity edema, orthopnea, PND. GI: +burning epigastrium/substernal. Denies abdominal pain, nausea, vomiting and diarrhea. : Denies dysuria and urinary frequency, urgency, hesitancy. MUSCULOSKELETAL: Denies myalgia and joint pain. SKIN: Denies rash and pruritus. NEUROLOGICAL: Denies headache, syncope, focal weakness, numbness, tingling. PSYCHIATRIC: Denies recent changes in mood. Denies anxiety and depression. Physical Exam Physical Exam: GENERAL: 61 yo Well-developed, well-nourished WM. NAD. LUNGS: Good air movement. Crackles in LLL. No accessory muscle use. No wheezes/rhonchi. CARDIOVASCULAR: Regular rate and rhythm. No M/G/R. No JVD. ABDOMEN: Soft, non-tender and non-distended. No palpable masses. Bowel sounds normoactive x 4 quad. EXTREMITIES: No edema. Non-tender. Peripheral pulses +2/4. NEUROLOGIC: A&O x3. PSYCHIATRIC: Cooperative. Appropriate mood and affect. SKIN: Warm, dry, intact. No rashes or lesions. Results & Data Results & Data ([facility]) Vital Signs (Past 12 Hours) Vital Signs Temp Pulse Resp BP Pulse Ox 10/15/21 07:37 36.9 C 91 H 18 118/79 92 Laboratory Results No lab data PG Care Time/CCT Total # of Minutes Spent Total Time Spent with Patient: Total time spent is greater than 50% in coordination of care (as documented) at patient's floor/unit and/or counseling patient: Coding Level of Care Code 79292 Subseq Hosp Care Lvl 2 Diagnoses 2019 novel coronavirus-infected pneumonia (NCIP) U07.1; J12.82 Acute respiratory failure with hypoxia J96.01 Encephalopathy acute G93.40 KASSIDY (acute kidney injury) N17.9 Type 2 diabetes mellitus E11.9
[2021-10-15] MEDS: FAMOTIDINE 20 MG TAB PO SCH ×2 (13:16→20:51)
[2021-10-15] MEDS: QUEtiapine FUMARATE 25 MG TABLET PO SCH (20:51)
[2021-10-16 06:28] LABS: Basophils # (auto) 0.02 K/uL (0-0.2); Basophils % (auto) 0.3 %; Eosinophils % (auto) 4.2 %; Hematocrit (blood only) 38.4 % (42-52); Hemoglobin 12.7 g/dL (14.0-18.0); Immature Granulocytes # (auto) 0.01 K/uL (0.00-0.02); Immature Granulocytes % (auto) 0.1 %; Lymphocytes # (auto) 1.05 K/uL (1.2-3.4); Lymphocytes % (auto) 14.9 %; Mean Corpuscular Hemoglobin 31.3 pg (25-34); Mean Corpuscular Hgb Conc 33.1 g/dL (32-36); Mean Corpuscular Volume 94.6 fL (80-100); Mean Platelet Volume 10.1 fL (7.4-10.4); Monocytes # (auto) 0.47 K/uL (0.11-0.59); Monocytes % (auto) 6.7 %; Neutrophils # (auto) 5.21 K/uL (1.4-6.5); Neutrophils % (auto) 73.8 %; Platelet Count 218 K/uL (130-400); RDW Coefficient of Variation 13.1 % (11.5-14.5); RDW Standard Deviation 45.3 fL (36.4-46.3); Red Blood Count 4.06 M/uL (4.7-6.1); White Blood Count 7.06 K/uL (4.8-10.8)
[2021-10-16 07:09] LABS: BUN Creatinine Ratio 18.3 (10-20); Calcium 8.8 mg/dl (8.5-10.1); Creatinine Clr Calc Pharmacy 77.1 ml/min; Est GFR (African American) 94.9 ml/min; Est GFR (Non-African American) 81.9 ml/min; Magnesium 2.3 mg/dl (1.8-2.4); Potassium 3.8 mmol/L (3.5-5.1)
[2021-10-16] MEDS: FAMOTIDINE 20 MG TAB PO SCH ×2 (09:14→20:37)
[2021-10-16] MEDS: MULTIVITAMIN TAB PO SCH (09:14)
[2021-10-16] MEDS: DOCUSATE SODIUM/SENNA 50/8.6MG TAB PO SCH ×2 (09:14→20:37)
[2021-10-16] MEDS: THIAMINE HCL 200 MG in SODIUM CHLORIDE 0.9% 50 ML IV SCH (09:14)
[2021-10-16] MEDS: ENOXAPARIN INJ 40 MG/0.4 ML SYR SQ SCH (09:14)
[2021-10-16] MEDS: PANTOprazole 40 MG TAB PO SCH (09:14)
--- NOTE | 2021-10-16 11:51 | Hospitalist Progress Note ---
Date of Service October 16, 2021 Assessment & Plan (1) 2019 novel coronavirus-infected pneumonia (NCIP): Plan: First symptoms: 09/14/21 First positive test: 09/23/21 Off isolation 10/14/21 Unvaccinated Remdesivir -- did not qualify for by time course Dexamethasone 10mg IV daily discontinued 10/09/2021 Baricitinib/Tocilizumab - CRP not elevated therefore did not qualify Patient progressed to intubation on 09/30/2021 extubated in the morning on 10/07/21 Weaning O2 -- I was able to wean him down to 6L during rounds on 10/15. Down to 5L this AM but will have increased requirements w/ exertion. Need to work back on weaning while pt is at rest. Encephalopathy improving, Seroquel at bedtime 10/10 and started thiamine 10/09/21--see below (2) Acute respiratory failure with hypoxia: Plan: Secondary to COVID-19 pneumonia mechanical ventilation for 8 days extubated 10/07/21 Aim O2 sats > 90% Still within weaning stage but will need PT/OT evals to start authorization process for rehab, PT recommends acute rehab 10/12/21 Consult OT for eval (3) Encephalopathy acute: Plan: Pt had escalated excited delirium that was multifactorial, from covid, steroids and 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 started on precedex but ultimately required intubation Improving. 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 Continue therapy, OT eval to assist dispo. Recommended home but also noted that pt requires increased level of care. PT recommending acute rehab. Due to his current oxygen requirements especially with exertion, pt is not eligible to return home and requires close monitoring. However, he is no longer necessarily requiring acute hospitalization if able to receive O2 @ rehab. Would benefit from acute rehab stay. Case management following, appreciate their assistance. Admission and Anticipated Discharge Date Admission Date: September 23, 2021 Subjective Patient seen on rounds this morning. Hospitalized with COVID pneumonia and associated hypoxic respiratory failure requiring mechanical ventilation. Extubated 10/07/21. Continues to show improvement, I was able to wean him down to 6L HFNC on 10/15 and he remained stable on that overnight. This AM he was documented at 5L. Pt denies shortness of breath, denies wheezing, chest pain, notes rare cough. Denies n/v/d, f/c, headache, or gu symptoms. He was short of breath with toileting this morning and desaturated into the high 70s but it was noted that the HEAD PASTRY CHEF did not uptitrate his O2 with the activity. His dyspnea resolved with rest. Review of Systems Review of Systems: CONSTITUTIONAL: Denies weight loss/gain, fever and chills, fatigue, malaise, generalized weakness. HEENT: Denies changes in vision and hearing. RESPIRATORY: +Rare cough. +COPE but none at rest. No wheezing. CV: Denies palpitations, CP, lower extremity edema, orthopnea, PND. GI: Denies abdominal pain, nausea, vomiting and diarrhea. : Denies dysuria and urinary frequency, urgency, hesitancy. MUSCULOSKELETAL: Denies myalgia and joint pain. SKIN: Denies rash and pruritus. NEUROLOGICAL: Denies headache, syncope, focal weakness, numbness, tingling. PSYCHIATRIC: Denies recent changes in mood. Denies anxiety and depression. Physical Exam Physical Exam: GENERAL: 61 yo Well-developed, well-nourished WM. NAD. LUNGS: Good air movement. Crackles in LLL. No accessory muscle use. No wheezes/rhonchi. CARDIOVASCULAR: Regular rate and rhythm. No M/G/R. No JVD. ABDOMEN: Soft, non-tender and non-distended. No palpable masses. Bowel sounds normoactive x 4 quad. EXTREMITIES: No edema. Non-tender. Peripheral pulses +2/4. NEUROLOGIC: A&O x3. PSYCHIATRIC: Cooperative. Appropriate mood and affect. SKIN: Warm, dry, intact. No rashes or lesions. Results & Data Results & Data ([facility]) Vital Signs (Past 12 Hours) Vital Signs Temp Pulse Resp BP Pulse Ox 10/16/21 07:16 36.7 C 87 18 113/81 93 Laboratory Results 10/16/21 05:27 10/16/21 05:27 PG Care Time/CCT Total # of Minutes Spent Total Time Spent with Patient: Total time spent is greater than 50% in coordination of care (as documented) at patient's floor/unit and/or counseling patient: Coding Level of Care Code 33483 Subseq Hosp Care Lvl 2 Diagnoses 2019 novel coronavirus-infected pneumonia (NCIP) U07.1; J12.82 Acute respiratory failure with hypoxia J96.01 Encephalopathy acute G93.40 KASSIDY (acute kidney injury) N17.9 Type 2 diabetes mellitus E11.9
[2021-10-16] MEDS: QUEtiapine FUMARATE 25 MG TABLET PO SCH (20:36)
[2021-10-17] MEDS: FAMOTIDINE 20 MG TAB PO SCH ×2 (09:26→21:30)
[2021-10-17] MEDS: DOCUSATE SODIUM/SENNA 50/8.6MG TAB PO SCH ×2 (09:26→21:30)
[2021-10-17] MEDS: ENOXAPARIN INJ 40 MG/0.4 ML SYR SQ SCH (09:26)
[2021-10-17] MEDS: PANTOprazole 40 MG TAB PO SCH (09:27)
[2021-10-17] MEDS: MULTIVITAMIN TAB PO SCH (09:27)
[2021-10-17] MEDS: THIAMINE HCL 200 MG in SODIUM CHLORIDE 0.9% 50 ML IV SCH (09:30)
--- NOTE | 2021-10-17 13:09 | Hospitalist Progress Note ---
Date of Service October 17, 2021 Assessment & Plan (1) 2019 novel coronavirus-infected pneumonia (NCIP): Plan: First symptoms: 09/14/21 First positive test: 09/23/21 Off isolation 10/14/21 Unvaccinated Remdesivir -- did not qualify for by time course Dexamethasone 10mg IV daily discontinued 10/09/2021 Baricitinib/Tocilizumab - CRP not elevated therefore did not qualify Patient progressed to intubation on 09/30/2021 extubated in the morning on 10/07/21 Weaning O2 -- I was able to wean him down to 6L during rounds on 10/15. Continues to have increased O2 requirements w/ exertion. Will initiate daily IV diuresis to keep pt's fluid balance net negative, monitor I/Os and repeat BMP in AM Encephalopathy improving, Seroquel at bedtime 10/10 and started thiamine 10/09/21--see below (2) Acute respiratory failure with hypoxia: Plan: Secondary to COVID-19 pneumonia mechanical ventilation for 8 days extubated 10/07/21 Aim O2 sats > 90% Still within weaning stage but will need PT/OT evals to start authorization process for rehab, PT recommends acute rehab 10/12/21 Consult OT for eval (3) Encephalopathy acute: Plan: Pt had escalated excited delirium that was multifactorial, from covid, steroids and 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 started on precedex but ultimately required intubation Improving. 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 Continue therapy, OT eval to assist dispo. Recommended home but also noted that pt requires increased level of care. PT recommending acute rehab. Due to his current oxygen requirements especially with exertion, pt is not eligible to return home and requires close monitoring. Would benefit from acute rehab stay. Ideally, would like to see pt not have such significant O2 requirements with exertion. Initiate diuresis as noted above. Case management following, appreciate their assistance. Will investigate what O2 requirements can be met at [facility]. Admission and Anticipated Discharge Date Admission Date: September 23, 2021 Subjective Patient seen on rounds this morning. Hospitalized with COVID pneumonia and associated hypoxic respiratory failure requiring mechanical ventilation. Extubated 10/07/21. Continues to show improvement, I was able to wean him down to 6L HFNC on 10/15 and he remains stable on that. Does require uptitration of O2 with minimal exertion, such as toileting, up to 15L. He verbalizes no complaints at this time, denies dyspnea, cp, n/v/d, f/c, headache, or gu symptoms. Review of Systems Review of Systems: CONSTITUTIONAL: Denies weight loss/gain, fever and chills, fatigue, malaise, generalized weakness. HEENT: Denies changes in vision and hearing. RESPIRATORY: +Rare cough. +COPE but none at rest. No wheezing. CV: Denies palpitations, CP, lower extremity edema, orthopnea, PND. GI: Denies abdominal pain, nausea, vomiting and diarrhea. : Denies dysuria and urinary frequency, urgency, hesitancy. MUSCULOSKELETAL: Denies myalgia and joint pain. SKIN: Denies rash and pruritus. NEUROLOGICAL: Denies headache, syncope, focal weakness, numbness, tingling. PSYCHIATRIC: Denies recent changes in mood. Denies anxiety and depression. Physical Exam Physical Exam: GENERAL: 61 yo Well-developed, well-nourished WM. NAD. LUNGS: Good air movement. Crackles in LLL. No accessory muscle use. No wheezes/rhonchi. CARDIOVASCULAR: Regular rate and rhythm. No M/G/R. No JVD. ABDOMEN: Soft, non-tender and non-distended. Bowel sounds normoactive x 4 quad. EXTREMITIES: No edema. Non-tender. Peripheral pulses +2/4. NEUROLOGIC: A&O x3. PSYCHIATRIC: Cooperative. Appropriate mood and affect. SKIN: Warm, dry, intact. No rashes or lesions. Results & Data Results & Data ([facility]) Vital Signs (Past 12 Hours) Vital Signs Temp Pulse Resp BP Pulse Ox 10/17/21 07:19 36.8 C 82 18 126/84 93 PG Care Time/CCT Total # of Minutes Spent Total Time Spent with Patient: Total time spent is greater than 50% in coordination of care (as documented) at patient's floor/unit and/or counseling patient: Coding Level of Care Code 74773 Subseq Hosp Care Lvl 2 Diagnoses 2019 novel coronavirus-infected pneumonia (NCIP) U07.1; J12.82 Acute respiratory failure with hypoxia J96.01 Encephalopathy acute G93.40 KASSIDY (acute kidney injury) N17.9 Type 2 diabetes mellitus E11.9
[2021-10-17] MEDS: FUROSEMIDE INJ 20 MG/2 ML VIAL IV SCH (14:04)
[2021-10-17] MEDS: QUEtiapine FUMARATE 25 MG TABLET PO SCH (21:30)
[2021-10-18 07:10] LABS: BUN Creatinine Ratio 17.8 (10-20); Calcium 8.3 mg/dl (8.5-10.1); Creatinine Clr Calc Pharmacy 75.2 ml/min; Est GFR (African American) 92.6 ml/min; Est GFR (Non-African American) 79.9 ml/min; Potassium 3.9 mmol/L (3.5-5.1)
[2021-10-18] MEDS: PANTOprazole 40 MG TAB PO SCH (07:45)
[2021-10-18] MEDS: ENOXAPARIN INJ 40 MG/0.4 ML SYR SQ SCH (07:46)
[2021-10-18] MEDS: MULTIVITAMIN TAB PO SCH (07:46)
[2021-10-18] MEDS: FUROSEMIDE INJ 20 MG/2 ML VIAL IV SCH (07:46)
[2021-10-18] MEDS: DOCUSATE SODIUM/SENNA 50/8.6MG TAB PO SCH ×2 (07:48→20:43)
[2021-10-18] MEDS: THIAMINE HCL 200 MG in SODIUM CHLORIDE 0.9% 50 ML IV SCH (08:02)
[2021-10-18] MEDS: FAMOTIDINE 20 MG TAB PO SCH ×2 (08:02→20:43)
--- NOTE | 2021-10-18 12:23 | Hospitalist Progress Note ---
Date of Service October 18, 2021 Assessment & Plan (1) 2019 novel coronavirus-infected pneumonia (NCIP): Plan: First symptoms: 09/14/21 First positive test: 09/23/21 Off isolation 10/14/21 Unvaccinated Remdesivir -- did not qualify for by time course Dexamethasone 10mg IV daily discontinued 10/09/2021 Baricitinib/Tocilizumab - CRP not elevated therefore did not qualify Patient progressed to intubation on 09/30/2021 extubated in the morning on 10/07/21 Weaning O2 -- I was able to wean him down to 6L during rounds on 10/15. Continues to have increased O2 requirements w/ exertion. Will initiate daily IV diuresis to keep pt's fluid balance net negative, monitor I/Os Case management following for d/c planning, dispo: rehab v. LTAC Encephalopathy improving, Seroquel at bedtime 10/10 and started thiamine 10/09/21--see below (2) Acute respiratory failure with hypoxia: Plan: Secondary to COVID-19 pneumonia mechanical ventilation for 8 days extubated 10/07/21 Aim O2 sats > 90% Still within weaning stage but will need PT/OT evals to start authorization process for rehab, therapy recommends acute rehab 10/12/21 (3) Encephalopathy acute: Plan: Pt had escalated excited delirium that was multifactorial, from covid, steroids and 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 started on precedex but ultimately required intubation Improving. 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 Continue therapy services. Due to his current oxygen requirements especially with exertion, pt is not eligible to return home and requires close monitoring. Would benefit from acute rehab stay. Ideally, would like to see pt not have such significant O2 requirements with exertion. Initiate diuresis as noted above. Case management following, appreciate their assistance. CM investigating what O2 requirements can be met at [facility]. If they are unable to support O2 needs, will have to consider LTAC such as [facility]. Admission and Anticipated Discharge Date Admission Date: September 23, 2021 Subjective Patient seen on rounds this morning. Hospitalized with COVID pneumonia and associated hypoxic respiratory failure requiring mechanical ventilation. Extu bated 10/07/21. Continues to show improvement, I was able to wean him down to 6L HFNC on 10/15 and he remains stable on that. Does require uptitration of O2 with exertion (while working w/ PT on 10/17 documented requiring 15L to recover to 90% post gait). RN able to wean him back down to 6L @ rest. He verbalizes no complaints at this time, denies dyspnea at rest, cp, n/v/d, f/c, headache, or gu symptoms. Initiated IV diuresis yesterday, responded favorably. Review of Systems Review of Systems: CONSTITUTIONAL: Denies weight loss/gain, fever and chills, fatigue, malaise, generalized weakness. HEENT: Denies changes in vision and hearing. RESPIRATORY: +COPE but none at rest. No wheezing. CV: Denies palpitations, CP, lower extremity edema, orthopnea, PND. GI: Denies abdominal pain, nausea, vomiting and diarrhea. : Denies dysuria and urinary frequency, urgency, hesitancy. MUSCULOSKELETAL: Denies myalgia and joint pain. SKIN: Denies rash and pruritus. NEUROLOGICAL: Denies headache, syncope, focal weakness, numbness, tingling. PSYCHIATRIC: Denies recent changes in mood. Denies anxiety and depression. Physical Exam Physical Exam: GENERAL: 61 yo Well-developed, well-nourished WM. NAD. LUNGS: Good air movement. Crackles in LLL. No accessory muscle use. No wheezes/rhonchi. CARDIOVASCULAR: Regular rate and rhythm. No M/G/R. No JVD. ABDOMEN: Soft, non-tender and non-distended. Bowel sounds normoactive x 4 quad. EXTREMITIES: No edema. Non-tender. Peripheral pulses +2/4. NEUROLOGIC: A&O x3. PSYCHIATRIC: Cooperative. Appropriate mood and affect. SKIN: Warm, dry, intact. No rashes or lesions. Results & Data Results & Data ([facility]) Vital Signs (Past 12 Hours) Vital Signs Temp Pulse Resp BP Pulse Ox 10/18/21 07:42 36.9 C 91 H 16 105/73 92 Laboratory Results 10/16/21 05:27 10/18/21 06:26 PG Care Time/CCT Total # of Minutes Spent Total Time Spent with Patient: Total time spent is greater than 50% in coordination of care (as documented) at patient's floor/unit and/or counseling patient: Coding Level of Care Code 59869 Subseq Hosp Care Lvl 2 Diagnoses 2019 novel coronavirus-infected pneumonia (NCIP) U07.1; J12.82 Acute respiratory failure with hypoxia J96.01 Encephalopathy acute G93.40 KASSIDY (acute kidney injury) N17.9 Type 2 diabetes mellitus E11.9
[2021-10-18] MEDS: QUEtiapine FUMARATE 25 MG TABLET PO SCH (20:43)
[2021-10-19] MEDS: DOCUSATE SODIUM/SENNA 50/8.6MG TAB PO SCH ×2 (07:39→20:26)
[2021-10-19] MEDS: FAMOTIDINE 20 MG TAB PO SCH ×2 (07:39→20:26)
[2021-10-19] MEDS: FUROSEMIDE INJ 20 MG/2 ML VIAL IV SCH (07:39)
[2021-10-19] MEDS: PANTOprazole 40 MG TAB PO SCH (07:39)
[2021-10-19] MEDS: ENOXAPARIN INJ 40 MG/0.4 ML SYR SQ SCH (07:39)
[2021-10-19] MEDS: MULTIVITAMIN TAB PO SCH (07:39)
[2021-10-19] MEDS: THIAMINE HCL 200 MG in SODIUM CHLORIDE 0.9% 50 ML IV SCH (08:30)
--- NOTE | 2021-10-19 11:08 | Hospitalist Progress Note ---
Date of Service October 19, 2021 Assessment & Plan (1) 2018 novel coronavirus-infected pneumonia (NCIP): Plan: First symptoms: 09/14/21 First positive test: 09/23/21 Off isolation 10/14/21 Unvaccinated Remdesivir -- did not qualify for by time course Dexamethasone 10mg IV daily discontinued 10/09/2021 Baricitinib/Tocilizumab - CRP not elevated therefore did not qualify Patient progressed to intubation on 09/30/2021 extubated in the morning on 10/07/21 Weaning O2 -- I was able to wean him down to 6L during rounds on 10/15. Continues to have increased O2 requirements w/ exertion. Initiated IV diuresis on 10/17, uncertain of response because I/O monitoring is inaccurate but ultimately does not seem to be providing any additional benefit. Will d/c. Case management following for d/c planning, dispo: LTAC, no beds available at this time at either [place] or [place] location Encephalopathy resolved, Seroquel at bedtime 10/10 and started thiamine 10/09/21--see below (2) Acute respiratory failure with hypoxia: Plan: Secondary to COVID-19 pneumonia mechanical ventilation for 8 days extubated 10/07/21 Aim O2 sats > 90% Remains in weaning stage but has been stagnant the last several days Therapy recommends acute rehab 10/12/21 (3) Encephalopathy acute: Plan: Pt had escalated excited delirium that was multifactorial, from covid, steroids and 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 started on precedex but ultimately required intubation Resolved. 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 Continue therapy services. Due to his current oxygen requirements especially with exertion, pt is not eligible to return home and requires close monitoring. Would benefit from acute rehab stay. Ideally, would like to see pt not have such significant O2 requirements with exertion but unfortunately, not making any improvement over the last few days. Case management following, spoke with [facility], they do not feel comfortable taking the patient with high O2 requirements w/ exertion. Pt will require LTACH, he is agreeable. No beds at this time at either [place] or [place] locations. Admission and Anticipated Discharge Date Admission Date: September 23, 2021 Subjective Patient seen on rounds this morning. Hospitalized with COVID pneumonia and associated hypoxic respiratory failure requiring mechanical ventilation. Extubated 10/07/21. At this point, pt is stagnant. I was able to wean him down to 6L HFNC on 10/15 and he remains stable on that but continues require uptitration of O2 with exertion (while working w/ PT on 10/17 documented requiring 15L to recover to 90% post gait). RN able to wean him back down to 6L @ rest. He verbalizes no complaints at this time, denies dyspnea at rest, cp, n/v/d, f/c, headache, or gu symptoms. Initiated daily IV diuresis on 10/17 which doesn't seem to be providing any additional benefit. Review of Systems Review of Systems: CONSTITUTIONAL: Denies weight loss/gain, fever and chills, fatigue, malaise, generalized weakness. HEENT: Denies changes in vision and hearing. RESPIRATORY: +COPE but none at rest. No wheezing. CV: Denies palpitations, CP, lower extremity edema, orthopnea, PND. GI: Denies abdominal pain, nausea, vomiting and diarrhea. : Denies dysuria and urinary frequency, urgency, hesitancy. MUSCULOSKELETAL: Denies myalgia and joint pain. SKIN: Denies rash and pruritus. NEUROLOGICAL: Denies headache, syncope, focal weakness, numbness, tingling. PSYCHIATRIC: Denies recent changes in mood. Denies anxiety and depression. Physical Exam Physical Exam: GENERAL: 61 yo Well-developed, well-nourished WM. NAD. LUNGS: Good air movement. Clear throughout bilaterally. CARDIOVASCULAR: Regular rate and rhythm. No M/G/R. No JVD. ABDOMEN: Soft, non-tender and non-distended. Bowel sounds normoactive x 4 quad. EXTREMITIES: No edema. Non-tender. Peripheral pulses +2/4. NEUROLOGIC: A&O x3. PSYCHIATRIC: Cooperative. Appropriate mood and affect. SKIN: Warm, dry, intact. No rashes or lesions. Results & Data Results & Data ([facility]) Vital Signs (Past 12 Hours) Vital Signs Temp Pulse Resp BP Pulse Ox 10/19/21 07:37 37.0 C 85 16 117/80 94 Laboratory Results No labs today PG Care Time/CCT Total # of Minutes Spent Total Time Spent with Patient: Total time spent is greater than 50% in coordination of care (as documented) at patient's floor/unit and/or counseling patient: Coding Level of Care Code 26184 Subseq Hosp Care Lvl 2 Diagnoses 2019 novel coronavirus-infected pneumonia (NCIP) U07.1; J12.82 Acute respiratory failure with hypoxia J96.01 Encephalopathy acute G93.40 KASSIDY (acute kidney injury) N17.9 Type 2 diabetes mellitus E11.9
[2021-10-19] MEDS: QUEtiapine FUMARATE 25 MG TABLET PO SCH (20:26)
[2021-10-20] MEDS: FAMOTIDINE 20 MG TAB PO SCH ×2 (09:10→20:57)
[2021-10-20] MEDS: ENOXAPARIN INJ 40 MG/0.4 ML SYR SQ SCH (09:10)
[2021-10-20] MEDS: MULTIVITAMIN TAB PO SCH (09:10)
[2021-10-20] MEDS: DOCUSATE SODIUM/SENNA 50/8.6MG TAB PO SCH ×2 (09:10→20:57)
[2021-10-20] MEDS: PANTOprazole 40 MG TAB PO SCH (09:11)
[2021-10-20] MEDS: THIAMINE HCL 200 MG in SODIUM CHLORIDE 0.9% 50 ML IV SCH (10:30)
[2021-10-20] MEDS ORDERED: bisacodyL 10 MG SUPP PR STA (11:26)
--- NOTE | 2021-10-20 14:40 | Hospitalist Progress Note ---
Date of Service October 20, 2021 Assessment & Plan (1) 2019 novel coronavirus-infected pneumonia (NCIP): Plan: First symptoms: 09/14/21 First positive test: 09/23/21 Off isolation 10/14/21 Unvaccinated Remdesivir -- did not qualify for by time course Dexamethasone 10mg IV daily discontinued 10/09/2021 Baricitinib/Tocilizumab - CRP not elevated therefore did not qualify Patient progressed to intubation on 09/30/2021 extubated in the morning on 10/07/21 Weaning O2 -- currently down to 6Lat rest but continues to have increased O2 requirements w/ exertion (up to 15L) received IV diuresis Case management following for d/c planning, dispo: LTAC vs [facility]-- no beds available at this time at either [place] or [place] location and O2 requirements too high for [facility] at this time Encephalopathy resolved, Seroquel at bedtime 10/10 and started thiamine 01/25--see below (2) Acute respiratory failure with hypoxia: Plan: Secondary to COVID-19 pneumonia mechanical ventilation for 8 days extubated 10/07/21 Aim O2 sats > 90% Remains in weaning stage but has been stagnant the last several days Therapy recommends acute rehab 10/12/21 (3) Encephalopathy acute: Plan: Pt had escalated excited delirium that was multifactorial, from covid, steroids and 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 started on precedex but ultimately required intubation Resolved. 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 - Dulcolax suppository - miralax daily added to Senokot Plan: VTE Prophylaxis - Lovenox 40mg SQ daily Diet - Moist and Minced to chew and no straws Disposition - COVID Precautions d/c'd 10/14/21. Continue therapy services. Due to his current oxygen requirements especially with exertion, pt is not eligible to return home and requires close monitoring. Would benefit from acute rehab stay. Ideally, would like to see pt not have such significant O2 requirements with exertion but unfortunately, not making any improvement over the last few days. Case management following, spoke with [facility], they do not feel comfortable taking the patient with high O2 requirements w/ exertion. Pt will require LTACH, he is agreeable. No beds at this time at either [place] or [place] locations. plan of care D/W Dr. Alexis Admission and Anticipated Discharge Date Admission Date: September 23, 2021 Subjective Patient seen on daily rounds today. Localizes no significant complaints or concerns. Still concerned with the fact that he is not able to be discharged home. Just does not understand "why he cannot buy his own oxygen". Currently on 6 L at rest. Has been requiring up to 15 L with ambulation such as toileting. Does get easily fatigued and dyspneic with minimal exertion. Denies fevers, chills, chest pain, abdominal pain, nausea or vomiting. reports that patient complaining of constipation. Review of Systems Review of Systems: All systems reviewed and are unremarkable except as noted in HPI and below Denies fevers, chills, headache, nasal congestion, sore throat, cough, chest pain, palpitations, orthopnea, PND, abdominal pain, nausea, vomiting, diarrhea, constipation, dysuria, hematuria, frequency, back pain, joint pain or swelling, easy bruising or bleeding, skin lesions or rashes. Physical Exam Physical Exam: General: Resting comfortably in his hospital bed. He does not appear ill or toxic. NAD. HEENT: Head is AT/NC buccal mucosa is moist and pink Neck: No JVD. Negative hepatojugular reflex Cardiac: RRR Lungs: Speaking full sentences on supplemental oxygen. Normal respiratory effort. Diminished breath sounds throughout without wheezes, rales or rhonchi Abdomen: Normoactive X4. Soft and nontender in all quadrants. Extremities: No peripheral clubbing cyanosis or edema Neuro: A&O X4 cranial nerves II through XII are grossly intact no focal neuro deficits Skin: No obvious skin lesions or rashes Psych: Appropriate affect pleasant and cooperative Results & Data Results & Data ([facility]) Vital Signs (Past 12 Hours) Vital Signs Temp Pulse Resp BP Pulse Ox 10/20/21 07:45 36.9 C 91 H 16 113/79 92 PG Care Time/CCT Total # of Minutes Spent Total Time Spent with Patient: Total time spent is greater than 50% in coordination of care (as documented) at patient's floor/unit and/or counseling patient: Coding Level of Care Code 68916 Subseq Hosp Care Lvl 2 Diagnoses 2019 novel coronavirus-infected pneumonia (NCIP) U07.1; J12.82 Acute respiratory failure with hypoxia J96.01 Encephalopathy acute G93.40 KASSIDY (acute kidney injury) N17.9 Type 2 diabetes mellitus E11.9 Constipation K59.00
[2021-10-20] MEDS: QUEtiapine FUMARATE 25 MG TABLET PO SCH (20:57)
[2021-10-20] MEDS ORDERED: ASPIRIN 81 MG CHEW PO STA (23:06)
[2021-10-20] MEDS ORDERED: NITROGLYCERIN 2% OINTMENT 30GM TUBE EXT STA (23:06)
[2021-10-20] MEDS ORDERED: OPTIRAY 320 125ml IV ONE (23:46)
--- NOTE | 2021-10-21 01:34 | Communication Note ---
Date of Service: October 21, 2021 Called to bedside at ~11pm on 10/20/21 about 5/10 sharp left chest pain (no associated other symptoms), started at rest. Desatted to 70s on the 6L nasal c annula, so was increased to 15L on oxymask and the chest pain resolved, just has some residual numbness in the area; currently is comfortable. ECG sinus tach 110 w/o ischemic changes. Ordered full dose ASA and nitropaste. Does not appear fluid overloaded on exam though has crackles at left lung field. No lower extremity edema. Ordered CTA to r/o PE because of covid, prolonged hospitalization (almost 1 month), tachycardia, and persistent/increased O2 requirement. Will repeat ecg in AM and check 2nd trop w/ AM labs. statrad preliminary report CTA chest: Multifocal airspace and interstitial opacities, which are most likely the sequela of a recent atypical/viral respiratory infection. No evidence of an acute pulmonary embolus. Normal appearance of the thoracic aorta. Simple appearing cysts in the liver. Comparison made with 09/26/2021 CT pulmonary angiogram. Read by radiologist Marcell Haji MD at 23:57 10/20/21.
[2021-10-21] MEDS: FAMOTIDINE 20 MG TAB PO SCH ×2 (08:05→19:58)
[2021-10-21] MEDS: MULTIVITAMIN TAB PO SCH (08:05)
[2021-10-21] MEDS: DOCUSATE SODIUM/SENNA 50/8.6MG TAB PO SCH ×2 (08:05→19:58)
[2021-10-21] MEDS: PANTOprazole 40 MG TAB PO SCH (08:06)
[2021-10-21] MEDS: ENOXAPARIN INJ 40 MG/0.4 ML SYR SQ SCH (08:06)
[2021-10-21] MEDS: POLYETHYLENE (MIRALAX) 17 GM PACK PO SCH (08:07)
--- NOTE | 2021-10-21 08:38 | CT Scan Report ---
CT angio chest PE protocol CLINICAL HISTORY: Cough and shortness of breath. Evaluate for pulmonary embolus. COMPARISON STUDY: Portable chest from 10/08/2021 and previous CTA chest from 09/26/2021 CT DOSE: 473.65 mGy.cm TECHNIQUE: CT Angio of the chest was performed.followed by image post processing with coronal, and s agittal MIP reformats. Contrast Volume: Optiray 320, 120 ml FINDINGS: Vasculature: There is homogeneous perfusion of the pulmonary vasculature bilaterally. No intraluminal filling defects or evidence for pulmonary embolus is seen. Airway: The airway is clear. No endobronchial lesion is identified. Lungs: Compared to the previous examination, extensive groundglass opacities are again seen throughou t both lungs characteristic of viral type pneumonitis and Covid pneumonia. These are not significantl y improved since previous examination with prominence of the interstitium also present. Pleura: There is no evidence for pleural effusion. There is no evidence for pneumothorax. Mediastinum: There is no evidence for pathologic adenopathy. The heart size is within normal limits. The thoracic aorta is within normal limits. There is no evidence for pericardial effusion. Upper abdomen:The adrenal glands are normal bilaterally. There is again a sharply defined cyst of the liver. Osseous structures: There is no acute osseous pathology. Impression: 1. No CTA evidence for pulmonary embolus. 2. Compared to previous examination, extensive groundglass opacities are again seen throughout both l ungs which have not significantly improved since the previous CTA. Increased prominence of the inters titial markings is also present. ACT 112: Negative or not required by law. Electronically signed by: Joss Monreal M.D. 10/21/2021 8:37 AM
--- NOTE | 2021-10-21 08:43 | Hospitalist Progress Note ---
Date of Service October 21, 2021 Assessment & Plan (1) 2019 novel coronavirus-infected pneumonia (NCIP): Plan: First symptoms: 09/14/21 First positive test: 09/23/21 Off isolation 10/14/21 Unvaccinated Remdesivir -- did not qualify for by time course Dexamethasone 10mg IV daily discontinued 10/09/2021 Baricitinib/Tocilizumab - CRP not elevated therefore did not qualify Patient progressed to intubation on 09/30/2021 extubated in the morning on 10/07/21 Weaning O2 -- currently down to 6Lat rest but continues to have increased O2 requirements w/ exertion (up to 15L). Encouraged patient to increase his oxygen supplementation prior to ambulation to and from the bathroom to prevent desaturation received IV diuresis Case management following for d/c planning, dispo: [facility] vs [facility]-- no beds available at this time at either [place] or [place] location and O2 requirements too high for [facility] at this time Encephalopathy resolved, Seroquel at bedtime 10/10 and started thiamine 10/09/21--see below 10/21: In the overnight hours had an episode of hypoxemia following ambulation. With a pulse ox in the 70s, he developed chest pain, fatigue, and lighthe adedness. Work-up done and unremarkable including negative troponin X2, nonacute CTA, and nonacute EKG. Chest pain resolved with improved pulse ox (2) Acute respiratory failure with hypoxia: Plan: Secondary to COVID-19 pneumonia mechanical ventilation for 8 days extubated 10/07/21 Aim O2 sats > 90% Remains in weaning stage but has been stagnant the last several days Currently requiring 6 L of oxygen at rest but still requiring 15 L with ambulation Therapy recommends acute rehab 10/12/21--> needing LTACH at this point given high oxygen needs (3) Encephalopathy acute: Plan: Pt had escalated excited delirium that was multifactorial, from covid, steroids and 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 started on precedex but ultimately required intubation Resolved. Continue seroquel 50mg PO HS as this appears to be helping him at night Speech eval, video swallow with aspiration of thin liquids, recommending moist and minced diet, no straws, and safe swallowing techniques (4) KASSIDY (acute kidney injury): Plan: due to dehydration and use of diuretic and ACI inhibitor, both held on admission--RESOLVED Currently remains off both of these medications, unsure what he was taking [employer] as there is nothing on his med rec (BP currently 113/79) (5) Type 2 diabetes mellitus: Plan: HbA1C 7.0 seems to be diet controlled Diet - liberalized and glucose checks stopped to help with encephalopathy Blood sugars acceptable: [id number] (6) Constipation: Plan: per , patient has been repeatedly complaining of this while in house (he has not mentioned this to providers). - Dulcolax suppository and Miralax given 10/20 with success - continue miralax daily added to Senokot--> encouraged patient to notify staff if moving bowels too much. Would then change MiraLAX to as needed Plan: VTE Prophylaxis - Lovenox 40mg SQ daily Diet -easy to chew and no straws Disposition - COVID Precautions d/c'd 10/14/21. Continue therapy services. Due to his current oxygen requirements especially with exertion, pt is not eligible to return home and requires close monitoring. Would benefit from acute rehab stay. Ideally, would like to see pt not have such significant O2 requirements with exertion but unfortunately, not making any improvement over the last few days. Case management following, spoke with [facility], they do not feel comfortable t aking the patient with high O2 requirements w/ exertion. Pt will require LTACH, he is agreeable. No beds at this time at either [place] or [place] locations. plan of care D/W Dr. Alexis Admission and Anticipated Discharge Date Admission Date: September 23, 2021 Subjective Patient seen on daily rounds today. Vocalizes no complaints or concerns. In the overnight hours, developed some chest pain that occurred in the setting of hypoxemia. He reports that he had just ambulated to and from the restroom. Was on 6 L at the time and staff noticed that he was hypoxic at 71%. He was quickly placed on 15 L and his pulse ox improved into the 90s. While in the 70s, he was complaining of some left-sided chest pain. Troponin negative X2. EKG nonacute. CTA negative for PE. Chest pain resolved with improved oxygenation. Currently denies any chest discomfort. In addition, denies fevers, chills, chest pain, shortness of breath, abdominal pain, nausea or vomiting. Did not feel significantly dyspneic or short of breath when his pulse ox was in the 70s but felt fatigued and lightheaded. Review of Systems Review of Systems: All systems reviewed and are unremarkable except as noted in HPI and below Denies fevers, chills, headache, nasal congestion, sore throat, cough, chest pain, palpitations, orthopnea, PND, abdominal pain, nausea, vomiting, diarrhea, constipation, dysuria, hematuria, frequency, back pain, joint pain or swelling, easy bruising or bleeding, skin lesions or rashes. Physical Exam Physical Exam: General: Resting comfortably in his hospital bed. He does not appear ill or toxic. NAD. HEENT: Head is AT/NC buccal mucosa is moist and pink Neck: No JVD. Negative hepatojugular reflex Cardiac: RRR Lungs: Speaking full sentences on supplemental oxygen. Normal respiratory effort. Diminished breath sounds throughout without wheezes, rales or rhonchi Abdomen: Normoactive X4. Soft and nontender in all quadrants. Extremities: No peripheral clubbing cyanosis or edema Neuro: A&O X4 cranial nerves II through XII are grossly intact no focal neuro deficits Skin: No obvious skin lesions or rashes Psych: Appropriate affect pleasant and cooperative Results & Data Results & Data ([facility]) Vital Signs (Past 12 Hours) Vital Signs Temp Pulse Pulse Pulse Resp BP Pulse Ox 10/21/21 07:54 36.9 C 82 18 113/76 97 10/21/21 06:05 87 16 95 10/21/21 02:35 97 H 94 10/21/21 02:29 36.9 C 94 H 18 110/75 95 10/20/21 23:25 101 H 22 110/76 93 10/20/21 23:13 36.9 C 10/20/21 22:59 101 H 20 92 10/20/21 22:30 127 H 71 L 10/20/21 22:20 124 H 24 126/85 75 L Laboratory Results 10/16/21 05:27 10/18/21 06:26 10/20/21 10/21/21 23:18 05:40 Troponin I < 0.03 < 0.03 Diagnostic Findings EKG: Sinus tachycardia at [address]/T wave changes Follow-up EKG done this morning and unchanged but rate improved in the 80s CTA: Read by stat rad as no evidence of PE. Still with interstitial opacities likely from recent COVID, formal in-house read pending PG Care Time/CCT Total # of Minutes Spent Total Time Spent with Patient: Total time spent is greater than 50% in coordination of care (as documented) at patient's floor/unit and/or counseling patient: Coding Level of Care Code 11459 Subseq Hosp Care Lvl 2 Diagnoses 2019 novel coronavirus-infected pneumonia (NCIP) U07.1; J12.82 Acute respiratory failure with hypoxia J96.01 Encephalopathy acute G93.40 KASSIDY (acute kidney injury) N17.9 Type 2 diabetes mellitus E11.9 Constipation K59.00
[2021-10-21] MEDS: THIAMINE HCL 200 MG in SODIUM CHLORIDE 0.9% 50 ML IV SCH (09:42)
--- NOTE | 2021-10-21 10:07 | Electrocardiogram Report ---
Test Reason : Blood Pressure : / mmHG Vent. Rate : 110 BPM Atrial Rate : 110 BPM P-R Int : 182 ms QRS Dur : 088 ms QT Int : 330 ms P-R-T Axes : 035 -08 -02 degrees QTc Int : 446 ms Sinus tachycardia Left ventricular hypertrophy Borderline ECG When compared with ECG of 02-OCT-2021 04:10, Vent. rate has increased BY 46 BPM LVH is present Confirmed by Yuval Cronin ([id number]) on 10/21/2021 10:07:10 AM Referred By: REFERRED SELF Confirmed By:Yuval Cronin
--- NOTE | 2021-10-21 10:16 | Electrocardiogram Report ---
Test Reason : Blood Pressure : / mmHG Vent. Rate : 090 BPM Atrial Rate : 090 BPM P-R Int : 184 ms QRS Dur : 094 ms QT Int : 364 ms P-R-T Axes : 020 -15 009 degrees QTc Int : 445 ms Normal sinus rhythm Left ventricular hypertrophy Borderline ECG When compared with ECG of 20-OCT-2021 22:39, (unconfirmed) No significant change was found Confirmed by Yuval Cronin ([id number]) on 10/21/2021 10:16:07 AM Referred By: REFERRED SELF Confirmed By:Yuval Cronin
[2021-10-21] MEDS: QUEtiapine FUMARATE 25 MG TABLET PO SCH (19:58)
[2021-10-22] MEDS: POLYETHYLENE (MIRALAX) 17 GM PACK PO SCH (08:27)
[2021-10-22] MEDS: MULTIVITAMIN TAB PO SCH (08:27)
[2021-10-22] MEDS: PANTOprazole 40 MG TAB PO SCH (08:27)
[2021-10-22] MEDS: ENOXAPARIN INJ 40 MG/0.4 ML SYR SQ SCH (08:27)
[2021-10-22] MEDS: FAMOTIDINE 20 MG TAB PO SCH ×2 (08:27→20:30)
[2021-10-22] MEDS: DOCUSATE SODIUM/SENNA 50/8.6MG TAB PO SCH ×2 (08:27→20:29)
[2021-10-22] MEDS: THIAMINE HCL 200 MG in SODIUM CHLORIDE 0.9% 50 ML IV SCH (08:28)
--- NOTE | 2021-10-22 10:02 | Hospitalist Progress Note ---
Date of Service October 22, 2021 Assessment & Plan (1) 2019 novel coronavirus-infected pneumonia (NCIP): Plan: First symptoms: 09/14/21 First positive test: 09/23/21 Off isolation 10/14/21 Unvaccinated Remdesivir -- did not qualify for by time course Dexamethasone 10mg IV daily discontinued 10/09/2021 Baricitinib/Tocilizumab - CRP not elevated therefore did not qualify Patient progressed to intubation on 09/30/2021 extubated in the morning on 10/07/21 Weaning O2 --currently requiring anywhere from 6 L to 10 L of oxygen received IV diuresis Case management following for d/c planning, dispo: [facility] vs [facility]-- no beds available at this time at either [place] or [place] location and O2 requirements too high for [facility] at this time Encephalopathy resolved, Seroquel at bedtime 10/10 and started thiamine 10/09/21--see below 10/21: In the overnight hours had an episode of hypoxemia following ambulation. With a pulse ox in the 70s, he developed chest pain, fatigue, and lightheadedness. Work-up done and unremarkable including negative troponin X2, nonacute CTA, and nonacute EKG. Chest pain resolved with improved pulse ox (2) Acute respiratory failure with hypoxia: Plan: Secondary to COVID-19 pneumonia mechanical ventilation for 8 days extubated 10/07/21 Aim O2 sats > 90% Remains in weaning stage but has been stagnant the last several days Currently requiring 6 L of oxygen at rest but still requiring 15 L with ambulation Therapy recommends acute rehab 10/12/21--> needing LTACH at this point given high oxygen needs (3) Encephalopathy acute: Plan: Pt had escalated excited delirium that was multifactorial, from covid, steroids and 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 started on precedex but ultimately required intubation Resolved. Continue seroquel 50mg PO HS as this appears to be helping him at night Speech eval, video swallow with aspiration of thin liquids, recommending moist and minced diet, no straws, and safe swallowing techniques (4) KASSIDY (acute kidney injury): Plan: due to dehydration and use of diuretic and ACI inhibitor, both held on admission--RESOLVED Currently remains off both of these medications, unsure what he was taking BINMAN as there is nothing on his med rec (BP currently 113/79) (5) Type 2 diabetes mellitus: Plan: HbA1C 7.0 seems to be diet controlled Diet - liberalized and glucose checks stopped to help with encephalopathy Blood sugars acceptable: [id number] (6) Constipation: Plan: per , patient has been repeatedly complaining of this while in house (he has not mentioned this to providers). - Dulcolax suppository and Miralax given 10/20 with success - continue miralax daily added to Senokot--> encouraged patient to notify staff if moving bowels too much. Would then change MiraLAX to as needed - currently reports moving bowels without difficulty at this time (7) Neuropathy: Plan: - likely from underlying DM. Does not sounds like he is having claudication - no calf tenderness, edema, or erythema (to suggest DVT) - c/o "burning pain". - start neurontin with plans to uptotrate accordingly. - if patient develops swelling, calf pain, erythema-- will doppler - if claudication-- will obtain arterial US Plan: VTE Prophylaxis - Lovenox 40mg SQ daily Diet -easy to chew and no straws Disposition - COVID Precautions d/c'd 10/14/21. Continue therapy services. Due to his current oxygen requirements especially with exertion, pt is not eligible to return home and requires close monitoring. Would benefit from acute rehab stay. Ideally, would like to see pt not have such significant O2 requirements with exertion but unfortunately, not making any improvement over the last few days. Case management following, spoke with [facility], they do not feel comfortable taking the patient with high O2 requirements w/ exertion. Pt will require LTACH, he is agreeable. No beds at this time at either [place] or [place] locations. plan of care D/W Dr. Alexis Admission and Anticipated Discharge Date Admission Date: September 23, 2021 Subjective Patient seen on daily rounds today. Requiring anywhere from 6 to 10 L of oxygen. Has not had any episodes of desaturation. In addition, has not had any subsequent episodes of chest pain. His only complaint today is persistent burning of his lower extremities. This is an ongoing issue for patient. He does have underlying diabetes that seems to be diet controlled. His A1c was 7.0 when last checked on 09/25. Otherwise, moving bowel and bladder without difficulty. Denies fevers, chills, chest pain, shortness of breath, abdominal pain, nausea or vomiting. Nursing voices no complaints or concerns. Review of Systems Review of Systems: All systems reviewed and are unremarkable except as noted in HPI and below Denies fevers, chills, headache, nasal congestion, sore throat, cough, chest pain, palpitations, orthopnea, PND, abdominal pain, nausea, vomiting, diarrhea, constipation, dysuria, hematuria, frequency, back pain, joint pain or swelling, easy bruising or bleeding, skin lesions or rashes. Physical Exam Physical Exam: General: Resting comfortably in his hospital bed. He does not appear ill or toxic. NAD. HEENT: Head is AT/NC buccal mucosa is moist and pink Neck: No JVD. Negative hepatojugular reflex Cardiac: RRR Lungs: Speaking full sentences on supplemental oxygen. Normal respiratory effort. Diminished breath sounds throughout without wheezes, rales or rhonchi Abdomen: Normoactive X4. Soft and nontender in all quadrants. Extremities: No peripheral clubbing cyanosis or edema Neuro: A&O X4 cranial nerves II through XII are grossly intact no focal neuro deficits Skin: No obvious skin lesions or rashes Psych: Appropriate affect pleasant and cooperative Results & Data Results & Data ([facility]) Vital Signs (Past 12 Hours) Vital Signs Temp Pulse Resp BP Pulse Ox 10/22/21 07:53 36.7 C 86 18 104/70 95 Laboratory Results No lab data PG Care Time/CCT Total # of Minutes Spent Total Time Spent with Patient: Total time spent is greater than 50% in coordination of care (as documented) at patient's floor/unit and/or counseling patient: Coding Level of Care Code 50328 Subseq Hosp Care Lvl 2 Diagnoses 2019 novel coronavirus-infected pneumonia (NCIP) U07.1; J12.82 Acute respiratory failure with hypoxia J96.01 Encephalopathy acute G93.40 KASSIDY (acute kidney injury) N17.9 Type 2 diabetes mellitus E11.9 Constipation K59.00 Neuropathy G62.9
[2021-10-22] MEDS: QUEtiapine FUMARATE 25 MG TABLET PO SCH (20:29)
[2021-10-22] MEDS: GABAPENTIN 300 MG CAP PO SCH (21:30)
[2021-10-22] MEDS ORDERED: SODIUM CHLORIDE 0.65% NA SOLN 45 ML (OCEAN) NAE ONE (21:39)
[2021-10-22] MEDS ORDERED: FLUTICASONE PROPIONATE NA SPR 16 GM BTL NAE ONE (21:41)
[2021-10-23 06:36] LABS: Basophils # (auto) 0.02 K/uL (0-0.2); Basophils % (auto) 0.4 %; Eosinophils # (auto) 0.38 K/uL (0-0.5); Eosinophils % (auto) 8.3 %; Hematocrit (blood only) 40.1 % (42-52); Hemoglobin 12.8 g/dL (14.0-18.0); Immature Granulocytes # (auto) 0.01 K/uL (0.00-0.02); Immature Granulocytes % (auto) 0.2 %; Lymphocytes # (auto) 1.15 K/uL (1.2-3.4); Lymphocytes % (auto) 25.2 %; Mean Corpuscular Hemoglobin 30.6 pg (25-34); Mean Corpuscular Hgb Conc 31.9 g/dL (32-36); Mean Corpuscular Volume 95.9 fL (80-100); Mean Platelet Volume 9.4 fL (7.4-10.4); Monocytes # (auto) 0.54 K/uL (0.11-0.59); Monocytes % (auto) 11.8 %; Neutrophils # (auto) 2.47 K/uL (1.4-6.5); Neutrophils % (auto) 54.1 %; Platelet Count 346 K/uL (130-400); RDW Coefficient of Variation 12.9 % (11.5-14.5); RDW Standard Deviation 44.6 fL (36.4-46.3); Red Blood Count 4.18 M/uL (4.7-6.1); White Blood Count 4.57 K/uL (4.8-10.8)
[2021-10-23 06:58] LABS: Albumin Globulin Ratio 0.8 (0.9-2); Albumin Level 2.8 gm/dl (3.4-5.0); BUN Creatinine Ratio 23.2 (10-20); Bilirubin,Total 0.3 mg/dl (0.2-1.0); Calcium 8.7 mg/dl (8.5-10.1); Creatinine Clr Calc Pharmacy 76.7 ml/min; Est GFR (African American) 94.9 ml/min; Est GFR (Non-African American) 81.9 ml/min; Globulin 3.3 gm/dl (2.5-4.0); Total Protein 6.1 gm/dl (6.0-8.3)
[2021-10-23] MEDS: POLYETHYLENE (MIRALAX) 17 GM PACK PO SCH (08:37)
[2021-10-23] MEDS: ENOXAPARIN INJ 40 MG/0.4 ML SYR SQ SCH (08:37)
[2021-10-23] MEDS: PANTOprazole 40 MG TAB PO SCH (08:37)
[2021-10-23] MEDS: MULTIVITAMIN TAB PO SCH (08:37)
[2021-10-23] MEDS: DOCUSATE SODIUM/SENNA 50/8.6MG TAB PO SCH ×2 (08:37→20:31)
[2021-10-23] MEDS: FAMOTIDINE 20 MG TAB PO SCH ×2 (08:37→20:31)
[2021-10-23] MEDS: THIAMINE HCL 200 MG in SODIUM CHLORIDE 0.9% 50 ML IV SCH (08:46)
--- NOTE | 2021-10-23 14:12 | Hospitalist Progress Note ---
Date of Service October 23, 2021 Assessment & Plan (1) 2019 novel coronavirus-infected pneumonia (NCIP): Plan: First symptoms: 09/14/21 First positive test: 09/23/21 Off isolation 10/14/21 Unvaccinated Remdesivir -- did not qualify for by time course Dexamethasone 10mg IV daily discontinued 10/09/2021 Baricitinib/Tocilizumab - CRP not elevated therefore did not qualify (was 3.84 at max) Intermittent Lasix provided Patient progressed to intubation on 09/30/2021 extubated in the morning on 10/07/21 Weaning O2 -- still requiring 6-8L O2 with rest and up to 15L with exertion Case management following for d/c planning, dispo: [facility], no beds available at this time at either [place] or [place] location Encephalopathy resolved, Seroquel at bedtime 10/10 and started thiamine 10/09/21--see below (2) Acute respiratory failure with hypoxia: Plan: Secondary to COVID-19 pneumonia mechanical ventilation for 8 days extubated 10/07/21 Aim O2 sats > 90% Remains in weaning stage but has been stagnant the last several days Therapy recommends acute rehab 10/12/21 (3) Encephalopathy acute: Plan: Pt had escalated excited delirium that was multifactorial, from covid, steroids and 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 started on precedex but ultimately required intubation Resolved. Continue seroquel 50mg PO HS as this appears to be helping him at night Speech eval, video swallow with aspiration of thin liquids, recommend no straws, and safe swallowing techniques (4) KASSIDY (acute kidney injury): Plan: due to dehydration and use of diuretic and ACI inhibitor, both held on admission--RESOLVED Currently remains off both of these medications, unsure what he was taking [employer] as there is nothing on his med rec (5) Type 2 diabetes mellitus: Plan: HbA1C 7.0 Not requiring any insulin correction factor suspect due to poor diet Diet - liberalized and glucose checks stopped to help with encephalopathy started on Neurontin for "burning in feet" likely related to neuropathy (do not suspect DVT as no calf pain/erythema/edema. do not suspect PAD as no claudica tion. c/o only "burning in his feet") Plan: VTE Prophylaxis - Lovenox 40mg SQ daily Diet - regular, easy to chew and no straws Disposition - COVID Precautions d/c'd 10/14/21. Continue therapy services. Due to his current oxygen requirements especially with exertion, pt is not eligible to return home and requires close monitoring. Would benefit from acute rehab stay. Ideally, would like to see pt not have such significant O2 requirements with exertion but unfortunately, not making any improvement over the last few days. Case management following, spoke with [facility], they do not feel comfortable taking the patient with high O2 requirements w/ exertion. Pt will require LTACH, he is agreeable. No beds at this time at either [place] or [place] locations. Admission and Anticipated Discharge Date Admission Date: September 23, 2021 Subjective Patient seen on today rounds today. Vocalizes no complaints or concerns. Reports that he "did well with therapy today". Patient's endurance is improving but still requiring up to 15 L with ambulation. Patient denies fevers, chills, chest pain, shortness of breath, abdominal pain, nausea or vomiting. Reports that the burning sensation in his feet is slightly improved today. Nursing voices no complaints or concerns. Review of Systems Review of Systems: All systems reviewed and are unremarkable except as noted in HPI and below Denies fevers, chills, headache, nasal congestion, sore throat, cough, chest pain, shortness of breath, palpitations, orthopnea, PND, abdominal pain, nausea, vomiting, diarrhea, constipation, dysuria, hematuria, frequency, back pain, joint pain or swelling, easy bruising or bleeding, skin lesions or rashes. Physical Exam Physical Exam: General: Resting comfortably in his hospital bed. He does not appear ill or toxic. NAD. HEENT: Head is AT/NC buccal mucosa is moist and pink Neck: No JVD. Negative hepatojugular reflex Cardiac: RRR Lungs: Speaking full sentences on supplemental oxygen. Normal respiratory effo rt. Diminished breath sounds throughout without wheezes, rales or rhonchi Abdomen: Normoactive X4. Soft and nontender in all quadrants. Extremities: No peripheral clubbing cyanosis or edema Neuro: A&O X4 cranial nerves II through XII are grossly intact no focal neuro deficits Skin: No obvious skin lesions or rashes Psych: Appropriate affect pleasant and cooperative Results & Data Results & Data ([facility]) Vital Signs (Past 12 Hours) Vital Signs Temp Pulse Resp BP Pulse Ox 10/23/21 07:28 36.9 C 87 18 119/85 95 Laboratory Results 10/23/21 06:09 10/23/21 06:09 TB: 0.30 AST: 18 ALT: 33 PG Care Time/CCT Total # of Minutes Spent Total Time Spent with Patient: Total time spent is greater than 50% in coordination of care (as documented) at patient's floor/unit and/or counseling patient: Coding Level of Care Code 52444 Subseq Hosp Care Lvl 1 Diagnoses 2019 novel coronavirus-infected pneumonia (NCIP) U07.1; J12.82 Acute respiratory failure with hypoxia J96.01 Encephalopathy acute G93.40 KASSIDY (acute kidney injury) N17.9 Type 2 diabetes mellitus E11.9
[2021-10-23] MEDS: GABAPENTIN 300 MG CAP PO SCH (20:31)
[2021-10-23] MEDS: QUEtiapine FUMARATE 25 MG TABLET PO SCH (20:31)
[2021-10-24] MEDS: DOCUSATE SODIUM/SENNA 50/8.6MG TAB PO SCH ×2 (09:03→19:45)
[2021-10-24] MEDS: PANTOprazole 40 MG TAB PO SCH (09:04)
[2021-10-24] MEDS: FAMOTIDINE 20 MG TAB PO SCH ×2 (09:04→19:45)
[2021-10-24] MEDS: ENOXAPARIN INJ 40 MG/0.4 ML SYR SQ SCH (09:04)
[2021-10-24] MEDS: MULTIVITAMIN TAB PO SCH (09:06)
[2021-10-24] MEDS: POLYETHYLENE (MIRALAX) 17 GM PACK PO SCH (09:06)
[2021-10-24] MEDS: THIAMINE HCL 200 MG in SODIUM CHLORIDE 0.9% 50 ML IV SCH (09:29)
--- NOTE | 2021-10-24 12:35 | Hospitalist Progress Note ---
Date of Service October 24, 2021 Assessment & Plan (1) 2019 novel coronavirus-infected pneumonia (NCIP): Plan: First symptoms: 09/14/21 First positive test: 09/23/21 Off isolation 10/14/21 Unvaccinated Remdesivir -- did not qualify for by time course Dexamethasone 10mg IV daily discontinued 10/09/2021 Baricitinib/Tocilizumab - CRP not elevated therefore did not qualify (was 3.84 at max) Intermittent Lasix provided Patient progressed to intubation on 09/30/2021 extubated in the morning on 10/07/21 Weaning O2 -- still requiring 6-8L O2 with rest and up to 15L with exertion Case management following for d/c planning, dispo: LTAC -- [facility] likely to have a bed available for him this week and working on auth Encephalopathy resolved, Seroquel at bedtime 10/10 and started thiamine 10/09/21--see below spot labs done 10/23 and WNL (2) Acute respiratory failure with hypoxia: Plan: Secondary to COVID-19 pneumonia mechanical ventilation for 8 days extubated 10/07/21 Aim O2 sats > 90% Remains in weaning stage but has been stagnant the last several days Therapy recommends acute rehab 10/12/21 (3) Encephalopathy acute: Plan: Pt had escalated excited delirium that was multifactorial, from covid, steroids and 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 started on precedex but u ltimately required intubation Resolved. 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 do not suspect PAD as no claudication. c/o only "burning in his feet")-- burning pain nearly resolved (6) Constipation: Plan: treated and resolved now on bowel regimen Plan: VTE Prophylaxis - Lovenox 40mg SQ daily Diet - regular, easy to chew and no straws Disposition - COVID Precautions d/c'd 10/14/21. Continue therapy services. Due to his current oxygen requirements especially with exertion, pt is not eligible to return home and requires close monitoring. Would benefit from acute rehab stay. Ideally, would like to see pt not have such significant O2 requirements with exertion but unfortunately, not making any improvement over the last few days. Case management following. Ultimately, patient would prefer [facility], but they do not feel comfortable taking the patient with high O2 requirements w/ exertion. Pt will require LTACH, he is agreeable. Possible D/C to [facility] this week when bed opens and auth acquired. plan of care to be D/W Dr. Alexis. Further orders as warranted Admission and Anticipated Discharge Date Admission Date: September 23, 2021 Subjective Patient seen on daily rounds today. Overall, vocalizes no complaints or concerns. The burning sensation in his feet has improved greatly and is nearly resolved. Denies fevers, chills, chest pain, shortness of breath, abdominal pain, nausea or vomiting. Requiring 6 to 8 L of supplemental oxygen at rest and still up to 15 L with ambulation. Moving bowel bladder without difficulty. Nursing voices no complaints or concerns. Review of Systems Review of Systems: All systems reviewed and are unremarkable except as noted in HPI and below Denies fevers, chills, headache, nasal congestion, sore throat, cough, chest pain, shortness of breath, palpitations, orthopnea, PND, abdominal pain, nausea, vomiting, diarrhea, constipation, dysuria, hematuria, frequency, back pain, joint pain or swelling, easy bruising or bleeding, skin lesions or rashes. Physical Exam Physical Exam: General: Resting comfortably in his hospital bed. He does not appear ill or toxic. Pleasant with good affect today. NAD. HEENT: Head is AT/NC buccal mucosa is moist and pink Neck: No JVD. Negative hepatojugular reflex Cardiac: RRR Lungs: Speaking full sentences on supplemental oxygen. Normal respiratory effort. Diminished breath sounds throughout without wheezes, rales or rhonchi Abdomen: Normoactive X4. Soft and nontender in all quadrants. Extremities: No peripheral clubbing cyanosis or edema Neuro: A&O X4 cranial nerves II through XII are grossly intact no focal neuro deficits Skin: No obvious skin lesions or rashes Psych: Appropriate affect pleasant and cooperative Results & Data Results & Data ([facility]) Vital Signs (Past 12 Hours) Vital Signs Temp Pulse Resp BP Pulse Ox 10/24/21 07:54 36.5 C 87 16 122/87 92 Laboratory Results 10/23/21 06:09 10/23/21 06:09 PG Care Time/CCT Total # of Minutes Spent Total Time Spent with Patient: Total time spent is greater than 50% in coordination of care (as documented) at patient's floor/unit and/or counseling patient: Coding Level of Care Code 22084 Subseq Hosp Care Lvl 1 Diagnoses 2019 novel coronavirus-infected pneumonia (NCIP) U07.1; J12.82 Acute respiratory failure with hypoxia J96.01 Encephalopathy acute G93.40 KASSIDY (acute kidney injury) N17.9 Type 2 diabetes mellitus E11.9 Constipation K59.00
[2021-10-24] MEDS: GABAPENTIN 300 MG CAP PO SCH (19:44)
[2021-10-24] MEDS: QUEtiapine FUMARATE 25 MG TABLET PO SCH (19:45)
[2021-10-25] MEDS: DOCUSATE SODIUM/SENNA 50/8.6MG TAB PO SCH ×2 (08:12→20:14)
[2021-10-25] MEDS: FAMOTIDINE 20 MG TAB PO SCH ×2 (08:12→20:14)
[2021-10-25] MEDS: ENOXAPARIN INJ 40 MG/0.4 ML SYR SQ SCH (08:12)
[2021-10-25] MEDS: THIAMINE HCL 200 MG in SODIUM CHLORIDE 0.9% 50 ML IV SCH (08:13)
[2021-10-25] MEDS: POLYETHYLENE (MIRALAX) 17 GM PACK PO SCH (08:13)
[2021-10-25] MEDS: PANTOprazole 40 MG TAB PO SCH (08:13)
[2021-10-25] MEDS: MULTIVITAMIN TAB PO SCH (08:13)
--- NOTE | 2021-10-25 15:18 | Hospitalist Progress Note ---
Date of Service October 25, 2021 Assessment & Plan (1) 2019 novel coronavirus-infected pneumonia (NCIP): Plan: First symptoms: 09/14/21 First positive test: 09/23/21 Off isolation 10/14/21 Unvaccinated Remdesivir -- did not qualify for by time course Dexamethasone 10mg IV daily discontinued 10/09/2021 Baricitinib/Tocilizumab - CRP not elevated therefore did not qualify (was 3.84 at max) Intermittent Lasix provided Patient progressed to intubation on 09/30/2021 extubated in the morning on 10/07/21 Weaning O2 -- still requiring 6-8L O2 with rest and up to 15L with exertion Case management following for d/c planning, dispo: LTAC -- [facility] [place] likely to have a bed available for him this week and working on auth Encephalopathy resolved, Seroquel at bedtime 10/10 and started thiamine 10/09/21--see below spot labs done 10/23 and WNL (2) Acute respiratory failure with hypoxia: Plan: Secondary to COVID-19 pneumonia mechanical ventilation for 8 days extubated 10/07/21 Aim O2 sats > 90% Remains in weaning stage but has been stagnant the last several days Therapy recommends acute rehab 10/12/21 (3) Encephalopathy acute: Plan: Pt had escalated excited delirium that was multifactorial, from covid, steroids and 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 started on precedex but u ltimately required intubation Resolved. 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 do not suspect PAD as no claudication. c/o only "burning in his feet")-- burning pain nearly resolved (6) Constipation: Plan: treated and resolved now on bowel regimen Plan: VTE Prophylaxis - Lovenox 40mg SQ daily Diet - regular, easy to chew and no straws Disposition - COVID Precautions d/c'd 10/14/21. Continue therapy services. Due to his current oxygen requirements especially with exertion, pt is not eligible to return home and requires close monitoring. Would benefit from acute rehab stay. Ideally, would like to see pt not have such significant O2 requirements with exertion but unfortunately, not making any improvement over the last few days. Case management following. Ultimately, patient would prefer [facility], but they do not feel comfortable taking the patient with high O2 requirements w/ exertion. Pt will require LTACH, he is agreeable. Possible D/C to [facility] this week when bed opens and auth acquired. plan of care to be D/W Dr. Alexis. Further orders as warranted Admission and Anticipated Discharge Date Admission Date: September 23, 2021 Subjective Patient seen on daily rounds today. Vocalizes no significant complaints or concerns. Had just finished toileting and did not turn his oxygen level up. On 6 L, his pulse ox was in the 70s. He was turned up to 15 L and he recovered into the 90s. Oxygen level was turned back down prior to leaving the room and his sats remained stable at 88 to 90% on 6 L. He does have poor endurance but denied shortness of breath. Denies fevers, chills, chest pain, shortness breath, abdominal pain, nausea or vomiting. Moving his bowels without difficulty. Denies diarrhea with the addition of the bowel regimen added. Review of Systems Review of Systems: All systems reviewed and are unremarkable except as noted in HPI and below Denies fevers, chills, headache, nasal congestion, sore throat, cough, chest p ain, shortness of breath, palpitations, orthopnea, PND, abdominal pain, nausea, vomiting, diarrhea, constipation, dysuria, hematuria, frequency, back pain, joint pain or swelling, easy bruising or bleeding, skin lesions or rashes. Physical Exam Physical Exam: General: Resting comfortably in his hospital bed. He does not appear ill or toxic. Pleasant with good affect today. NAD. HEENT: Head is AT/NC buccal mucosa is moist and pink Neck: No JVD. Negative hepatojugular reflex Cardiac: RRR Lungs: Speaking full sentences on supplemental oxygen. Normal respiratory effort. Diminished breath sounds throughout without wheezes, rales or rhonchi Abdomen: Normoactive X4. Soft and nontender in all quadrants. Extremities: No peripheral clubbing cyanosis or edema Neuro: A&O X4 cranial nerves II through XII are grossly intact no focal neuro deficits Skin: No obvious skin lesions or rashes Psych: Appropriate affect pleasant and cooperative Results & Data Results & Data ([facility]) Vital Signs (Past 12 Hours) Vital Signs Temp Pulse Resp BP Pulse Ox 10/25/21 14:39 36.6 C 85 16 130/87 96 10/25/21 07:39 37 C 85 20 124/95 92 PG Care Time/CCT Total # of Minutes Spent Total Time Spent with Patient: Total time spent is greater than 50% in coordination of care (as documented) at patient's floor/unit and/or counseling patient: Coding Level of Care Code 55847 Subseq Hosp Care Lvl 1 Diagnoses 2019 novel coronavirus-infected pneumonia (NCIP) U07.1; J12.82 Acute respiratory failure with hypoxia J96.01 Encephalopathy acute G93.40 KASSIDY (acute kidney injury) N17.9 Type 2 diabetes mellitus E11.9 Constipation K59.00
[2021-10-25] MEDS: GABAPENTIN 300 MG CAP PO SCH (20:14)
[2021-10-25] MEDS: QUEtiapine FUMARATE 25 MG TABLET PO SCH (20:14)
[2021-10-26] MEDS: ENOXAPARIN INJ 40 MG/0.4 ML SYR SQ SCH (07:59)
[2021-10-26] MEDS: FAMOTIDINE 20 MG TAB PO SCH ×2 (07:59→20:33)
[2021-10-26] MEDS: DOCUSATE SODIUM/SENNA 50/8.6MG TAB PO SCH ×2 (07:59→20:33)
[2021-10-26] MEDS: PANTOprazole 40 MG TAB PO SCH (07:59)
[2021-10-26] MEDS: MULTIVITAMIN TAB PO SCH (08:00)
[2021-10-26] MEDS: THIAMINE HCL 200 MG in SODIUM CHLORIDE 0.9% 50 ML IV SCH (08:02)
[2021-10-26] MEDS: POLYETHYLENE (MIRALAX) 17 GM PACK PO SCH (11:59)
[2021-10-26] MEDS ORDERED: NAPROXEN 250 MG TAB PO PRN (17:19)
--- NOTE | 2021-10-26 17:22 | Hospitalist Progress Note ---
Date of Service October 26, 2021 Assessment & Plan (1) Intercostal muscle strain: Plan: On 10/26, patient complaining of right rib pain that seems to be related to him pulling himself up in the bed with his arms No rash or evidence of shingles Tender upon palpation in the intercostal space Suspect musculoskeletal and intercostal strain We will watch closely for evidence of development of rash but do not suspect shingles at this time We will allow for naproxen as needed for pain Patient encouraged to avoid this repetitive movement with his arms amenities pulling himself up in the bed) (2) 2019 novel coronavirus-infected pneumonia (NCIP): Plan: First symptoms: 09/14/21 First positive test: 09/23/21 Off isolation 10/14/21 Unvaccinated Remdesivir -- did not qualify for by time course Dexamethasone 10mg IV daily discontinued 10/09/2021 Baricitinib/Tocilizumab - CRP not elevated therefore did not qualify (was 3.84 at max) Intermittent Lasix provided Patient progressed to intubation on 09/30/2021 extubated in the morning on 10/07/21 Weaning O2 -- still requiring 6-8L O2 with rest and up to 15L with exertion Case management following for d/c planning, dispo: LTAC --[facility] [place]. He was denied by his insurance company. I did do a peer to peer review at 1605 on 10/26 and got verification from the provider on the other and that they will approve this. I did discuss this with case management who reports that [facility] must now sign a case rate agreement with the patient's insurance company. 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 started on precedex but ultimately required intubation Resolved. 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 do not suspect PAD as no claudica tion. c/o only "burning in his feet")-- burning pain nearly resolved (7) Constipation: Plan: treated and resolved now on bowel regimen Plan: VTE Prophylaxis - Lovenox 40mg SQ daily Diet - regular, easy to chew and no straws Disposition - COVID Precautions d/c'd 10/14/21. Continue therapy services. Due to his current oxygen requirements especially with exertion, pt is not eligible to return home and requires close monitoring. Would benefit from acute rehab stay. Ideally, would like to see pt not have such significant O2 requirements with exertion but unfortunately, not making any improvement over the last few days. Case management following. Ultimately, patient would prefer [facility], but they are unable to meet the 15L supplementation need (with exertion). see above regarding [facility] plan of care to be D/W Dr. Alexis. Further orders as warranted Admission and Anticipated Discharge Date Admission Date: September 23, 2021 Subjective Patient seen on daily rounds today. He is c/o right rib pain. No rashes. No injury or trauma. Believes it may be secondary to the way he has been pulling himself up with his arms into the bed. He is not coughing significantly but when he does have a cough, the pain in his right ribs increases. He denies shortness of breath. He is not tachycardic. He has had a CTA showing no evidence of PE Review of Systems Review of Systems: All systems reviewed and are unremarkable except as noted in HPI and below Denies fevers, chills, headache, nasal congestion, sore throat, cough, chest pain, shortness of breath, palpitations, orthopnea, PND, abdominal pain, nausea, vomiting, diarrhea, constipation, dysuria, hematuria, frequency, back pain, joint pain or swelling, easy bruising or bleeding, skin lesions or rashes. Physical Exam Physical Exam: General: Resting comfortably in his hospital bed. He does not appear ill or toxic. Pleasant with good affect today. NAD. HEENT: Head is AT/NC buccal mucosa is moist and pink Neck: No JVD. Negative hepatojugular reflex Cardiac: RRR Lungs: Speaking full sentences on supplemental oxygen. Normal respiratory effort. Diminished breath sounds throughout without wheezes, rales or rhonchi Abdomen: Normoactive X4. Soft and nontender in all quadrants. Extremities: No peripheral clubbing cyanosis or edema Neuro: A&O X4 cranial nerves II through XII are grossly intact no focal neuro deficits Skin: No obvious skin lesions or rashes Psych: Appropriate affect pleasant and cooperative Results & Data Results & Data ([facility]) Vital Signs (Past 12 Hours) Vital Signs Temp Pulse Resp BP Pulse Ox 10/26/21 14:39 37 C 79 20 112/78 97 10/26/21 10:15 93 10/26/21 07:09 36.4 C L 84 20 131/89 92 Laboratory Results No lab data today PG Care Time/CCT Total # of Minutes Spent Total Time Spent with Patient: Total time spent is greater than 50% in coordination of care (as documented) at patient's floor/unit and/or counseling patient: Coding Level of Care Code 30223 Subseq Hosp Care Lvl 2 Diagnoses 2019 novel coronavirus-infected pneumonia (NCIP) U07.1; J12.82 Acute respiratory failure with hypoxia J96.01 Encephalopathy acute G93.40 KASSIDY (acute kidney injury) N17.9 Type 2 diabetes mellitus E11.9 Constipation K59.00 Intercostal muscle strain S29.011A
[2021-10-26] MEDS: GABAPENTIN 300 MG CAP PO SCH (20:33)
[2021-10-26] MEDS: QUEtiapine FUMARATE 25 MG TABLET PO SCH (20:33)
[2021-10-27] MEDS: FAMOTIDINE 20 MG TAB PO SCH ×2 (08:54→20:33)
[2021-10-27] MEDS: MULTIVITAMIN TAB PO SCH (08:54)
[2021-10-27] MEDS: DOCUSATE SODIUM/SENNA 50/8.6MG TAB PO SCH ×2 (08:54→20:33)
[2021-10-27] MEDS: THIAMINE HCL 200 MG in SODIUM CHLORIDE 0.9% 50 ML IV SCH (08:55)
[2021-10-27] MEDS: PANTOprazole 40 MG TAB PO SCH (08:55)
[2021-10-27] MEDS: POLYETHYLENE (MIRALAX) 17 GM PACK PO SCH (08:55)
[2021-10-27] MEDS: ENOXAPARIN INJ 40 MG/0.4 ML SYR SQ SCH (08:55)
--- NOTE | 2021-10-27 13:22 | Hospitalist Progress Note ---
Date of Service October 27, 2021 Assessment & Plan (1) Intercostal muscle strain: Plan: On 10/26, patient complaining of right rib pain that seems to be related to him pulling himself up in the bed with his arms No rash or evidence of shingles Tender upon palpation in the intercostal space Suspect musculoskeletal and intercostal strain We will watch closely for evidence of development of rash but do not suspect shingles at this time We will allow for naproxen as needed for pain Patient encouraged to avoid this repetitive movement with his arms amenities pulling himself up in the bed (2) 2019 novel coronavirus-infected pneumonia (NCIP): Plan: First symptoms: 09/14/21 First positive test: 09/23/21 Off isolation 10/14/21 Unvaccinated Remdesivir -- did not qualify for by time course Dexamethasone 10mg IV daily discontinued 10/09/2021 Baricitinib/Tocilizumab - CRP not elevated therefore did not qualify (was 3.84 at max) Intermittent Lasix provided Patient progressed to intubation on 09/30/2021 extubated in the morning on 10/07/21 Weaning O2 -- still requiring 6-8L O2 with rest and up to 15L with exertion Case management following for d/c planning, dispo: LTAC --[facility] [place]. He was denied by his insurance company. I did do a peer to peer review at 1605 on 10/26 and got verification from the provider on the other and that they will approve this. I did discuss this with case management who reports that [facility] must now sign a case rate agreement with the patient's insurance company. 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 started on precedex but ultimately required intubation Resolved. 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 do not suspect PAD as no claudication. c/o only "burning in his feet")-- burning pain nearly resolved (7) Constipation: Plan: treated and resolved now on bowel regimen Plan: VTE Prophylaxis - Lovenox 40mg SQ daily Diet - regular, easy to chew and no straws Disposition - COVID Precautions d/c'd 10/14/21. Continue therapy services. Would benefit from an acute rehab stay following this hospitalization but due to him requiring significant amounts of O2 with minimal exertion, [facility] does not feel comfortable accepting him. Pt has been accepted after Peer to Peer completed by previous provider to go to [facility] to continue weaning O2 --> currently a process must be completed prior to arranging d/c to the facility as noted above. Admission and Anticipated Discharge Date Admission Date: September 23, 2021 Subjective Patient seen on daily rounds today. Has no complaints today. He reports not feeling overly short of breath while toileting like he was before. Only c/o rib pain which was felt to be more of an intercostal muscle strain. Oxygen still drops with minimal exertion and although requires uptitration, is able to be weaned back down at rest. On bedside examination today, pulse ox of 95-96% on 12L. I stayed at bedside and was able to wean him down to 2L via oxymask maintaining a pulse ox of 92% and no complaints from the patient of feeling short of breath. Review of Systems Review of Systems: CONSTITUTIONAL: Denies weight loss/gain, fever and chills, fatigue, malaise, generalized weakness. HEENT: Denies changes in vision and hearing. RESPIRATORY: Denies SOB, cough, wheezing. CV: Denies palpitations, CP, lower extremity edema, orthopnea, PND. GI: Denies abdominal pain, nausea, vomiting and diarrhea. : Denies dysuria and urinary frequency, urgency, hesitancy. MUSCULOSKELETAL: Denies myalgia and joint pain. SKIN: Denies rash and pruritus. NEUROLOGICAL: Denies headache, syncope, focal weakness, numbness, tingling. PSYCHIATRIC: Denies recent changes in mood. Denies anxiety and depression. Physical Exam Physical Exam: GENERAL: 61 yo Well-developed, well-nourished WM. NAD. LUNGS: Good air movement. LLL crackles. No wheezes or rhonchi. CARDIOVASCULAR: Regular rate and rhythm. No M/G/R. No JVD. ABDOMEN: Soft, non-tender and non-distended. Bowel sounds normoactive x 4 quad. EXTREMITIES: No edema. Non-tender. Peripheral pulses +2/4. NEUROLOGIC: A&O x3. PSYCHIATRIC: Cooperative. Appropriate mood and affect. SKIN: Warm, dry, intact. No rashes or lesions. Results & Data Results & Data ([facility]) Vital Signs (Past 12 Hours) Vital Signs Temp Pulse Resp BP Pulse Ox 10/27/21 07:22 37.3 C 86 16 130/88 95 Laboratory Results No labs PG Care Time/CCT Total # of Minutes Spent Total Time Spent with Patient: Total time spent is greater than 50% in coordination of care (as documented) at patient's floor/unit and/or counseling patient: Coding Level of Care Code 95569 Subseq Hosp Care Lvl 2 Diagnoses Intercostal muscle strain S29.011A 2018 novel coronavirus-infected pneumonia (NCIP) U07.1; J12.82 Acute respiratory failure with hypoxia J96.01 Encephalopathy acute G93.40 KASSIDY (acute kidney injury) N17.9 Type 2 diabetes mellitus E11.9 Constipation K59.00
[2021-10-27] MEDS: QUEtiapine FUMARATE 25 MG TABLET PO SCH (20:33)
[2021-10-27] MEDS: GABAPENTIN 300 MG CAP PO SCH (20:33)
[2021-10-28] MEDS: POLYETHYLENE (MIRALAX) 17 GM PACK PO SCH (08:39)
[2021-10-28] MEDS: MULTIVITAMIN TAB PO SCH (08:39)
[2021-10-28] MEDS: ENOXAPARIN INJ 40 MG/0.4 ML SYR SQ SCH (08:39)
[2021-10-28] MEDS: PANTOprazole 40 MG TAB PO SCH (08:39)
[2021-10-28] MEDS: DOCUSATE SODIUM/SENNA 50/8.6MG TAB PO SCH ×2 (08:39→19:50)
[2021-10-28] MEDS: FAMOTIDINE 20 MG TAB PO SCH ×2 (08:39→19:51)
[2021-10-28] MEDS: THIAMINE HCL 200 MG in SODIUM CHLORIDE 0.9% 50 ML IV SCH (08:39)
--- NOTE | 2021-10-28 12:50 | Hospitalist Progress Note ---
Date of Service October 28, 2021 Assessment & Plan (1) Intercostal muscle strain: Plan: On 10/26, patient complaining of right rib pain that seems to be related to him pulling himself up in the bed with his arms No rash or evidence of shingles Tender upon palpation in the intercostal space Suspect musculoskeletal and intercostal strain We will watch closely for evidence of development of rash but do not suspect shingles at this time We will allow for naproxen as needed for pain Patient encouraged to avoid this repetitive movement with his arms amenities pulling himself up in the bed (2) 2018 novel coronavirus-infected pneumonia (NCIP): Plan: Unvaccinated First symptoms: 09/14/21 First positive test: 09/23/21 Off isolation 10/14/21 Remdesivir -- did not qualify for by time course Dexamethasone 10mg IV daily discontinued 10/09/2021 Baricitinib/Tocilizumab - CRP not elevated therefore did not qualify (was 3.84 at max) Intermittent Lasix provided Patient progressed to intubation on 09/30/2021 extubated in the morning on 10/07/21 Weaning O2 -- still requiring 2-5L O2 with rest and up to 15L with exertion Case management following for d/c planning, dispo: LTAC --[facility] [place]. He was denied by his insurance company. Peer to peer completed on 10/26 and approved by provider. Discussed with case management who reports that [facility] must now sign a case rate agreement with the patient's insurance company. 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 do not suspect PAD as no claudication. c/o only "burning in his feet") (7) Constipation: Plan: treated and resolved now on bowel regimen Plan: VTE Prophylaxis - Lovenox 40mg SQ daily Diet - regular, easy to chew and no straws Disposition - COVID Precautions d/c'd 10/14/21. Continue therapy services. Would benefit from an acute rehab stay following this hospitalization but due to him requiring significant amounts of O2 with minimal exertion, [facility] does not feel comfortable accepting him. Pt has been accepted after Peer to Peer completed by previous provider [facility] --> currently a process must be completed prior to arranging d/c to the facility as noted above. Admission and Anticipated Discharge Date Admission Date: September 23, 2021 Subjective Patient seen on daily rounds today. Has no complaints today. Only c/o rib pain which was felt to be more of an intercostal muscle strain. Oxygen still drops with minimal exertion and although requires uptitration, is able to be weaned back down at rest. Reports he was able to ambulate a good distance w/ PT but still requiring up to 15L w/ activity. On bedside examination 10/27, pulse ox of 95-96% on 12L. I stayed at bedside and was able to wean him down to 2L via oxymask. This morning, pt dropped into the 70s while sitting up at the bedside to void in the urinal. Increased to 5L via oxymask to allow him to recover. Review of Systems Review of Systems: CONSTITUTIONAL: Denies weight loss/gain, fever and chills, fatigue, malaise, generalized weakness. HEENT: Denies changes in vision and hearing. RESPIRATORY: Denies SOB, cough, wheezing. CV: Denies palpitations, CP, lower extremity edema, orthopnea, PND. GI: Denies abdominal pain, nausea, vomiting and diarrhea. : Denies dysuria and urinary frequency, urgency, hesitancy. MUSCULOSKELETAL: Denies myalgia and joint pain. SKIN: Denies rash and pruritus. NEUROLOGICAL: Denies headache, syncope, focal weakness, numbness, tingling. PSYCHIATRIC: Denies recent changes in mood. Denies anxiety and depression. Physical Exam Physical Exam: GENERAL: 61 yo Well-developed, well-nourished WM. NAD. LUNGS: Good air movement. LLL crackles. No wheezes or rhonchi. CARDIOVASCULAR: Regular rate and rhythm. No M/G/R. No JVD. ABDOMEN: Soft, non-tender and non-distended. Bowel sounds normoactive x 4 quad. EXTREMITIES: No edema. Non-tender. Peripheral pulses +2/4. NEUROLOGIC: A&O x3. PSYCHIATRIC: Cooperative. Appropriate mood and affect. SKIN: Warm, dry, intact. No rashes or lesions. Results & Data Results & Data ([facility]) Vital Signs (Past 12 Hours) Vital Signs Temp Pulse Resp BP Pulse Ox 10/28/21 07:49 36.9 C 91 H 16 115/76 93 PG Care Time/CCT Total # of Minutes Spent Total Time Spent with Patient: Total time spent is greater than 50% in coordination of care (as documented) at patient's floor/unit and/or counseling patient: Coding Level of Care Code 69950 Subseq Hosp Care Lvl 2 Diagnoses Intercostal muscle strain S29.011A 2018 novel coronavirus-infected pneumonia (NCIP) U07.1; J12.82 Acute respiratory failure with hypoxia J96.01 Encephalopathy acute G93.40 KASSIDY (acute kidney injury) N17.9 Type 2 diabetes mellitus E11.9 Constipation K59.00
[2021-10-28] MEDS: QUEtiapine FUMARATE 25 MG TABLET PO SCH (19:51)
[2021-10-28] MEDS: GABAPENTIN 300 MG CAP PO SCH (19:51)
[2021-10-29] MEDS: FAMOTIDINE 20 MG TAB PO SCH ×2 (07:49→21:14)
[2021-10-29] MEDS: PANTOprazole 40 MG TAB PO SCH (07:49)
[2021-10-29] MEDS: POLYETHYLENE (MIRALAX) 17 GM PACK PO SCH (07:49)
[2021-10-29] MEDS: MULTIVITAMIN TAB PO SCH (07:49)
[2021-10-29] MEDS: THIAMINE HCL 200 MG in SODIUM CHLORIDE 0.9% 50 ML IV SCH (07:49)
[2021-10-29] MEDS: ENOXAPARIN INJ 40 MG/0.4 ML SYR SQ SCH (07:50)
[2021-10-29] MEDS: DOCUSATE SODIUM/SENNA 50/8.6MG TAB PO SCH ×2 (07:50→21:14)
--- NOTE | 2021-10-29 11:50 | Hospitalist Progress Note ---
Date of Service October 29, 2021 Assessment & Plan (1) Intercostal muscle strain: Plan: On 10/26, patient complaining of right rib pain that seems to be related to him pulling himself up in the bed with his arms No rash or evidence of shingles Tender upon palpation in the intercostal space Suspect musculoskeletal and intercostal strain We will allow for naproxen as needed for pain Patient encouraged to avoid this repetitive movement with his arms amenities pulling himself up in the bed (2) 2018 novel coronavirus-infected pneumonia (NCIP): Plan: Unvaccinated First symptoms: 09/14/21 First positive test: 09/23/21 Off isolation 10/14/21 Remdesivir -- did not qualify for by time course Dexamethasone 10mg IV daily discontinued 10/09/2021 Baricitinib/Tocilizumab - CRP not elevated therefore did not qualify (was 3.84 at max) Intermittent Lasix provided Patient progressed to intubation on 09/30/2021 extubated in the morning on 10/07/21 Weaning O2 -- still requiring 2-5L O2 with rest and up to 15L with exertion Case management following for d/c planning, dispo: LTAC --[facility] [place]. He was denied by his insurance company. Peer to peer completed on 10/26 and approved by provider. Discussed with case management who reports that [facility] must now sign a case rate agreement with the patient's insurance company. [facility] discharged [facility] until this agreement is complete. 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 do not suspect PAD as no claudication. c/o only "burning in his feet") (7) Constipation: Plan: treated and resolved now on bowel regimen Plan: VTE Prophylaxis - Lovenox 40mg SQ daily Diet - regular, easy to chew and no straws Disposition - COVID Precautions d/c'd 10/14/21. Continue therapy services. Would benefit from an acute rehab stay following this hospitalization but due to him requiring significant amounts of O2 with minimal exertion, [facility] does not feel comfortable accepting him. Pt has been accepted after Peer to Peer completed by previous provider to go [facility] to [facility] --> currently a process must be completed prior to arranging d/c to the facility as noted above. D/W case management, agreement hasn't been completed yet by his insurance company and there are no beds at this time @ . Admission and Anticipated Discharge Date Admission Date: September 23, 2021 Subjective Patient seen on daily rounds today. Has no complaints today. Denies cp, dyspnea at rest, n/v/d, f/c, headache, or gu symptoms. Oxygen still drops with minimal exertion and although requires uptitration, is able to be weaned back down at rest. Reports he was able to ambulate a good distance w/ PT but still requiring up to 15L w/ activity. On bedside examination 10/27, pulse ox of 95-96% on 12L. I stayed at bedside and was able to wean him down to 2L via oxymask. Today, when I entered the room, pt up to 15L oxymask but this was after getting "washed up" with nursing. I was able to wean him back down to 3L oxymask during my exam. Review of Systems Review of Systems: CONSTITUTIONAL: Denies weight loss/gain, fever and chills, fatigue, malaise, generalized weakness. HEENT: Denies changes in vision and hearing. RESPIRATORY: Denies SOB, cough, wheezing. CV: Denies palpitations, CP, lower extremity edema, orthopnea, PND. GI: Denies abdominal pain, nausea, vomiting and diarrhea. : Denies dysuria and urinary frequency, urgency, hesitancy. MUSCULOSKELETAL: Denies myalgia and joint pain. SKIN: Denies rash and pruritus. NEUROLOGICAL: Denies headache, syncope, focal weakness, numbness, tingling. PSYCHIATRIC: Denies recent changes in mood. Denies anxiety and depression. Physical Exam Physical Exam: GENERAL: 61 yo Well-developed, well-nourished WM. NAD. LUNGS: Good air movement. Fine LLL crackles. No wheezes or rhonchi. CARDIOVASCULAR: Regular rate and rhythm. No M/G/R. No JVD. ABDOMEN: Soft, non-tender and non-distended. Bowel sounds normoactive x 4 quad. EXTREMITIES: No edema. Non-tender. Peripheral pulses +2/4. NEUROLOGIC: A&O x3. PSYCHIATRIC: Cooperative. Appropriate mood and affect. SKIN: Warm, dry, intact. No rashes or lesions. Results & Data Results & Data ([facility]) Vital Signs (Past 12 Hours) Vital Signs Temp Pulse Resp BP Pulse Ox 10/29/21 10:16 93 10/29/21 07:25 37.2 C 97 H 18 115/79 94 Laboratory Results No labs PG Care Time/CCT Total # of Minutes Spent Total Time Spent with Patient: Total time spent is greater than 50% in coordination of care (as documented) at patient's floor/unit and/or counseling patient: Coding Level of Care Code 81518 Subseq Hosp Care Lvl 2 Diagnoses Intercostal muscle strain S29.011A 2018 novel coronavirus-infected pneumonia (NCIP) U07.1; J12.82 Acute respiratory failure with hypoxia J96.01 Encephalopathy acute G93.40 KASSIDY (acute kidney injury) N17.9 Type 2 diabetes mellitus E11.9 Constipation K59.00
[2021-10-29] MEDS: QUEtiapine FUMARATE 25 MG TABLET PO SCH (21:14)
[2021-10-29] MEDS: GABAPENTIN 300 MG CAP PO SCH (21:14)
[2021-10-30] MEDS: PANTOprazole 40 MG TAB PO SCH (08:26)
[2021-10-30] MEDS: FAMOTIDINE 20 MG TAB PO SCH ×2 (08:26→20:41)
[2021-10-30] MEDS: POLYETHYLENE (MIRALAX) 17 GM PACK PO SCH (08:26)
[2021-10-30] MEDS: ENOXAPARIN INJ 40 MG/0.4 ML SYR SQ SCH (08:26)
[2021-10-30] MEDS: DOCUSATE SODIUM/SENNA 50/8.6MG TAB PO SCH ×2 (08:26→20:41)
[2021-10-30] MEDS: MULTIVITAMIN TAB PO SCH (08:26)
[2021-10-30] MEDS: THIAMINE HCL 200 MG in SODIUM CHLORIDE 0.9% 50 ML IV SCH (08:27)
--- NOTE | 2021-10-30 10:34 | Hospitalist Progress Note ---
Date of Service October 30, 2021 Assessment & Plan (1) Intercostal muscle strain: Plan: On 10/26, patient complaining of right rib pain that seems to be related to him pulling himself up in the bed with his arms No rash or evidence of shingles Tender upon palpation in the intercostal space c/w strain Naproxen as needed for pain Patient encouraged to avoid this repetitive movement with his arms amenities pulling himself up in the bed (2) 2018 novel coronavirus-infected pneumonia (NCIP): Plan: Unvaccinated First symptoms: 09/14/21 First positive test: 09/23/21 Off isolation 10/14/21 Remdesivir -- did not qualify for by time course Dexamethasone 10mg IV daily discontinued 10/09/2021 Baricitinib/Tocilizumab - CRP not elevated therefore did not qualify (was 3.84 at max) Intermittent Lasix provided Patient progressed to intubation on 09/30/2021 extubated in the morning on 10/07/21 Weaning O2 -- still requiring 2-5L O2 with rest and up to 15L with exertion Case management following for d/c planning, dispo: LTAC --[facility] [place]. He was denied by his insurance company. Peer to peer completed on 10/26 and approved by provider. Discussed with case management who reports that [facility] must now sign a case rate agreement with the patient's insurance company. [facility] until this agreement is complete. 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 Continue therapy services. Would benefit from an acute rehab stay following this hospitalization but due to him requiring significant amounts of O2 with exertion, subsequently [facility] does not feel comfortable accepting him. Pt has been accepted after Peer to Peer completed by previous provider to go to [facility] to continue [facility] O[facility] --> currently a process must be completed prior to arranging d/c to the facility as noted above. D/W case management, agreement hasn't been completed yet by his insurance company and there are no beds at this time @ . Admission and Anticipated Discharge Date Admission Date: September 23, 2021 Subjective Patient seen on daily rounds today. Has no complaints today. Denies cp, dyspnea at rest, n/v/d, f/c, headache, or gu symptoms. Oxygen still drops with minimal exertion and although requires uptitration, is able to be weaned back down at rest. Reports he was able to ambulate a good distance w/ PT but still requiring up to 15L w/ activity. Overall, O2 requirements are minimal when resting, has been maintained on 2-3L via oxymask. RN having issues keeping oxygen sats up but appears pt transitioned from oxymask yesterday to nasal cannula. Currently w/o complaints of shortness of breath. She has changed his finger probe. She notes uptitrating the oxygen does not seem to be making any difference. Review of Systems Review of Systems: CONSTITUTIONAL: Denies weight loss/gain, fever and chills, fatigue, malaise, generalized weakness. HEENT: Denies changes in vision and hearing. RESPIRATORY: +dyspnea w/ exertion. Denies SOB @ rest, cough, wheezing. CV: Denies palpitations, CP, lower extremity edema, orthopnea, PND. GI: Denies abdominal pain, nausea, vomiting and diarrhea. : Denies dysuria and urinary frequency, urgency, hesitancy. MUSCULOSKELETAL: Denies myalgia and joint pain. SKIN: Denies rash and pruritus. NEUROLOGICAL: Denies headache, syncope, focal weakness, numbness, tingling. PSYCHIATRIC: Denies recent changes in mood. Denies anxiety and depression. Physical Exam Physical Exam: GENERAL: 61 yo Well-developed, well-nourished WM. NAD. LUNGS: Good air movement. Fine LLL crackles. No wheezes or rhonchi. CARDIOVASCULAR: Regular rate and rhythm. No M/G/R. No JVD. ABDOMEN: Soft, non-tender and non-distended. Bowel sounds normoactive x 4 quad. EXTREMITIES: No edema. Non-tender. Peripheral pulses +2/4. NEUROLOGIC: A&O x3. PSYCHIATRIC: Cooperative. Appropriate mood and affect. SKIN: Warm, dry, intact. No rashes or lesions. Results & Data Results & Data ([facility]) Vital Signs (Past 12 Hours) Vital Signs Temp Pulse Resp BP Pulse Ox 10/30/21 07:45 37 C 94 H 16 118/81 91 10/30/21 06:34 94 10/30/21 05:59 95 10/30/21 05:34 96 10/30/21 04:40 93 10/30/21 00:33 91 10/29/21 23:24 95 10/29/21 22:34 36.5 C 105 H 21 115/79 91 Laboratory Results No labs PG Care Time/CCT Total # of Minutes Spent Total Time Spent with Patient: Total time spent is greater than 50% in coordination of care (as documented) at patient's floor/unit and/or counseling patient: Coding Level of Care Code 84653 Subseq Hosp Care Lvl 2 Diagnoses Intercostal muscle strain S29.011A 2018 novel coronavirus-infected pneumonia (NCIP) U07.1; J12.82 Acute respiratory failure with hypoxia J96.01 Encephalopathy acute G93.40 KASSIDY (acute kidney injury) N17.9 Type 2 diabetes mellitus E11.9 Constipation K59.00
[2021-10-30] MEDS ORDERED: ENOXAPARIN INJ 40 MG/0.4 ML SYR SQ ONE (11:20)
[2021-10-30] MEDS ORDERED: OPTIRAY 320 125ml IV ONE (12:42)
--- NOTE | 2021-10-30 12:51 | CT Scan Report ---
CT angio chest PE protocol CLINICAL HISTORY: PE TECHNIQUE: Multidetector row helical CT of the chest was performed. Coronal and sagittal reformations were obtained. Coronal and sagittal MIPS were obtained from the axial data set and were submitted fo r review. Automated dose lowering techniques and/or adjustment according to patient size were utiliz ed for this exam. Comparison: Comparison is made to CT chest 10/20/2021 FINDINGS: Lungs and pleura: Extensive airspace and reticular opacities are seen compatible with history of doris l pneumonia. Heart and pericardium: There is cardiomegaly without evidence of pericardial effusion. Vessels: No evidence of pulmonary embolism. Mediastinum and krishna: Subcentimeter lymph nodes are seen. Chest wall and lower neck: Unremarkable. Abdomen: Partial visualization of multiple hepatic cysts. Bones: Unremarkable. IMPRESSION: 1. No evidence of pulmonary embolism. 2. Diffuse airspace opacities compatible with history of Covid pneumonia. ACT 112: Negative or not required by law. Electronically signed by: Ramiro Jackson M.D. 10/30/2021 12:49 PM
[2021-10-30] MEDS ORDERED: FUROSEMIDE 40 MG/4 ML VIAL IV ONE (13:27)
--- NOTE | 2021-10-30 20:12 | Communication Note ---
Date of Service: October 30, 2021 Informed by RT of patient's increased O2 requirement after desatting to 70s when going to the restroom. Currently on maxed high flow 55L, saturating mid-upper 80s. Discussed w/ nruse. Patient has had progressively increasing O2 requirement today and was on 40L high flow by late afternoon. CTA checked during the day was negative for PE, but showed "Extensive airspace and reticular opacities are seen compatible with history of viral pneumonia." I am checking an ecg (tachycardic 110s, r/o afib), ABG, cbc (check for leukocytosis), procalc, and BMP/Mg. On exam, there was LLL crackles and right lung field had some high pitched brief inspiratory wheezes. Will trial a Xopenex/ipratropium treatment.
[2021-10-30] MEDS ORDERED: IPRATROPIUM BROMIDE NEB SOLN 0.02% 2.5 ML VIAL INH STA (20:14)
[2021-10-30] MEDS ORDERED: XOPENEX/ATROVENT 0.63mg/0.5MG NEB COMBO NEB STA (20:14)
[2021-10-30] MEDS ORDERED: LEVALBUTEROL HCL 0.63 MG/3 ML NEB NEB STA (20:14)
[2021-10-30] MEDS: QUEtiapine FUMARATE 25 MG TABLET PO SCH (20:41)
[2021-10-30] MEDS: GABAPENTIN 300 MG CAP PO SCH (20:41)
[2021-10-30 20:44] LABS: Basophils # (auto) 0.12 K/uL (0-0.2); Basophils % (auto) 1.3 %; Eosinophils # (auto) 0.12 K/uL (0-0.5); Eosinophils % (auto) 1.3 %; Hematocrit (blood only) 44.6 % (42-52); Hemoglobin 14.9 g/dL (14.0-18.0); Immature Granulocytes # (auto) 0.05 K/uL (0.00-0.02); Immature Granulocytes % (auto) 0.5 %; Lymphocytes # (auto) 1.97 K/uL (1.2-3.4); Lymphocytes % (auto) 21.3 %; Mean Corpuscular Hemoglobin 31.4 pg (25-34); Mean Corpuscular Volume 94.1 fL (80-100); Mean Platelet Volume 9.4 fL (7.4-10.4); Monocytes # (auto) 1.08 K/uL (0.11-0.59); Monocytes % (auto) 11.7 %; Neutrophils % (auto) 63.9 %; Platelet Count 462 K/uL (130-400); RDW Coefficient of Variation 13.3 % (11.5-14.5); RDW Standard Deviation 45.7 fL (36.4-46.3); Red Blood Count 4.74 M/uL (4.7-6.1); White Blood Count 9.24 K/uL (4.8-10.8)
[2021-10-30 20:47] LABS: Base Excess ABG 1.6 mEq/L (-9-1.8); HCO3 ABG 25 mmol/L (19-24); Oxygen Saturation ABG 92.3 % (90-95); PCO2 ABG 34 mmHg (35-46); PO2 ABG 58 mmHg (80-95); pH ABG 7.48 (7.35-7.45)
[2021-10-30 20:51] LABS: Allen Test POS (Pos)
[2021-10-30] MEDS ORDERED: ENOXAPARIN 80 MG/0.8 ML SYR SQ SCH (21:00)
[2021-10-30 21:02] LABS: BUN Creatinine Ratio 18.5 (10-20); Calcium 9.5 mg/dl (8.5-10.1); Creatinine Clr Calc Pharmacy 56.2 ml/min; Est GFR (African American) 65.2 ml/min; Est GFR (Non-African American) 56.3 ml/min; Magnesium 1.9 mg/dl (1.7-2.4); Potassium 3.9 mmol/L (3.5-5.1)
[2021-10-30 21:03] LABS: Mean Corpuscular Hgb Conc 33.4 g/dL (32-36)
[2021-10-30] MEDS ORDERED: FUROSEMIDE 40 MG/4 ML VIAL IV STA (21:09)
[2021-10-30 22:33] LABS: Thyroid Stimulating Hormone 6.397 uIu/ml (0.300-4.500)
[2021-10-30 23:08] LABS: T4 Free Thyroxine 0.78 ng/dl (0.61-1.60)
[2021-10-31 06:34] LABS: Basophils # (auto) 0.07 K/uL (0-0.2); Basophils % (auto) 0.7 %; Eosinophils # (auto) 0.12 K/uL (0-0.5); Eosinophils % (auto) 1.2 %; Hematocrit (blood only) 46.7 % (42-52); Hemoglobin 15.6 g/dL (14.0-18.0); Immature Granulocytes # (auto) 0.03 K/uL (0.00-0.02); Immature Granulocytes % (auto) 0.3 %; Lymphocytes # (auto) 1.48 K/uL (1.2-3.4); Lymphocytes % (auto) 14.4 %; Mean Corpuscular Hemoglobin 31.5 pg (25-34); Mean Corpuscular Hgb Conc 33.4 g/dL (32-36); Mean Corpuscular Volume 94.3 fL (80-100); Mean Platelet Volume 9.5 fL (7.4-10.4); Monocytes # (auto) 0.89 K/uL (0.11-0.59); Monocytes % (auto) 8.6 %; Neutrophils % (auto) 74.8 %; Platelet Count 432 K/uL (130-400); RDW Coefficient of Variation 13.4 % (11.5-14.5); RDW Standard Deviation 46.1 fL (36.4-46.3); Red Blood Count 4.95 M/uL (4.7-6.1); White Blood Count 10.29 K/uL (4.8-10.8)
[2021-10-31 06:53] LABS: BUN Creatinine Ratio 19.4 (10-20); Calcium 9.4 mg/dl (8.5-10.1); Creatinine Clr Calc Pharmacy 52.7 ml/min; Est GFR (African American) 60.3 ml/min; Potassium 3.8 mmol/L (3.5-5.1)
[2021-10-31 08:20] LABS: iSTAT Allen Test Pass; iSTAT Arterial Blood Gas HCO3 29 meg/L (19-24); iSTAT Arterial Blood Gas pCO2 36 mmHg (35-46); iSTAT Arterial Blood Gas pH 7.51 (7.35-7.45); iSTAT Arterial Blood Gas pO2 148 mmHg (80-95); iSTAT Carbon Dioxide 30 mmol/L (24-31); iSTAT Site L Radial
--- NOTE | 2021-10-31 09:27 | Hospitalist Progress Note ---
Date of Service October 31, 2021 Assessment & Plan (1) Acute respiratory failure with hypoxia: Plan: Secondary to COVID-19 pneumonia and now ?post-covid effects, ABG ordered by resident reviewed, no hypercapnia, respiratory alkalosis mechanical ventilation for 8 days (09/30 to 10/07) Currently on heated high flow nasal cannula with marginal sats and tachycardia as well as tachypnea Transition to BiPAP, currently maxed out at 100% FiO2 Case discussed with Jerad Cohen PA-C for pulmonology, consult placed, appreciate recommendations Initiate daily IV diuresis with Lasix 40 mg, aim for negative net fluid balance each day as long as renal function will tolerate Scheduled nebs with Xopenex and Atrovent every 6 hours Resume systemic steroids in the form of methylprednisolone 60 mg IV every 8 hours Prognosis guarded at this time Discussed in great detail that if he fails BiPAP next step will be intubation on ventilatory support At this time, patient remains a full code, however he is unsure if he would want to be reintubated. We will allow him and his time to discuss prior to making any changes at this time. (2) 2019 novel coronavirus-infected pneumonia (NCIP): Plan: Unvaccinated First symptoms: 09/14/21 First positive test: 09/23/21 Off isolation 10/14/21 Remdesivir -- did not qualify for by time course Dexamethasone 10mg IV daily discontinued 10/09/2021 Baricitinib/Tocilizumab - CRP not elevated therefore did not qualify (was 3.84 at max) Intermittent Lasix provided Patient progressed to intubation on 09/30/2021 extubated in the morning on 10/07/21 (3) Intercostal muscle strain: Plan: On 10/26, patient complaining of right rib pain that seems to be related to him pulling himself up in the bed with his arms No rash or evidence of shingles Tender upon palpation in the intercostal space c/w strain Naproxen as needed for pain Patient encouraged to avoid this repetitive movement with his arms amenities pulling himself up in the bed (4) Encephalopathy acute: Plan: RESOLVED Pt had escalated excited delirium that was multifactorial, from covid, steroids and 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 started on precedex but ultimately required intubation Continue seroquel 50mg PO HS as this appears to be helping him at night Speech eval, video swallow with aspiration of thin liquids, recommend no straws, and safe swallowing techniques (5) KASSIDY (acute kidney injury): Plan: Creatinine is up trending however this is in the setting of IV diuretic use Will continue to monitor closely (6) Type 2 diabetes mellitus: Plan: HbA1C 7.0 Resume Accu-Cheks before meals and at bedtime, anticipate need for mealtime insulin correction due to resuming steroids Change diet to diabetic started on Neurontin for "burning in feet" likely related to neuropathy which has improved (7) Constipation: Plan: treated and resolved now on bowel regimen Plan: VTE Prophylaxis - Lovenox 40mg SQ daily Diet - diabetic, easy to chew and no straws Disposition - unfortunately due to his worsening acute hypoxemic respiratory failure, patient will require ongoing hospitalization. As noted above his prognosis is guarded at this time. He will need to remain on bedrest for now. Hold therapy services. These can be resumed if and when his respiratory status improves. Post discharge plan is for [facility] stable [facility] [place] He was denied by his insurance company. Peer to peer completed on 10/26 and approved by provider. Discussed with case management who reports that [facility] must now sign a case rate agreement with the patient's insurance company. However, patient cannot be discharged until he is medically stable. I rounded a second time on this patient today along with Dr. Bhatia. Admission and Anticipated Discharge Date Admission Date: September 23, 2021 Subjective Patient seen first on daily rounds today. Yesterday afternoon, patient was transitioned to HFNC and then to HHFNC d/t hypoxia w/ increasing oxygen requirem ents. Etiology of this abrupt change is not entirely clear. He underwent CTA chest which was negative for PE but again demonstrated patchy bilateral opacities c/w recent viral pneumonia. Medicated with a dose of IV Lasix 40mg x1 with adequate response. Following his transition to HHFNC, RT was able to wean him down to 30L and 60% FiO2. A BNP was ordered and WNL. However, overnight, appears that patient was maxed out on HHFNC and resident personal computer network analyst switched him to BiPAP. STAT labs were obtained including CRP, Procal, CBC, TSH, mag, and BMP. EKG obtained as well showing sinus tach. Procal and CRP WNL. WBC normal. No electrolyte abnormalities noted on exam. TSH mildly elevated w/ normal FT4. Mag normal. His ABG demonstrated respiratory alkalosis w/ elevated pO2 c/w over- oxygenation. This morning, pt has been transitioned back to FNC, but his oxygen saturation is marginal on this. Despite all of this, pt remains fairly asymptomatic. He denies chest pain, dyspnea, or cough. He denies wheezing. He remains afebrile. At this time, he remains a full code. When I first discussed code status he was requesting DNI, but then reverted back and stated he wasn't sure. He would like to discuss further with his prior to making a decision. Patient being transitioned from med/surg down to PCU for closer hemodynamic monitoring. Review of Systems Review of Systems: CONSTITUTIONAL: Denies weight loss/gain, fever and chills, fatigue, malaise, generalized weakness. HEENT: Denies changes in vision and hearing. RESPIRATORY: +dyspnea w/ exertion. Denies SOB @ rest, cough, wheezing. CV: Denies palpitations, CP, lower extremity edema, orthopnea, PND. GI: Denies abdominal pain, nausea, vomiting and diarrhea. : Denies dysuria and urinary frequency, urgency, hesitancy. MUSCULOSKELETAL: Denies myalgia and joint pain. SKIN: Denies rash and pruritus. NEUROLOGICAL: Denies headache, syncope, focal weakness, numbness, tingling. PSYCHIATRIC: Denies recent changes in mood. Denies anxiety and depression. Physical Exam Physical Exam: GENERAL: 61 yo Well-developed, well-nourished WM. NAD. LUNGS: No accessory muscle use at this time. LLL crackles. No wheezes or rhonchi. CARDIOVASCULAR: S1, S2, Tachycardic. No M/G/R. ABDOMEN: Soft, non-tender and non-distended. Bowel sounds normoactive x 4 quad. EXTREMITIES: No edema. Non-tender. Peripheral pulses +2/4. NEUROLOGIC: A&O x3. PSYCHIATRIC: Cooperative. Appropriate mood and affect. SKIN: Warm, dry, intact. No rashes or lesions. Results & Data Results & Data ([facility]) Vital Signs (Past 12 Hours) Vital Signs Temp Pulse Pulse Resp BP Pulse Ox 10/31/21 08:32 20 91 10/31/21 08:18 36.5 C 106 H 20 131/85 93 10/31/21 07:45 114 H 30 H 91 10/31/21 03:31 117 H 16 93 10/30/21 23:36 94 10/30/21 22:36 113 H 24 92 10/30/21 22:34 111 H 40 H 89 L 10/30/21 22:10 36.4 C L 110 H 24 111/79 88 L Laboratory Results 10/31/21 06:06 10/31/21 06:06 Diagnostic Findings Chest CTA 10/30/21 11:36 CT angio chest PE protocol CLINICAL HISTORY: PE TECHNIQUE: Multidetector row helical CT of the chest was performed. Coronal and sagittal reformations were obtained. Coronal and sagittal MIPS were obtained from the axial data set and were submitted for review. Automated dose lowering techniques and/or adjustment according to patient size were utilized for this exam. Comparison: Comparison is made to CT chest 10/20/2021 FINDINGS: Lungs and pleura: Extensive airspace and reticular opacities are seen compatible with history of viral pneumonia. Heart and pericardium: There is cardiomegaly without evidence of pericardial effusion. Vessels: No evidence of pulmonary embolism. Mediastinum and krishna: Subcentimeter lymph nodes are seen. Chest wall and lower neck: Unremarkable. Abdomen: Partial visualization of multiple hepatic cysts. Bones: Unremarkable. IMPRESSION: 1. No evidence of pulmonary embolism. 2. Diffuse airspace opacities compatible with history of Covid pneumonia. ACT 112: Negative or not required by law. Electronically signed by: Ramiro Jackson M.D. 10/30/2021 12:49 PM PG Care Time/CCT Total # of Minutes Spent Total Time Spent with Patient: Total time spent is greater than 50% in coordination of care (as documented) at patient's floor/unit and/or counseling patient: Coding Level of Care Code 04445 Subseq Hosp Care Lvl 3 Diagnoses Intercostal muscle strain S29.011A 2019 novel coronavirus-infected pneumonia (NCIP) U07.1; J12.82 Acute respiratory failure with hypoxia J96.01 Encephalopathy acute G93.40 KASSIDY (acute kidney injury) N17.9 Type 2 diabetes mellitus E11.9 Constipation K59.00
[2021-10-31] MEDS: ENOXAPARIN INJ 40 MG/0.4 ML SYR SQ SCH (09:37)
[2021-10-31] MEDS: PANTOprazole 40 MG TAB PO SCH (09:37)
[2021-10-31] MEDS: FAMOTIDINE 20 MG TAB PO SCH ×2 (09:37→21:44)
[2021-10-31] MEDS: DOCUSATE SODIUM/SENNA 50/8.6MG TAB PO SCH ×2 (09:37→21:43)
[2021-10-31] MEDS: POLYETHYLENE (MIRALAX) 17 GM PACK PO SCH (09:37)
[2021-10-31] MEDS: MULTIVITAMIN TAB PO SCH (09:37)
[2021-10-31] MEDS: THIAMINE HCL 200 MG in SODIUM CHLORIDE 0.9% 50 ML IV SCH (09:38)
[2021-10-31] MEDS: FUROSEMIDE 40 MG/4 ML VIAL IV SCH (10:28)
[2021-10-31] MEDS: methylPREDNISolone 60 MG in SYRINGE 0 ML IV SCH ×2 (10:57→18:45)
[2021-10-31] MEDS ORDERED: XOPENEX/ATROVENT 1.25mg/0.5MG NEB COMBO NEB SCH (13:00)
[2021-10-31] MEDS: IPRATROPIUM BROMIDE NEB SOLN 0.02% 2.5 ML VIAL INH SCH ×3 (13:09→23:56)
[2021-10-31] MEDS: LEVALBUTEROL 1.25MG/0.5ML NEB INH SCH ×3 (13:09→23:56)
--- NOTE | 2021-10-31 15:38 | Electrocardiogram Report ---
Test Reason : Blood Pressure : / mmHG Vent. Rate : 108 BPM Atrial Rate : 108 BPM P-R Int : 186 ms QRS Dur : 086 ms QT Int : 342 ms P-R-T Axes : 024 001 -20 degrees QTc Int : 458 ms Sinus tachycardia with occasional Premature ventricular complexes Minimal voltage criteria for LVH, may be normal variant Borderline ECG When compared with ECG of 21-OCT-2021 06:17, Premature ventricular complexes are now Present Confirmed by Hebert Diop ([id number]) on 10/31/2021 3:38:39 PM Referred By: REFERRED SELF Confirmed By:Isrrael Diop
[2021-10-31 17:01] LABS: Adenovirus PCR Not Detected (NotDetected); Bordetella parapertussis PCR Not Detected (NotDetected); Bordetella pertussis PCR Not Detected (NotDetected); Chlamydia pneumoniae PCR Not Detected (NotDetected); Coronavirus 229E PCR Not Detected (NotDetected); Coronavirus CoV-2 (COVID19)PCR Not Detected (NotDetected); Coronavirus HKU1 PCR Not Detected (NotDetected); Coronavirus NL63 PCR Not Detected (NotDetected); Coronavirus OC43PCR Not Detected (NotDetected); Human Metapneumovirus PCR Not Detected (NotDetected); Influenza A PCR Not Detected (NotDetected); Influenza B PCR Not Detected (NotDetected); Mycoplasma pneumoniae PCR Not Detected (NotDetected); Parainfluenza Virus 1 PCR Not Detected (NotDetected); Parainfluenza Virus 2 PCR Not Detected (NotDetected); Parainfluenza Virus 3 PCR Not Detected (NotDetected); Parainfluenza Virus 4 PCR Not Detected (NotDetected); Respiratory Syncytial VirusPCR Not Detected (NotDetected); Rhinovirus/Enterovirus PCR Not Detected (NotDetected)
--- NOTE | 2021-10-31 19:24 | Pulmonology Progress Note ---
Date of Service October 31, 2021 Assessment & Plan (1) Acute respiratory failure with hypoxia: (2) 2019 novel coronavirus-infected pneumonia (NCIP): Plan: Attending: Dr. Myers Impression: 61-year-old male that is unvaccinated. He first had symptoms 09/14/2021. First positive test 09/23/2021. The patient was intubated from 09/30/2021 to 10/07/2021. At that time he seemed to show significant improvement and was doing well until he had sudden decompensation. He was transferred to the PCU today and was diuresed with furosemide. He is currently getting systemic steroids with methylprednisolone 60 mg every 8 hours. Over the last 24 hours he has had progression from nasal cannula to high flow to BiPAP. Patient currently denies fever, chills, sweats, rigors. He has no other acute complaints other than shortness of breath. Recommendations: 1. Respiratory failure with hypoxia: * Patient appears to have developing pulmonary fibrosis on CTA of chest today * No evidence of pulmonary embolus * ABG reveals alkalosis with no hypercapnia * Patient continues on methylprednisolone 60 mg every 8 hours and is now on BiPAP * Long discussion today with patient about poor prognosis due to pulmonary fibrosis * At this time the option would be to reintubate the patient with expectation of tracheostomy tube placement and PEG tube placement with transfer to an LTACH * question possibility of transfer to a tertiary facility for ECMO. At this point based on patient's age and length of care he would not be eligible for ECMO at this time * Patient's also stated that [facility] excepting patients for ECMO. I told her that I would call them tomorrow to explore this option * For now, maintain SaO2 greater than 90%. Patient with no history of tobacco abuse or other pulmonary failure in the past. 2. COVID-19/ARDs: * Patient admitted to the hospital 09/23/2021 and on mechanical ventilation from 09/30/2020 21-2 10/07/2021 * Patient did not receive remdesivir, baricitinib, tocilizumab * No elevation of CRP. 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 CODE STATUS: * Patient currently a full code. The patient elects not to be intubated, would discuss changing CODE STATUS to DNR/DNI as cardiac compressions would not be effective without mechanical ventilation Thank you for including us in the care of this patient. We will continue to follow along with you. Admission and Anticipated Discharge Date Admission Date: September 23, 2021 Subjective Attending: Dr. Myers Patient seen and examined in room 244. He is on BiPAP therapy. He seems to be comfortable with no acute distress but does seem to be worsening from a oxygenation standpoint. His is present with him in the room. He currently has no use of accessory muscles and respiratory rate is in the high teens and low 20s. He is requiring FiO2 of 100%. He denies any fever or chills. He has no chest pain or tightness. CTA of the chest was performed is negative for pulmonary embolus. Review of Systems Review of Systems: All systems reviewed & are unremarkable except as noted in Subjective Physical Exam Physical Exam: GENERAL : No acute distress EYES: No icterus, gaze conjugate NOSE: No evidence of epistaxis MOUTH: No lesions or candidiasis NECK: Supple LUNGS: Bibasilar crackles. HEART: Regular, rate controlled ABDOMEN: Soft, NT, ND, BS Present EXTREMITIES: No LE edema, pedal pulses intact NEURO: A&OX3 Results & Data Results & Data ([facility]) Vital Signs (Past 12 Hours) Vital Signs Temp Pulse Pulse Resp BP BP Pulse Ox 10/31/21 18:00 119 H 10/31/21 17:00 37.0 C 116 H 20 125/63 96 10/31/21 13:11 88 88 22 91 10/31/21 12:42 128 H 10/31/21 11:45 126 H 36 H 90 10/31/21 10:46 123 H 26 H 90 10/31/21 08:32 20 91 10/31/21 08:18 36.5 C 106 H 20 131/85 93 10/31/21 07:45 114 H 30 H 91 Critical Care Results & Data Vital Signs (Past 12 Hours) Vital Signs Temp Pulse Pulse Resp BP BP Pulse Ox 10/31/21 18:00 119 H 10/31/21 17:00 37.0 C 116 H 20 125/63 96 10/31/21 13:11 88 88 22 91 10/31/21 12:42 128 H 10/31/21 11:45 126 H 36 H 90 10/31/21 10:46 123 H 26 H 90 10/31/21 08:32 20 91 10/31/21 08:18 36.5 C 106 H 20 131/85 93 10/31/21 07:45 114 H 30 H 91 Lab & Micro Results (Past 24 Hours) RBC 4.95 M/uL (4.7-6.1) 10/31/21 WBC 10.29 K/uL (4.8-10.8) 10/31/21 Hgb 15.6 g/dL (14.0-18.0) 10/31/21 Hct 46.7 % (42-52) 10/31/21 MCV 94.3 fL (80-100) 10/31/21 MCH 31.5 pg (25-34) 10/31/21 MCHC 33.4 g/dL (32-36) 10/31/21 RDW Standard Deviation 46.1 fL (36.4-46.3) 10/31/21 RDW Coefficient of Variation 13.4 % (11.5-14.5) 10/31/21 Plt Count 432 K/uL (130-400) H 10/31/21 MPV 9.5 fL (7.4-10.4) 10/31/21 Neutrophils (%) (Auto) 74.8 % 10/31/21 Lymphocytes (%) (Auto) 14.4 % 10/31/21 Monocytes # (Auto) 0.89 K/uL (0.11-0.59) H 10/31/21 Eosinophils # (Auto) 0.12 K/uL (0-0.5) 10/31/21 Immature Granulocyte % (Auto) 0.3 % 10/31/21 Neutrophils # (Auto) 7.70 K/uL (1.4-6.5) H 10/31/21 Lymphocytes # (Auto) 1.48 K/uL (1.2-3.4) 10/31/21 Monocytes # (Auto) 0.89 K/uL (0.11-0.59) H 10/31/21 Eosinophils # (Auto) 0.12 K/uL (0-0.5) 10/31/21 Basophils # (Auto) 0.07 K/uL (0-0.2) 10/31/21 Immature Granulocyte # (Auto) 0.03 K/uL (0.00-0.02) H 10/31/21 Na 136 mmol/L (136-145) 10/31/21 K 3.8 mmol/L (3.5-5.1) 10/31/21 Cl 100 mmol/L (98-107) 10/31/21 CO2 25 mmol/L (21-32) 10/31/21 Anion Gap 11 (3-11) 10/31/21 BUN 28 mg/dl (6-23) H 10/31/21 Creatinine 1.44 mg/dl (0.6-1.4) H 10/31/21 Estimated GFR ( Amer) 60.3 ml/min 10/31/21 Estimated GFR (Non-Af Amer) 52.0 ml/min 10/31/21 BUN/Creatinine Ratio 19.4 (10-20) 10/31/21 Glu 243 mg/dl (70-99(Fasting)) H 10/31/21 Ca 9.4 mg/dl (8.5-10.1) 10/31/21 Mg 1.9 mg/dl (1.7-2.4) 10/30/21 20:20 10/30/21 Calcium Level 9.4 mg/dl (8.5-10.1) 10/31/21 06:06 10/31/21 Blood Gas Barometric Pressure 736.5 mm/Hg 10/30/21 20:36 10/30/21 Arterial Blood pH 7.48 (7.35-7.45) H 10/30/21 20:36 10/30/21 Arterial Blood Partial Pressure CO2 34 mmHg (35-46) L 10/30/21 20:36 10/30/21 Arterial Blood Partial Pressure O2 58 mmHg (80-95) L 10/30/21 20:36 10/30/21 Arterial Blood HCO3 25 mmol/L (19-24) H 10/30/21 20:36 10/30/21 Arterial Blood Base Excess 1.6 mEq/L (-9-1.8) 10/30/21 20:36 10/30/21 Arterial Blood Oxygen Saturation 92.3 % (90-95) 10/30/21 20:36 10/30/21 Blood Gas Oxygen Given 55 10/30/21 20:36 10/30/21 Stevie Test Pass 10/31/21 08:00 10/31/21 Blood Gas Barometric Pressure 736.5 mm/Hg 10/30/21 20:36 10/30/21 I & O Totals 24 Hours 10/30/21 10/31/21 11/01/21 06:59 06:59 06:59 Intake Total 427 / 427 152 / 152 327 / 327 Output Total 1376 / 1376 3825 / 3825 1200 / 1200 Balance -949 / -949 -3673 / -3673 -873 / -873 Cumulative 09/23/21 15:29 thru 10/31/21 16:27 Intake Total 76864.397 Output Total 39912 Balance -02681.603 RT Ventilator Mngmt (Last Documented) Ventilator Ordered Settings Ventilator Support Mode CPAP 10/07/21 10:55 Respiratory Rate 20 10/31/21 17:00 Ventilator Tidal Volume 420 10/07/21 08:00 Setting Minute Ventilation 12.1 10/07/21 10:55 Ventilator Positive Pressure 6 10/07/21 10:55 Support Setting Positive End Expiratory 5 10/07/21 10:55 Pressure Fraction of Inspired Oxygen 100 10/31/21 13:11 Machine Comment PEEP weaned at this time 10/06/21 07:40 Ventilator - PT Measurements Respiratory Rate 20 Exhaled Tidal Volume 514 Minute Ventilation 12.1 Peak Inspiratory Airway 14 Pressure Plateau Pressure 18 Respiratory Cycle Inspiratory: 1:5.6 Expiratory Ratio Inspiratory Phase Time 0.65 End-Tidal CO2 33 Static Lung Compliance 31.92 Dynamic Lung Compliance 57.11 Normal Static Lung Compliance 49.00 Patient Measurements Comment Patient extubated per verbal order from Dr. Garcia. Dr. Patrick and nurse at bedside. Patient tolerated extubation well. Placed on an aerosol trach collar. PG Care Time/CCT Total # of Minutes Spent Total Time Spent with Patient: Total time spent is greater than 50% in coordination of care (as documented) at patient's floor/unit and/or counseling patient: 45 minutes including discussion with patient and family Coding Level of Care Code 41306 Subseq Hosp Care Lvl 3 Diagnoses Acute respiratory failure with hypoxia J96.01 2019 novel coronavirus-infected pneumonia (NCIP) U07.1; J12.82 Time Spent (min) 45
[2021-10-31] MEDS: QUEtiapine FUMARATE 25 MG TABLET PO SCH (21:43)
[2021-10-31] MEDS: GABAPENTIN 300 MG CAP PO SCH (21:44)
[2021-11-01] MEDS: methylPREDNISolone 60 MG in SYRINGE 0 ML IV SCH ×3 (02:35→17:42)
[2021-11-01] MEDS: LEVALBUTEROL 1.25MG/0.5ML NEB INH SCH (06:42)
[2021-11-01] MEDS: IPRATROPIUM BROMIDE NEB SOLN 0.02% 2.5 ML VIAL INH SCH (06:42)
[2021-11-01 07:14] LABS: Basophils # (auto) 0.01 K/uL (0-0.2); Basophils % (auto) 0.1 %; Hemoglobin 15.3 g/dL (14.0-18.0); Immature Granulocytes # (auto) 0.04 K/uL (0.00-0.02); Immature Granulocytes % (auto) 0.3 %; Lymphocytes # (auto) 1.02 K/uL (1.2-3.4); Lymphocytes % (auto) 6.8 %; Mean Corpuscular Hemoglobin 31.1 pg (25-34); Mean Corpuscular Hgb Conc 33.3 g/dL (32-36); Mean Corpuscular Volume 93.5 fL (80-100); Mean Platelet Volume 9.5 fL (7.4-10.4); Monocytes # (auto) 0.46 K/uL (0.11-0.59); Monocytes % (auto) 3.1 %; Neutrophils # (auto) 13.42 K/uL (1.4-6.5); Neutrophils % (auto) 89.7 %; Platelet Count 478 K/uL (130-400); RDW Coefficient of Variation 13.4 % (11.5-14.5); RDW Standard Deviation 45.6 fL (36.4-46.3); Red Blood Count 4.92 M/uL (4.7-6.1); White Blood Count 14.95 K/uL (4.8-10.8)
[2021-11-01 07:49] LABS: Albumin Globulin Ratio 0.9 (0.9-2); Albumin Level 3.6 gm/dl (3.4-5.0); BUN Creatinine Ratio 30.8 (10-20); Bilirubin,Total 0.4 mg/dl (0.2-1.0); Calcium 10.1 mg/dl (8.5-10.1); Creatinine Clr Calc Pharmacy 52.2 ml/min; Est GFR (African American) 59.3 ml/min; Est GFR (Non-African American) 51.2 ml/min; Globulin 3.9 gm/dl (2.5-4.0); Potassium 4.4 mmol/L (3.5-5.1); Total Protein 7.5 gm/dl (6.0-8.3)
[2021-11-01] MEDS: PANTOprazole 40 MG TAB PO SCH (08:14)
[2021-11-01] MEDS: ENOXAPARIN INJ 40 MG/0.4 ML SYR SQ SCH (08:14)
[2021-11-01] MEDS: MULTIVITAMIN TAB PO SCH (08:14)
[2021-11-01] MEDS: FAMOTIDINE 20 MG TAB PO SCH ×2 (08:14→20:51)
[2021-11-01] MEDS: DOCUSATE SODIUM/SENNA 50/8.6MG TAB PO SCH ×2 (08:15→20:51)
[2021-11-01] MEDS: POLYETHYLENE (MIRALAX) 17 GM PACK PO SCH (08:15)
[2021-11-01] MEDS: FUROSEMIDE 40 MG/4 ML VIAL IV SCH (08:21)
[2021-11-01] MEDS: THIAMINE HCL 200 MG in SODIUM CHLORIDE 0.9% 50 ML IV SCH (08:23)
[2021-11-01] MEDS ORDERED: CARBOHYDRATES FOR HYPOGLYCEMIA PO PRN (08:45)
[2021-11-01] MEDS ORDERED: GLUCOSE 40% GEL 15 GM TUBE PO PRN (08:45)
[2021-11-01] MEDS ORDERED: GLUCAGON FOR INJ 1 MG VIAL IM PRN (08:45)
[2021-11-01] MEDS ORDERED: GLUCOSE 10 TABS/TUBE PO PRN (08:45)
[2021-11-01] MEDS ORDERED: DEXTROSE 50% 50 ML SYRINGE IV PRN (08:45)
[2021-11-01] MEDS: INSULIN ASPART PER UNIT SC SCH ×3 (11:52→20:56)
[2021-11-01] MEDS ORDERED: IPRATROPIUM BROMIDE NEB SOLN 0.02% 2.5 ML VIAL INH PRN (11:58)
[2021-11-01] MEDS ORDERED: LEVALBUTEROL 1.25MG/0.5ML NEB INH PRN (11:58)
--- NOTE | 2021-11-01 12:43 | Hospitalist Progress Note ---
Date of Service November 01, 2021 Assessment & Plan (1) Acute respiratory failure with hypoxia: Plan: Secondary to COVID-19 pneumonia and now ?post-covid effects, ABG ordered by resident reviewed, no hypercapnia, respiratory alkalosis mechanical ventilation for 8 days (09/30 to 10/07) Currently on heated high flow nasal cannula with appropriate O2 sat in low 90s Pulmonology following, appreciate their input and assistance Continue IV diuresis with Lasix 40 mg daily, aim for negative net fluid balance each day as long as renal function will tolerate Scheduled nebs with Xopenex and Atrovent every 6 hours Continue methylprednisolone 60 mg IV every 8 hours Prognosis remains guarded Discussed in great detail that if he fails BiPAP next step will be intubation on ventilatory support As noted above, pt wishes to be a full code (2) 2019 novel coronavirus-infected pneumonia (NCIP): Plan: Unvaccinated First symptoms: 09/14/21 First positive test: 09/23/21 Off isolation 10/14/21 Remdesivir -- did not qualify for by time course Dexamethasone 10mg IV daily discontinued 10/09/2021 Baricitinib/Tocilizumab - CRP not elevated therefore did not qualify (was 3.84 at max) Intermittent Lasix provided Patient progressed to intubation on 09/30/2021 extubated in the morning on 10/07/21 (3) Intercostal muscle strain: Plan: On 10/26, patient complained of right rib pain that seems to be related to him pulling himself up in the bed with his arms Treated with Naproxen, resolved Will stop naproxen at this time to avoid further nephrotoxicity (4) Encephalopathy acute: Plan: RESOLVED Pt had escalated excited delirium that was multifactorial, from covid, steroids and 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 started on precedex but ultimately required intubation Continue seroquel 50mg PO HS as this appears to be helping him at night Speech eval, video swallow with aspiration of thin liquids, recommend no str antonina, and safe swallowing techniques (5) KASSIDY (acute kidney injury): Plan: Creatinine is up trending however this is in the setting of IV diuretic use Will continue to monitor closely Stop naproxen as noted above (6) Type 2 diabetes mellitus: Plan: HbA1C 7.0 Resume Accu-Cheks before meals and at bedtime, anticipate need for mealtime insulin correction due to resuming steroids Change diet to diabetic started on Neurontin for "burning in feet" likely related to neuropathy which has improved (7) Constipation: Plan: treated and resolved now on bowel regimen (8) Leukocytosis: Plan: With neutrophil predominance, likely steroid-induced Plan: VTE Prophylaxis - Lovenox 40mg SQ daily Diet - diabetic, easy to chew and no straws Disposition - unfortunately due to his worsening acute hypoxemic respiratory failure, patient will require ongoing hospitalization. As noted above his prognosis is guarded at this time. He will need to remain on bedrest for now. Hold therapy services. These can be resumed if and when his respiratory status improves. Post discharge plan is for LT[facility] when medically stable ([facility] [place] He was denied by his insurance company. Peer to peer completed on 10/26 and approved by provider. Discussed with case management who reports that [facility] must now sign a case rate agreement with the patient's insurance company. Agreement has been completed between his insurance company and [facility]; however, patient cannot be discharged now until he is medically stable. Admission and Anticipated Discharge Date Admission Date: September 23, 2021 Subjective Patient seen on rounds today. He was transferred from med/surg floor to PCU on 10/31 due to worsening hypoxia with increasing oxygen requirements. Patient was maxed out on BiPAP yesterday afternoon. He was maintained on BiPAP for the remainder of yesterday and this morning was transitioned back to Vapotherm. He was able to eat breakfast this morning. Currently, he denies chest pain, shor tness of breath, nausea, vomiting, abdominal pain, diarrhea, fever, or chills. His pulse oximetry is stable on Vapotherm, currently maxed out at 60 L and 100% FiO2. He is requesting that his be able to visit with him before visiting hours. Once again discussed his wishes regarding resuscitation, he wishes to be a full code at this time. Review of Systems Review of Systems: CONSTITUTIONAL: Denies weight loss/gain, fever and chills, fatigue, malaise, generalized weakness. HEENT: Denies changes in vision and hearing. RESPIRATORY: Denies SOB @ rest, cough, wheezing. CV: Denies palpitations, CP, lower extremity edema, orthopnea, PND. GI: Denies abdominal pain, nausea, vomiting and diarrhea. : Denies dysuria and urinary frequency, urgency, hesitancy. MUSCULOSKELETAL: Denies myalgia and joint pain. SKIN: Denies rash and pruritus. NEUROLOGICAL: Denies headache, syncope, focal weakness, numbness, tingling. PSYCHIATRIC: Denies recent changes in mood. Denies anxiety and depression. Physical Exam Physical Exam: GENERAL: 61 yo Well-developed, well-nourished WM. NAD. LUNGS: No accessory muscle use at this time. LLL crackles. No wheezes or rhonchi. CARDIOVASCULAR: S1, S2, Tachycardic. No M/G/R. ABDOMEN: Soft, non-tender and non-distended. Bowel sounds normoactive x 4 quad. EXTREMITIES: No edema. Non-tender. Peripheral pulses +2/4. NEUROLOGIC: A&O x3. PSYCHIATRIC: Cooperative. Appropriate mood and affect. SKIN: Warm, dry, intact. No rashes or lesions. Results & Data Results & Data ([facility]) Vital Signs (Past 12 Hours) Vital Signs Temp Pulse Pulse Resp BP Pulse Ox 11/01/21 11:25 36.6 C 113 H 23 141/98 H 91 11/01/21 10:56 111 H 27 H 92 11/01/21 07:44 101 H 20 92 11/01/21 07:41 105 H 11/01/21 07:35 36.4 C L 112 H 22 124/88 90 11/01/21 06:43 98 H 98 H 21 91 11/01/21 03:16 36.5 C 100 H 18 134/95 95 11/01/21 02:18 102 H 16 95 Laboratory Results 11/01/21 06:16 11/01/21 06:16 PG Care Time/CCT Total # of Minutes Spent Total Time Spent with Patient: Total time spent is greater than 50% in coordination of care (as documented) at patient's floor/unit and/or counseling patient: Coding Level of Care Code 58987 Subseq Hosp Care Lvl 3 Diagnoses Acute respiratory failure with hypoxia J96.01 2019 novel coronavirus-infected pneumonia (NCIP) U07.1; J12.82 Intercostal muscle strain S29.011A Encephalopathy acute G93.40 KASSIDY (acute kidney injury) N17.9 Type 2 diabetes mellitus E11.9 Constipation K59.00 Leukocytosis D72.829
[2021-11-01] MEDS: QUEtiapine FUMARATE 25 MG TABLET PO SCH (20:51)
[2021-11-01] MEDS: GABAPENTIN 300 MG CAP PO SCH (20:51)
[2021-11-01] MEDS ORDERED: INSULIN GLARGINE SOLOSTAR 100 UNITS/ML 3 ML PEN SC SCH (21:00)
[2021-11-02] MEDS: methylPREDNISolone 60 MG in SYRINGE 0 ML IV SCH ×2 (03:08→10:48)
[2021-11-02 07:20] LABS: Basophils # (auto) 0.01 K/uL (0-0.2); Hematocrit (blood only) 41.3 % (42-52); Immature Granulocytes # (auto) 0.06 K/uL (0.00-0.02); Immature Granulocytes % (auto) 0.3 %; Lymphocytes # (auto) 1.08 K/uL (1.2-3.4); Lymphocytes % (auto) 5.1 %; Mean Corpuscular Hemoglobin 30.9 pg (25-34); Mean Corpuscular Hgb Conc 33.9 g/dL (32-36); Mean Corpuscular Volume 91.2 fL (80-100); Mean Platelet Volume 9.6 fL (7.4-10.4); Monocytes # (auto) 0.86 K/uL (0.11-0.59); Neutrophils # (auto) 19.37 K/uL (1.4-6.5); Neutrophils % (auto) 90.6 %; Platelet Count 379 K/uL (130-400); RDW Coefficient of Variation 13.2 % (11.5-14.5); RDW Standard Deviation 43.6 fL (36.4-46.3); Red Blood Count 4.53 M/uL (4.7-6.1); White Blood Count 21.38 K/uL (4.8-10.8)
[2021-11-02 07:41] LABS: BUN Creatinine Ratio 38.9 (10-20); Calcium 9.5 mg/dl (8.5-10.1); Creatinine Clr Calc Pharmacy 47.9 ml/min; Est GFR (African American) 52.3 ml/min; Est GFR (Non-African American) 45.1 ml/min; Potassium 4.5 mmol/L (3.5-5.1)
[2021-11-02] MEDS: PANTOprazole 40 MG TAB PO SCH (08:34)
[2021-11-02] MEDS: FAMOTIDINE 20 MG TAB PO SCH ×2 (08:34→21:02)
[2021-11-02] MEDS: MULTIVITAMIN TAB PO SCH (08:34)
[2021-11-02] MEDS: ENOXAPARIN INJ 40 MG/0.4 ML SYR SQ SCH (08:34)
[2021-11-02] MEDS: FUROSEMIDE 40 MG/4 ML VIAL IV SCH (08:35)
[2021-11-02] MEDS: POLYETHYLENE (MIRALAX) 17 GM PACK PO SCH (08:43)
[2021-11-02] MEDS: INSULIN ASPART PER UNIT SC SCH ×5 (08:43→23:32)
[2021-11-02] MEDS: DOCUSATE SODIUM/SENNA 50/8.6MG TAB PO SCH ×2 (10:48→21:09)
[2021-11-02] MEDS: THIAMINE HCL 200 MG in SODIUM CHLORIDE 0.9% 50 ML IV SCH (10:48)
--- NOTE | 2021-11-02 12:27 | Hospitalist Progress Note ---
Date of Service November 02, 2021 Assessment & Plan (1) Acute respiratory failure with hypoxia: Plan: Secondary to COVID-19 pneumonia and now ?post-covid effects, ABG ordered by resident reviewed, no hypercapnia, respiratory alkalosis mechanical ventilation for 8 days (09/30 to 10/07) Currently on heated high flow nasal cannula with appropriate O2 sat in low 90s Pulmonology following, appreciate their input and assistance Scheduled nebs with Xopenex and Atrovent every 6 hours Adjust steroids to Solumedrol 40mg IV q8h Prognosis remains guarded but remains stable and is actually demonstrating improvement D/C IV Lasix, bump in creat from 1.4 to 1.6 and Na 133 Now that cough is productive, sputum C&S and gram stain has been ordered (2) 2018 novel coronavirus-infected pneumonia (NCIP): Plan: Unvaccinated First symptoms: 09/14/21 First positive test: 09/23/21 Off isolation 10/14/21 Remdesivir -- did not qualify for by time course Dexamethasone 10mg IV daily discontinued 10/09/2021 Baricitinib/Tocilizumab - CRP not elevated therefore did not qualify (was 3.84 at max) Intermittent Lasix provided Patient progressed to intubation on 09/30/2021 extubated in the morning on 10/07/21 (3) Intercostal muscle strain: Plan: On 10/26, patient complained of right rib pain that seems to be related to him pulling himself up in the bed with his arms Treated with Naproxen, resolved Will stop naproxen at this time to avoid further nephrotoxicity (4) Encephalopathy acute: Plan: RESOLVED Pt had escalated excited delirium that was multifactorial, from covid, steroids and 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 started on precedex but ultimately required intubation Continue seroquel 50mg PO HS as this appears to be helping him at night Speech eval, video swallow with aspiration of thin liquids, recommend no straws, and safe swallowing techniques (5) KASSIDY (acute kidney injury): Plan: Creatinine is up trending however this is in the setting of IV diuretic use Will continue to monitor closely Stop naproxen as noted above (6) Type 2 diabetes mellitus: Plan: HbA1C 7.0 Resume Accu-Cheks before meals and at bedtime, anticipate need for mealtime insulin correction due to resuming steroids Change diet to diabetic started on Neurontin for "burning in feet" likely related to neuropathy which has improved Hyperglycemia is due to steroids. Started on Lantus at HS 10 units last evening but will increase to 15 units Steroids adjusted as noted above (7) Constipation: Plan: treated and resolved now on bowel regimen (8) Leukocytosis: Plan: With neutrophil predominance, likely steroid-induced Plan: VTE Prophylaxis - Lovenox 40mg SQ daily Diet - diabetic, easy to chew and no straws Disposition - unfortunately due to his worsening acute hypoxemic respiratory failure, patient will require ongoing hospitalization. As noted above his prognosis is guarded at this time. He will need to remain on bedrest for now. Hold therapy services. These can be resumed if and when his respiratory status improves. Post discharge plan is for LTAC when medically stable ([facility] in [place] He was denied by his insurance company. Peer to peer completed on 10/26 and approved by provider. Discussed with case management who reports that [facility] must now sign a case rate agreement with the patient's insurance company. Agreement has been completed between his insurance company and [facility]; however, patient cannot be discharged now until he is stable from a respiratory standpoint. I attempted to reach his , Octavia, to discuss her transfer request, left message. Will attempt to call back later today or speak with her during visiting hours. Admission and Anticipated Discharge Date Admission Date: September 23, 2021 Subjective Patient seen on rounds today. He was transferred from med/surg floor to PCU on 10/31 due to worsening hypoxia with increasing oxygen requirements. He's been st able on vapotherm the past 48 hours. Currently on 40L and 55% FiO2. Currently, he denies chest pain, shortness of breath, nausea, vomiting, abdominal pain, diarrhea, fever, or chills. He is now coughing more and able to expectorate mucus. He has been somewhat upset the last couple days regarding visitation hour restrictions. Also, informed by RN last evening that he was refusing blood sugar checks but this morning is complying. Apparently his is requesting a transfer to [facility]. Review of Systems Review of Systems: CONSTITUTIONAL: Denies weight loss/gain, fever and chills, fatigue, malaise, generalized weakness. HEENT: Denies changes in vision and hearing. RESPIRATORY: +productive cough. Denies SOB @ rest, wheezing. CV: Denies palpitations, CP, lower extremity edema, orthopnea, PND. GI: Denies abdominal pain, nausea, vomiting and diarrhea. : Denies dysuria and urinary frequency, urgency, hesitancy. MUSCULOSKELETAL: Denies myalgia and joint pain. SKIN: Denies rash and pruritus. NEUROLOGICAL: Denies headache, syncope, focal weakness, numbness, tingling. PSYCHIATRIC: Denies recent changes in mood. Denies anxiety and depression. Physical Exam Physical Exam: GENERAL: 61 yo Well-developed, well-nourished WM. NAD. LUNGS: No accessory muscle use at this time. LLL crackles. No wheezes or rhonchi. CARDIOVASCULAR: RRR. No M/G/R. ABDOMEN: Soft, non-tender and non-distended. Bowel sounds normoactive x 4 quad. EXTREMITIES: No edema. Non-tender. Peripheral pulses +2/4. NEUROLOGIC: A&O x3. PSYCHIATRIC: Cooperative. Appropriate mood and affect. SKIN: Warm, dry, intact. No rashes or lesions. Results & Data Results & Data ([facility]) Vital Signs (Past 12 Hours) Vital Signs Temp Pulse Resp BP BP Pulse Ox 11/02/21 08:30 36.7 C 100 H 20 124/80 95 11/02/21 07:09 78 16 96 11/02/21 05:06 36.5 C 83 16 127/84 95 11/02/21 03:49 77 14 94 Laboratory Results 11/02/21 07:02 11/02/21 07:02 PG Care Time/CCT Total # of Minutes Spent Total Time Spent with Patient: Total time spent is greater than 50% in coordination of care (as documented) at patient's floor/unit and/or counseling patient: Coding Level of Care Code 03904 Subseq Hosp Care Lvl 3 Diagnoses Acute respiratory failure with hypoxia J96.01 2019 novel coronavirus-infected pneumonia (NCIP) U07.1; J12.82 Intercostal muscle strain S29.011A Encephalopathy acute G93.40 KASSIDY (acute kidney injury) N17.9 Type 2 diabetes mellitus E11.9 Constipation K59.00 Leukocytosis D72.829
[2021-11-02] MEDS: methylPREDNISolone 40 MG in SYRINGE 0 ML IV SCH (17:33)
[2021-11-02] MEDS ORDERED: PHARMACY GLYCEMIC MGMT CONSULT PRN (17:39)
[2021-11-02] MEDS ORDERED: INSULIN GLARGINE SOLOSTAR 100 UNITS/ML 3 ML PEN SC SCH (21:00)
[2021-11-02] MEDS: GABAPENTIN 300 MG CAP PO SCH (21:02)
[2021-11-02] MEDS: QUEtiapine FUMARATE 25 MG TABLET PO SCH (21:03)
[2021-11-03] MEDS: methylPREDNISolone 40 MG in SYRINGE 0 ML IV SCH ×2 (02:03→10:12)
[2021-11-03] MEDS: INSULIN ASPART PER UNIT SC SCH ×6 (04:15→23:39)
[2021-11-03 07:08] LABS: Hematocrit (blood only) 38.9 % (42-52); Hemoglobin 13.1 g/dL (14.0-18.0); Immature Granulocytes # (auto) 0.05 K/uL (0.00-0.02); Immature Granulocytes % (auto) 0.3 %; Lymphocytes # (auto) 1.02 K/uL (1.2-3.4); Lymphocytes % (auto) 6.1 %; Mean Corpuscular Hgb Conc 33.7 g/dL (32-36); Mean Platelet Volume 9.7 fL (7.4-10.4); Monocytes % (auto) 4.8 %; Neutrophils # (auto) 14.83 K/uL (1.4-6.5); Neutrophils % (auto) 88.8 %; Platelet Count 361 K/uL (130-400); RDW Coefficient of Variation 13.2 % (11.5-14.5); Red Blood Count 4.23 M/uL (4.7-6.1)
[2021-11-03 07:48] LABS: BUN Creatinine Ratio 44.8 (10-20); Calcium 9.1 mg/dl (8.5-10.1); Creatinine Clr Calc Pharmacy 62.1 ml/min; Est GFR (African American) 71.6 ml/min; Est GFR (Non-African American) 61.8 ml/min; Potassium 4.3 mmol/L (3.5-5.1)
[2021-11-03] MEDS ORDERED: INSULIN GLARGINE SOLOSTAR 100 UNITS/ML 3 ML PEN SC SCH ×2 (09:00→21:00)
[2021-11-03] MEDS: THIAMINE HCL 200 MG in SODIUM CHLORIDE 0.9% 50 ML IV SCH (09:08)
[2021-11-03] MEDS: ENOXAPARIN INJ 40 MG/0.4 ML SYR SQ SCH (09:09)
[2021-11-03] MEDS: FAMOTIDINE 20 MG TAB PO SCH ×2 (09:10→20:52)
[2021-11-03] MEDS: PANTOprazole 40 MG TAB PO SCH (09:10)
[2021-11-03] MEDS: MULTIVITAMIN TAB PO SCH (09:10)
[2021-11-03] MEDS: POLYETHYLENE (MIRALAX) 17 GM PACK PO SCH (09:21)
[2021-11-03] MEDS: DOCUSATE SODIUM/SENNA 50/8.6MG TAB PO SCH ×2 (09:21→20:56)
[2021-11-03] MEDS ORDERED: INSULIN GLARGINE SOLOSTAR 100 UNITS/ML 3 ML PEN SC ONE (12:00)
--- NOTE | 2021-11-03 12:44 | Hospitalist Progress Note ---
Date of Service November 03, 2021 Assessment & Plan (1) Acute respiratory failure with hypoxia: Plan: Secondary to COVID-19 pneumonia and now ?post-covid effects mechanical ventilation for 8 days (09/30 to 10/07) Currently on heated high flow nasal cannula with appropriate O2 sat in low 90s Pulmonology following, appreciate their input and assistance Scheduled nebs with Xopenex and Atrovent every 6 hours De-escalate steroids to Solumedrol 40mg q12h and then convert to PO in AM Prognosis remains guarded but remains stable and is actually demonstrating improvement Received 3 days of IV diuresis w/ Lasix which was stopped on 11/02 d/t uptrending creat and drop in Na to 133 Sputum gram stain and C&S was ordered on 11/02 as pt reported more productive cough but has yet been able to give sample (2) 2019 novel coronavirus-infected pneumonia (NCIP): Plan: Unvaccinated First symptoms: 09/14/21 First positive test: 09/23/21 Off isolation 10/14/21 Remdesivir -- did not qualify for by time course Dexamethasone 10mg IV daily discontinued 10/09/2021 Baricitinib/Tocilizumab - CRP not elevated therefore did not qualify (was 3.84 at max) Intermittent Lasix provided Patient progressed to intubation on 09/30/2021 extubated in the morning on 10/07/21 (3) Intercostal muscle strain: Plan: On 10/26, patient complained of right rib pain that seems to be related to him pulling himself up in the bed with his arms Treated with Naproxen, resolved Naproxen stopped do avoid further nephrotoxicity (d/t uptrending creatinine) This issue has essentially resolved (4) Encephalopathy acute: Plan: RESOLVED Pt had escalated excited delirium that was multifactorial, from covid, steroids and 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 started on precedex but ultimately required intubation Continue seroquel 50mg PO HS as this appears to be helping him at night Speech eval, video swallow with aspiration of thin liquids, recommend no straws, and safe swallowing techniques (5) KASSIDY (acute kidney injury): Plan: Creatinine improved w/ discontinuation of IV diuresis Could consider starting on low dose oral Lasix (6) Type 2 diabetes mellitus: Plan: HbA1C 7.0 Resume Accu-Cheks before meals and at bedtime, anticipate need for mealtime insulin correction due to resuming steroids Change diet to diabetic started on Neurontin for "burning in feet" likely related to neuropathy which has improved Has been hyperglycemic over the past few days d/t steroids, started Lantus and SSI Steroids adjusted as noted above Pharmacy has been consulted to adjust in glycemic management, appreciate assistance (7) Constipation: Plan: treated and resolved now on bowel regimen (8) Leukocytosis: Plan: With neutrophil predominance, likely steroid-induced Downtrending Plan: VTE Prophylaxis - Lovenox 40mg SQ daily Diet - diabetic, easy to chew and no straws Disposition - unfortunately due to his worsening acute hypoxemic respiratory failure, patient will require ongoing hospitalization. As noted above his prognosis is guarded at this time. He will need to remain on bedrest for now. Hold therapy services. These can be resumed if and when his respiratory status improves. Post discharge plan is for LTAC when medically stable ([facility] in [place] He was denied by his insurance company. Peer to peer completed on 10/26 and approved by provider. Discussed with case management who reports that [facility] must now sign a case rate agreement with the patient's insurance company. Agreement has been completed between his insurance company and [facility]; however, patient cannot be discharged now until he is stable from a respiratory standpoint. I discussed the transfer request with patient's , Octavia, on 11/02, they do not want to pursue transfer at this time since he is improving. Admission and Anticipated Discharge Date Admission Date: September 23, 2021 Subjective Patient seen on rounds today. He was transferred from med/surg floor to PCU on 10/31 due to worsening hypoxia with increasing oxygen requirements. He's been stable on HHFNC the past 72 hours. Currently on 40L and 45% FiO2. Currently, he denies chest pain, shortness of breath, nausea, vomiting, abdominal pain, diarrhea, fever, or chills. He seems more pleasant today. States that he hasn't been able to cough up any mucus to provide sputum sample. Review of Systems Review of Systems: CONSTITUTIONAL: Denies weight loss/gain, fever and chills, fatigue, malaise, generalized weakness. HEENT: Denies changes in vision and hearing. RESPIRATORY: Cough now more dry. Denies SOB at rest, wheezing. CV: Denies palpitations, CP, lower extremity edema, orthopnea, PND. GI: Denies abdominal pain, nausea, vomiting and diarrhea. : Denies dysuria and urinary frequency, urgency, hesitancy. MUSCULOSKELETAL: Denies myalgia and joint pain. SKIN: Denies rash and pruritus. NEUROLOGICAL: Denies headache, syncope, focal weakness, numbness, tingling. PSYCHIATRIC: Denies recent changes in mood. Denies anxiety and depression. Physical Exam Physical Exam: GENERAL: 61 yo Well-developed, well-nourished WM. NAD. LUNGS: No accessory muscle use at this time. LLL crackles. No wheezes or rhonchi. CARDIOVASCULAR: RRR. No M/G/R. ABDOMEN: Soft, non-tender and non-distended. Bowel sounds normoactive x 4 quad. EXTREMITIES: No edema. Non-tender. Peripheral pulses +2/4. NEUROLOGIC: A&O x3. PSYCHIATRIC: Cooperative. Appropriate mood and affect. SKIN: Warm, dry, intact. No rashes or lesions. Results & Data Results & Data ([facility]) Vital Signs (Past 12 Hours) Vital Signs Temp Pulse Resp BP Pulse Ox 11/03/21 11:54 36.5 C 86 20 147/89 H 93 11/03/21 11:18 88 22 91 11/03/21 07:53 36.5 C 76 19 126/87 97 11/03/21 07:44 22 94 11/03/21 03:34 36.7 C 75 22 133/86 98 Laboratory Results 11/03/21 06:58 11/03/21 06:58 PG Care Time/CCT Total # of Minutes Spent Total Time Spent with Patient: Total time spent is greater than 50% in coordination of care (as documented) at patient's floor/unit and/or counseling patient: Coding Level of Care Code 93281 Subseq Hosp Care Lvl 2 Diagnoses Acute respiratory failure with hypoxia J96.01 2019 novel coronavirus-infected pneumonia (NCIP) U07.1; J12.82 Intercostal muscle strain S29.011A Encephalopathy acute G93.40 KASSIDY (acute kidney injury) N17.9 Type 2 diabetes mellitus E11.9 Constipation K59.00 Leukocytosis D72.829
[2021-11-03] MEDS: QUEtiapine FUMARATE 25 MG TABLET PO SCH (20:53)
[2021-11-03] MEDS: GABAPENTIN 300 MG CAP PO SCH (20:53)
[2021-11-03] MEDS ORDERED: methylPREDNISolone 40 MG in SYRINGE 0 ML IV SCH (21:00)
[2021-11-04] MEDS: INSULIN ASPART PER UNIT SC SCH ×5 (04:20→20:29)
[2021-11-04 07:25] LABS: Basophils # (auto) 0.01 K/uL (0-0.2); Basophils % (auto) 0.1 %; Hematocrit (blood only) 39.1 % (42-52); Hemoglobin 12.8 g/dL (14.0-18.0); Immature Granulocytes # (auto) 0.04 K/uL (0.00-0.02); Immature Granulocytes % (auto) 0.3 %; Lymphocytes # (auto) 1.75 K/uL (1.2-3.4); Lymphocytes % (auto) 11.8 %; Mean Corpuscular Hemoglobin 30.5 pg (25-34); Mean Corpuscular Hgb Conc 32.7 g/dL (32-36); Mean Corpuscular Volume 93.3 fL (80-100); Mean Platelet Volume 9.7 fL (7.4-10.4); Monocytes # (auto) 0.35 K/uL (0.11-0.59); Monocytes % (auto) 2.4 %; Neutrophils # (auto) 12.66 K/uL (1.4-6.5); Neutrophils % (auto) 85.4 %; Platelet Count 334 K/uL (130-400); RDW Coefficient of Variation 13.2 % (11.5-14.5); RDW Standard Deviation 45.4 fL (36.4-46.3); Red Blood Count 4.19 M/uL (4.7-6.1); White Blood Count 14.81 K/uL (4.8-10.8)
[2021-11-04 07:43] LABS: BUN Creatinine Ratio 38.9 (10-20); Calcium 8.8 mg/dl (8.5-10.1); Creatinine Clr Calc Pharmacy 61.6 ml/min; Est GFR (African American) 70.9 ml/min; Est GFR (Non-African American) 61.2 ml/min; Potassium 4.5 mmol/L (3.5-5.1)
[2021-11-04] MEDS: DOCUSATE SODIUM/SENNA 50/8.6MG TAB PO SCH ×2 (08:15→20:29)
[2021-11-04] MEDS: POLYETHYLENE (MIRALAX) 17 GM PACK PO SCH (08:15)
[2021-11-04] MEDS: MULTIVITAMIN TAB PO SCH (08:16)
[2021-11-04] MEDS: PANTOprazole 40 MG TAB PO SCH (08:16)
[2021-11-04] MEDS: ENOXAPARIN INJ 40 MG/0.4 ML SYR SQ SCH (08:16)
[2021-11-04] MEDS: FAMOTIDINE 20 MG TAB PO SCH ×2 (08:21→20:13)
[2021-11-04] MEDS: predniSONE 20 MG TAB PO SCH (08:21)
[2021-11-04] MEDS: THIAMINE HCL 200 MG in SODIUM CHLORIDE 0.9% 50 ML IV SCH (09:25)
[2021-11-04] MEDS: INSULIN GLARGINE SOLOSTAR 100 UNITS/ML 3 ML PEN SC SCH (09:27)
--- NOTE | 2021-11-04 10:36 | Pharmacy Report ---
Pharmacy Glycemic Short Note 2 - Date of Service November 04, 2021 - Glycemic Short BSG Results (Last 24 hours): 11/03/21 11/03/21 11/03/21 11:31 12:01 16:23 Glucose POC Glucose 313 H* 345 H* 222 H 11/03/21 11/03/21 11/04/21 20:19 23:34 04:10 Glucose POC Glucose 123 H 136 H 154 H 11/04/21 11/04/21 06:48 07:31 Glucose 162 H POC Glucose 168 H OUTPATIENT ANTIDIABETIC REGIMEN: * N/A * A1c: 7% 09-25-21 ASSESSMENT: * Patient admitted initially for COVID on 09/23, pharmacy consulted for glycemic service earlier in admission * Pharmacy reconsulted 11/02 as steroids initiated and BSGs rising * Patient received total of 107 units of insulin yesterday, of which 30 units were basal. Steroids now changing from solm 40 mg iv q 8 hrs to prednisone 40 mg daily this morning. I anticipate BSGS to further improve * Fasting BSG 162 mg/dL - plan to give Lantus 25 units daily with prednisone 40, will loosen CF/CR as likely won't need as tight coverage with steroid change PLAN FOR INPATIENT GLYCEMIC CONTROL: * Hold outpatient oral diabetes medications * Basal insulin * 25 units daily - prednisone 40 mg daily * Bolus insulin * NovoLog SQ ACHS * Goal range: 110-140 mg/dL * Correction factor: 15 mg/dL/unit * Carb ratio: 1 unit per 5 gm CHO delivered in feeds PLAN FOR DISCHARGE: * to be determined. A1c 7% consistent with DM that could potentially be managed with diet/lifestyle changes. Disposition and clinical status at time of discharge to determine plan.
--- NOTE | 2021-11-04 17:39 | Hospitalist Progress Note ---
Date of Service November 04, 2021 Assessment & Plan (1) Acute respiratory failure with hypoxia: Plan: Secondary to COVID-19 pneumonia and now ?post-covid effects (from what appears to be pulmonary fibrosis)-- unsure what next few weeks to months will bring in terms of lung healing mechanical ventilation for 8 days (09/30 to 10/07) Had been requiring 8 to 10 L of O2 at rest with 15 L on ambulation but over the past week, was requiring heated high flow. Now down to 5L (96-98%) Pulmonology following, appreciate their input and assistance--> started on methylprednisolone for presumed pulmonary fibrosis flare. Has since been transitioned to oral prednisone Receiving neb tx's with Xopenex and Atrovent every 6 hours Prognosis has been touch and go. 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 Uncertain what the future holds for him Received 3 days of IV diuresis w/ Lasix which was stopped on 11/02 d/t uptrending creat and drop in Na to 133 Sputum gram stain and C&S was ordered on 11/02 as pt reported more productive cough but has yet been able to give sample (2) 2019 novel coronavirus-infected pneumonia (NCIP): Plan: Unvaccinated First symptoms: 09/14/21 First positive test: 09/23/21 Off isolation 10/14/21 Remdesivir -- did not qualify for by time course Dexamethasone 10mg IV daily discontinued 10/09/2021 Baricitinib/Tocilizumab - CRP not elevated therefore did not qualify (was 3.84 at max) Intermittent Lasix provided Patient progressed to intubation on 09/30/2021 extubated in the morning on 10/07/21 (3) Intercostal muscle strain: Plan: On 10/26, patient complained of right rib pain that seems to be related to him pulling himself up in the bed with his arms Treated with Naproxen, resolved Naproxen stopped do avoid further nephrotoxicity (d/t uptrending creatinine) This issue has essentially resolved (4) Encephalopathy acute: Plan: RESOLVED Pt had escalated excited delirium that was multifactorial, from covid, steroids and 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 started on precedex but ultimately required intubation Continue seroquel 50mg PO HS as this appears to be helping him at night Speech eval, video swallow with aspiration of thin liquids, recommend no straws, and safe swallowing techniques (5) KASSIDY (acute kidney injury): Plan: Creatinine improved w/ discontinuation of IV diuresis Could consider starting on low dose oral Lasix (6) Type 2 diabetes mellitus: Plan: HbA1C 7.0 Resume Accu-Cheks before meals and at bedtime, anticipate need for mealtime insulin correction due to resuming steroids Change diet to diabetic started on Neurontin for "burning in feet" likely related to neuropathy which has improved Has been hyperglycemic over the past few days d/t steroids, started Lantus and SSI Steroids adjusted as noted above Pharmacy has been consulted to adjust in glycemic management, appreciate assistance (7) Constipation: Plan: treated and resolved now on bowel regimen (8) Leukocytosis: Plan: With neutrophil predominance, likely steroid-induced Downtrending Plan: VTE Prophylaxis - Lovenox 40mg SQ daily Diet - diabetic, easy to chew and no straws Initially, plan was for discharge to LTAC given high oxygen requirement/needs (as stated above was requiring 8 to 10 L at rest and 15 L with exertion but then transition to need for heated high flow) At this point, he seems to have shown favorable response and is requiring 5 L with rest. Uncertain what the next several days will bring but if he continues to trend in this direction, it is quite possible he may be able to go to [facility] as he does still require inpatient rehab for underlying debility Admission and Anticipated Discharge Date Admission Date: September 23, 2021 Subjective Patient seen on daily rounds today. Vocalizes no complaints or concerns. Currently on 5 L supplemental oxygen and maintaining a pulse ox of 96 to 98%. Denies fevers, chills, chest pain, shortness of breath, abdominal pain, nausea or vomiting. Nursing voices no complaints or concerns. Review of Systems Review of Systems: All systems reviewed and are unremarkable except as noted in HPI and below Denies fevers, chills, headache, nasal congestion, sore throat, cough, chest pain, shortness of breath, palpitations, orthopnea, PND, abdominal pain, nausea, vomiting, diarrhea, constipation, dysuria, hematuria, frequency, back pain, j oint pain or swelling, easy bruising or bleeding, skin lesions or rashes. Physical Exam Physical Exam: General: Resting comfortably in his hospital bed. NAD. HEENT: Head is AT/NC buccal mucosa is moist and pink Neck: No JVD. Negative hepatojugular reflex Cardiac: RRR without M/G/R Lungs: Diminished breath sounds throughout without W/R/R Abdomen: Normoactive X4. Soft and nontender in all quadrants. Extremities: No peripheral clubbing cyanosis or edema Neuro: A&O X4 cranial nerves II through XII are grossly intact no focal neuro deficits Skin: No obvious skin lesions or rashes Psych: Appropriate affect pleasant and cooperative Results & Data Results & Data ([facility]) Vital Signs (Past 12 Hours) Vital Signs Temp Pulse Pulse Pulse Resp BP Pulse Ox 11/04/21 17:00 36.7 C 89 18 93/59 L 96 11/04/21 15:44 75 11/04/21 12:00 37.0 C 74 74 18 100/71 96 11/04/21 08:07 76 11/04/21 06:33 36.8 C 77 16 120/78 95 Laboratory Results 11/04/21 06:48 11/04/21 06:48 PG Care Time/CCT Total # of Minutes Spent Total Time Spent with Patient: Total time spent is greater than 50% in coordination of care (as documented) at patient's floor/unit and/or counseling patient: Coding Level of Care Code 64406 Subseq Hosp Care Lvl 2 Diagnoses Acute respiratory failure with hypoxia J96.01 2019 novel coronavirus-infected pneumonia (NCIP) U07.1; J12.82 Intercostal muscle strain S29.011A Encephalopathy acute G93.40 KASSIDY (acute kidney injury) N17.9 Type 2 diabetes mellitus E11.9 Constipation K59.00 Leukocytosis D72.829
[2021-11-04] MEDS: GABAPENTIN 300 MG CAP PO SCH (20:13)
[2021-11-04] MEDS: QUEtiapine FUMARATE 25 MG TABLET PO SCH (20:13)
[2021-11-05 06:58] LABS: Creatinine Clr Calc Pharmacy 74.2 ml/min; Est GFR (African American) 87.4 ml/min; Est GFR (Non-African American) 75.4 ml/min
[2021-11-05] MEDS: INSULIN ASPART PER UNIT SC SCH ×4 (08:00→20:48)
[2021-11-05] MEDS: INSULIN GLARGINE SOLOSTAR 100 UNITS/ML 3 ML PEN SC SCH (08:02)
[2021-11-05] MEDS: ENOXAPARIN INJ 40 MG/0.4 ML SYR SQ SCH (08:03)
[2021-11-05] MEDS: PANTOprazole 40 MG TAB PO SCH (08:05)
[2021-11-05] MEDS: MULTIVITAMIN TAB PO SCH (08:05)
[2021-11-05] MEDS: FAMOTIDINE 20 MG TAB PO SCH ×2 (08:05→20:47)
[2021-11-05] MEDS: predniSONE 20 MG TAB PO SCH (08:06)
[2021-11-05] MEDS: POLYETHYLENE (MIRALAX) 17 GM PACK PO SCH (08:09)
[2021-11-05] MEDS: DOCUSATE SODIUM/SENNA 50/8.6MG TAB PO SCH ×2 (08:10→20:56)
[2021-11-05] MEDS: THIAMINE HCL 200 MG in SODIUM CHLORIDE 0.9% 50 ML IV SCH (08:22)
--- NOTE | 2021-11-05 09:38 | XRay Report ---
XR chest 2V PA/lateral HISTORY: 61 years-old Male trend follow-up study in a patient with Covid pneumonia. Acute shortness of breath COMPARISON: CTA chest 10/30/2021, chest radiograph 10/08/2021 TECHNIQUE: PA and lateral views of the chest FINDINGS: The cardiac silhouette is normal in size. There is no pneumothorax, large pleural effusion or overt p ulmonary edema. Multifocal mixed bilateral interstitial and alveolar opacities are redemonstrated, st able to slightly improved. The bones appear grossly intact. IMPRESSION: Multifocal viral pneumonia pattern appears stable to slightly improved from the 10/30/2021 study. ACT 112: Negative or not required by law. The above report was generated using voice recognition software. It may contain grammatical, syntax o r spelling errors. Electronically signed by: Lance Dawkins M.D. 11/05/2021 9:37 AM
[2021-11-05] MEDS: THIAMINE HCL 100 MG TAB PO SCH (11:18)
--- NOTE | 2021-11-05 15:37 | Hospitalist Progress Note ---
Date of Service November 05, 2021 Assessment & Plan (1) Acute respiratory failure with hypoxia: Plan: Secondary to COVID-19 pneumonia and now ?post-covid effects (from what appears to be pulmonary fibrosis)-- unsure what next few weeks to months will bring in terms of lung healing mechanical ventilation for 8 days (09/30 to 10/07) Had been requiring 8 to 10 L of O2 at rest with 15 L on ambulation but over the past week, was requiring heated high flow. Now down to 2-4L (96-98%) at rest but still requiring 10L with ambulation Pulmonology following, appreciate their input and assistance--> started on methylprednisolone for presumed pulmonary fibrosis flare. Has since been transitioned to oral prednisone. Will taper this slowly Receiving neb tx's with Xopenex and Atrovent every 6 hours Prognosis has been touch and go. 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 Uncertain what the future holds for him. FU CXR does show subtle improvement. Uncertain the extent of lung healing that will take place Received 3 days of IV diuresis w/ Lasix which was stopped on 11/02 d/t uptrending creat and drop in Na to 133 Sputum gram stain and C&S was ordered on 11/02 as pt reported more productive cough but has yet been able to give sample (2) 2019 novel coronavirus-infected pneumonia (NCIP): Plan: Unvaccinated First symptoms: 09/14/21 First positive test: 09/23/21 Off isolation 10/14/21 Remdesivir -- did not qualify for by time course Dexamethasone 10mg IV daily discontinued 10/09/2021 Baricitinib/Tocilizumab - CRP not elevated therefore did not qualify (was 3.84 at max) Intermittent Lasix provided Patient progressed to intubation on 09/30/2021 extubated in the morning on 10/07/21 (3) Intercostal muscle strain: Plan: On 10/26, patient complained of right rib pain that seems to be related to him pulling himself up in the bed with his arms Treated with Naproxen, resolved Naproxen stopped do avoid further nephrotoxicity (d/t uptrending creatinine) This issue has essentially resolved (4) Encephalopathy acute: Plan: RESOLVED Pt had escalated excited delirium that was multifactorial, from covid, steroids and 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 started on precedex but ultimately required intubation Continue seroquel 50mg PO HS as this appears to be helping him at night Speech eval, video swallow with aspiration of thin liquids, recommend no straws, and safe swallowing techniques (5) KASSIDY (acute kidney injury): Plan: Creatinine improved w/ discontinuation of IV diuresis - watch nephrotoxic meds (6) Type 2 diabetes mellitus: Plan: HbA1C 7.0 Resumed Accu-Cheks before meals and at bedtime given resumption of steroids continue CCD started on Neurontin for "burning in feet" likely related to neuropathy which has improved Pharmacy has been consulted to adjust in glycemic management, appreciate assistance (7) Constipation: Plan: treated and resolved now on bowel regimen (8) Leukocytosis: Plan: With neutrophil predominance, likely steroid-induced Downtrending Plan: VTE Prophylaxis - Lovenox 40mg SQ daily Diet - diabetic, easy to chew and no straws Initially, plan was for discharge to LTAC given high oxygen requirement/needs (as stated above was requiring 8 to 10 L at rest and 15 L with exertion but then transitioned to need for heated high flow) At this point, he seems to have shown favorable response and is requiring 2-4 L with rest but still 10L with ambulation. Asked CM to look back into to determine if they feel comfortable accepting him at this point. downgrade to MEd-Surg/tele (from PCU) Admission and Anticipated Discharge Date Admission Date: September 23, 2021 Subjective Patient seen on daily rounds today. Vocalizes no significant complaints or concerns. Supplemental oxygen continues to be down tapered and currently 93% on 4 L nasal cannula Did ambulate with therapy today. Oxygen supplementation was turned up to 6 L but despite this, he did desaturate into the low 80s. Was increased to 10 L and his pulse ox rebounded into the 90s. Otherwise, he denies fevers, chills, chest pain, shortness of breath, abdominal pain, nausea or vomiting. Review of Systems Review of Systems: All systems reviewed and are unremarkable except as noted in HPI and below Denies fevers, chills, headache, nasal congestion, sore throat, cough, chest pain, shortness of breath, palpitations, orthopnea, PND, abdominal pain, nausea, vomiting, diarrhea, constipation, dysuria, hematuria, frequency, back pain, joint pain or swelling, easy bruising or bleeding, skin lesions or rashes. Physical Exam Physical Exam: General: Resting comfortably in his hospital bed. NAD. HEENT: Head is AT/NC buccal mucosa is moist and pink Neck: No JVD. Negative hepatojugular reflex Cardiac: RRR without M/G/R Lungs: Diminished breath sounds throughout without W/R/R Abdomen: Normoactive X4. Soft and nontender in all quadrants. Extremities: No peripheral clubbing cyanosis or edema Neuro: A&O X4 cranial nerves II through XII are grossly intact no focal neuro deficits Skin: No obvious skin lesions or rashes Psych: Appropriate affect pleasant and cooperative Results & Data Results & Data ([facility]) Vital Signs (Past 12 Hours) Vital Signs Temp Pulse Pulse Resp BP BP Pulse Ox 11/05/21 11:28 36.6 C 69 20 127/86 93 11/05/21 09:31 92 11/05/21 09:30 82 L 11/05/21 08:00 56 L 11/05/21 07:26 36.6 C 60 20 117/75 97 11/05/21 03:35 36.6 C 66 18 126/70 95 Laboratory Results 11/04/21 06:48 11/05/21 05:25 Diagnostic Findings CXR: IMPRESSION: Multifocal viral pneumonia pattern appears stable to slightly improved from the 10/30/2021 study. PG Care Time/CCT Total # of Minutes Spent Total Time Spent with Patient: Total time spent is greater than 50% in coordination of care (as documented) at patient's floor/unit and/or counseling patient: Coding Level of Care Code 32855 Subseq Hosp Care Lvl 2 Diagnoses Acute respiratory failure with hypoxia J96.01 2019 novel coronavirus-infected pneumonia (NCIP) U07.1; J12.82 Intercostal muscle strain S29.011A Encephalopathy acute G93.40 KASSIDY (acute kidney injury) N17.9 Type 2 diabetes mellitus E11.9 Constipation K59.00 Leukocytosis D72.829
[2021-11-05] MEDS: QUEtiapine FUMARATE 25 MG TABLET PO SCH (20:47)
[2021-11-05] MEDS: GABAPENTIN 300 MG CAP PO SCH (20:47)
[2021-11-06] MEDS ORDERED: INSULIN HUMAN NPH SC ONE (08:30)
[2021-11-06] MEDS: FAMOTIDINE 20 MG TAB PO SCH ×2 (08:46→19:32)
[2021-11-06] MEDS: predniSONE 20 MG TAB PO SCH (08:46)
[2021-11-06] MEDS: PANTOprazole 40 MG TAB PO SCH (08:47)
[2021-11-06] MEDS: MULTIVITAMIN TAB PO SCH (08:47)
[2021-11-06] MEDS: POLYETHYLENE (MIRALAX) 17 GM PACK PO SCH (08:47)
[2021-11-06] MEDS: THIAMINE HCL 100 MG TAB PO SCH (08:47)
[2021-11-06] MEDS: ENOXAPARIN INJ 40 MG/0.4 ML SYR SQ SCH (08:47)
[2021-11-06] MEDS: DOCUSATE SODIUM/SENNA 50/8.6MG TAB PO SCH ×2 (08:47→19:32)
[2021-11-06] MEDS: INSULIN ASPART PER UNIT SC SCH ×4 (08:48→20:50)
--- NOTE | 2021-11-06 13:18 | Hospitalist Progress Note ---
Date of Service November 06, 2021 Assessment & Plan (1) Acute respiratory failure with hypoxia: Plan: Secondary to COVID-19 pneumonia and now ?post-covid effects (from what appears to be pulmonary fibrosis)-- unsure what next few weeks to months will bring in terms of lung healing mechanical ventilation for 8 days (09/30 to 10/07) Had been requiring 8 to 10 L of O2 at rest with 15 L on ambulation for days post intubation Over the course of last week, was back to requiring heated high flow nasal cannula and his prognosis was uncertain. Thought to have a secondary flareup of his pulmonary fibrosis (work-up donesee below) He has surprisingly done well and is back down to requiring 1 to 2 L of supplemental oxygen at rest to maintain a pulse ox in the low to mid 90s. No longer debilitated/requiring rehab. Pulmonology following, appreciate their input and assistance--> started on methylprednisolone for presumed pulmonary fibrosis flare. Has since been transitioned to oral prednisone. Will taper this slowly Receiving neb tx's with Xopenex and Atrovent every 6 hours Prognosis has been touch and go. 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 Uncertain what the future holds for him. FU CXR does show subtle improvement. Uncertain the extent of lung healing that will take place Received 3 days of IV diuresis w/ Lasix which was stopped on 11/02 d/t uptrending creat and drop in Na to 133 Sputum gram stain and C&S was ordered on 11/02 as pt reported more productive cough but has yet been able to give sample Two-step pulse oximetry done today to determine if patient capable for discharge to home. As outlined above, he does require 2 L of supplemental oxygen at rest. Prior to ambulation, increased to 4 L and at 15 feet of ambulation he Did desaturate requiring increased to 6 L. After approximately 30 feet, he desaturated to 85% requiring increased to 10 L of supplemental oxygen and did recover with this Space at this point time, I do not know if there is a point to keeping him in the hospital. I do not know what his endpoint will be in terms of his lung function. If we can safely provide him the oxygen that he requires at home, I feel that he would be safe for discharge to home. I did have case management look into getting him an Oxymizer and the [employer] can provide up to 15 L. I had a lengthy discussion with the patient and his regarding this and keeping an eye on his pulse oximeter at home. He is adamant about this plan. is also agreeable. I did speak with therapy who reports that he is inde pendent but that they would recommend home PT/OT and visiting nurses. Case management has looked into this but unfortunately due to lack of staff given the pandemic, no one can come in to see him until next week. We will hold off on discharge for now until we can further sort this out. Would provide him with a bedside commode to help limit his need for strenuous activity. He does have approximately 10 steps to get into the home but everything is on 1 story. (2) 2019 novel coronavirus-infected pneumonia (NCIP): Plan: Unvaccinated First symptoms: 09/14/21 First positive test: 09/23/21 Off isolation 10/14/21 Remdesivir -- did not qualify for by time course Dexamethasone 10mg IV daily discontinued 10/09/2021 Baricitinib/Tocilizumab - CRP not elevated therefore did not qualify (was 3.84 at max) Intermittent Lasix provided Patient progressed to intubation on 09/30/2021 extubated in the morning on 10/07/21 (3) Intercostal muscle strain: Plan: On 10/26, patient complained of right rib pain that seems to be related to him pulling himself up in the bed with his arms Treated with Naproxen, resolved Naproxen stopped do avoid further nephrotoxicity (d/t uptrending creatinine) This issue has essentially resolved (4) Encephalopathy acute: Plan: RESOLVED Pt had escalated excited delirium that was multifactorial, from covid, steroids and 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 started on precedex but ultimately required intubation Continue seroquel 50mg PO HS as this appears to be helping him at night Speech eval, video swallow with aspiration of thin liquids, recommend no straws, and safe swallowing techniques (5) KASSIDY (acute kidney injury): Plan: Creatinine improved w/ discontinuation of IV diuresis - watch nephrotoxic meds (6) Type 2 diabetes mellitus: Plan: HbA1C 7.0 Resumed Accu-Cheks before meals and at bedtime given resumption of steroids continue CCD started on Neurontin for "burning in feet" likely related to neuropathy which has improved Pharmacy has been consulted to adjust in glycemic management, appreciate assistance (7) Constipation: Plan: treated and resolved now on bowel regimen (8) Leukocytosis: Plan: With neutrophil predominance, likely steroid-induced Downtrending Plan: VTE Prophylaxis - Lovenox 40mg SQ daily Diet - diabetic, easy to chew and no straws Initially, plan was for discharge to LTAC given high oxygen requirement/needs (as stated above was requiring 8 to 10 L at rest and 15 L with exertion but then transitioned to need for heated high flow) At this point, he seems to have shown favorable response and is requiring 2 L with rest but still 10L with ambulation. He is completely independent and no longer requires rehab. Looking into potential discharge to home with home oxygen, and Oxymizer, bedside commode and home health services Admission and Anticipated Discharge Date Admission Date: September 23, 2021 Subjective Patient seen on daily rounds today. Continues to show favorable response. Cur rently requiring 1 to 2 L of oxygen at rest to maintain a pulse ox 90 or above. Worked with therapy today and independently ambulating 120 feet. At this point time, he no longer needs inpatient rehabilitation. A two-step pulse oximetry was performed to determine his oxygen supplementation needs in order to hopefully get him discharged home. He is requiring 2 L at rest. After ambulating approximately 15 feet on 4 L, he did desaturate into the mid 80s. Supplementation was turned up to 6 L and pulse ox improved to 90%. He proceeded to ambulate and after about 30 feet, desaturated back down to 85%. Was brought back to bed at this time as he was feeling dizzy. Increased to 10 L and his pu lse ox rebounded within minutes. Review of Systems Review of Systems: All systems reviewed and are unremarkable except as noted in HPI and below Denies fevers, chills, headache, nasal congestion, sore throat, cough, chest pain, shortness of breath, palpitations, orthopnea, PND, abdominal pain, nausea, vomiting, diarrhea, constipation, dysuria, hematuria, frequency, back pain, joint pain or swelling, easy bruising or bleeding, skin lesions or rashes. Physical Exam Physical Exam: General: Resting comfortably in his hospital bed. NAD. HEENT: Head is AT/NC buccal mucosa is moist and pink Neck: No JVD. Negative hepatojugular reflex Cardiac: RRR without M/G/R Lungs: Diminished breath sounds throughout without W/R/R Abdomen: Normoactive X4. Soft and nontender in all quadrants. Extremities: No peripheral clubbing cyanosis or edema Neuro: A&O X4 cranial nerves II through XII are grossly intact no focal neuro deficits Skin: No obvious skin lesions or rashes Psych: Appropriate affect pleasant and cooperative Results & Data Results & Data ([facility]) Vital Signs (Past 12 Hours) Vital Signs Temp Pulse Pulse Pulse Pulse Pulse Pulse 11/06/21 12:12 95 H 120 H 118 H 116 H 100 H 94 H 11/06/21 07:23 36.8 C 11/06/21 03:07 Pulse Resp Resp Resp Resp Resp Resp 11/06/21 12:12 18 22 20 11/06/21 07:23 64 18 11/06/21 03:07 62 Resp BP Pulse Ox Pulse Ox Pulse Ox Pulse Ox Pulse Ox 11/06/21 12:12 20 88 L 85 L 86 L 86 L 11/06/21 07:23 122/78 93 11/06/21 03:07 94 Pulse Ox Pulse Ox 11/06/21 12:12 90 87 L 11/06/21 07:23 11/06/21 03:07 Laboratory Results 11/04/21 06:48 11/05/21 05:25 PG Care Time/CCT Total # of Minutes Spent Total Time Spent with Patient: Total time spent is greater than 50% in coordination of care (as documented) at patient's floor/unit and/or counseling patient: Coding Level of Care Code 43708 Subseq Hosp Care Lvl 2 Diagnoses Acute respiratory failure with hypoxia J96.01 2019 novel coronavirus-infected pneumonia (NCIP) U07.1; J12.82 Intercostal muscle strain S29.011A Encephalopathy acute G93.40 KASSIDY (acute kidney injury) N17.9 Type 2 diabetes mellitus E11.9 Constipation K59.00 Leukocytosis D72.829
--- NOTE | 2021-11-06 13:49 | Pharmacy Report ---
Pharmacy Glycemic Short Note 2 - Date of Service November 06, 2021 - Glycemic Short BSG Results (Last 24 hours): 11/05/21 11/05/21 11/05/21 13:46 16:18 20:06 POC Glucose 110 H 232 H 209 H 11/06/21 11/06/21 08:13 12:04 POC Glucose 101 H 107 H OUTPATIENT ANTIDIABETIC REGIMEN: * N/A * A1c: 7% 09-25-21 ASSESSMENT: 11/06 * Currently on prednisone 40 mg qAM * AM fasting BSG's with slow but steady trend down. However, notable increase in BSG's over the course of the day. Likely 2nd steroid effects. * Will change Lantus to NPH to mimic PK of prednisone * Will slightly tighten Novolog CHO ratio due to BSG's increasing over the day. Re-loosening may be considered if transition to NPH helps with post-prandial elevations later in the day 11/04 * Patient admitted initially for COVID on 09/23, pharmacy consulted for glycemic service earlier in admission * Pharmacy reconsulted 11/02 as steroids initiated and BSGs rising * Patient received total of 107 units of insulin yesterday, of which 30 units were basal. Steroids now changing from solm 40 mg iv q 8 hrs to prednisone 40 mg daily this morning. I anticipate BSGS to further improve * Fasting BSG 162 mg/dL - plan to give Lantus 25 units daily with prednisone 40, will loosen CF/CR as likely won't need as tight coverage with steroid change PLAN FOR INPATIENT GLYCEMIC CONTROL: * Hold outpatient oral diabetes medications * Basal insulin * NPH 20 units SC x1 this AM with prednisone 40 mg daily * Bolus insulin * NovoLog SQ ACHS * Goal range: 110-140 mg/dL * Correction factor: 12 mg/dL/unit * Carb ratio: 1 unit per 3.5 gm CHO PLAN FOR DISCHARGE: * to be determined. A1c 7% consistent with DM that could potentially be managed with diet/lifestyle changes. Disposition and clinical status at time of discharge to determine plan.
[2021-11-06] MEDS: QUEtiapine FUMARATE 25 MG TABLET PO SCH (19:33)
[2021-11-06] MEDS: GABAPENTIN 300 MG CAP PO SCH (19:33)
[2021-11-07 07:54] VITALS: TEMP 98.1; O2SAT 90
[2021-11-07] MEDS: ENOXAPARIN INJ 40 MG/0.4 ML SYR SQ SCH (08:29)
[2021-11-07] MEDS: PANTOprazole 40 MG TAB PO SCH (08:30)
[2021-11-07] MEDS: POLYETHYLENE (MIRALAX) 17 GM PACK PO SCH (08:30)
[2021-11-07] MEDS: THIAMINE HCL 100 MG TAB PO SCH (08:30)
[2021-11-07] MEDS: FAMOTIDINE 20 MG TAB PO SCH (08:30)
[2021-11-07] MEDS: MULTIVITAMIN TAB PO SCH (08:30)
[2021-11-07] MEDS: predniSONE 20 MG TAB PO SCH (08:30)
[2021-11-07] MEDS: DOCUSATE SODIUM/SENNA 50/8.6MG TAB PO SCH (08:40)
[2021-11-07] MEDS: INSULIN ASPART PER UNIT SC SCH ×3 (08:41→18:14)
[2021-11-07] MEDS ORDERED: INSULIN HUMAN NPH SC SCH (09:00)
--- NOTE | 2021-11-07 09:17 | Pharmacy Report ---
Pharmacy Glycemic Short Note 2 - Date of Service November 07, 2021 - Glycemic Short BSG Results (Last 24 hours): 11/06/21 11/06/21 11/06/21 12:04 17:14 20:36 POC Glucose 107 H 263 H 192 H 11/07/21 08:05 POC Glucose 122 H OUTPATIENT ANTIDIABETIC REGIMEN: * N/A * HbA1c: 7% (09/25/21) ASSESSMENT: 11/07 * BSGs trended up at dinnertime yesterday, 101, 107, 263, and 192 mg/dL * Likely related to prednisone, continues on prednisone 40 mg PO daily * Will increase NPH today ~40% to help with elevated BSGs later in the day * Will lower low-end of goal range to limit the amount of subtracted Novolog at lunchtime, given subsequent hyperglycemia yesterday 11/06 * Currently on prednisone 40 mg qAM * AM fasting BSG's with slow but steady trend down. However, notable increase in BSG's over the course of the day. Likely 2nd steroid effects. * Will change Lantus to NPH to mimic PK of prednisone * Will slightly tighten Novolog CHO ratio due to BSG's increasing over the day. Re-loosening may be considered if transition to NPH helps with post-prandial elevations later in the day 11/04 * Patient admitted initially for COVID on 09/23, pharmacy consulted for glycemic service earlier in admission * Pharmacy reconsulted 11/02 as steroids initiated and BSGs rising * Patient received total of 107 units of insulin yesterday, of which 30 units were basal. Steroids now changing from solm 40 mg iv q 8 hrs to prednisone 40 mg daily this morning. I anticipate BSGS to further improve * Fasting BSG 162 mg/dL - plan to give Lantus 25 units daily with prednisone 40, will loosen CF/CR as likely won't need as tight coverage with steroid change PLAN FOR INPATIENT GLYCEMIC CONTROL: * Basal insulin - increase * NPH 28 units SC daily with prednisone 40 mg daily * Bolus insulin - lower low-end of goal range * NovoLog SQ ACHS * Goal range: 100-140 mg/dL * Correction factor: 12 mg/dL/unit * Carb ratio: 1 unit per 3.5 gm CHO PLAN FOR DISCHARGE: * to be determined. A1c 7% consistent with DM that could potentially be managed with diet/lifestyle changes. Disposition and clinical status at time of skyla hairstonrge to determine plan.
[2021-11-07 14:51] VITALS: BP 124/81; PULSE 74
--- NOTE | 2021-11-07 19:04 | Discharge Summary ---
Date of Service November 07, 2021 Admission HPI Per Admitting Provider Bunny Rizvi is a 61 year old male who presents to the ER with COVID-19 symptoms for the last 9 days. He reports shortness of breath, non-productive cough, weakness, diarrhea (last couple of days) and poor appetite. He denies any chest or abdominal pain. He is unvaccinated. No prior testing or treatment. He is currently without a PCP but was previously under Dr Guzman 2 years ago and not found a doctor since he left. He reports no chronic medical problems and is on no regular medications. In the ER SARS COV-2 PCR positive. He is currently maintaining O2 sats > 90% on 4LPM O2 via nasal cannula. He received 6mg IV dexamethasone and was referred to medicine for admission and ongoing management of COVID-19 pneumonia. Principal Diagnosis 1. ARDS secondary to Covid with multilobar pneumonia 2. 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 Acute encephalopathymultifactorial and resolved 4. AKIresolved 5. Impaired fasting glucose 6. Debilityresolved Discharge Exam General: Resting comfortably in his hospital bed. NAD. HEENT: Head is AT/NC buccal mucosa is moist and pink Neck: No JVD. Negative hepatojugular reflex Cardiac: RRR without M/G/R Lungs: Diminished breath sounds throughout without W/R/R Abdomen: Normoactive X4. Soft and nontender in all quadrants. Extremities: No peripheral clubbing cyanosis or edema Neuro: A&O X4 cranial nerves II through XII are grossly intact no focal neuro deficits Skin: No obvious skin lesions or rashes Psych: Appropriate affect pleasant and cooperative Discharge Data Allergies Allergy/AdvReac Type Severity Reaction Status Date / Time No Known Drug Allergies Allergy Verified 09/23/21 17:57 Consultations 09/23/21 17:22 ED Decision to Admit Stat 10/31/21 09:39 Consult Pulmonology Routine Ordered Studies 09/26/21 12:26 CT angio chest PE protocol Urgent 09/30/21 12:35 US point of care ultrasound Stat 10/04/21 20:52 US arterial duplex LE LT Routine 10/11/21 14:30 FL video swallow Routine 10/20/21 23:01 CT angio chest PE protocol Urgent 10/30/21 11:36 CT angio chest PE protocol Stat Diabetes Follow up Diabetes Follow-up Needed for Newly Diagnosed Diabetes Hospital Course (1) Acute respiratory failure with hypoxia: Secondary to COVID-19 pneumonia and now ?post-covid effects (from what appears to be pulmonary fibrosis)-- unsure what next few weeks to months will bring in terms of lung healing mechanical ventilation for 8 days (09/30 to 10/07) Had been requiring 8 to 10 L of O2 at rest with 15 L on ambulation for days post intubation Over the course of last week, was back to requiring heated high flow nasal cannula and his prognosis was uncertain. Thought to have a secondary flareup of now pulmonary fibrosis d/t covid (work-up donesee below) He has surprisingly done well and is back down to requiring 1 to 2 L of supplemental oxygen at rest to maintain a pulse ox in the low to mid 90s. No longer debilitated/requiring rehab. Pulmonology following, appreciate their input and assistance--> started on methylprednisolone for presumed pulmonary fibrosis flare. Has since been transitioned to oral prednisone. needs continued taper Received neb tx's with Xopenex and Atrovent every 6 hours Prognosis has been touch and go. 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 Uncertain what the future holds for him. FU CXR does show subtle improvement. Uncertain the extent of lung healing that will take place Received 3 days of IV diuresis w/ Lasix which was stopped on 11/02 d/t uptrending creat and drop in Na to 133 Sputum gram stain and C&S was ordered on 11/02 as pt reported more productive cough but has yet been able to give sample Patient's disposition has been very questionable over the course of the past 2 to 3 weeks. His clinical status has been touching go and regards to his oxygen supplementation needs. Initially was debilitated and required rehab and was on significant high levels of oxygen supplementation. Initial plan was for LTAC. While awaiting bed availability, he did show improvement very slowly. While awaiting a bed, he did have a slight setback which was thought to be related to a pulmonary fibrosis flare (work-up done and now thought to have pulmonary fibrosis in the setting of recent Covid). He has shown favorable response and his oxygen supplementation requirements have been continuously down tapered. In addition, his debility has improved to the point where he is no longer requiring rehab. He is able to ambulate 120 feet independently. When seen yesterday, he was requiring 1 to 2 L of supplemental oxygen at rest but still up to 10 L with ambulation. Today, he is requiring 1 to 2 L at rest and 4 to 6 L with ambulation. Lowest pulse ox was 88% but he recovered within 30 seconds into the low 90s. Case management has confirmed with the [employer] that he can be provided with a home Oxymizer that can provide up to 15 L if needed. At this point time, he has been medically and hemodynamically stable and I feel no reason he needs to remain in the hospital. I am uncertain what his baseline is at this point. This may in fact be it. That being said, I feel that the best course of action is to get him back home. Case management diligently attempted to arranged home PT/OT and visiting nurses; however, due to lack of staff they were unsuccessful. Again, patient is independent. Spoke with therapy who believes that he does not necessarily need home PT/OT as his is there [id number]. In addition, they have printed him out supine exercises that he can continue at home. I have reached out to his PCP and arrange an appointment for him to be seen next week. I was also reassured that they have a java solutions architect that comes to the clinic as he will need seen by pulmonology in follow-up. Patient will need follow-up imaging of the chest, likely PFTs, follow-up two- step pulse oximeter all as an outpatient and at the discretion of pulmonology Again, extent of lung healing is unknown at this point in time. Baseline unknown at this time (2) 2019 novel coronavirus-infected pneumonia (NCIP): Unvaccinated First symptoms: 09/14/21 First positive test: 09/23/21 Off isolation 10/14/21 Remdesivir -- did not qualify for by time course Dexamethasone 10mg IV daily discontinued 10/09/2021 Baricitinib/Tocilizumab - CRP not elevated therefore did not qualify (was 3.84 at max) Intermittent Lasix provided Patient progressed to intubation on 09/30/2021 extubated in the morning on 10/07/21 (3) Intercostal muscle strain: On 10/26, patient complained of right rib pain that seems to be related to him pulling himself up in the bed with his arms Treated with Naproxen, resolved Naproxen stopped do avoid further nephrotoxicity (d/t uptrending creatinine) This issue has essentially resolved (4) Encephalopathy acute: RESOLVED Pt had escalated excited delirium that was multifactorial, from covid, steroids and 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 started on precedex but ultimately required intubation Continue seroquel 50mg PO HS as this appears to be helping him at night. I do not necessarily believe he needs this upon discharge. Speech eval, video swallow with aspiration of thin liquids, recommend no straws, and safe swallowing techniques (5) KASSIDY (acute kidney injury): Creatinine improved w/ discontinuation of IV diuresis - watch nephrotoxic meds (6) Type 2 diabetes mellitus: HbA1C 7.0 Likely with impaired fasting glucose and superimposed hyperglycemia in the setting of ongoing steroids recommend continued carb consistent diet Has been seen by the planning assistant and importance of good glycemic control was discussed Patient should check blood sugars 3 times a week (fasting and 2-hour postprandially) Patient has been started on Metformin 500 mg twice daily. This can be uptitrated or stopped--at discretion of PCP Recommend follow-up labs in 1 month (metabolic panel to trend creatinine) started on Neurontin for "burning in feet" likely related to neuropathy which has improved Patient was placed on sliding scale coverage while in house to accommodate for steroid-induced hyperglycemia (7) Constipation: treated and resolved now on bowel regimen (8) Leukocytosis: With neutrophil predominance, likely steroid-induced Downtrending VTE Prophylaxis - Lovenox 40mg SQ daily Diet - diabetic, easy to chew and no straws Discharge to home with home oxygen and wheeled walker Total Time Total Time Spent Total Time Spent (In Minutes): 60 minutes including time spent with patient, calling , coordination of care and discussion with case management and preparation of documentation Discharge Plan Discharge Items Patient Disposition: Home - Self-Care Reason For Visit: COVID-19, ACUTE RESPIRATORY FAILURE WITH HYPOXIA Discharge Diagnosis: 1. Acute respiratory distress syndromeresolved 2. Covid pneumonia 3. Encephalopathyresolved 4. Diabetes mellitus with superimposed steroid-induced hyperglycemia Activity: As commented below Activity Comment: as tolerated and [facility] SUPPLEMENTAL OXYGEN Non-emergency contact: Primary Care Provider and Blasting Helper Call non-emergency contact if: you have any medication questions and your symptoms worsen Follow-up/Referrals: Jacy Swanson PA-C [Primary Care Provider] - 11/13/21 9:15 am Diet: Carb Consistent or DM2 Diet Comment: no straws Addtl Attending Provider Instructions: - you were hospitalized on account of Covid with associated Pneumonia - you did end up going into respiratory failure requiring ventilatory support. - despite your severe respiratory compromise, you did rather well - for a long time, you needed significant amount of oxygen and although still on O2, you are at a point where we can safely administer this at home - in addition, you have improved from a physical standpoint and are no longer needed in house rehab - you need to remain on 2L of supplemental oxygen at rest (to keep your pulse ox >/=88%) - you need to increase to 6L of supplemental oxygen with exertion (again, to keep your pulse ox >/=88%)-- the oxygen that you are being sent home with will have an Oxymizer that will allow up to 15L if needed - I recommend that you get a pulse oximeter (can get this at the drug store) if your insurance/DME company will not supply this - you should complete the tapering course of prednisone (over the next 2 weeks) - you have been scheduled a Follow up appt (FridayNovember 13 @ 9:15) to see your Family Physician - you were also found to have diabetes while in house and required insulin for this (unfortunately, steroids were needed to help with your respiratory status and this can also increase your blood sugars). I do not feel that you need continued insulin at home but you have been started on Metformin to help with your blood sugars. - please check your blood sugar 1x/day- fasting before breakfast and occasionally 2 hours after your largest meals and maintain a lower carb diet! - you will need to have follow labs and imaging (of your chest)-- at the discretion of your PCP - take all medications as outlined - return to the ED for new or worsening symptoms Pending Studies at Discharge: No Stand-Alone Forms: My [employer], Smoking Cessation Medications and DC Order Prescriptions: New gabapentin 300 mg Capsule 300 mg PO HS Qty: 30 RF: 0 metformin 500 mg tablet 500 mg PO BID Qty: 60 RF: 0 prednisone 10 mg tablet 10 mg PO DIRECTED Qty: 18 RF: 0 (DME) blood-glucose meter [[employer] Verio Flex Start] Kit See Rx Instructions .Route Qty: 1 RF: 0 (DME) lancing device with lancets [[employer] Delica Lanc Device] Kit See Rx Instructions .Route Qty: 100 RF: 0 Discharge Orders: Discharge Order (Routine); Ordered 11/07/21 Ordered By: Ashlyn Long/Other Patient Handouts: High Blood Sugar (Hyperglycemia), Hypoglycemia (Low Blood Sugar), Managing Type 2 Diabetes, How to Check Your Blood Sugar, Healthy Meals for Diabetes Admission Data Admit Date/Time: 09/23/21 18:07 Attending Provider: Ez Garcia Admit Provider: Jose Francis Primary Care Provider: Jacy Swanson Other Providers: [facility] ; [facility] ; [facility] ; Jose Francis ; Serafin Myers Other Interventions: Discharge Summary Assessment (RN) Last Done: 11/07/21 14:50 Supervising Physician Co-Signing Physician Notes Patient seen and examined, chart reviewed, case discussed with Gissel Louie and I agree with the assessment and plan as above except as otherwise noted General: A&Ox3. NAD. Cooperative. HEENT: Atraumatic, normocephalic. Vision and hearing grossly intact. Pulm: CTAB A&P. -wheezes, -rales, -rhonchi. Symmetrical chest rise. No increase work of breathing. No respiratory distress. Cardiac: RRR, -mrg. Radial pulses intact and symmetrical. Abdominal: Nontender, nondistended, soft. BS present. All labs and images reviewed Patient seen at the bedside, wire brusher also present at time of visit. Patient feels well, no shortness of breath at rest. Pt with complicated course including intubation now extubated and doing extremely well. Will require ongoing followup as noted above. Did discuss dietary modifications extensively and ongoing monitoring treatment of his diabetes. Agree with continuing Metformin, taper of prednisone. Coding Level of Care Code D/C DAY MANAGEMENT >30 MINS Diagnoses Acute respiratory failure with hypoxia J96.01 2019 novel coronavirus-infected pneumonia (NCIP) U07.1; J12.82 Intercostal muscle strain S29.011A Encephalopathy acute G93.40 KASSIDY (acute kidney injury) N17.9 Type 2 diabetes mellitus E11.9 Constipation K59.00 Leukocytosis D72.829
== END 2021-11-07 18:39 | disposition home or self-care (01) | DRG 207 ==
LOC: ED 15:29 → 3W 18:07 → SUATTDRO 18:07 → 3W 20:53 → 2E 09-27 10:04 → 2W 10-12 20:11 → 3E 10-16 14:26 → 2S 10-31 11:56 → 3N 11-05 22:16

== ENCOUNTER 2023-08-11 18:13 | Inpatient (IN) ==
[2023-08-11] MEDS ORDERED: OPTIRAY 320 500ml IV ONE (18:19)
--- NOTE | 2023-08-11 18:42 | CT Scan Report ---
UNENHANCED CT OF THE BRAIN; CT ANGIOGRAM OF THE BRAIN; CT ANGIOGRAM OF THE NECK CLINICAL HISTORY: Neurological deficit. Right-sided weakness. Strokelike symptoms. COMPARISON STUDY: No priors. TECHNIQUE: Unenhanced axial CT scan of the brain is performed. Subsequently, following the IV adminis tration of 119 of [address] 320, CT angiogram of the head and neck was performed from the aortic arch t o the vertex. Images are reviewed in the axial, sagittal, and coronal planes. 3-D MIPS images are cre ated and assessed. IV contrast was administered without complication. All measurements were calculate d based on NASCET criteria. A dose lowering technique was utilized adhering to the principles of ALA RA. CT DOSE: 1277.44 mGy.cm FINDINGS: Brain parenchyma: There is age-related visual change noting minimal microangiopathic disease. There i s no hemorrhage, mass effect, or evidence of acute territorial ischemia by CT criteria. There is no e vidence of enhancing mass lesion on the angiogram phase images. The ventricles, sulci, and cisterns a re normal in configuration. Correia-white matter differentiation is preserved. No extra-axial fluid vasile ection is seen. Thoracic aorta: Visualized portions of the thoracic aorta are normal in caliber. The aortic arch demo nstrates standard 3-vessel anatomy. Right carotid arterial system: The right common carotid artery is widely patent, as are the right int ernal and external carotid arteries. Mild plaque is seen in the carotid bulb. Left carotid arterial system: The left common carotid artery is widely patent, as are the left technical support internship al and external carotid arteries. Vertebral arteries: The vertebral arteries are widely patent bilaterally noting left-sided dominance. Subclavian arteries: Widely patent bilaterally. Intracranial vasculature: The internal carotid arteries are patent at the skull base, as are the ante rior and middle cerebral arteries bilaterally. The vertebrobasilar system and posterior cerebral jose valerio are widely patent. The left vertebral artery is dominant. The right vertebral artery terminates as the PICA. There is no aneurysm, high-grade stenosis, or focal vessel cut off seen throughout the i ntracranial circulation. Jugular veins: Patent bilaterally. Dural sinuses: Patent. Lung apices: Partially visualized upper lobe lung parenchyma appears clear. Soft tissues: There is a 1.9 x 1.5 x 1.3 cm lobular and homogeneous enhancing extra-axial mass lesion within the left aspect of the cervical canal at C1-C2 seen on axial image #291 of the neck angiogram series. This causes mild mass effect on the left aspect of the thecal sac. This approximates but ballard s not encase the left vertebral artery. There are bilateral posterior communicating arteries. The vis ualized pharyngeal soft tissues are normal in appearance noting angiographic phase technique. The wyatt pharyngeal airway appears widely patent. The salivary and thyroid glands are normal in appearance. No cervical lymphadenopathy is seen. Skeletal structures: The skeletal structures are osteopenic. The calvarium appears intact. The cervic al spine is maintained noting multilevel spondylosis. Orbits: The bony orbits are intact. Orbital contents are normal as visualized. Sinuses and mastoids: There is mild mucosal thickening within the ethmoid sinuses. Trace because of t hickening is noted in the left maxillary antrum. The remaining paranasal sinuses are clear. The masto id air cells are well pneumatized. IMPRESSION: 1. There is no hemorrhage, mass effect, or evidence of acute territorial ischemia by CT criteria. 2. Unremarkable CT angiogram of the brain. 3. Unremarkable CT angiogram of the neck. 4. There is a 2 cm homogeneously enhancing extra-axial mass lesion identified in the left aspect of t he upper cervical spinal canal at C1-C2. This causes mild mass effect upon the left aspect of the the sahra sac and likely represents a meningioma. A contrast-enhanced MRI of the cervical spine is recommen ded for further assessment. Neurosurgical follow-up is advised. ACT 112: Negative or not required by law. Electronically signed by: Jerad Davalos M.D. 08/11/2023 6:39 PM
[2023-08-11 18:50] LABS: Basophils # (auto) 0.03 K/uL (0.00-0.20); Basophils % (auto) 0.3 %; Eosinophils # (auto) 0.02 K/uL (0.00-0.50); Eosinophils % (auto) 0.2 %; Hematocrit (blood only) 44.2 % (42.0-52.0); Immature Granulocytes # (auto) 0.04 K/uL (0.01-0.20); Immature Granulocytes % (auto) 0.4 %; Lymphocytes # (auto) 0.72 K/uL (1.20-3.40); Lymphocytes % (auto) 7.7 %; Mean Corpuscular Hemoglobin 31.6 pg (25.0-34.0); Mean Corpuscular Hgb Conc 33.9 g/dL (32.0-36.0); Mean Corpuscular Volume 93.2 fL (80.0-100.0); Mean Platelet Volume 9.7 fL (9.4-12.4); Monocytes # (auto) 0.46 K/uL (0.11-0.59); Monocytes % (auto) 4.9 %; Neutrophils # (auto) 8.11 K/uL (1.40-6.50); Neutrophils % (auto) 86.5 %; Platelet Count 191 K/uL (130-400); RDW Coefficient of Variation 12.8 % (11.5-14.5); RDW Standard Deviation 44.2 fL (36.4-46.3); Red Blood Count 4.74 M/uL (4.70-6.10); White Blood Count 9.38 K/ul (4.8-10.8)
[2023-08-11 19:07] LABS: Albumin Globulin Ratio 1.6 (0.9-2); Albumin Level 3.8 gm/dl (3.4-5.0); BUN Creatinine Ratio 11.8 (10-20); Bilirubin,Total 0.7 mg/dl (0.2-1.0); Calcium 9.2 mg/dl (8.6-10.3); Creatinine Clr Calc Pharmacy 54.1 ml/min; Est GFR (African American) 55.7 ml/min; Est GFR (Non-African American) 48.1 ml/min; Globulin 2.4 gm/dl (2.5-4.0); Magnesium 1.7 mg/dl (1.7-2.4); Potassium 4.3 mmol/L (3.5-5.1); Total Protein 6.2 gm/dl (6.0-8.3)
[2023-08-11] MEDS ORDERED: LABETALOL HCL IV 5 MG/ML 20ML IV STA (19:09)
[2023-08-11 19:13] LABS: Troponin I High Sensitivity 3.6 pg/ml (0-20)
[2023-08-11] MEDS ORDERED: ONDANSETRON INJ 2 MG/ML 2 ML VIAL IV STA (19:14)
[2023-08-11 19:29] LABS: INR 1.1 (0.9-1.1); Partial Thromboplastin Ratio 0.8; Partial Thromboplastin Time 23.1 Seconds (21.0-31.0); Prothrombin Time 11.5 Seconds (9.0-12.0)
[2023-08-11] MEDS ORDERED: ATORVASTATIN 40 MG TAB PO STA (19:49)
[2023-08-11] MEDS ORDERED: ASPIRIN CHEW 324 MG PO STA (19:49)
[2023-08-11] MEDS ORDERED: SODIUM CHLORIDE 0.9% 250 ML IV ONE (19:49)
[2023-08-11] MEDS ORDERED: SODIUM CHLORIDE 0.9% 1,000 ML IV STA (19:50)
[2023-08-11] MEDS ORDERED: ASPIRIN 300 MG SUPP PR ONE (19:54)
[2023-08-11] MEDS ORDERED: dexAMETHasone**PF** 10 MG/ML VIAL IV ONE (21:04)
[2023-08-11] MEDS ORDERED: GADOBUTROL 65ML VIAL IV ONE (21:59)
[2023-08-11] MEDS ORDERED: CARBOHYDRATES FOR HYPOGLYCEMIA PO PRN (22:24)
[2023-08-11] MEDS ORDERED: DEXTROSE 50% 50 ML SYRINGE IV PRN (22:24)
[2023-08-11] MEDS ORDERED: GLUCOSE 40% GEL 15 GM TUBE PO PRN (22:24)
[2023-08-11] MEDS ORDERED: GLUCOSE 10 TAB/TUBE PO PRN (22:24)
[2023-08-11] MEDS ORDERED: GLUCAGON FOR INJ 1 MG VIAL SQ PRN (22:24)
[2023-08-11] MEDS ORDERED: ATORVASTATIN 40 MG TAB PO SCH (22:24)
[2023-08-11] MEDS ORDERED: INFLUENZA VIRUS QUADRIVALENT VACCINE (IIV4) 0.5 ML SYR IM ONE (22:41)
--- NOTE | 2023-08-11 22:48 | History & Physical Report ---
Date of Service August 11, 2023 Assessment & Plan (1) Arterial ischemic stroke, vertebrobasilar, cerebellar, acute: Plan: 63 M with PMH DM2, hypertension, who presented with slurred speech, weakness, other nonspecific neurological symptoms. Now admitted for evaluation, further management of acute bilateral cerebellar ischemic injury. Acute bilateral cerebellar ischemia/strokelike symptoms -Dysarthria, vision loss, headache, weakness prior to arrival. Neuro exam on admission notable for dysarthria. -S/p ASA, IV labetalol 20 mg, atorvastatin in the ED. -ESR normal. CT head negative for ischemia or hemorrhage. Conferred with neurosurgery ([facility] [place]recommended ASA monotherapy, MRI head. -MRI head (stat rad): Moderate right and tiny left cerebellar acute ischemic injury with extensive cytotoxic edema, without evidence of hemorrhagic transformation. * Aspirin 81 mg daily. Hold Plavix until further review of MRI report by [facility] [place]. * Atorvastatin increased to 80 mg daily. * Neurochecks every 2 hours * Lipid profile, HgbA1c pending * Initiate diet pending negative dysphagia screen Meningioma of cervical spine -"2 cm homogenously enhancing extra-axial mass lesion... in the left aspect of upper cervical spinal canal at C1-C2" discovered incidentally on noncontrast head CT. Mild mass effect noted on report. -Received loading dose of IV dexamethasone 10 mg due to concern for cord compression. -Subsequent MRI of cervical spine: "dural based extra medullary and intradural soft tissue mass in the left spinal canal at the level of C1 measuring 16.4 x 12.8 x 12.3 mm with mild enhancement." No mass effect on the cord. -MRI findings relayed to [facility] neurosurgeon recommended management as above (ASA only, hold Plavix, repeat CTA cervical spine to ensure size stability). -Possible inflammatory etiology considered due to patient complaint of headache. ESR within normal limits. * Repeat imaging of hemangioma (CTA cervical spine) ordered for 3 PM. * Plan otherwise as above. T2DM -Chronic. Managed on dapagliflozin, atorvastatin. Last hemoglobin A1c of 6.8 (June 2023). * Dapagliflozin held on admission. SSI insulin per protocol for glycemic management (CF-30, CR-10, range 100-140). * Home atorvastatin increased to 80 mg daily. * Pending Hgb A1c level. Hypertension -Chronic. Managed on valsartan 40 mg daily. * Holding home valsartan pending further evaluation of acute ischemic cerebellar process. Code: Full code Dispo: PCU FEN/GI: NPO (heart healthy/carb consistent if dysarthria screen negative) DVT Prophylaxis: Heparin 5000 u q12h PT/OT: No Consults: None Case Management: No (2) Stroke-like symptoms: (3) Meningioma, spinal: (4) Type 2 diabetes mellitus: (5) Hypertension: Admission and Anticipated Discharge Date Admission Date: August 11, 2023 History of Present Illness Primary Care Provider: Eliseo Baugh PA-C Bunny is a 63-year-old man with a history of hypertension, GI bleed, and type 2 diabetes, who presented to the emergency room via stroke alert. HPI per patient and son, (present at symptomatic onset) provided over the phone. 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 When son approached him, patient reported that his vision was "messed up" and was having a headache. His dad reported that he had turned his head behind him to visualize the head of a tree he was attempting to grab, when he heard a loud pop in the back of his neck and his vision was gone. Son then encouraged dad to eat some yogurt, at which point he began vomiting. The patient himself recalls a sudden lack of hearing ("everything went silent"), as well as acute vision loss and right-sided UE + LE weakness ("felt drunk" tilted to the right side). In the ED, BP was elevated in the 170s/110s. Rest of vital signs were normal. Labs were unremarkable. Head CT was negative for hemorrhage, ischemia, or mass effect but did note a "2 cm homogenously enhancing extra-axial mass lesion identified in the left aspect of the upper cervical spinal canal at C1-C2." Neurosurgical follow-up was advised on report. Greater concern for hypertensive urgency however by neurosurgery, who recommended BP control to ED physician. Patient received aspirin rectally, Lipitor, IV labetalol, and 2 normal saline boluses. MRI brain was then ordered for stroke rule out, further investigation of meningioma. Allergies Allergy/AdvReac Type Severity Reaction Status Date / Time No Known Drug Allergies Allergy Unknown Verified 08/11/23 18:42 Home Medications Medication Instructions Recorded Confirmed Type blood-glucose meter (OneTouch #1 ea 11/07/21 08/11/23 Rx Verio Flex Start kit) lancing device with lancets kit #100 ea 11/07/21 08/11/23 Rx (OneTouch Delica Lancing Device kit) atorvastatin 40 mg tablet 40 mg PO HS 08/11/23 08/11/23 History cholecalciferol (vitamin D3) 125 5,000 unit PO DAILY 08/11/23 08/11/23 History mcg (5,000 unit) capsule dapagliflozin propanediol 5 mg 5 mg PO QAM 08/11/23 08/11/23 History tablet (Farxiga) tamsulosin 0.4 mg capsule 0.4 mg PO HS 08/11/23 08/11/23 History valsartan 40 mg tablet 40 mg PO HS 08/11/23 08/11/23 History Past Med/Surg History Medical History Hx of acute respiratory failure 09/2021 r/t covid 19 HTN (hypertension) On home oxygen therapy has currently weaned self off, now only using 2 lpm PRN- states has not needed in over a month- follows w/ [facility] pul[facility]ril History of COVID-19 09/2021- pneumonia, intubated, hospitalized at [facility] X 56 days Rectal bleeding Type 2 diabetes mellitus Surgical History History of surgery on lower extremity traumatic chainsaw accident, left adkins History of hand surgery traumatic chainsaw injury to left hand History of knee surgery prior left traumatic knee injury Family History Other No family history of adverse response to anesthesia Social History Smoking Status: Never smoker Second Hand Exposure: No; Do You Dip or Chew Tobacco: Yes (advised); Hx Alcohol Use: Yes Alcohol type: beer Hx Substance Use: No Preferred Language: Sinhala Communication Ability: Effective 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 HEENT: Normocephalic, atraumatic. EOM intact without nystagmus. Good conjugate gaze. Nares patent. CV: Regular rate and rhythm. Normal S1 and S2. No murmurs gallops or rubs. Respiratory: Normal respiratory effort. Lungs clear to auscultation bilaterally. No crackles, rhonchi, or wheezes. Abdomen: Soft, nondistended abdomen. No tenderness to deep palpation. Extremities: Capillary refill <2 sec. 2+ dp equal bilaterally. No pedal edema. Neuro: Alert and oriented x3. Cranial nerves II-XII grossly intact bilaterally. Slurred speech. 5/5 strength with flexion/extension at elbow, knee, and ankle bilaterally. Skin: Clean, dry, and intact. No rashes, bruises, or erythema. Results & Data Results & Data Vital Signs (Past 12 Hours) Vital Signs Temp Pulse Pulse Resp BP BP Pulse Ox 08/11/23 20:00 64 20 155/104 H 95 08/11/23 19:45 65 22 157/99 H 94 08/11/23 19:30 66 18 153/92 H 08/11/23 19:13 64 177/105 H 08/11/23 19:09 70 15 171/105 H 92 08/11/23 19:01 67 22 171/105 H 92 08/11/23 18:45 64 16 94 08/11/23 18:42 72 08/11/23 18:31 175/118 H 08/11/23 18:31 71 14 95 08/11/23 18:30 72 20 08/11/23 18:17 70 14 178/115 H 97 08/11/23 18:17 08/11/23 18:17 36.6 C 70 14 178/118 H 97 O2 Del Method 08/11/23 20:00 Room Air 08/11/23 19:45 Room Air 08/11/23 19:30 08/11/23 19:13 08/11/23 19:09 Room Air 08/11/23 19:01 Room Air 08/11/23 18:45 08/11/23 18:42 08/11/23 18:31 08/11/23 18:31 08/11/23 18:30 08/11/23 18:17 Room Air 08/11/23 18:17 Room Air 08/11/23 18:17 Room Air Supervising Physician Co-Signing Physician Notes Attending addendum: I have physically seen this patient, have supervised the medical residents activities, and agree with the H&P unless as otherwise noted. Assessment and Plan: Acute bilateral cerebellar ischemic stroke- Initial studies were negative: CT head, CTA head and neck positive for noting a 2 cm meningioma at C1-C2 level MRI brain revealed bilateral acute cerebellar ischemic stroke, moderate on right and tiny left with extensive cytotoxic edema Case discussed multiple times with neurosurgery [facility] Patient did receive dexamethasone 10 mg IV earlier due to concerns regarding compression of sacroiliac by the meningioma at C1-C2 Continuing aspirin per neurosurgery, holding Plavix until further review by [facility] neurosurgery The patient will be admitted to telemetry for serial cardiac enzymes, serial EKG's, cardiac rhythm monitoring and a 2-D echocardiogram with Dopplers. Neurochecks every 2 hours Stroke without tPA order set Permissive hypertension, holding losartan Diabetes mellitus- Holding oral medications Placed on Accu-Cheks with NovoLog SSI Resident Activity Tracking Resident Involvement: Resident Care Provided Care Provided: Adult Hospital Medicine
--- NOTE | 2023-08-11 23:16 | Emergency Department Note ---
Impression & Plan Stroke-like symptoms, Vertigo, Vomiting ED Provider Note CHIEF COMPLAINT: Stroke symptoms HISTORY OF PRESENT ILLNESS: This 63-year-old male patient past medical history of hypertension, daily alcohol intake, encephalopathy, acute kidney injury, type 2 diabetes presents to the emergency department with complaints of strokelike symptoms. 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 At 1600 the patient was walking out of the [employer] with his son who noticed slurred speech. The patient complained of a headache that felt like a "sledgehammer" and had some difficulty walking in a straight line. Patient did have several episodes of vomiting. He was taken to acute care in [place] for evaluation where the ambulance was called. He denies any trauma today. He denies any visual changes. REVIEW OF SYSTEMS: A review of systems was performed with positives and pertinent negatives listed in the history of present illness. 10 systems were reviewed and are otherwise negative. ALLERGIES: see below MEDICATIONS: see below PMH: see below SOCIAL HISTORY: see below DDx: Stroke, intracranial hemorrhage, migraine headache, intracranial mass, hypertensive urgency, alcohol intoxication among others PHYSICAL EXAM: Vital signs reviewed. Noted to be hypertensive General: Well-appearing 63-year-old male, in no significant distress. HEENT: No scleral icterus, PERRLA, neck supple. Atraumatic. Cardiovascular: Regular rate and rhythm, no extra sounds. Pulmonary: Clear to auscultation bilaterally, normal work of breathing. Abdomen: Soft, nontender, nondistended, positive bowel sounds. Musculoskeletal: Atraumatic, no peripheral edema. Neurologic: Patient awake alert and oriented x 3, speech is clear. Cranial nerves II through XII are grossly intact. Negative pronator drift. Slight ataxia noted to the right upper extremity. Skin: Warm, dry, no rash EMERGENCY DEPARTMENT COURSE/MDM: This patient was evaluated and appeared to be in no significant distress. Patient was taken immediately to CT for imaging of the head and neck. IV access was obtained and laboratory work was drawn. Patient was placed on the batch analyst and noted to be in a normal sinus rhythm. EKG reveals no evidence of acute ischemia. Patient seemed to be doing well on my initial evaluation only with some slight slurred speech and right upper extremity ataxia. Telestroke neurologist Dr. Holly was consulted. He did evaluate the patient over the WebCam. Patient is felt not to require TNKase given the timeframe and his low stroke score. CT imaging of the head is negative for acute intracranial abnormality, CT angiograms are negative for large vessel occlusion. He did do fairly well standing, bearing weight and ambulating. Patient's laboratory work reveals a normal sinus rhythm without acute ischemia. Patient was given IV Zofran x2. He did receive IV labetalol 20 mg for his elevated blood pressure, normal saline solution 250 cc bolus and rectal aspirin 320 mg. Patient's case was discussed with the [facility] team. Patient's was at the bedside and expressed understanding of the plan and agreed. MONITORING: An order for cardiac monitoring was placed and the patient is noted to be in a normal sinus rhythm at 73 beats per minute. RADIOLOGY: CT imaging of the head to my interpretation reveals no evidence of acute intracranial abnormality. CT angiogram of the head and neck per radiology is unremarkable. A mass consistent with a meningioma is seen at C1/C2. See final read below. Chest x-ray to my interpretation reveals no evidence of focal lung consolidation or failure EKG: To my interpretation reveals a normal sinus rhythm at 67 bpm. QTc of 437. Normal ST segments. No PVC, no PAC. No significant change from previous dated January 31, 2022 DISPOSITION: Admission I have personally spent greater than 60 minutes of critical care time in the direct management of this patient. This includes bedside care, interpretation of diagnostic studies, and testing, discussion with consultants, patient, and family members, and other required patient management activities. This 60 minutes is in excess of all separately billable procedures. Past Med/Surg History Medical History Hx of acute respiratory failure 09/2021 r/t covid 19 HTN (hypertension) On home oxygen therapy has currently weaned self off, now only using 2 lpm PRN- states has not needed in over a month- follows w/ [facility] History of COVID-19 09/2021- pneumonia, intubated, hospitalized at [facility] X 56 days Rectal bleeding Type 2 diabetes mellitus Surgical History History of surgery on lower extremity traumatic chainsaw accident, left adkins History of hand surgery traumatic chainsaw injury to left hand History of knee surgery prior left traumatic knee injury Family History Other No family history of adverse response to anesthesia Social History Smoking Status: Never smoker Second Hand Exposure: No; Do You Dip or Chew Tobacco: Yes (advised); Hx Alcohol Use: Yes Alcohol type: beer Hx Substance Use: No Preferred Language: Chinese Communication Ability: Effective 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 Beliefs That Will Affect Care: None marital status: Current Living Situation: Spouse Current Living Situation Comment: LIVES WITH SON RICH How many Children do You have: 1 Other Information That Helps Us Care for You: No Feels Safe at Home: Yes Safety Concerns: Feels Safe At This Time Assistive Devices: Hearing Aid - Left and Oxygen - Continuous Assistive Devices Comment: has oxygen but doesn't wear it at home Allergies Allergies Allergy/AdvReac Type Severity Reaction Status Date / Time No Known Drug Allergies Allergy Unknown Verified 08/11/23 18:42 Home Meds Home Medications Medication Instructions Recorded Confirmed atorvastatin 40 mg tablet 40 mg PO HS 08/11/23 08/11/23 cholecalciferol (vitamin D3) 125 5,000 unit PO DAILY 08/11/23 08/11/23 mcg (5,000 unit) capsule dapagliflozin propanediol 5 mg 5 mg PO QAM 08/11/23 08/11/23 tablet (Farxiga) tamsulosin 0.4 mg capsule 0.4 mg PO HS 08/11/23 08/11/23 valsartan 40 mg tablet 40 mg PO HS 08/11/23 08/11/23 Previous Rx's Medication Instructions Recorded blood-glucose meter (Amvonauch #1 ea 11/07/21 Verio Flex Start kit) lancing device with lancets kit #100 ea 11/07/21 (OneTouch Delica Lancing Device kit) Results & Data (ED) Vital Signs Vital Signs - 24 hr 08/11/23 18:17 08/11/23 18:17 08/11/23 18:17 Temperature 36.6 C Temperature Source Oral Pulse Rate 70 Pulse Rate [Apical] 70 Pulse Rate from SpO2 Sensor Pulse Rhythm Regular Pulse Rhythm [Apical] Regular Pulse Strength Normal Pulse Strength [Apical] Normal Respiratory Rate 14 14 Respiratory Effort / Characteristics Non-Labored Non-Labored Respiratory Depth Normal Normal Respiratory Pattern Regular Regular Blood Pressure 178/118 H Blood Pressure [Left Arm] 178/115 H Blood Pressure Mean 138 Blood Pressure Mean [Left Arm] 136 Blood Pressure Position Lying Blood Pressure Position [Left Arm] Lying Pulse Oximetry 97 97 Oxygen Delivery Method Room Air Room Air Room Air Sepsis Recent Fever Within 48 Hours No Sepsis New/Unexplained Change in Mental Status No Sepsis Action Taken by Nursing No Action Required 08/11/23 18:30 08/11/23 18:31 08/11/23 18:31 Temperature Temperature Source Pulse Rate 72 71 Pulse Rate [Apical] Pulse Rate from SpO2 Sensor 70 Pulse Rhythm Pulse Rhythm [Apical] Pulse Strength Pulse Strength [Apical] Respiratory Rate 20 14 Respiratory Effort / Characteristics Respiratory Depth Respiratory Pattern Blood Pressure 175/118 H Blood Pressure [Left Arm] Blood Pressure Mean 130 Blood Pressure Mean [Left Arm] Blood Pressure Position Blood Pressure Position [Left Arm] Pulse Oximetry 95 Oxygen Delivery Method Sepsis Recent Fever Within 48 Hours Sepsis New/Unexplained Change in Mental Status Sepsis Action Taken by Nursing 08/11/23 18:42 08/11/23 18:45 08/11/23 19:01 Temperature Temperature Source Pulse Rate 72 64 67 Pulse Rate [Apical] Pulse Rate from SpO2 Sensor 64 68 Pulse Rhythm Pulse Rhythm [Apical] Pulse Strength Pulse Strength [Apical] Respiratory Rate 16 22 Respiratory Effort / Characteristics Respiratory Depth Respiratory Pattern Blood Pressure 171/105 H Blood Pressure [Left Arm] Blood Pressure Mean 127 Blood Pressure Mean [Left Arm] Blood Pressure Position Blood Pressure Position [Left Arm] Pulse Oximetry 94 92 Oxygen Delivery Method Room Air Sepsis Recent Fever Within 48 Hours Sepsis New/Unexplained Change in Mental Status Sepsis Action Taken by Nursing 08/11/23 19:09 08/11/23 19:13 08/11/23 19:30 Temperature Temperature Source Pulse Rate 64 Pulse Rate [Apical] 70 66 Pulse Rate from SpO2 Sensor Pulse Rhythm Pulse Rhythm [Apical] Pulse Strength Pulse Strength [Apical] Respiratory Rate 15 18 Respiratory Effort / Characteristics Respiratory Depth Respiratory Pattern Blood Pressure 177/105 H Blood Pressure [Left Arm] 171/105 H 153/92 H Blood Pressure Mean Blood Pressure Mean [Left Arm] 127 112 Blood Pressure Position Blood Pressure Position [Left Arm] Pulse Oximetry 92 Oxygen Delivery Method Room Air Sepsis Recent Fever Within 48 Hours Sepsis New/Unexplained Change in Mental Status Sepsis Action Taken by Nursing 08/11/23 19:45 08/11/23 20:00 Temperature Temperature Source Pulse Rate 65 64 Pulse Rate [Apical] Pulse Rate from SpO2 Sensor 65 64 Pulse Rhythm Pulse Rhythm [Apical] Pulse Strength Pulse Strength [Apical] Respiratory Rate 22 20 Respiratory Effort / Characteristics Respiratory Depth Respiratory Pattern Blood Pressure 157/99 H 155/104 H Blood Pressure [Left Arm] Blood Pressure Mean 118 121 Blood Pressure Mean [Left Arm] Blood Pressure Position Blood Pressure Position [Left Arm] Pulse Oximetry 94 95 Oxygen Delivery Method Room Air Room Air Sepsis Recent Fever Within 48 Hours Sepsis New/Unexplained Change in Mental Status Sepsis Action Taken by Assisted Medications Current Medication List: was personally reviewed by me Laboratory Data Attestation: I reviewed the patient's lab results. 08/11/23 18:30 08/11/23 18:30 Lab Results 08/11/23 08/11/23 Range/Units 18:28 18:30 WBC 9.38 (4.8-10.8) K/ul RBC 4.74 (4.70-6.10) M/uL Hgb 15.0 (14.0-18.0) g/dl Hct 44.2 (42.0-52.0) % MCV 93.2 (80.0-100.0) fL MCH 31.6 (25.0-34.0) pg MCHC 33.9 (32.0-36.0) g/dL RDW Std Deviation 44.2 (36.4-46.3) fL RDW Coeff of James 12.8 (11.5-14.5) % Plt Count 191 (130-400) K/uL MPV 9.7 (9.4-12.4) fL Immature Gran % (Auto) 0.4 % Neut % (Auto) 86.5 % Lymph % (Auto) 7.7 % Price % (Auto) 4.9 % Eos % (Auto) 0.2 % Baso % (Auto) 0.3 % Neut # (Auto) 8.11 H (1.40-6.50) K/uL Lymph # (Auto) 0.72 L (1.20-3.40) K/uL Price # (Auto) 0.46 (0.11-0.59) K/uL Eos # (Auto) 0.02 (0.00-0.50) K/uL Baso # (Auto) 0.03 (0.00-0.20) K/uL Immature Gran # (Auto) 0.04 (0.01-0.20) K/uL PT 11.5 (9.0-12.0) Seconds INR 1.1 (0.9-1.1) APTT 23.1 (21.0-31.0) Seconds PTT Ratio 0.8 Sodium 134 L (136-145) mmol/L Potassium 4.3 (3.5-5.1) mmol/L Chloride 106 (98-107) mmol/L Carbon Dioxide 22 (21-32) mmol/L Anion Gap 6 (3-11) BUN 18 (6-23) mg/dl Creatinine 1.52 H (0.6-1.4) mg/dl Est Cr Clr Drug Dosing 54.1 ml/min Est GFR ( Amer) 55.7 ml/min Est GFR (Non-Af Amer) 48.1 ml/min BUN/Creatinine Ratio 11.8 (10-20) Glucose 185 H (70-99(Fasting)) mg/dl POC Glucose 174 H (70-99) mg/dl Calcium 9.2 (8.6-10.3) mg/dl Magnesium 1.7 (1.7-2.4) mg/dl Total Bilirubin 0.7 (0.2-1.0) mg/dl AST 13 (13-39) U/L ALT 16 (7-52) U/L Alkaline Phosphatase 44 (34-104) U/L Troponin I High Sens 3.6 (0-20) pg/ml Total Protein 6.2 (6.0-8.3) gm/dl Albumin 3.8 (3.4-5.0) gm/dl Globulin 2.4 L (2.5-4.0) gm/dl Albumin/Globulin Ratio 1.6 (0.9-2) Ethyl Alcohol mg/dL < 10.0 (<10.0) mg/dl Administered Medications Sodium Chloride (Nss) 1,000 mls @ 125 mls/hr IV .Q8H STA Stop: 08/12/23 03:49 Last Admin: 08/11/23 20:01 Dose: 125 mls/hr Documented By: WOLF Insulin Aspart (Insulin Aspart Per Unit Charge) 0 units SC ACHS ALETA Stop: 09/10/23 22:23 Last Admin: 08/12/23 00:03 Dose: Not Given Documented By: HANNAH Discontinued Medications Aspirin (Aspirin Chew 324 Mg) 324 mg PO NOW STA Stop: 08/11/23 19:50 Last Admin: 08/11/23 20:45 Dose: Not Given Documented By: WOLF Aspirin (Aspirin 300 Mg Supp) 300 mg MD ONE ONE Stop: 08/11/23 19:55 Last Admin: 08/11/23 20:34 Dose: 300 mg Documented By: WOLF Atorvastatin Calcium (Atorvastatin 40 Mg Tab) 40 mg PO NOW STA Stop: 08/11/23 19:50 Last Admin: 08/11/23 20:40 Dose: 40 mg Documented By: WOLF Dexamethasone Sodium Phosphate (DexamethasonePf 10 Mg/Ml Vial) 10 mg IV NOW ONE Stop: 08/11/23 21:05 Last Admin: 08/12/23 00:41 Dose: 10 mg Documented By: HANNAH Gadobutrol (Gadobutrol 65ml Vial) 10 ml IV ONCE ONE Stop: 08/11/23 22:00 Last Admin: 08/11/23 21:59 Dose: 10 ml Documented By: RACHNA Sodium Chloride (Nss) 250 mls @ 999 mls/hr IV .Q16M ONE Stop: 08/11/23 20:04 Last Infusion: 08/12/23 00:11 Dose: Infused Documented By: Admin: 08/11/23 20:01 Dose: 999 mls/hr Documented By: WOLF Ioversol (Optiray 320 500ml) 119 ml IV ONCE ONE Stop: 08/11/23 18:20 Last Admin: 08/11/23 18:21 Dose: 119 ml Documented By: BRYON Labetalol HCl (Labetalol Hcl Iv 5 Mg/Ml 20ml) 20 mg IV NOW STA Stop: 08/11/23 19:10 Last Admin: 08/11/23 19:13 Dose: 20 mg Documented By: SHIN Co-signed By: WOLF Ondansetron HCl (Ondansetron Inj 2 Mg/Ml 2 Ml Vial) 4 mg IV NOW STA Stop: 08/11/23 19:15 Last Admin: 08/11/23 19:19 Dose: 4 mg Documented By: SHIN Imaging Data Radiologist's Impression: Head CT 08/11/23 18:[address] OF THE BRAIN; CT ANGIOGRAM OF THE BRAIN; CT ANGIOGRAM OF THE NECK CLINICAL HISTORY: Neurological deficit. Right-sided weakness. Strokelike symptoms. COMPARISON STUDY: No priors. TECHNIQUE: Unenhanced axial CT scan of the brain is performed. Subsequently, following the IV administration of 119 of Optiray 320, CT angiogram of the head and neck was performed from the aortic arch to the vertex. Images are reviewed in the axial, sagittal, and coronal planes. 3-D MIPS images are created and assessed. IV contrast was administered without complication. All measurements were calculated based on NASCET criteria. A dose lowering technique was utilized adhering to the principles of ALARA. CT DOSE: 1277.44 mGy.cm FINDINGS: Brain parenchyma: There is age-related visual change noting minimal microangiopathic disease. There is no hemorrhage, mass effect, or evidence of acute territorial ischemia by CT criteria. There is no evidence of enhancing mass lesion on the angiogram phase images. The ventricles, sulci, and cisterns are normal in configuration. Correia-white matter differentiation is preserved. No extra-axial fluid collection is seen. Thoracic aorta: Visualized portions of the thoracic aorta are normal in caliber. The aortic arch demonstrates standard 3-vessel anatomy. Right carotid arterial system: The right common carotid artery is widely patent, as are the right internal and external carotid arteries. Mild plaque is seen in the carotid bulb. Left carotid arterial system: The left common carotid artery is widely patent, as are the left internal and external carotid arteries. Vertebral arteries: The vertebral arteries are widely patent bilaterally noting left-sided dominance. Subclavian arteries: Widely patent bilaterally. Intracranial vasculature: The internal carotid arteries are patent at the skull base, as are the anterior and middle cerebral arteries bilaterally. The vertebrobasilar system and posterior cerebral arteries are widely patent. The left vertebral artery is dominant. The right vertebral artery terminates as the PICA. There is no aneurysm, high-grade stenosis, or focal vessel cut off seen throughout the intracranial circulation. Jugular veins: Patent bilaterally. Dural sinuses: Patent. Lung apices: Partially visualized upper lobe lung parenchyma appears clear. Soft tissues: There is a 1.9 x 1.5 x 1.3 cm lobular and homogeneous enhancing extra-axial mass lesion within the left aspect of the cervical canal at C1-C2 seen on axial image #291 of the neck angiogram series. This causes mild mass effect on the left aspect of the thecal sac. This approximates but does not encase the left vertebral artery. There are bilateral posterior communicating arteries. The visualized pharyngeal soft tissues are normal in appearance noting angiographic phase technique. The oropharyngeal airway appears widely patent. The salivary and thyroid glands are normal in appearance. No cervical lymphadenopathy is seen. Skeletal structures: The skeletal structures are osteopenic. The calvarium appears intact. The cervical spine is maintained noting multilevel spondylosis. Orbits: The bony orbits are intact. Orbital contents are normal as visualized. Sinuses and mastoids: There is mild mucosal thickening within the ethmoid sinuses. Trace because of thickening is noted in the left maxillary antrum. The remaining paranasal sinuses are clear. The mastoid air cells are well pneumatized. IMPRESSION: 1. There is no hemorrhage, mass effect, or evidence of acute territorial ischemia by CT criteria. 2. Unremarkable CT angiogram of the brain. 3. Unremarkable CT angiogram of the neck. 4. There is a 2 cm homogeneously enhancing extra-axial mass lesion identified in the left aspect of the upper cervical spinal canal at C1-C2. This causes mild mass effect upon the left aspect of the thecal sac and likely represents a meningioma. A contrast-enhanced MRI of the cervical spine is recommended for further assessment. Neurosurgical follow-up is advised. ACT 112: Negative or not required by law. Electronically signed by: Jerad Davalos M.D. 08/11/2023 6:39 PM Head CTA 08/11/23 18:[address] OF THE BRAIN; CT ANGIOGRAM OF THE BRAIN; CT ANGIOGRAM OF THE NECK CLINICAL HISTORY: Neurological deficit. Right-sided weakness. Strokelike symptoms. COMPARISON STUDY: No priors. TECHNIQUE: Unenhanced axial CT scan of the brain is performed. Subsequently, following the IV administration of 119 of Optiray 320, CT angiogram of the head and neck was performed from the aortic arch to the vertex. Images are reviewed in the axial, sagittal, and coronal planes. 3-D MIPS images are created and assessed. IV contrast was administered without complication. All measurements were calculated based on NASCET criteria. A dose lowering technique was utilized adhering to the principles of ALARA. CT DOSE: 1277.44 mGy.cm FINDINGS: Brain parenchyma: There is age-related visual change noting minimal microangiopathic disease. There is no hemorrhage, mass effect, or evidence of acute territorial ischemia by CT criteria. There is no evidence of enhancing mass lesion on the angiogram phase images. The ventricles, sulci, and cisterns are normal in configuration. Ocrreia-white matter differentiation is preserved. No extra-axial fluid collection is seen. Thoracic aorta: Visualized portions of the thoracic aorta are normal in caliber. The aortic arch demonstrates standard 3-vessel anatomy. Right carotid arterial system: The right common carotid artery is widely patent, as are the right internal and external carotid arteries. Mild plaque is seen in the carotid bulb. Left carotid arterial system: The left common carotid artery is widely patent, as are the left internal and external carotid arteries. Vertebral arteries: The vertebral arteries are widely patent bilaterally noting left-sided dominance. Subclavian arteries: Widely patent bilaterally. Intracranial vasculature: The internal carotid arteries are patent at the skull base, as are the anterior and middle cerebral arteries bilaterally. The vertebrobasilar system and posterior cerebral arteries are widely patent. The left vertebral artery is dominant. The right vertebral artery terminates as the PICA. There is no aneurysm, high-grade stenosis, or focal vessel cut off seen throughout the intracranial circulation. Jugular veins: Patent bilaterally. Dural sinuses: Patent. Lung apices: Partially visualized upper lobe lung parenchyma appears clear. Soft tissues: There is a 1.9 x 1.5 x 1.3 cm lobular and homogeneous enhancing extra-axial mass lesion within the left aspect of the cervical canal at C1-C2 seen on axial image #291 of the neck angiogram series. This causes mild mass effect on the left aspect of the thecal sac. This approximates but does not encase the left vertebral artery. There are bilateral posterior communicating arteries. The visualized pharyngeal soft tissues are normal in appearance noting angiographic phase technique. The oropharyngeal airway appears widely patent. The salivary and thyroid glands are normal in appearance. No cervical lymphadenopathy is seen. Skeletal structures: The skeletal structures are osteopenic. The calvarium appears intact. The cervical spine is maintained noting multilevel spondylosis. Orbits: The bony orbits are intact. Orbital contents are normal as visualized. Sinuses and mastoids: There is mild mucosal thickening within the ethmoid sinuses. Trace because of thickening is noted in the left maxillary antrum. The remaining paranasal sinuses are clear. The mastoid air cells are well pneumatized. IMPRESSION: 1. There is no hemorrhage, mass effect, or evidence of acute territorial ischemia by CT criteria. 2. Unremarkable CT angiogram of the brain. 3. Unremarkable CT angiogram of the neck. 4. There is a 2 cm homogeneously enhancing extra-axial mass lesion identified in the left aspect of the upper cervical spinal canal at C1-C2. This causes mild mass effect upon the left aspect of the thecal sac and likely represents a meningioma. A contrast-enhanced MRI of the cervical spine is recommended for further assessment. Neurosurgical follow-up is advised. ACT 112: Negative or not required by law. Electronically signed by: Jerad Davalos M.D. 08/11/2023 6:39 PM Neck CTA 08/11/23 18:[address] OF THE BRAIN; CT ANGIOGRAM OF THE BRAIN; CT ANGIOGRAM OF THE NECK CLINICAL HISTORY: Neurological deficit. Right-sided weakness. Strokelike symptoms. COMPARISON STUDY: No priors. TECHNIQUE: Unenhanced axial CT scan of the brain is performed. Subsequently, following the IV administration of 119 of Optiray 320, CT angiogram of the head and neck was performed from the aortic arch to the vertex. Images are reviewed in the axial, sagittal, and coronal planes. 3-D MIPS images are created and assessed. IV contrast was administered without complication. All measurements were calculated based on NASCET criteria. A dose lowering technique was utilized adhering to the principles of ALARA. CT DOSE: 1277.44 mGy.cm FINDINGS: Brain parenchyma: There is age-related visual change noting minimal microangiopathic disease. There is no hemorrhage, mass effect, or evidence of acute territorial ischemia by CT criteria. There is no evidence of enhancing mass lesion on the angiogram phase images. The ventricles, sulci, and cisterns are normal in configuration. Correia-white matter differentiation is preserved. No extra-axial fluid collection is seen. Thoracic aorta: Visualized portions of the thoracic aorta are normal in caliber. The aortic arch demonstrates standard 3-vessel anatomy. Right carotid arterial system: The right common carotid artery is widely patent, as are the right internal and external carotid arteries. Mild plaque is seen in the carotid bulb. Left carotid arterial system: The left common carotid artery is widely patent, as are the left internal and external carotid arteries. Vertebral arteries: The vertebral arteries are widely patent bilaterally noting left-sided dominance. Subclavian arteries: Widely patent bilaterally. Intracranial vasculature: The internal carotid arteries are patent at the skull base, as are the anterior and middle cerebral arteries bilaterally. The vertebrobasilar system and posterior cerebral arteries are widely patent. The left vertebral artery is dominant. The right vertebral artery terminates as the PICA. There is no aneurysm, high-grade stenosis, or focal vessel cut off seen throughout the intracranial circulation. Jugular veins: Patent bilaterally. Dural sinuses: Patent. Lung apices: Partially visualized upper lobe lung parenchyma appears clear. Soft tissues: There is a 1.9 x 1.5 x 1.3 cm lobular and homogeneous enhancing extra-axial mass lesion within the left aspect of the cervical canal at C1-C2 seen on axial image #291 of the neck angiogram series. This causes mild mass effect on the left aspect of the thecal sac. This approximates but does not encase the left vertebral artery. There are bilateral posterior communicating arteries. The visualized pharyngeal soft tissues are normal in appearance noting angiographic phase technique. The oropharyngeal airway appears widely patent. The salivary and thyroid glands are normal in appearance. No cervical lymphadenopathy is seen. Skeletal structures: The skeletal structures are osteopenic. The calvarium appears intact. The cervical spine is maintained noting multilevel spondylosis. Orbits: The bony orbits are intact. Orbital contents are normal as visualized. Sinuses and mastoids: There is mild mucosal thickening within the ethmoid sinuses. Trace because of thickening is noted in the left maxillary antrum. The remaining paranasal sinuses are clear. The mastoid air cells are well pneumatized. IMPRESSION: 1. There is no hemorrhage, mass effect, or evidence of acute territorial ischemia by CT criteria. 2. Unremarkable CT angiogram of the brain. 3. Unremarkable CT angiogram of the neck. 4. There is a 2 cm homogeneously enhancing extra-axial mass lesion identified in the left aspect of the upper cervical spinal canal at C1-C2. This causes mild mass effect upon the left aspect of the thecal sac and likely represents a meningioma. A contrast-enhanced MRI of the cervical spine is recommended for further assessment. Neurosurgical follow-up is advised. ACT 112: Negative or not required by law. Electronically signed by: Jerad Davalos M.D. 08/11/2023 6:39 PM Discharge Plan Visit Data Chief Complaint: Stroke Alert Stated Complaint: STROKE ALERT ED Provider: Germaine Arriaga Discharge Problem: Stroke-like symptoms, Vertigo, Vomiting Patient Disposition: Admitted As Inpatient Discharge Instructions Interventions: ED Discharge Assessment Last Done: 08/11/23 21:40 Discharge Problem: Vomiting Qualifiers: Vomiting type: unspecified Nausea presence: with nausea Qualified Code(s): R 11.2 - Nausea with vomiting, unspecified
[2023-08-12] MEDS: INSULIN ASPART PER UNIT CHARGE SC SCH ×5 (00:03→20:18)
--- NOTE | 2023-08-12 02:10 | Magnetic Resonance Report ---
Exam(s): MRI C SPINE EXAM: MR Cervical Spine with and Without Intravenous Contrast CLINICAL HISTORY: Reason for exam: stroke, cervical mass. TECHNIQUE: Magnetic resonance images of the cervical spine with and without intravenous contrast in multiple planes. COMPARISON: Comparison made to prior CT angiogram of the neck from August 11, 2023. FINDINGS: Vertebrae: There are 7 cervical type vertebral bodies with a mild generalized curve to the right and straightened normal cervical lordosis. There is normal vertebral body height and alignment. The bone marrow signal is heterogeneous with reactive endplate changes. No acute fracture. Spinal cord: Unremarkable. Normal signal. Normal enhancement. Soft tissues: There is a dural based extra medullary and intradural soft tissue mass in the left spinal canal at the level of C1 measuring 16. 4 x 12.8 x 12.3 mm with mild enhancement. The cervical flow voids are intact. IMPRESSION: Findings consistent with a meningioma within the left spinal canal at the level of C1 measuring 16.4 x 12.8 x 12.3 mm without mass-effect on the cord. Communications: Verify Receipt Electronically signed by: Darshana Mora MD 08/12/23 00:13 AM
[2023-08-12 02:49] LABS: Calcium 9.2 mg/dl (8.6-10.3); Chol HDL Ratio 3.4 (0-5); Est GFR (African American) 62.6 ml/min; Magnesium 1.9 mg/dl (1.7-2.4); Phosphorus 3.8 mg/dl (2.5-4.9); Potassium 4.6 mmol/L (3.5-5.1)
[2023-08-12 02:51] LABS: Hemoglobin 15.3 g/dl (14.0-18.0); Mean Corpuscular Hemoglobin 32.3 pg (25.0-34.0); Mean Corpuscular Hgb Conc 34.8 g/dL (32.0-36.0); Mean Platelet Volume 9.9 fL (9.4-12.4); Platelet Count 192 K/uL (130-400); RDW Standard Deviation 44.3 fL (36.4-46.3); Red Blood Count 4.73 M/uL (4.70-6.10); White Blood Count 6.52 K/ul (4.8-10.8)
[2023-08-12 07:26] LABS: Estimated Average Glucose 148 mg/dl; Hemoglobin A1C 6.8 % (4.5-5.6)
--- NOTE | 2023-08-12 07:51 | XRay Report ---
SINGLE VIEW CHEST CLINICAL HISTORY: Neurological deficit. Stroke like symptoms. FINDINGS: 2 AP, portable, upright chest radiographs are compared to study dated 11/05/2021. The heart is mildly enlarged. The pulmonary vasculature is noncongested. Chronic interstitial thickening is sim ilar to previous. Atelectasis is seen at the lung bases. The lungs and pleural spaces are otherwise c lear. No pneumothorax is seen. The skeletal structures appear osteopenic. The bony thorax is grossly intact. IMPRESSION: No acute cardiopulmonary abnormality. ACT 112: Negative or not required by law. Electronically signed by: Jerad Davalos M.D. 08/12/2023 7:50 AM
[2023-08-12] MEDS ORDERED: CLOPIDOGREL BISULFATE 75 MG TAB PO SCH (09:00)
[2023-08-12] MEDS: ATORVASTATIN 40 MG TAB PO SCH (09:05)
[2023-08-12] MEDS: ASPIRIN 81 MG ECTAB PO SCH (09:05)
[2023-08-12] MEDS: CHOLECALCIFEROL 5,000 UNITS 125 MCG TAB PO SCH (09:05)
[2023-08-12] MEDS: HEPARIN SOD 5,000 UNIT/0.5 ML VIAL SQ SCH ×2 (09:23→20:19)
--- NOTE | 2023-08-12 10:18 | Magnetic Resonance Report ---
Exam(s): MRI HEAD W/WO Contrast IV Amt: 10 cc yunior ADDENDUM - Added by Darshana Mora MD on 08/12/2023 12:05 AM (-08:00) EXAM: MR Head Without and With Intravenous Contrast CLINICAL HISTORY: Reason for exam: Stroke, cervical mass. TECHNIQUE: Magnetic resonance images of the head/brain without and with intravenous contrast in multiple planes. CONTRAST: Patient received 10 cc yunior of IV contrast COMPARISON: Comparison made to prior head CT from August 11, 2023. FINDINGS: Brain: There is a moderate right and tiny left cerebellar acute ischemic injury with extensive cytotoxic edema, without evidence of hemorrhagic transformation. Mild nonspecific white matter changes. No mass. No hemorrhage. No evidence of abnormal enhancement. The dural venous sinuses are patent. Ventricles: Moderate ventricular megaly. Bones/joints: Hyperostosis frontalis interna. Sinuses: Chronic ethmoid sinusitis. No acute sinusitis. Mastoid air cells: Unremarkable as visualized. No mastoid effusion. Orbits: Unremarkable as visualized. IMPRESSION: Acute bilateral cerebellar ischemic injuries without evidence of hemorrhagic transformation. Communications: 08/12/23 01:30 Verify Receipt Per Nurse Tao, the patient's Nurse Amber received report. Report going to Dr. Farooq on 08/12 01:29 (-05:00) Electronically signed by: Darshana Mora MD 08/12/23 00:05 AM
--- NOTE | 2023-08-12 13:38 | Electrocardiogram Report ---
Test Reason : Blood Pressure : / mmHG Vent. Rate : 067 BPM Atrial Rate : 067 BPM P-R Int : 196 ms QRS Dur : 100 ms QT Int : 414 ms P-R-T Axes : 033 -03 020 degrees QTc Int : 437 ms Normal sinus rhythm Minimal voltage criteria for LVH, may be normal variant ( R in aVL ) Borderline ECG When compared with ECG of 31-JAN-2022 15:44, No significant change was found Confirmed by Westley Marcelino ([id number]) on 08/12/2023 1:38:28 PM Referred By: REFERRED SELF Confirmed By:Westley Marcelino
[2023-08-12] MEDS ORDERED: OPTIRAY 320 500ml IV ONE (16:23)
--- NOTE | 2023-08-12 17:02 | CT Scan Report ---
NECK CTA HISTORY: C spine meningioma TECHNIQUE: Multiaxial CT images of the neck were performed following the intravenous administration o f contrast to evaluate the major cervical vessels. 3D/MIP images were also obtained. Sagittal and cor onal reformats were reviewed. All measurements were calculated based on NASCET criteria. A dose low ering technique was utilized adhering to the principles of ALARA. COMPARISON STUDY: CT neck 08/11/2023. Cervical spine MRI 08/11/2023. FINDINGS: The aortic arch and proximal great vessels are widely patent. There is no significant sten osis, occlusion, or dissection identified within the bilateral common carotid, internal carotid, or v ertebral arteries. Mild calcified plaque again noted within the right carotid bifurcation. There is a gain noted a 2.0 x 1.5 x 1.3 cm enhancing extra-axial lesion within the left side of the central jose l at the C1-C2 level. This appears to abut but does not significantly deform the adjacent cervical sp inal cord. This also abuts but does not displace or narrow the traversing distal left vertebral arter y. There is a dominant left vertebral artery artery again noted. Bilateral cerebellar infarcts are ag ain noted most pronounced on the right. This is better appreciated on the recent brain MRI. IMPRESSION: 1. No significant stenosis, occlusion, or dissection identified within the carotid or vertebral arter ies. 2. Redemonstration of the 2 cm extra-axial mass within the left aspect of the upper cervical spinal c anal at the C1-C2 level. This favors a meningioma. This appears to abut but does not displace or narr ow the traversing distal left vertebral artery. 3. Bilateral cerebellar infarcts are better appreciated on the recent brain MRI. ACT 112: Negative or not required by law. Electronically signed by: David Rothman M.D. 08/12/2023 5:01 PM
--- NOTE | 2023-08-12 19:01 | Hospitalist Progress Note ---
Date of Service August 12, 2023 Assessment & Plan (1) Arterial ischemic stroke, vertebrobasilar, cerebellar, acute: Plan: 63 M with PMH DM2, hypertension, who presented with slurred speech, weakness, other nonspecific neurological symptoms. Now admitted for evaluation, further management of acute bilateral cerebellar ischemic injury. Acute bilateral cerebellar ischemia/strokelike symptoms -Dysarthria, vision loss, headache, weakness prior to arrival.Symptoms are significantly improved patient does not have any dysarthria or visual loss -S/p ASA, IV labetalol 20 mg, atorvastatin in the ED. -ESR normal. CT head negative for ischemia or hemorrhage. Conferred with neurosurgery ([facility] telestroke)recommended ASA monotherapy, MRI head. -MRI head (stat rad): Moderate right and tiny left cerebellar acute ischemic injury with extensive cytotoxic edema, without evidence of hemorrhagic transformation. * Aspirin 81 mg daily. Hold Plavix until further review of MRI report by [facility] neurosurgery. * Atorvastatin increased to 80 mg daily. * Neurochecks every 2 hours * LDL of 128 * HgbA1c 6.8, As per my discussion with the patient is now compliant with His meds * Continue Heart healthy history, carbohydrate consistent diet * Head CTA /Neck CTA unremarkable Meningioma of cervical spine -"2 cm homogenously enhancing extra-axial mass lesion... in the left aspect of upper cervical spinal canal at C1-C2" discovered incidentally on noncontrast head CT. Mild mass effect noted on report. -Received loading dose of IV dexamethasone 10 mg due to concern for cord com pression. -Subsequent MRI of cervical spine: "dural based extra medullary and intradural soft tissue mass in the left spinal canal at the level of C1 measuring 16.4 x 12.8 x 12.3 mm with mild enhancement." No mass effect on the cord. -MRI findings relayed to [facility] telestroke neurosurgeon recommended management as above (ASA only, hold Plavix, repeat CTA cervical spine to ensure size stability). -Possible inflammatory etiology considered due to patient complaint of headache. ESR within normal limits. * Repeat imaging of hemangioma (CTA cervical spine) ordered for 3 PM. * Plan otherwise as above. T2DM -Chronic. Managed on dapagliflozin, atorvastatin. Last hemoglobin A1c of 6.8 (June 2023). * Dapagliflozin held on admission. SSI insulin per protocol for glycemic management (CF-30, CR-10, range 100-140). * Home atorvastatin increased to 80 mg daily. Hypertension -Chronic. Managed on valsartan 40 mg daily. * Holding home valsartan pending further evaluation of acute ischemic cerebellar process. Code: Full code Dispo: Are a more transfer to [facility] telemetry, pending PT OT evaluatION FEN/GI: (heart healthy/carb consistent if dysarthria screen negative) DVT Prophylaxis: Heparin 5000 u q12h PT/OT: No Consults: None Case Management: No (2) Stroke-like symptoms: (3) Meningioma, spinal: (4) Type 2 diabetes mellitus: (5) Hypertension: Admission and Anticipated Discharge Date Admission Date: August 11, 2023 Physical Exam Physical Exam: General: Well-appearing, alert, interactive, and in no acute distress. HEENT: Normocephalic, atraumatic. EOM intact without nystagmus. Good conjugate gaze. Nares patent. CV: Regular rate and rhythm. Normal S1 and S2. No murmurs gallops or rubs. Respiratory: Normal respiratory effort. Lungs clear to auscultation bilaterally. No crackles, rhonchi, or wheezes. Abdomen: Soft, nondistended abdomen. No tenderness to deep palpation. Extremities: Capillary refill <2 sec. 2+ dp equal bilaterally. No pedal edema. Neuro: Alert and oriented x3. Cranial nerves II-XII grossly intact bilaterally. Slurred speech. 5/5 strength with flexion/extension at elbow, knee, and ankle bilaterally. Skin: Clean, dry, and intact. No rashes, bruises, or erythema. Results & Data Results & Data Vital Signs (Past 12 Hours) Vital Signs Temp Pulse Pulse Resp BP Pulse Ox O2 Del Method 08/12/23 16:00 73 08/12/23 15:48 36.9 C 73 18 113/71 93 Room Air 08/12/23 11:53 36.6 C 74 18 115/68 96 Room Air 08/12/23 11:49 73 08/12/23 08:06 36.7 C 68 18 116/74 92 Room Air PG Care Time/CCT Total # of Minutes Spent Total Time Spent with Patient: Total time spent is greater than 50% in coordination of care (as documented) at patient's floor/unit and/or counseling patient: Coding Level of Care Code 44616 SUB INP/OBS CARE MIN Diagnoses Arterial ischemic stroke, vertebrobasilar, cerebellar, acute I63.29 Stroke-like symptoms R29.90 Meningioma, spinal D32.1 Type 2 diabetes mellitus E11.9 Hypertension I10
--- NOTE | 2023-08-12 19:30 | Billing Data ---
Date of Service August 12, 2023 Coding Level of Care Code 91231 INT INP/OBS CARE
[2023-08-12] MEDS ORDERED: ATORVASTATIN 40 MG TAB PO SCH (21:00)
[2023-08-13 06:41] LABS: Hematocrit (blood only) 45.3 % (42.0-52.0); Hemoglobin 15.4 g/dl (14.0-18.0); Platelet Count 197 K/uL (130-400); RDW Coefficient of Variation 13.1 % (11.5-14.5); RDW Standard Deviation 45.1 fL (36.4-46.3); Red Blood Count 4.82 M/uL (4.70-6.10); White Blood Count 10.68 K/ul (4.8-10.8)
[2023-08-13 07:06] LABS: Calcium 9.1 mg/dl (8.6-10.3); Magnesium 2.2 mg/dl (1.7-2.4); Potassium 4.1 mmol/L (3.5-5.1)
[2023-08-13 07:12] LABS: Creatinine Clr Calc Pharmacy 46.8 ml/min; Est GFR (African American) 49.4 ml/min; Est GFR (Non-African American) 42.6 ml/min; Phosphorus 4.1 mg/dl (2.5-4.9)
[2023-08-13] MEDS: ASPIRIN 81 MG ECTAB PO SCH (09:22)
[2023-08-13] MEDS: INSULIN ASPART PER UNIT CHARGE SC SCH ×2 (09:23→12:46)
[2023-08-13] MEDS: ATORVASTATIN 40 MG TAB PO SCH (09:23)
[2023-08-13] MEDS: HEPARIN SOD 5,000 UNIT/0.5 ML VIAL SQ SCH (09:23)
[2023-08-13] MEDS: CHOLECALCIFEROL 5,000 UNITS 125 MCG TAB PO SCH (11:15)
--- NOTE | 2023-08-16 21:08 | Discharge Summary ---
Date of Service August 13, 2023 Admission HPI Per Admitting Provider Bunny is a 63-year-old man with a history of hypertension, GI bleed, and type 2 diabetes, who presented to the emergency room via stroke alert. HPI per patient and son, (present at symptomatic onset) provided over the phone. 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 When son approached him, patient reported that his vision was "messed up" and was having a headache. His dad reported that he had turned his head behind him to visualize the head of a tree he was attempting to grab, when he heard a loud pop in the back of his neck and his vision was gone. Son then encouraged dad to eat some yogurt, at which point he began vomiting. The patient himself recalls a sudden lack of hearing ("everything went silent"), as well as acute vision loss and right-sided UE + LE weakness ("felt drunk" tilted to the right side). In the ED, BP was elevated in the 170s/110s. Rest of vital signs were normal. Labs were unremarkable. Head CT was negative for hemorrhage, ischemia, or mass effect but did note a "2 cm homogenously enhancing extra-axial mass lesion identified in the left aspect of the upper cervical spinal canal at C1-C2." Neurosurgical follow-up was advised on report. Greater concern for hypertensive urgency however by neurosurgery, who recommended BP control to ED physician. Patient received aspirin rectally, Lipitor, IV labetalol, and 2 normal saline boluses. MRI brain was then ordered for stroke rule out, further investigation of meningioma. Principal Diagnosis Cerebellar stroke most likely ischemic type Discharge Exam General: Well-appearing, alert, interactive, and in no acute distress. HEENT: Normocephalic, atraumatic. EOM intact without nystagmus. Good conjugate gaze. Nares patent. CV: Regular rate and rhythm. Normal S1 and S2. No murmurs gallops or rubs. Respiratory: Normal respiratory effort. Lungs clear to auscultation bilaterally. No crackles, rhonchi, or wheezes. Abdomen: Soft, nondistended abdomen. No tenderness to deep palpation. Extremities: Capillary refill <2 sec. 2+ dp equal bilaterally. No pedal edema. Neuro: Alert and oriented x3. Cranial nerves II-XII grossly intact bilaterally. Slurred speech. 5/5 strength with flexion/extension at elbow, knee, and ankle bilaterally. Skin: Clean, dry, and intact. No rashes, bruises, or erythema. Discharge Data Allergies Allergy/AdvReac Type Severity Reaction Status Date / Time No Known Drug Allergies Allergy Unknown Verified 08/11/23 18:42 Consultations 08/11/23 20:02 ED Decision to Admit Stat Ordered Studies 08/11/23 18:08 CT angio head w con Stat CT angio neck with con Stat CT head/brain wo con Stat 08/11/23 19:50 MR brain wo/w con Stat MR cervical spine wo/w con Stat 08/12/23 15:00 CTA neck wo/w con [CT angio neck wo/w con] Routine Hospital Course (1) Arterial ischemic stroke, vertebrobasilar, cerebellar, acute: 63 M with PMH DM2, hypertension, who presented with slurred speech, weakness, other nonspecific neurological symptoms. Now admitted for evaluation, further management of acute bilateral cerebellar ischemic injury. Acute bilateral cerebellar ischemia/strokelike symptoms -Dysarthria, vision loss, headache, weakness prior to arrival. Neuro exam on admission notable for dysarthria. -S/p ASA, IV labetalol 20 mg, atorvastatin in the ED. -ESR normal. CT head negative for ischemia or hemorrhage. Conferred with neurosurgery ([facility] telestroke)recommended ASA monotherapy, MRI head with evidence of extra -MRI head (stat rad): Moderate right and tiny left cerebellar acute ischemic injury with extensive cytotoxic edema, without evidence of hemorrhagic transformation. * Aspirin 81 mg daily. Hold Plavix until further review of MRI report by [facility] neurosurgery. * Atorvastatin increased to 80 mg daily. * A1c of 6.8, * LDL 120, increased dose of atorvastatin 80 mg daily, patient is recommended to lose weight, there was accidental finding of meningioma cervical spine, * Initiate diet pending negative dysphagia screen Meningioma of cervical spine -"2 cm homogenously enhancing extra-axial mass lesion... in the left aspect of upper cervical spinal canal at C1-C2" discovered incidentally on noncontrast head CT. Mild mass effect noted on report. -Received loading dose of IV dexamethasone 10 mg due to concern for cord compression. -Subsequent MRI of cervical spine: "dural based extra medullary and intradural soft tissue mass in the left spinal canal at the level of C1 measuring 16.4 x 12.8 x 12.3 mm with mild enhancement." No mass effect on the cord. -MRI findings relayed to [facility] [place] telestroke neurosurgeon recommended management as above (ASA only, hold Plavix, repeat CTA cervical spine to ensure size stability). -Possible inflammatory etiology considered due to patient complaint of headache. ESR within normal limits. * Repeat imaging of hemangioma (CTA cervical spine) ordered for 3 PM. Unremarkable * Plan outpatient follow-up with neurology T2DM -Chronic. Managed on dapagliflozin, atorvastatin. Last hemoglobin A1c of 6.8 (June 2023). * Dapagliflozin held on admission. SSI insulin per protocol for glycemic management (CF-30, CR-10, range 100-140). * Home atorvastatin increased to 80 mg daily. Hypertension -Chronic. Managed on valsartan 40 mg daily. * Holding home valsartan pending further evaluation of acute ischemic cerebellar process. Permissive hypertension resume upon discharge (2) Stroke-like symptoms: (3) Meningioma, spinal: (4) Type 2 diabetes mellitus: (5) Hypertension: Total Time Total Time Spent Total Time Spent (In Minutes): 45-minuteS Discharge Plan Discharge Items Patient Disposition: Home - Self-Care Reason For Visit: STROKE ALERT Discharge Diagnosis: Ischemic Stroke , Meningioma Condition on Discharge: Good Activity: Resume your previous activity Lifting: Gradually increase as tolerated Bathing: No limitations Sexual Activity: When tolerated Exercise/Sports: Gradually increase as tolerated Driving/Machine Use: No limitations Weightbearing: Full weightbearing Non-emergency contact: Primary Care Provider Call non-emergency contact if: you have any medication questions Follow-up/Referrals: Eliseo Baugh PA-C [Primary Care Provider] - 08/26/23 10:30 am Lui Matta MD [Outside Practitioners] - (Neuro Surgery office will call you with an appointment) Diet: Carb Consistent or DM2, Heart Healthy and Low Fat Addtl Attending Provider Instructions: the patient has a cervical meningioma needs to follow with Neurosurgery Ischemic Stroke , poor diabetic control Pending Studies at Discharge: No Stand-Alone Forms: [employer], Smoking Cessation Medications and DC Order Prescriptions: New (DME) lancet-gluc tihpr-aulpfd-cikqh Kit See Rx Instructions .Route Qty: 100 0RF Rx Instructions: As directed (DME) Dexcom G6 Back Maker Misc See Rx Instructions .Route Qty: 1 0RF Rx Instructions: As directed (DME) Dexcom G6 Sensor Device See Rx Instructions .Route Qty: 3 0RF Rx Instructions: As directed (DME) Dexcom G6 Transmitter Device See Rx Instructions .Route Qty: 1 0RF Rx Instructions: As directed aspirin 81 mg capsule 81 mg PO DAILY Qty: 90 5RF Farxiga 10 mg tablet 10 mg PO DAILY Qty: 100 0RF Continued tamsulosin 0.4 mg capsule 0.4 mg PO HS cholecalciferol (vitamin D3) 125 mcg (5,000 unit) capsule 5,000 unit PO DAILY valsartan 40 mg tablet 40 mg PO HS (DME) blood-glucose meter [Loop88uch Verio Flex Start] Kit See Rx Instructions .Route Qty: 1 0RF Rx Instructions: As directed (DME) lancing device with lancets [[employer]Touch Delica Lanc Device] Kit See Rx Instructions .Route Qty: 100 0RF Rx Instructions: As directed Changed atorvastatin 40 mg tablet 80 mg PO HS Qty: 120 0RF Discontinued Farxiga 5 mg tablet 5 mg PO QAM Discharge Orders: Discharge Order (Routine); Ordered 08/13/23 Ordered By: Carlos A Long/Other Patient Handouts: Long-Term Complications of Diabetes, Managing Type 2 Diabetes, Discharge Instructions for Stroke Admission Data Admit Date/Time: 08/11/23 20:44 Attending Provider: Carlos A Mckeon Admit Provider: Yaakov Machuca Primary Care Provider: Eliseo Baugh Other Providers: Pato Farooq Other Interventions: Discharge Summary Assessment (RN) Last Done: 08/13/23 14:04 Coding Level of Care Code 65603 INP/OBS DISCH >30 MIN Diagnoses Arterial ischemic stroke, vertebrobasilar, cerebellar, acute I63.29 Stroke-like symptoms R29.90 Meningioma, spinal D32.1 Type 2 diabetes mellitus E11.9 Hypertension I10
== END 2023-08-13 15:23 | disposition home or self-care (01) | DRG 66 ==
LOC: ED 18:13 → SUATTDRO 20:44 → 4W 20:44